=== PATIENT | male | born 1975 | race Caucasian/White ===

== ENCOUNTER 2023-05-06 10:56 | Inpatient (IN) | payer MEDICAID, SELFPAY ==
[2023-05-06] VITALS (75 sets, daily range): BP systolic 114–155; BP diastolic 75–100; PULSE 76–115; RESP 9–22; TEMP 36.6–37.2; O2SAT 85–97
--- NOTE | 2023-05-06 11:00 | RT.EKG_ITS ---
APPROVED REPORT Exam: Resting ECG Reason for Exam: sob Patient Location: E HR:98 bpm ECG Measurements Heart Rate 98 AXIS UT 196 P 72 QRSd 94 QRS 67 QT 363 T 69 QTc 464 Conclusion Sinus rhythm...normal P axis, V-rate 60- 99 Physician: no stemi
[2023-05-06] MEDS: predniSONE 20 MG TAB 40 MG PO (11:40)
[2023-05-06] MEDS: Acetaminophen 500 MG TAB 1000 MG PO (11:40)
[2023-05-06] MEDS: Ibuprofen 600 MG TAB PO (11:40)
[2023-05-06] MEDS: Albuterol/Ipratropium 3 ML UPD VIAL UPD (11:42)
[2023-05-06] MEDS: Lactated Ringers 1,000 ML 1000 ML IV (12:02)
[2023-05-06 12:18] LABS: Abs Immature Grans 0.01 10^3/uL (0.0-0.06); Absolute Basophil Count 0.06 10^3/uL (0.0-0.2); Absolute Eosinophil Count 0.17 10^3/uL (0.0-0.7); Absolute Lymphocyte Count 2.34 10^3/uL (1.2-3.4); Absolute Monocyte Count 0.37 10^3/uL (0.1-0.8); Basophils % 1.4; Eosinophils % 4.1; HCT 47.1 % (40.0-50.0); HGB 16.4 g/dL (13.5-17.5); Immature Grans % 0.2; Lymphocytes % 56.4; MCH 32.1 pg (27.0-33.0); MCHC 34.8 % (32.0-36.0); MCV 92 fL (80-95); MPV 8.9 fL (8.0-11.0); Monocytes % 8.9; Platelet Count 157 10^3/uL (130-400); RBC 5.11 10^6/uL (4.36-5.78); RDW-SD 41.5 fL; WBC 4.15 10^3/uL (4.4-10.8)
[2023-05-06] MEDS: LORazepam 2 MG/ML VIAL IVP (12:27)
[2023-05-06 12:35] LABS: ALT 58 U/L (16-63); AST 53 U/L (15-37); Albumin 3.7 g/dL (3.4-5.0); Alkaline Phosphatase 76 U/L (46-116); Anion Gap 9.6 mmol/L (3-11); BUN 9 mg/dL (7-18); Bilirubin, Total 0.4 mg/dL (0.2-1.0); CO2 28.4 mmol/L (21.0-32.0); CREATININE 0.8 mg/dL (0.70-1.30); Calcium 8.8 mg/dL (8.5-10.1); Chloride 99 mmol/L (98-107); ETHANOL BLOOD 244.8 mg/dL (<10); Estimated GFR 108.49 (mL/min/1.73m2); Glucose 163 mg/dL (74-106); Lipase 248 U/L (16-77); Potassium 3.8 mmol/L (3.5-5.1); Sodium 137 mmol/L (136-145); Total Protein 8.1 g/dL (6.4-8.2)
--- NOTE | 2023-05-06 12:40 | ED.GENADUL_ITS ---
Discharge Plan Discharge Details Chief Complaint: SOB Primary Care Provider: None,None ED Provider: Kirstie Sanchez Home Meds and New Rx's Prescriptions: No Action levalbuterol tartrate [Xopenex HFA] 1 PUFF HFA aerosol inhaler 2 puff Inhalation PRN PRN (Reason: Shortness Of Breath) clonidine HCl [Catapres] 0.1 MG tablet 0.1 mg PO BID hydroxyzine pamoate [Vistaril] 50 MG capsule 100 mg PO BID naproxen 500 MG tablet 500 mg PO BID cyclobenzaprine 10 MG tablet 10 mg PO TID PRN (Reason: shoulder pain) Qty: 9 0RF Medical Decision Making This 48-year-old male presents with report of alcohol withdrawal symptoms and a positive COVID test at home with upper respiratory symptoms, reporting shortness of breath, wheezing, fever, chills, tremulousness Rapid COVID and PCR COVID-negative, patient is alert, oriented, tremulous, tongue fasciculations, diaphoresis, tachycardia, last drink was just before arrival 24 ounce beer Denies auditory or visual hallucinations, states he feels anxious, has a headache Denies any additional illicit drug use, takes Suboxone daily as prescribed No leukocytosis, glucose 163 lipase 248, alcohol 244, at this time, patient appears to be COVID-negative although does have a cough and some shortness of breath, chest x-ray does not show obvious infiltrate received DuoNeb, prednisone, 2 mg of IV Ativan tachycardia has improved, patient longer diaphoretic, tremulousness mild tremulousness remains patient had his typical 15 beers yesterday but did not consume half pint of vodka as he typically consumes PERRLA, cranial nerves II through XII intact, alert and oriented x4, sinus tachycardia, lungs clear to auscultation, no peripheral edema Patient is requesting detox at this time, he is fully alert and oriented, pupils equal round reactive to light and accommodation, able to follow basic commands with a nonfocal neurological exam aside from tremulousness Patient will need to be admitted for alcohol withdrawal, right pancreatitis, case discussed with Dr. Sanchez, hospitalist, will receive IV fluids, IV Ativan, IV phenobarbital Of note I suspect patient has sleep apnea, when he is asleep he does become hypoxic, as soon as he awakes his oxygen level increases to 93 to 94% on room air Of note, patient will need ICU level monitoring secondary to possible complicated alcohol withdrawal with IV Ativan and IV phenobarbital administration HPI General Date/Time Provider Initiated Documentation: 05/06/23 11:09 . HPI Narrative: 48-year-old male with history of polysubstance abuse presents with report of COV ID and alcohol withdrawal. He has been symptomatic since Wednesday reportedly. He also states he is trying to taper himself off alcohol. Was had 24 ounces of mixed drink just prior to arrival secondary to significant tremulousness per patient. States he skips the vodka and attempt to taper himself off yesterday, did drink beer does have a history of opiate abuse, on Suboxone per patient. Drinks 15,24 ounce beers daily and half pint of vodka, denies known falls or injuries. Denies any headache. Has had chills, has not checked his temperature. States he has a history of alcohol withdrawal seizures. Denies auditory or visual hallucinations. Related Data Home Medications Medication Instructions Recorded Confirmed levalbuterol tartrate 45 2 puff inhalation PRN PRN 02/17/13 02/19/16 mcg/actuation aerosol inhaler Shortness Of Breath (Xopenex HFA) clonidine HCl 0.1 mg tablet 0.1 mg PO BID 02/19/16 02/19/16 (Catapres) cyclobenzaprine 10 mg tablet 10 mg PO TID PRN shoulder pain #9 02/19/16 tabs hydroxyzine pamoate 50 mg capsule 100 mg PO BID 02/19/16 02/19/16 (Vistaril) naproxen 500 mg tablet 500 mg PO BID 02/19/16 02/19/16 Previous Rx's Medication Instructions Recorded cyclobenzaprine 10 mg tablet 10 mg PO TID PRN shoulder pain #9 02/19/16 tabs Allergies Allergy/AdvReac Type Severity Reaction Status Date / Time Environmental Allergy Intermediate Asthma Uncoded 02/19/16 16:30 Exacerbation General Stated Complaint: SOB RASTA: 3 PFSH All Active Problems (Updated 05/06/23 @ 13:29 by Perez Sanchez MD) COVID (Acute) Alcohol withdrawal syndrome (Acute) Social History Smoking/Tobacco Use Status: Former Tobacco Use Smoking risk assessment performed?: Yes Drug use: Occasionally Substance use type: crack/cocaine Course Vital Signs Vital signs: Vital Signs Temperature 37.2 C 05/06/23 11:04 Pulse 110 H 05/06/23 11:04 Respiratory Rate 20 05/06/23 11:04 Blood Pressure 133/90 05/06/23 11:04 Pulse Oximetry 94 05/06/23 11:04 Temperature 37.2 C 05/06/23 11:04 Temperature Source Oral 05/06/23 11:04 Pulse 110 H 05/06/23 11:04 Respiratory Rate 20 05/06/23 11:04 Respiratory Effort Normal 05/06/23 11:48 Respiratory Depth Normal 05/06/23 11:48 Respiratory Pattern Normal 05/06/23 11:48 Blood Pressure 133/90 05/06/23 11:04 Blood Pressure Position Sitting 05/06/23 11:04 Pulse Oximetry 94 05/06/23 11:04 Oxygen Delivery Method Room Air 05/06/23 11:04 Oxygen Flow Rate 0 05/06/23 11:04 Lab/Test Results Lab/Test Results: Laboratory Tests Range/Units 05/06/23 05/06/23 05/06/23 12:05 12:05 12:05 WBC (4.4-10.8) 10^3/uL 4.15 L RBC (4.36-5.78) 10^6/uL 5.11 Hgb (13.5-17.5) g/dL 16.4 Hct (40.0-50.0) % 47.1 MCV (80-95) fL 92 MCH (27.0-33.0) pg 32.1 MCHC (32.0-36.0) % 34.8 RDW (11.8-14.1) % 12.0 Plt Count (130-400) 10^3/uL 157 MPV (8.0-11.0) fL 8.9 Immature Gran % 0.2 Neutrophils % 29.0 Lymphocytes % 56.4 Monocytes % 8.9 Eosinophils % 4.1 Basophils % 1.4 Nucleated RBC % (0.0-0.3) % 0.0 Absolute Neutrophils (1.2-6.7) 10^3/uL 1.20 Absolute Lymphocytes (1.2-3.4) 10^3/uL 2.34 Absolute Monocytes (0.1-0.8) 10^3/uL 0.37 Absolute Eosinophils (0.0-0.7) 10^3/uL 0.17 Absolute Basophils (0.0-0.2) 10^3/uL 0.06 Sodium (136-145) mmol/L 137 Potassium (3.5-5.1) mmol/L 3.8 Chloride (98-107) mmol/L 99 Carbon Dioxide (21.0-32.0) mmol/L 28.4 Anion Gap (3-11) mmol/L 9.6 BUN (7-18) mg/dL 9 Creatinine (0.70-1.30) mg/dL 0.8 Est GFR (CKD-EPI 2020) (mL/min/1.73m2) 108.49 Glucose (74-106) mg/dL 163 H Calcium (8.5-10.1) mg/dL 8.8 Magnesium (1.8-2.4) mg/dL 2.0 Total Bilirubin (0.2-1.0) mg/dL 0.4 AST (15-37) U/L 53 H ALT (16-63) U/L 58 Alkaline Phosphatase (46-116) U/L 76 Total Protein (6.4-8.2) g/dL 8.1 Albumin (3.4-5.0) g/dL 3.7 Lipase (16-77) U/L 248 H Cancelled Ethyl Alcohol (<10) mg/dL 244.8 H PAWSS Have you Been Recently Intoxicated or Drunk Within the Last 30 days?: No Have you Ever Experienced Previous Episodes of Alcohol Withdrawal?: Yes Have you ever Experienced Withdrawal Seizures?: Yes Have you ever Experienced Delirium Tremens(DT)s?: Yes Have you ever undergone Alcohol Rehabilitation Treatment (i.e, inpt ot outpatient treatment programs)?: Yes Have you ever Experienced Blackouts?: Yes Have you ever Combined Alcohol with other Downers within the last 90 days?: Yes Have you ever Combined Alcohol with any other Substance of Abuse during the last 90 days?: Yes Positive Blood Alcohol level on Presentation? [PCS.BAL]: Unable to Obtain Evidence of Increased Autonomic Activity (i.e. HR>120, tremor, sweating, agitation, nausea)?: Yes Result: 8
[2023-05-06 12:53] LABS: Source Nasal/Nares
--- NOTE | 2023-05-06 13:15 | DI.RAD_ITS ---
Exam(s) XR PORTABLE CHEST AP EXAM: XR PORTABLE CHEST AP CLINICAL HISTORY: shortness of breath, cough, covid. TECHNIQUE: 2D digital imaging was performed. COMPARISON: No exams were available for comparison FINDINGS: Single AP portable view. Heart size is upper normal. The mediastinum is not widened. Lungs are clear. No infiltrates nor obvious pleural effusions. IMPRESSION: No acute pulmonary findings on this single AP portable view of the chest. DATA REPOSITORY: RADIATION DOSE DELIVERED:
--- NOTE | 2023-05-06 13:21 | W.PM.HP.N ---
Date of service: 05/06/23 Time of Service: : Assessment and Plan Assessment and plan (1) Alcohol withdrawal syndrome: Status: Acute Assessment and plan: -as noted above, patient presented with SOB but was found to have significant signs of alcohol withdrawal with an initial CIWA of 12 -initially given benzo in ED -will be admitted to ICU on phenobarbital protocol after loading dose to be given in ED -monitor on CIWA protocol -history of withdrawal seizures, though reportedly last was many years ago -PO/IV vitamin replacement as tolerated (2) COVID: Status: Acute Assessment and plan: -positive home test, though initially negative in ED -vitals stable, no hypoxia -contact precautions -will initiate treatment if patients respiratory status worsens History of Present Illness History of Present Illness Chief Complaint: SOB Narrative: 48-year-old with past medical history of alcohol use disorders and previous alcohol withdrawal with seizures presented to the emergency department with a positive home COVID test and upper respiratory symptoms including shortness of breath, wheezing, fever, chills and tremulousness. Patient states that he began having fevers, chills and shortness of breath beginning 3 days prior to arrival in the emergency department. During this time he states that he began to wean himself down on his alcohol intake which is normally a liter of vodka and roughly 15x 24 ounce beers daily. In the emergency department patient was noted as having normal vital signs, normal CBC and CMP. Did have a positive home COVID test, his rapid test in the emergency department was negative and a antigen chest was sent. However, the patient was noted as being significantly tremulous and when checked his CIWA score was 12. He was initially given IV Ativan, and his alcohol level was noted to be 244. At which time emergency room PA paged hospitalist for admission for patient with severe alcohol withdrawal with a history of known alcohol withdrawal seizures he will require admission to the intensive care unit for IV phenobarbital protocol. Review of Systems All systems reviewed & are unremarkable except as noted in HPI and below PFSH All Active Problems (Updated 05/06/23 @ 13:29 by Perez Sanchez MD) COVID (Acute) Alcohol withdrawal syndrome (Acute) Social History Smoking/Tobacco Use Status: Former Tobacco Use Smoking risk assessment performed?: Yes Drug use: Occasionally Substance use type: crack/cocaine Meds Allergies and Home Medications Allergies Allergy/AdvReac Type Severity Reaction Status Date / Time Environmental Allergy Intermediate Asthma Uncoded 02/19/16 16:30 Exacerbation Home Medications Medication Instructions Recorded Confirmed Type levalbuterol tartrate 45 2 puff inhalation PRN PRN 02/17/13 02/19/16 History mcg/actuation aerosol inhaler Shortness Of Breath (Xopenex HFA) clonidine HCl 0.1 mg tablet 0.1 mg PO BID 02/19/16 02/19/16 History (Catapres) cyclobenzaprine 10 mg tablet 10 mg PO TID PRN shoulder pain #9 02/19/16 Rx tabs hydroxyzine pamoate 50 mg capsule 100 mg PO BID 02/19/16 02/19/16 History (Vistaril) naproxen 500 mg tablet 500 mg PO BID 02/19/16 02/19/16 History Exam Narrative Exam Narrative: Well appearing but mildly anxious/tremulous gentleman sitting up on the edge of the bed in no acute distress, AOx4, heart RRR, lungs CTAB, abdomen soft, non-tender, non-distended Results Labs 05/06/23 12:05 05/06/23 12:05 Labs: Laboratory Results - last 24 hr 05/06/23 05/06/23 05/06/23 12:05 12:05 12:05 WBC 4.15 L RBC 5.11 Hgb 16.4 Hct 47.1 MCV 92 MCH 32.1 MCHC 34.8 RDW 12.0 Plt Count 157 MPV 8.9 Immature Gran % 0.2 Neutrophils % 29.0 Lymphocytes % 56.4 Monocytes % 8.9 Eosinophils % 4.1 Basophils % 1.4 Nucleated RBC % 0.0 Absolute Neutrophils 1.20 Absolute Lymphocytes 2.34 Absolute Monocytes 0.37 Absolute Eosinophils 0.17 Absolute Basophils 0.06 Sodium 137 Potassium 3.8 Chloride 99 Carbon Dioxide 28.4 Anion Gap 9.6 BUN 9 Creatinine 0.8 Est GFR (CKD-EPI 2020) 108.49 Glucose 163 H Calcium 8.8 Magnesium 2.0 Total Bilirubin 0.4 AST 53 H ALT 58 Alkaline Phosphatase 76 Total Protein 8.1 Albumin 3.7 Lipase 248 H Cancelled Ethyl Alcohol 244.8 H COVID-19 Source 05/06/23 12:45 WBC RBC Hgb Hct MCV MCH MCHC RDW Plt Count MPV Immature Gran % Neutrophils % Lymphocytes % Monocytes % Eosinophils % Basophils % Nucleated RBC % Absolute Neutrophils Absolute Lymphocytes Absolute Monocytes Absolute Eosinophils Absolute Basophils Sodium Potassium Chloride Carbon Dioxide Anion Gap BUN Creatinine Est GFR (CKD-EPI 2020) Glucose Calcium Magnesium Total Bilirubin AST ALT Alkaline Phosphatase Total Protein Albumin Lipase Ethyl Alcohol COVID-19 Source Nasal/Nares Last Vital Signs Temp 98.9 F 05/06/23 11:04 Pulse 88 05/06/23 13:01 Resp 16 05/06/23 13:01 BP 120/84 05/06/23 13:01 Pulse Ox 91 L 05/06/23 13:01 PAWSS Have you Been Recently Intoxicated or Drunk Within the Last 30 days?: No Have you Ever Experienced Previous Episodes of Alcohol Withdrawal?: Yes Have you ever Experienced Withdrawal Seizures?: Yes Have you ever Experienced Delirium Tremens(DT)s?: Yes Have you ever undergone Alcohol Rehabilitation Treatment (i.e, inpt ot outpatient treatment programs)?: Yes Have you ever Experienced Blackouts?: Yes Have you ever Combined Alcohol with other Downers within the last 90 days?: Yes Have you ever Combined Alcohol with any other Substance of Abuse during the last 90 days?: Yes Positive Blood Alcohol level on Presentation? [PCS.BAL]: Unable to Obtain Evidence of Increased Autonomic Activity (i.e. HR>120, tremor, sweating, agitation, nausea)?: Yes Result: 8 Time Spent Time spent with Patient: 55-74 minutes (60) Time was spent: preparing to see the patient(eg.review tests), obtaining and/or reviewing separately otained hiistory, ordering medications,tests, procedures, referring, communicating with other health career development associate, indepentently interpreting results, counseling the patient and care coordination
[2023-05-06 13:28] LABS: COVID-19 PCR Negative (Negative)
[2023-05-06 13:45] LABS: Troponin I < 50 ng/L (<or=60)
[2023-05-06] MEDS: PHENobarbital 200 MG in Normal Saline 50 ML 100 MG IVPB (14:30)
[2023-05-06] MEDS: PHENobarbital 130 MG/ML VIAL IVP ×2 (16:22→18:31)
[2023-05-06] MEDS: Normal Saline Flush 10 ML SYR (16:23)
[2023-05-06] MEDS: THIAMINE 100 MG in Normal Saline 100 ML 200 MG IVPB (18:31)
[2023-05-06] MEDS: Gabapentin 300 MG CAP PO (21:20)
[2023-05-06] MEDS: cloNIDine 0.1 MG TAB PO (21:20)
[2023-05-06] MEDS: clonazePAM 0.5 MG TAB PO (21:20)
[2023-05-06] MEDS: QUEtiapine 100 MG TAB 200 MG PO (21:21)
[2023-05-07] VITALS (40 sets, daily range): BP systolic 108–148; BP diastolic 77–102; PULSE 67–88; RESP 7–19; TEMP 36.4–37; O2SAT 90–97
[2023-05-07] MEDS: PHENobarbital 130 MG/ML VIAL IVP ×5 (01:17→20:13)
[2023-05-07] MEDS: Normal Saline Flush 10 ML SYR ×3 (01:17→16:15)
[2023-05-07] MEDS: Albuterol HFA 8 GM 60 PUFF INH IH (01:21)
[2023-05-07 06:34] LABS: Abs Immature Grans 0.01 10^3/uL (0.0-0.06); Absolute Basophil Count 0.03 10^3/uL (0.0-0.2); Absolute Eosinophil Count 0.03 10^3/uL (0.0-0.7); Absolute Lymphocyte Count 1.71 10^3/uL (1.2-3.4); Absolute Monocyte Count 0.43 10^3/uL (0.1-0.8); Basophils % 0.7; Eosinophils % 0.7; HCT 43.3 % (40.0-50.0); HGB 15.1 g/dL (13.5-17.5); Immature Grans % 0.2; Lymphocytes % 40.7; MCH 32.5 pg (27.0-33.0); MCHC 34.9 % (32.0-36.0); MCV 93 fL (80-95); MPV 9.7 fL (8.0-11.0); Monocytes % 10.2; Neutrophils % 47.5; Platelet Count 124 10^3/uL (130-400); RBC 4.64 10^6/uL (4.36-5.78); RDW 11.9 % (11.8-14.1); RDW-SD 41.1 fL
[2023-05-07 07:04] LABS: ALT 44 U/L (16-63); AST 37 U/L (15-37); Albumin 3.4 g/dL (3.4-5.0); Alkaline Phosphatase 65 U/L (46-116); Bilirubin, Direct 0.1 mg/dL (0.0-0.2); Bilirubin, Total 0.7 mg/dL (0.2-1.0); PHOSPHORUS 3.5 mg/dL (2.6-4.7); Total Protein 7.4 g/dL (6.4-8.2)
[2023-05-07] MEDS: cloNIDine 0.1 MG TAB PO ×2 (08:39→20:13)
[2023-05-07] MEDS: Folic Acid 1 MG TAB PO (08:39)
[2023-05-07] MEDS: Escitalopram 20 MG TAB PO (08:39)
[2023-05-07] MEDS: Buprenorphine/Naloxone 8 mg/2 mg FILM 3 EACH SL (08:39)
[2023-05-07] MEDS: Gabapentin 300 MG CAP PO ×3 (08:39→20:13)
[2023-05-07] MEDS: Thiamine 100 MG TAB PO (08:39)
[2023-05-07] MEDS: Multivitamin TAB 1 TAB PO (08:39)
[2023-05-07] MEDS: clonazePAM 0.5 MG TAB PO ×2 (08:40→20:14)
--- NOTE | 2023-05-07 08:57 | INITIAL_ITS ---
Date of service: 05/07/23 Time of Service: 08:57 Care Management Initial Assmt Initial Assessment REASON FOR HOSPITALIZATION:: ETOH withdrawal PREVIOUS FUNCTIONAL STATUS/SOCIAL/FAMILY SUPPORTS:: Chris lives in [place] with his roommate Santa Claus. He is unemployed. His girlfriend Chantell lives in [place]. Chris is reportedly active and independent at baseline. He is able to drive, but does not have a license. CURRENT FUNCTIONAL STATUS:: Chris is being closely monitored and treated in the ICU. He is on Phenobarb per CIWA protocol and unable to participate in this initial assessment. CM obtained information from his girlfriend Chantell via phone (on HIPAA). Chantell shares that Chris previously went to a Rehab in [place] and was sober for 14 months. ADVANCE DIRECTIVES:: None on file Has patient been provided with info about the portal/API?: Yes Did the patient sign up for the portal?: No CODE STATUS:: Full Code INSURANCE COVERAGE / FINANCIAL ISSUES:: Medicaid [facility] CURRENT HOME/COMMUNITY SERVICES/EQUIPMENT:: None PRIMARY CARE PHYSICIAN:: Pierre Dahl/[facility] in [place] POTENTIAL DISCHARGE NEEDS:: Sobriety resources, follow up appointments, discharge plan of care PATIENT/FAMILY EDUCATION NEEDS:: Review discharge instructions, limitations, medications and plan to follow up with community providers. Discuss ask me three. ANTICIPATED BARRIERS TO DISCHARGE:: None identified. TRANSPORTATION:: Anticipate via private vehicle with friend vs. RCT PLAN:: Zachery is being closely monitored in the ICU. Per provider, he is scoring on CIWA and has a HX of ETOH withdrawal seizures. CM will page [facility] when pt is more awake and clear. Disposition is undetermined at this time. Anticipated discharge is home with sobriety support in the community. Transportation is dependent on disposition. CM will follow. PFSH All Active Problems (Updated 05/07/23 @ 10:44 by Perez Sanchez MD) Opiate dependence (Acute) Alcohol withdrawal syndrome (Acute) Social History Smoking/Tobacco Use Status: Former Tobacco Use Smoking risk assessment performed?: Yes Drug use: Occasionally Substance use type: crack/cocaine Housing: house
[2023-05-07 09:54] LABS: Source Nasopharynx
[2023-05-07 09:55] LABS: COVID-19 PCR Negative (Negative); Influenza A PCR Negative (Negative); Influenza B PCR Negative (Negative); RSV PCR Negative (Negative)
--- NOTE | 2023-05-07 10:39 | W.PM.PROGNOT ---
Date of Service Date of service: 05/07/23 Time of Service: 10:40 Assessment and Plan Assessment and plan (1) Alcohol withdrawal syndrome: Status: Acute Assessment and plan: -as noted above, patient presented with SOB but was found to have significant signs of alcohol withdrawal with an initial CIWA of 12 in the ED -initially given benzo in ED -will be admitted to ICU on phenobarbital protocol after loading dose to be given in ED -monitor on CIWA protocol; required 1 dose IV phenobarb overnight 05/06 -patient at high risk of worsening withdrawal symptoms given his elevated EtOH in the ED and that his level is likely now just reaching 0 -history of withdrawal seizures, though reportedly last was many years ago -PO/IV vitamin replacement as tolerated (2) COVID: Status: Resolved Assessment and plan: -positive home test, though initially negative in ED -vitals stable, no hypoxia -repeat PCR test negative (3) Opiate dependence: Status: Acute Assessment and plan: -continue home suboxone, lexapro, quetiapine HS Subjective Subjective Patient reports: no new complaints Interval history since last seen: Patient states that he is doing well this morning. He states that he is feeling a little sweaty and tremulous, but that it is not that bad at the moment. Exam Narrative Exam Narrative: Well appearing gentleman laying in bed in mild acute distress due to alcohol withdrawal, AOx4, heart RRR, lungs CTAB, abdomen soft, non-tender, non-distended Objective Last Vital Signs Temp 98.6 F 05/07/23 08:30 Pulse 80 05/07/23 08:30 Resp 10 L 05/07/23 08:30 BP 136/100 H 05/07/23 08:30 Pulse Ox 97 05/07/23 08:30 Laboratory Results - last 24 hr 05/06/23 05/06/23 05/06/23 11:52 12:05 12:05 WBC 4.15 L RBC 5.11 Hgb 16.4 Hct 47.1 MCV 92 MCH 32.1 MCHC 34.8 RDW 12.0 Plt Count 157 MPV 8.9 Immature Gran % 0.2 Neutrophils % 29.0 Lymphocytes % 56.4 Monocytes % 8.9 Eosinophils % 4.1 Basophils % 1.4 Nucleated RBC % 0.0 Absolute Neutrophils 1.20 Absolute Lymphocytes 2.34 Absolute Monocytes 0.37 Absolute Eosinophils 0.17 Absolute Basophils 0.06 Sodium Cancelled 137 Potassium Cancelled 3.8 Chloride Cancelled 99 Carbon Dioxide Cancelled 28.4 Anion Gap Cancelled 9.6 BUN Cancelled 9 Creatinine Cancelled 0.8 Est GFR (CKD-EPI 2020) Cancelled 108.49 Glucose Cancelled 163 H Calcium Cancelled 8.8 Phosphorus Magnesium 2.0 Total Bilirubin Cancelled 0.4 Conjugated Bilirubin AST Cancelled 53 H ALT Cancelled 58 Alkaline Phosphatase Cancelled 76 Troponin I Total Protein Cancelled 8.1 Albumin Cancelled 3.7 Lipase 248 H Ethyl Alcohol 244.8 H COVID-19 Source SARS-CoV-2 (PCR) Influenza Type A (PCR) Influenza Type B (PCR) RSV (PCR) 05/06/23 05/06/23 05/06/23 12:05 12:05 12:45 WBC RBC Hgb Hct MCV MCH MCHC RDW Plt Count MPV Immature Gran % Neutrophils % Lymphocytes % Monocytes % Eosinophils % Basophils % Nucleated RBC % Absolute Neutrophils Absolute Lymphocytes Absolute Monocytes Absolute Eosinophils Absolute Basophils Sodium Potassium Chloride Carbon Dioxide Anion Gap BUN Creatinine Est GFR (CKD-EPI 2020) Glucose Calcium Phosphorus Magnesium Total Bilirubin Conjugated Bilirubin AST ALT Alkaline Phosphatase Troponin I < 50 Total Protein Albumin Lipase Cancelled Ethyl Alcohol COVID-19 Source Nasal/Nares SARS-CoV-2 (PCR) Negative Influenza Type A (PCR) Influenza Type B (PCR) RSV (PCR) 05/07/23 05/07/23 05/07/23 05:24 05:24 08:22 WBC 4.20 L RBC 4.64 Hgb 15.1 Hct 43.3 MCV 93 MCH 32.5 MCHC 34.9 RDW 11.9 Plt Count 124 L MPV 9.7 Immature Gran % 0.2 Neutrophils % 47.5 Lymphocytes % 40.7 Monocytes % 10.2 Eosinophils % 0.7 Basophils % 0.7 Nucleated RBC % 0.0 Absolute Neutrophils 2.00 Absolute Lymphocytes 1.71 Absolute Monocytes 0.43 Absolute Eosinophils 0.03 Absolute Basophils 0.03 Sodium Potassium Chloride Carbon Dioxide Anion Gap BUN Creatinine Est GFR (CKD-EPI 2020) Glucose Calcium Phosphorus 3.5 Magnesium Total Bilirubin 0.7 Conjugated Bilirubin 0.1 AST 37 ALT 44 Alkaline Phosphatase 65 Troponin I Total Protein 7.4 Albumin 3.4 Lipase Ethyl Alcohol COVID-19 Source Cancelled SARS-CoV-2 (PCR) Cancelled Influenza Type A (PCR) Cancelled Influenza Type B (PCR) Cancelled RSV (PCR) Cancelled 05/07/23 05/07/23 08:35 08:35 WBC RBC Hgb Hct MCV MCH MCHC RDW Plt Count MPV Immature Gran % Neutrophils % Lymphocytes % Monocytes % Eosinophils % Basophils % Nucleated RBC % Absolute Neutrophils Absolute Lymphocytes Absolute Monocytes Absolute Eosinophils Absolute Basophils Sodium Potassium Chloride Carbon Dioxide Anion Gap BUN Creatinine Est GFR (CKD-EPI 2020) Glucose Calcium Phosphorus Magnesium Total Bilirubin Conjugated Bilirubin AST ALT Alkaline Phosphatase Troponin I Total Protein Albumin Lipase Ethyl Alcohol COVID-19 Source Cancelled Nasopharynx SARS-CoV-2 (PCR) Cancelled Negative Influenza Type A (PCR) Negative Influenza Type B (PCR) Negative RSV (PCR) Negative PAWSS Have you Been Recently Intoxicated or Drunk Within the Last 30 days?: Yes Have you Ever Experienced Previous Episodes of Alcohol Withdrawal?: Yes Have you ever Experienced Withdrawal Seizures?: Yes Have you ever Experienced Delirium Tremens(DT)s?: Yes Have you ever undergone Alcohol Rehabilitation Treatment (i.e, inpt ot outpatient treatment programs)?: Yes Have you ever Experienced Blackouts?: Yes Have you ever Combined Alcohol with other Downers within the last 90 days?: No Have you ever Combined Alcohol with any other Substance of Abuse during the last 90 days?: Yes Positive Blood Alcohol level on Presentation? [PCS.BAL]: Yes Evidence of Increased Autonomic Activity (i.e. HR>120, tremor, sweating, agitation, nausea)?: Yes Result: 10 Time Spent with Patient Time Spent with Patient: >50 minutes (60min; Patient remains in the ICU for close monitoring in the setting of severe alcohol withdrawal and prevention of from severe neurologic deterioration often associated with alcohol withdrawal.) Time was spent: preparing to see the patient(eg.review tests), obtaining and/or reviewing separately otained hiistory, ordering medications,tests, procedures, referring, communicating with other health pediatric care coordinator, indepentently interpreting results, counseling the patient and care coordination
[2023-05-07 14:11] LABS: *AMPHETAMINES SCREEN URINE Negative (Negative); *BARBITURATES SCREEN URINE Positive (Negative); *BENZODIAZEPINES SCREEN URINE Negative (Negative); Cannabinoids THC Negative (Negative); Cocaine Screen,Urine Positive (Negative); METHADONE URINE SCREEN Negative (Negative); OPIATES URINE SCREEN Negative (Negative)
[2023-05-07 14:15] LABS: Tricyclic Antidepressants Positive (Negative)
[2023-05-07] MEDS: QUEtiapine 100 MG TAB 200 MG PO (20:14)
[2023-05-08] VITALS (18 sets, daily range): BP systolic 103–142; BP diastolic 67–98; PULSE 0–107; RESP 9–30; TEMP 36–36.5; O2SAT 92–95
[2023-05-08] MEDS: PHENobarbital 130 MG/ML VIAL IVP (02:58)
[2023-05-08 06:59] LABS: Anion Gap 7.8 mmol/L (3-11); BUN 15 mg/dL (7-18); CO2 30.2 mmol/L (21.0-32.0); CREATININE 0.8 mg/dL (0.70-1.30); Calcium 8.8 mg/dL (8.5-10.1); Chloride 98 mmol/L (98-107); Estimated GFR 108.49 (mL/min/1.73m2); Glucose 90 mg/dL (74-106); Potassium 3.9 mmol/L (3.5-5.1); Sodium 136 mmol/L (136-145)
[2023-05-08] MEDS: Albuterol HFA 8 GM 60 PUFF INH IH (08:28)
[2023-05-08] MEDS: Gabapentin 300 MG CAP PO ×3 (09:00→20:27)
[2023-05-08] MEDS: clonazePAM 0.5 MG TAB PO ×2 (09:00→20:27)
[2023-05-08] MEDS: Folic Acid 1 MG TAB PO (09:00)
[2023-05-08] MEDS: Thiamine 100 MG TAB PO (09:00)
[2023-05-08] MEDS: Escitalopram 20 MG TAB PO (09:00)
[2023-05-08] MEDS: Multivitamin TAB 1 TAB PO (09:00)
[2023-05-08] MEDS: Buprenorphine/Naloxone 8 mg/2 mg FILM 3 EACH SL (09:00)
[2023-05-08] MEDS: cloNIDine 0.1 MG TAB PO ×2 (09:01→20:27)
--- NOTE | 2023-05-08 10:31 | W.PM.PROGNOT ---
Date of Service Date of service: 05/08/23 Time of Service: 10:31 Assessment and Plan Assessment and plan (1) Alcohol withdrawal syndrome: Status: Acute Assessment and plan: -as noted above, patient presented with SOB but was found to have significant signs of alcohol withdrawal with an initial CIWA of 12 in the ED -initially given benzo in ED -initially admitted to ICU on phenobarbital protocol after loading dose to be given in ED -monitor on CIWA protocol; required 1 dose IV phenobarb overnight 05/07 -transferring to Med/Surg -patient hit 15mg/kg limit, will now transition to PO phenobarb 100mg Q1hr PRN -history of withdrawal seizures, though reportedly last was many years ago -PO/IV vitamin replacement as tolerated (2) COVID: Status: Resolved Assessment and plan: -positive home test, though initially negative in ED -vitals stable, no hypoxia -repeat PCR test negative (3) Opiate dependence: Status: Acute Assessment and plan: -continue home suboxone, lexapro, quetiapine HS Subjective Subjective Interval history since last seen: Patient states that he is a little shakey this morning but has otherwise been doing well. Exam Narrative Exam Narrative: Well appearing gentleman laying in bed in mild acute distress due to alcohol withdrawal, AOx4, heart RRR, lungs CTAB, abdomen soft, non-tender, non-distended Objective Last Vital Signs Temp 97.5 F L 05/08/23 04:00 Pulse 99 H 05/08/23 09:21 Resp 30 H 05/08/23 09:21 BP 106/90 05/08/23 09:21 Pulse Ox 93 05/08/23 08:24 Laboratory Results - last 24 hr 05/07/23 05/08/23 13:30 05:25 Sodium 136 Potassium 3.9 Chloride 98 Carbon Dioxide 30.2 Anion Gap 7.8 BUN 15 Creatinine 0.8 Est GFR (CKD-EPI 2020) 108.49 Glucose 90 Calcium 8.8 Urine Opiates Screen Negative Urine Methadone Screen Negative Ur Barbiturates Screen Positive A Ur Tricyclics Screen Positive A Ur Amphetamines Screen Negative U Benzodiazepines Scrn Negative Urine Cocaine Screen Positive A Ur THC Screen Negative PAWSS Have you Been Recently Intoxicated or Drunk Within the Last 30 days?: Yes Have you Ever Experienced Previous Episodes of Alcohol Withdrawal?: Yes Have you ever Experienced Withdrawal Seizures?: Yes Have you ever Experienced Delirium Tremens(DT)s?: Yes Have you ever undergone Alcohol Rehabilitation Treatment (i.e, inpt ot outpatient treatment programs)?: Yes Have you ever Experienced Blackouts?: Yes Have you ever Combined Alcohol with other Downers within the last 90 days?: No Have you ever Combined Alcohol with any other Substance of Abuse during the last 90 days?: Yes Positive Blood Alcohol level on Presentation? [PCS.BAL]: Yes Evidence of Increased Autonomic Activity (i.e. HR>120, tremor, sweating, agitation, nausea)?: Yes Result: 10 Time Spent with Patient Time Spent with Patient: >50 minutes (75min) Time was spent: preparing to see the patient(eg.review tests), obtaining and/or reviewing separately otained hiistory, referring, communicating with other health human services care specialist, indepentently interpreting results, counseling the patient and care coordination
[2023-05-08] MEDS: QUEtiapine 100 MG TAB 200 MG PO (20:28)
[2023-05-09 07:45] VITALS: BP 147/81; PULSE 68; TEMP 36.5; O2SAT 95
[2023-05-09 07:54] VITALS: O2SAT 95
[2023-05-09 07:55] VITALS: BP 147/81; PULSE 68; O2SAT 95
[2023-05-09] MEDS: Buprenorphine/Naloxone 8 mg/2 mg FILM 3 EACH SL (08:26)
[2023-05-09] MEDS: Gabapentin 300 MG CAP PO (08:26)
[2023-05-09] MEDS: Thiamine 100 MG TAB PO (08:26)
[2023-05-09] MEDS: Multivitamin TAB 1 TAB PO (08:26)
[2023-05-09] MEDS: Folic Acid 1 MG TAB PO (08:26)
[2023-05-09] MEDS: Escitalopram 20 MG TAB PO (08:27)
[2023-05-09] MEDS: clonazePAM 0.5 MG TAB PO (08:27)
[2023-05-09] MEDS: cloNIDine 0.1 MG TAB PO (08:27)
--- NOTE | 2023-05-09 09:26 | W.PM.DS.N ---
Date of service: 05/09/23 Time of Service: 09:26 DS: Diagnosis Discharge Diagnosis (1) Alcohol withdrawal syndrome: Status: Acute Asessment and Plan: -patient presented with SOB but was found to have significant signs of alcohol withdrawal with an initial CIWA of 12 in the ED -initially given benzo in ED -initially admitted to ICU on phenobarbital protocol after loading dose to be given in ED -transitioned to PO phenobarb 05/08 requiring only one additional dose -withdrawal symptoms resolved (2) COVID: Status: Resolved Asessment and Plan: -positive home test, though initially negative in ED -vitals stable, no hypoxia -repeat PCR test negative (3) Opiate dependence: Status: Acute Discharge Plan Disposition Patient Disposition: Home Condition: Stable Discharge Details Reason For Visit: acute alcohol withdrawal Admit Date/Time: 05/06/23 13:19 Admit Provider: Perez Sanchez Attending Provider: Perez Sanchez Primary Care Provider: None,None Hospital Course Hospital Course: Patient presented after testing positive for COVID-19 at home and for alcohol withdrawal. He did well with IV phenobarbital and transition to PO prior to discharge. Additionally, he tested negative twice for COVID-19. Home Meds and New Rx's Prescriptions: Continued clonidine HCl [Catapres] 0.1 MG tablet 0.1 mg PO BID clonazepam 0.5 mg tablet 0.5 mg PO BID Patient Comments: TAKE ONE TABLET BY MOUTH TWICE A DAY quetiapine 200 mg tablet 200 mg PO HS Patient Comments: TAKE ONE TABLET BY MOUTH AT BEDTIME gabapentin 300 mg capsule 300 mg PO TID Patient Comments: TAKE ONE CAPSULE BY MOUTH THREE TIMES A DAY albuterol sulfate [Ventolin HFA] 90 mcg/actuation HFA aerosol inhaler 2 puff INHALATION Q6H PRN PRN Patient Comments: INHALE TWO PUFFS BY MOUTH EVERY 6 HOURS NEEDED FOR SHORTNESS OF BREATH escitalopram oxalate 20 mg tablet 20 mg PO DAILY Patient Comments: TAKE ONE TABLET BY MOUTH EVERY DAY buprenorphine-naloxone [Suboxone] 8-2 mg film 3 film sublingual DAILY Discharge Instructions Instructions: Alcohol Withdrawal (GEN) Activity:: Activity as Tolerated Equipment/Supplies:: No Equipment Needed Diet:: As Tolerated Discharge Orders Discharge Orders: Discharge Order (Routine); Ordered 05/09/23 Ordered By: Perez Sanchez DS: Summary Time Spent with Patient providing and/or coordinating discharge services: Greater than 30 minutes (35min) Status at Discharge Functional status at discharge: independent ambulation Overall status at discharge: patient is back to baseline Mental Status: mental status grossly normal Speech and Movement: speech and movement normal Mood: congruent mood Affect: normal affect Exam Narrative Exam Narrative: Well appearing gentleman laying in bed in no acute distress, AOx4, heart RRR, lungs CTAB, abdomen soft, non-tender, non-distended Psych Mental Status: mental status grossly normal Speech and Movement: speech and movement normal Mood: congruent mood Affect: normal affect DS: Data Vitals/I&O Vitals and I&O: Vital Signs Temperature 97.7 F 05/09/23 07:45 Temperature Source Temporal Artery Scan 05/09/23 07:45 Pulse 68 05/09/23 07:55 Pulse 0 L 05/08/23 20:33 Respiratory Rate 15 05/08/23 15:43 Respiratory Effort Normal, Non-Labored 05/09/23 07:45 Respiratory Depth Normal 05/09/23 07:45 Respiratory Pattern Normal 05/09/23 07:45 Blood Pressure 147/81 H 05/09/23 07:55 Blood Pressure Mean 101 05/09/23 07:55 Blood Pressure Position Sitting 05/08/23 09:00 Pulse Oximetry 95 05/09/23 07:55 Oxygen Delivery Method Room Air 05/09/23 07:45 Oxygen Flow Rate 0 05/09/23 07:45 Pain Level 0 05/09/23 07:45 Intake & Output 05/08/23 05/09/23 05/09/23 17:59 05:59 17:59 Intake Total 1460 / 1460 2765 / 4225 400 / 400 Output Total 1623 / 1623 1300 / 2923 1400 / 1400 Balance -163 / -163 1465 / 1302 -1000 / -1000 Intake: IV 101 / 101 Oral 1460 / 1460 2664 / 4124 400 / 400 Output: Urine 1623 / 1623 1300 / 2923 1400 / 1400 Other: Urine Color Yellow Pale Yellow Yellow Urine Appearance Clear Clear Clear Urine Odor Normal Strong Stool Size Large Stool Characteristics Soft Voiding Methods Bedside Commode PFSH All Active Problems (Updated 05/07/23 @ 10:44 by Perez Sanchez MD) Opiate dependence (Acute) Alcohol withdrawal syndrome (Acute) Social History Smoking/Tobacco Use Status: Former Tobacco Use Smoking risk assessment performed?: Yes Drug use: Occasionally Substance use type: crack/cocaine Housing: house Time Spent with Patient Time Spent with Patient: <45 minutes (35min) Time was spent: preparing to see the patient(eg.review tests), obtaining and/or reviewing separately otained hiistory, referring, communicating with other health client care representative, indepentently interpreting results, counseling the patient and care coordination
--- NOTE | 2023-05-09 13:47 | PDOC.CMDIS ---
Date of service: 05/09/23 Time of Service: 13:47 LACE Index Scoring Tool Questions: Length of Stay (in days): 3 Was the patient admitted via the E.D.?: Yes E.D. Visits: 0 Answers: Total Score: 6 Risk of Readmission: Low Risk Care Management Discharge Plan Reason for Hospitalization: ETOH withdrawal Discharge Plan: Chris will return home when ready per MD. [facility] resources reviewed, [facility] [employer] connected. He will follow up with community based supports and his PCP, Pierre Dahl/[facility] in [place] (CM requested PCP be added to chart). Patient/Family Education Needs: Review discharge instructions, discuss Ask Me Three.
== END 2023-05-09 09:40 | disposition home or self-care (01) | DRG 897 ==
LOC: ER 15:10 → ICU 15:38
PROVIDERS: Admitting Provider Family Medicine; Emergency Provider Physician Assistant; PCP Physician Assistant Medical; Visit Provider Family Medicine
DX: F10.139 Alcohol abuse with withdrawal, unspecified (principal); F11.20 Opioid dependence, uncomplicated; F10.129 Alcohol abuse with intoxication, unspecified; Y90.8 Blood alcohol level of 240 mg/100 ml or more; F14.90 Cocaine use, unspecified, uncomplicated; F19.10 Other psychoactive substance abuse, uncomplicated; Z87.891 Personal history of nicotine dependence
CPT/HCPCS: 36415; 80048; 80053; 80076; 80307; 83690; 87635; 87637; 93005; 94640; 96365; 96366; 96367; 99285; 71045; 80320; 83735; 84100; 84484; 85025; 93010; 99233; 99239; 99291; J2060; J2560; J7512; J7620

== ENCOUNTER 2024-02-18 17:46 | Inpatient (IN) | payer MEDICAID, SELFPAY ==
[2024-02-18] VITALS (56 sets, daily range): BP systolic 111–198; BP diastolic 68–172; PULSE 48–69; RESP 8–28; TEMP 34.8–36.2; O2SAT 88–98
--- NOTE | 2024-02-18 17:30 | RT.EKG_ITS ---
APPROVED REPORT Exam: Resting ECG Reason for Exam: overdose Patient Location: E HR:59 bpm ECG Measurements Heart Rate 59 AXIS KS 183 P 62 QRSd 97 QRS 72 QT 445 T 83 QTc 440 Conclusion Sinus bradycardia...rate< 60
--- NOTE | 2024-02-18 18:23 | W.ED.GENAD ---
Discharge Plan Disposition Patient Disposition: Admit to [facility] Discharge Details Clinical Impression: Overdose, Suicide attempt Primary Care Provider: Pierre Cardenas ED Provider: Marianne White Home Meds and New Rx's Prescriptions: No Action clonidine HCl [Catapres] 0.1 MG tablet 0.1 mg PO BID clonazepam 0.5 mg tablet 0.5 mg PO BID Patient Comments: TAKE ONE TABLET BY MOUTH TWICE A DAY quetiapine 200 mg tablet 200 mg PO HS Patient Comments: TAKE ONE TABLET BY MOUTH AT BEDTIME gabapentin 300 mg capsule 300 mg PO TID Patient Comments: TAKE ONE CAPSULE BY MOUTH THREE TIMES A DAY albuterol sulfate [Ventolin HFA] 90 mcg/actuation HFA aerosol inhaler 2 puff INHALATION Q6H PRN PRN Patient Comments: INHALE TWO PUFFS BY MOUTH EVERY 6 HOURS NEEDED FOR SHORTNESS OF BREATH escitalopram oxalate 20 mg tablet 20 mg PO DAILY Patient Comments: TAKE ONE TABLET BY MOUTH EVERY DAY buprenorphine-naloxone [Suboxone] 8-2 mg film 3 film sublingual DAILY clonazepam 1 mg tablet 1 mg PO TID Patient Comments: TAKE ONE TABLET BY MOUTH THREE TIMES A DAY propranolol 10 mg tablet 10 mg PO DAILY Patient Comments: TAKE ONE TABLET BY MOUTH EVERY DAY HPI General Date/Time Provider Initiated Documentation: 02/18/24 18:06. HPI Narrative: Zachery is a 48-year-old male who presents to the emergency department via EMS for overdose. He was found by neighbors who are concerned about his mental status. He reports that he took an unknown quantity of clonazepam and escitalopram. His clonazepam was filled on the , 90 tablets of 1 mg clonazepam. He denies other substance use such as alcohol. Says he is feeling sleepy, denies any discomfort. As he is somnolent and slow to answer questions, unable to obtain full history. Physical exam remarkable for patient who was oriented to self, not to place or date. He is covered in dirt, no signs of trauma. Easy work of breathing, send clear bilaterally. Normal heart sounds, bradycardia noted. Abdomen soft, nondistended, nontender to palpation. Moving all extremities. PERRL, EOMs intact. Moist mucous membranes. Call placed to poison control, clonazepam has risk of [employer] depression, while escitalopram poses risk of tachycardia and cardiac arrhythmia. Recommends observation for 6 to 8 hours until patient returns to baseline. Sitter at bedside. I independently interpreted the following tests: EKG remarkable for sinus bradycardia, rate 59. No changes consistent with acute ischemia. Normal QRS and QTc. CBC, CMP, EtOH, ASA, and APAP all reassuring. UDS positive for benzos only. 2129: Zachery has been resting comfortably with sitter at bedside. He is currently sleeping soundly with mild snoring, vital signs stable on monitor. He does appear to have sleep apnea, with occasional desats while sleeping. O2 via simple facemask keeps pulse ox in the mid 90s. 2144: Presented case to Dr Martines, hospitalist. As pt is still somnolent and unlikely to wake up and return to baseline before morning, plan to admit for observation and cardiac monitoring. 2099: Zachery woke up after catheter sample of urine obtained, bucking and attempting to climb out of bed. Haldol 4 mg and benadryl 25 mg IV given for anxiolysis, followed by a second dose of haldol 5 mg with adequate effect. Related Data Home Medications ?Medication ?Instructions ?Recorded ?Confirmed clonidine HCl 0.1 mg tablet 0.1 mg PO BID 02/19/16 05/06/23 (Catapres) albuterol sulfate 90 mcg/actuation 2 puff inhalation Q6H PRN PRN 05/06/23 05/06/23 aerosol inhaler (Ventolin HFA) buprenorphine 8 mg-naloxone 2 mg 3 film sublingual DAILY 05/06/23 05/06/23 sublingual film (Suboxone) clonazepam 0.5 mg tablet 0.5 mg PO BID 05/06/23 05/06/23 escitalopram oxalate 20 mg tablet 20 mg PO DAILY 05/06/23 05/06/23 gabapentin 300 mg capsule 300 mg PO TID 05/06/23 05/06/23 quetiapine 200 mg tablet 200 mg PO HS 05/06/23 02/18/24 clonazepam 1 mg tablet 1 mg PO TID 02/18/24 02/18/24 propranolol 10 mg tablet 10 mg PO DAILY 02/18/24 02/18/24 Allergies Allergy/AdvReac Type Severity Reaction Status Date / Time Environmental Allergy Intermediate Asthma Uncoded 02/19/16 16:30 Exacerbation General Stated Complaint: OD/Poison RASTA: 2 Review of Systems Narrative: see HPI Exam Const General: cooperative, comfortable and disheveled (flecks of dirt scattered over torso) Nutritional Appearance: average body habitus Orientation: alert and oriented to person Limitations: altered mental status HENFL Head: normal to inspection Ears: hearing grossly normal bilaterally Face and sinus: normal facial exam Eyes Periorbital: periorbital findings normal Pupils: PERRL EOM: EOM intact bilaterally Chest Chest: normal inspection of the chest Resp Effort & Inspection: normal respiratory effort and able to speak in complete sentences Auscultation: clear to auscultation bilaterally Cardio Jugular venous pressure: no JVD Rate: bradycardic Rhythm: regular rhythm Pulses: radial pulses present GI Inspection: normal to inspection and non-distended Palpation: soft and nontender Auscultation: normal bowel sounds Neuro General: moves all extremities and other (no facial droop noted) Speech: speech normal Motor: muscle tone normal throughout and strength 5/5 throughout Extrem General: normal to inspection Course Vital Signs Vital signs: Vital Signs Temperature 34.8 C L 02/18/24 17:49 Pulse 48 L 02/18/24 17:49 Respiratory Rate 10 L 02/18/24 17:49 Blood Pressure 198/172 H 02/18/24 17:49 Pulse Oximetry 92 02/18/24 17:49 Temperature 34.8 C L 02/18/24 17:49 Pulse 48 L 02/18/24 17:49 Respiratory Rate 10 L 02/18/24 17:49 Blood Pressure 198/172 H 02/18/24 17:49 Pulse Oximetry 92 02/18/24 17:49 Lab/Test Results Lab/Test Results: Laboratory Tests Range/Units 02/18/24 18:10 Salicylates Cancelled Ethyl Alcohol Cancelled Medical Decision Making Quality:SDOH Health Related Social Needs: No Data to Display PFSH All Active Problems (Updated 02/18/24 @ 22:29 by Suraj Martines) Asthma (Chronic) Depression with anxiety (Chronic) Intentional overdose of alprazolam (Acute) Suicide attempt (Acute) Overdose (Acute) Opiate dependence (Chronic) Social History Smoking/Tobacco Use Status: Former Tobacco Use Smoking risk assessment performed?: Yes Drug use: Occasionally Substance use type: crack/cocaine Housing: house
[2024-02-18 18:24] LABS: Abs Immature Grans 0.02 10^3/uL (0.0-0.06); Absolute Basophil Count 0.05 10^3/uL (0.0-0.2); Absolute Eosinophil Count 0.17 10^3/uL (0.0-0.7); Absolute Monocyte Count 0.54 10^3/uL (0.1-0.8); Absolute Neutrophil Count 3.46 10^3/uL (1.2-6.7); Basophils % 0.8 %; Eosinophils % 2.7 %; HCT 46.8 % (40.0-50.0); HGB 15.9 g/dL (13.5-17.5); Immature Grans % 0.3 %; Lymphocytes % 32.1 %; MCH 30.5 pg (27.0-33.0); MCV 90 fL (80-95); Monocytes % 8.7 %; Neutrophils % 55.4 %; Platelet Count 195 10^3/uL (130-400); RBC 5.21 10^6/uL (4.36-5.78); RDW 12.2 % (11.8-14.1); RDW-SD 40.2 fL; WBC 6.24 10^3/uL (4.4-10.8)
[2024-02-18 18:38] LABS: ALT 39 U/L (16-63); AST 23 U/L (15-37); Albumin 3.9 g/dL (3.4-5.0); Alkaline Phosphatase 76 U/L (46-116); Anion Gap 9.8 mmol/L (3-11); BUN 19 mg/dL (7-18); Bilirubin, Total 0.95 mg/dL (0.2-1.0); CO2 30.2 mmol/L (21.0-32.0); CREATININE 0.9 mg/dL (0.70-1.30); Calcium 9.1 mg/dL (8.5-10.1); Chloride 101 mmol/L (98-107); Glucose 108 mg/dL (74-106); Potassium 3.9 mmol/L (3.5-5.1); Sodium 141 mmol/L (136-145); Total Protein 8.1 g/dL (6.4-8.2)
[2024-02-18 18:39] LABS: ETHANOL BLOOD < 3.0 mg/dL (<10)
[2024-02-18 18:43] LABS: Salicylate 4.5 mg/dL (<2.8)
[2024-02-18 18:45] LABS: Acetaminophen < 2 ug/mL (10-30)
--- NOTE | 2024-02-18 22:04 | NUR.NOTE ---
Nursing Note: Pt woke to voice but could not was unable to follow commands. Did a straight cath using sterile technique. Urine collected. Pt became more alert but is not following commands and attempting to crawl out of bed. Security called and provider. Meds to be ordered.
--- NOTE | 2024-02-18 22:08 | NUR.NOTE ---
Nursing Note: Hand off report to REINALDO Boyd
[2024-02-18] MEDS: Haloperidol 5 MG/ML VIAL 4 MG IM/IV (22:13)
[2024-02-18] MEDS: diphenhydrAMINE 50 MG/ML VIAL 25 MG IVP (22:13)
--- NOTE | 2024-02-18 22:14 | W.PM.HP.N ---
Date of service: 02/18/24 Time of Service: 22:14 Assessment and Plan Assessment and plan (1) Intentional overdose of alprazolam: Start date: 02/18/24 Status: Acute Assessment and plan: This is a 48-year-old gentleman who has a history of substance abuse with cocaine and multiple substances in his CHRISSIE in May 2023, currently on Suboxone but also on chronic benzodiazepines with clonazepam 1 mg tablets 3 times daily on his medication list. He did have 90 tablets of clonazepam 1 mg tablets at home which was just recently filled and completely taken just prior to admission. He also took all of his escitalopram tablets at 20 mg but an unknown number. Poison control recommended EKG which did not show QRS or QT prolongation with this being reassuring with his SSRI overdose. The greater concern was respiratory suppression with his clonazepam overdose and the patient did have progressive respiratory failure with decreased respiratory rate and CO2 retention with respiratory acidosis. He did require intubation with mechanical ventilation and respiratory support which was done by Dr. Cerrato. The patient will remain intubated with respiratory support in the still morning with trial of extubation as he awakens. He may have been oversedated also with Haldol which was given in the ED when he became agitated while collecting urine with straight catheterization. Once he is medically clear, he will be seen by mental health for suicide attempt and suicidal ideation. He is a full code. (2) Suicide attempt: Start date: 02/18/24 Status: Acute Assessment and plan: Patient will be seen by mental health once medically cleared. He does have chronic mental health issues and unfortunately has large quantities of medications which could be used for overdose and this needs to be reevaluated by his PCP and psychiatry. He may require much closer to supervision of his medications. (3) Aspiration pneumonia: Start date: 02/18/24 Status: Acute Assessment and plan: Patient had no history of aspiration that was not witnessed at the time of his overdose and found by neighbors. He did not have initial imaging but after intubation, chest x-ray did reveal right lower lobe infiltrate obscuring right hemidiaphragm. Patient will be placed on Zosyn 4.5 g IV every 6 hours and blood cultures x 2 were obtained. He did not have fever or elevated WBC but this appears to be an acute process. He is high risk for complications being intubated in the ICU. Qualifiers: Aspiration pneumonia type: due to gastric secretions Laterality: right Lung location: lower lobe of lung Qualified Code(s): J69.0 - Pneumonitis due to inhalation of food and vomit (4) Opiate dependence: Status: Chronic Assessment and plan: Chronically on Suboxone with negative CHRISSIE for opioids which has been a problem in the past. Patient also did not have other substances such as cocaine or barbiturates which have been in his previous CHRISSIE in May 2023. May require higher doses of fentanyl for sedation to augment propofol while intubated. Qualifiers: Substance use status: with other opioid-induced disorder Qualified Code(s): F11.288 - Opioid dependence with other opioid-induced disorder (5) Depression with anxiety: Status: Chronic Assessment and plan: Chronic with multiple medications with clonazepam needing reevaluation patient's overdose and high risk of abuse. Prognosis appears poor. He will be seen by mental health for his suicide attempt. (6) Asthma: Status: Chronic Assessment and plan: Albuterol nebulizers as needed the patient intubated. Qualifiers: Asthma complication type: uncomplicated Asthma persistence: intermittent Asthma severity: mild Qualified Code(s): J45.20 - Mild intermittent asthma, uncomplicated (7) DELLA (obstructive sleep apnea): Status: Chronic Assessment and plan: Patient does have CPAP at home and does appear to have chronic DELLA with morbid obesity. He is ventilating well with hypoventilation despite his history of asthma and DELLA. History of Present Illness History of Present Illness Chief Complaint: Suicide attempt with intentional overdose Narrative: This is a 48-year-old male patient presented to the ED via EMS after being found by neighbors at his home with mental status changes. Patient is on Suboxone chronically and on multiple medications for depression and anxiety including clonazepam with patient having a new bottle recently filled out clonazepam at his side which was completely empty indicating that he may have taken up to 90 tablets of 1 mg clonazepam. He also had escitalopram 20 mg tablets prescription bottle at his side with an unknown amount of this medication taken. When he was awake in the ED he stated that he was attempting to take his life and this was a suicide attempt. He was sleepy in the ED initially and not complaining of discomfort and having no breathing difficulties. Poison control was called and did recommend observation for respiratory suppression the patient was breathing slowly with some tugging but apparently is oxygenating well with O2 supplementation. EKG was obtained and there were no QRS or QT interval prolongation indicate need for other treatments such as IV bicarb. Follow-up EKG would be performed if needed especially if patient required additional medications which would increase his risk of QT prolongation. As he was observed in the ED, he became more sedated and was breathing slower with bradycardia with some expiratory wheeze at the time I saw the patient. He was brought to the ICU and continued to have decreased respiratory rate below 10 breaths/min even though he was oxygenating well. VBG did reveal retention of CO2 at 75 with pH just above 7.2 prompting a controlled intubation for respiratory failure with hypercapnia. Patient did somewhat awaken during intubation but was sedated and did require norepinephrine for blood pressure control postintubation. He was having low systolic blood pressures just above 100 prior to intubation. He continued to be bradycardic when not stimulated. He does not respond to sternal rub prior to intubation. He had 9 mg of Haldol given in the ED when straight catheterization was performed for pain UA and became very agitated and this additional sedative could have been contributing to his respiratory suppression. Postintubation chest x-ray revealed probable aspiration pneumonia with right lower lobe infiltrate obscuring right hemidiaphragm. He had no imaging done in the ED. He had no history of aspiration at home prior to presentation but was found sedated at home by his neighbors after an unknown time of his overdose. He had no fever but blood cultures were performed and patient was started on Zosyn for aspiration pneumonia. He maintained good oxygenation prior to intubation but the problem was his slow respirations and hypercapnia. Controlled intubation was performed by Dr. Cerrato in the ICU just after 3 AM. Patient remained on sedation with propofol and IV fentanyl as needed the patient chronically on Suboxone which was not on CHRISSIE but not tested with general screening. He did not have opiates or cocaine on his urine drug screen with patient having known history of cocaine abuse. May need higher doses of fentanyl to augment propofol for sedation while intubated. He will continue on norepinephrine with IV fluid resuscitation with 1 L normal saline given initially and lactated Ringer's increased to 150 cc. Gonzalez catheter was placed to monitor urine output. Patient MAP will be maintained above 65. He is a full code. Once patient awakens and is cleared medically he will see mental health consultation to address suicidal ideation and suicide attempt. Review of Systems Narrative: 13 point review of systems unobtainable with patient somnolent/sedated. PFSH All Active Problems (Updated 02/19/24 @ 05:16 by Suraj Martines) DELLA (obstructive sleep apnea) (Chronic) Aspiration pneumonia (Acute) Asthma (Chronic) Depression with anxiety (Chronic) Intentional overdose of alprazolam (Acute) Suicide attempt (Acute) Overdose (Acute) Opiate dependence (Chronic) Social History Smoking/Tobacco Use Status: Former Tobacco Use Smoking risk assessment performed?: Yes Drug use: Occasionally Substance use type: crack/cocaine Housing: house Meds Allergies and Home Medications Allergies Allergy/AdvReac Type Severity Reaction Status Date / Time Environmental Allergy Intermediate Asthma Uncoded 02/19/16 16:30 Exacerbation Home Medications ?Medication ?Instructions ?Recorded ?Confirmed ?Type clonidine HCl 0.1 mg tablet 0.1 mg PO BID 02/19/16 05/06/23 History (Catapres) albuterol sulfate 90 mcg/actuation 2 puff inhalation Q6H PRN PRN 05/06/23 05/06/23 History aerosol inhaler (Ventolin HFA) buprenorphine 8 mg-naloxone 2 mg 3 film sublingual DAILY 05/06/23 05/06/23 History sublingual film (Suboxone) clonazepam 0.5 mg tablet 0.5 mg PO BID 05/06/23 05/06/23 History escitalopram oxalate 20 mg tablet 20 mg PO DAILY 05/06/23 05/06/23 History gabapentin 300 mg capsule 300 mg PO TID 05/06/23 05/06/23 History quetiapine 200 mg tablet 200 mg PO HS 05/06/23 02/18/24 History clonazepam 1 mg tablet 1 mg PO TID 02/18/24 02/18/24 History propranolol 10 mg tablet 10 mg PO DAILY 02/18/24 02/18/24 History Exam Narrative Exam Narrative: General: Patient appears older than age, morbidly obese and obtunded from overdose with clonazepam. He is unkempt with dirt and dirt which appears chronic over hands and feet and under nails. He is unkempt in general. HEENT: Normocephalic, coarsened facial features, eyes with pupils equal and reactive to light symmetrically, extraocular movement intact and sclera anicteric. Oropharynx with dry mucosa and poor dentition with discolored and missing teeth. Neck: Supple without JVD. Back: Stooped posture without CVA tenderness. Lungs: Fair to poor aeration with taking inspiration and prolonged expiratory phase with expiratory wheeze diffusely. No focalizing rales or rhonchi. There are decreased breath sounds over the right lower lung arreguin after intubation. Heart: Bradycardic rate, normal rhythm. No murmurs gallops appreciated. Abdomen: Obese contour, soft nontender to palpation no palpable hepatosplenomegaly. Bowel sounds positive quadrants. Genitalia/rectal: Exam deferred. Patient is having Gonzalez catheter placed. Extremities: Without clubbing or cyanosis with nonpitting edema both lower extremities and chronic skin changes over legs with scarring from previous injuries over the right anterior ankle. No joint swelling. Fair capillary refill. Patient did have slight acrocyanosis prior to intubation which was nonpressured when initially seen in the ED and this did resolve after intubation. Skin: Pale, cool and dry chronic skin changes lower extremities with scarring. Neuro: Cranial nerves II through XII gross intact, no focalizing motor deficits. No tremor. Psych: Obtunded from drug overdose and not irrigated time I saw the patient. Unable to assess affect, mood or memory Results Labs 02/18/24 18:10 02/18/24 18:10 Labs: Laboratory Results - last 24 hr 02/18/24 02/18/24 02/18/24 18:10 18:10 18:10 WBC 6.24 RBC 5.21 Hgb 15.9 Hct 46.8 MCV 90 MCH 30.5 MCHC 34.0 RDW 12.2 Plt Count 195 MPV 9.0 Immature Gran % 0.3 Neutrophils % 55.4 Lymphocytes % 32.1 Monocytes % 8.7 Eosinophils % 2.7 Basophils % 0.8 Nucleated RBC % 0.0 Absolute Neutrophils 3.46 Absolute Lymphocytes 2.00 Absolute Monocytes 0.54 Absolute Eosinophils 0.17 Absolute Basophils 0.05 Sodium 141 Potassium 3.9 Chloride 101 Carbon Dioxide 30.2 Anion Gap 9.8 BUN 19 H Creatinine 0.9 Est GFR (CKD-EPI 2020) 104.70 Glucose 108 H Calcium 9.1 Magnesium 2.0 Total Bilirubin 0.95 AST 23 ALT 39 Alkaline Phosphatase 76 Total Protein 8.1 Albumin 3.9 Salicylates Cancelled 4.5 Acetaminophen < 2 Ethyl Alcohol < 3.0 Cancelled Last Vital Signs Temp 34.8 C L 02/18/24 17:49 Pulse 55 L 02/18/24 21:46 Resp 13 02/18/24 22:10 BP 138/81 02/18/24 21:46 Pulse Ox 90 L 02/18/24 22:10 Time Spent Time spent with Patient: >75 minutes Time was spent: preparing to see the patient(eg.review tests), obtaining and/or reviewing separately otained hiistory, ordering medications,tests, procedures, referring, communicating with other health customer care team coach, indepentently interpreting results and care coordination
[2024-02-18] MEDS: Haloperidol 5 MG/ML VIAL IM/IV (22:21)
[2024-02-18 22:29] LABS: *AMPHETAMINES SCREEN URINE Negative (Negative); *BARBITURATES SCREEN URINE Negative (Negative); *BENZODIAZEPINES SCREEN URINE Positive (Negative); Cannabinoids THC Negative (Negative); Cocaine Screen,Urine Negative (Negative); METHADONE URINE SCREEN Negative (Negative); OPIATES URINE SCREEN Negative (Negative); Tricyclic Antidepressants Negative (Negative)
[2024-02-18 23:11] LABS: TSH 2.53 uIU/Ml (0.36-3.74)
--- NOTE | 2024-02-18 23:37 | W.PCEDHO ---
Registration Status: Primary Language: Preferred Language: ED Information & Data Chief Complaint OD/Poison 02/18/24 18:52 Chief Complaint OD/Poison 02/18/24 18:31 Triage Note Bottle of clonazepam empty 02/18/24 17:49 filled 2 days ago, patient says he doesnt know how many he took Subjective pt uses cpap at night. 02/18/24 18:52 Seeing sleep apnea as he is laying there. Most Recent Vital Signs Temperature 34.8 C L 02/18/24 17:49 Pulse 59 L 02/18/24 22:17 Pulse 62 02/18/24 22:20 Respiratory Rate 14 02/18/24 22:20 Respiratory Effort Normal 02/18/24 18:52 Respiratory Depth Normal 02/18/24 18:52 Respiratory Pattern Normal 02/18/24 18:52 Blood Pressure 149/103 H 02/18/24 22:17 Blood Pressure Mean 119 02/18/24 22:17 Pulse Oximetry 98 02/18/24 22:20 Respiratory End-tidal CO2 56 02/18/24 18:32 Allergies Environmental Allergy (Intermediate, Uncoded 02/19/16 16:30) Asthma Exacerbation Diet Orders Category Date Time Status Nothing Per Oral [DIET] Nutrition 02/19/24 Breakfast Ordered Diagnostics 02/18/24 02/18/24 02/18/24 Range/Units 22:49 22:48 22:01 WBC (4.4-10.8) 10^3/uL RBC (4.36-5.78) 10^6/uL Hgb (13.5-17.5) g/dL Hct (40.0-50.0) % MCV (80-95) fL MCH (27.0-33.0) pg MCHC (32.0-36.0) % RDW (11.8-14.1) % Plt Count (130-400) 10^3/uL MPV (8.0-11.0) fL Immature Gran % % Neutrophils % % Lymphocytes % % Monocytes % % Eosinophils % % Basophils % % Nucleated RBC % (0.0-0.3) % Absolute Neutrophils (1.2-6.7) 10^3/uL Absolute Lymphocytes (1.2-3.4) 10^3/uL Absolute Monocytes (0.1-0.8) 10^3/uL Absolute Eosinophils (0.0-0.7) 10^3/uL Absolute Basophils (0.0-0.2) 10^3/uL PT Pending INR Pending D-Dimer Pending Sodium (136-145) mmol/L Potassium (3.5-5.1) mmol/L Chloride (98-107) mmol/L Carbon Dioxide (21.0-32.0) mmol/L Anion Gap (3-11) mmol/L BUN (7-18) mg/dL Creatinine (0.70-1.30) mg/dL Est GFR (CKD-EPI 2020) (mL/min/1.73m2) Glucose (74-106) mg/dL Calcium (8.5-10.1) mg/dL Magnesium (1.8-2.4) mg/dL Total Bilirubin (0.2-1.0) mg/dL AST (15-37) U/L ALT (16-63) U/L Alkaline Phosphatase (46-116) U/L Creatine Kinase Pending Total Protein (6.4-8.2) g/dL Albumin (3.4-5.0) g/dL TSH Salicylates Urine Opiates Screen Negative (Negative) Urine Methadone Screen Negative (Negative) Acetaminophen (10-30) ug/mL Ur Barbiturates Screen Negative (Negative) Ur Tricyclics Screen Negative (Negative) Ur Amphetamines Screen Negative (Negative) U Benzodiazepines Scrn Positive A (Negative) Urine Cocaine Screen Negative (Negative) Ur THC Screen Negative (Negative) Ethyl Alcohol (<10) mg/dL 02/18/24 02/18/24 02/18/24 Range/Units 18:10 18:10 18:10 WBC 6.24 (4.4-10.8) 10^3/uL RBC 5.21 (4.36-5.78) 10^6/uL Hgb 15.9 (13.5-17.5) g/dL Hct 46.8 (40.0-50.0) % MCV 90 (80-95) fL MCH 30.5 (27.0-33.0) pg MCHC 34.0 (32.0-36.0) % RDW 12.2 (11.8-14.1) % Plt Count 195 (130-400) 10^3/uL MPV 9.0 (8.0-11.0) fL Immature Gran % 0.3 % Neutrophils % 55.4 % Lymphocytes % 32.1 % Monocytes % 8.7 % Eosinophils % 2.7 % Basophils % 0.8 % Nucleated RBC % 0.0 (0.0-0.3) % Absolute Neutrophils 3.46 (1.2-6.7) 10^3/uL Absolute Lymphocytes 2.00 (1.2-3.4) 10^3/uL Absolute Monocytes 0.54 (0.1-0.8) 10^3/uL Absolute Eosinophils 0.17 (0.0-0.7) 10^3/uL Absolute Basophils 0.05 (0.0-0.2) 10^3/uL PT INR D-Dimer Sodium 141 (136-145) mmol/L Potassium 3.9 (3.5-5.1) mmol/L Chloride 101 (98-107) mmol/L Carbon Dioxide 30.2 (21.0-32.0) mmol/L Anion Gap 9.8 (3-11) mmol/L BUN 19 H (7-18) mg/dL Creatinine 0.9 (0.70-1.30) mg/dL Est GFR (CKD-EPI 2020) 104.70 (mL/min/1.73m2) Glucose 108 H (74-106) mg/dL Calcium 9.1 (8.5-10.1) mg/dL Magnesium 2.0 (1.8-2.4) mg/dL Total Bilirubin 0.95 (0.2-1.0) mg/dL AST 23 (15-37) U/L ALT 39 (16-63) U/L Alkaline Phosphatase 76 (46-116) U/L Creatine Kinase Total Protein 8.1 (6.4-8.2) g/dL Albumin 3.9 (3.4-5.0) g/dL TSH Pending Salicylates 4.5 Cancelled Urine Opiates Screen (Negative) Urine Methadone Screen (Negative) Acetaminophen < 2 (10-30) ug/mL Ur Barbiturates Screen (Negative) Ur Tricyclics Screen (Negative) Ur Amphetamines Screen (Negative) U Benzodiazepines Scrn (Negative) Urine Cocaine Screen (Negative) Ur THC Screen (Negative) Ethyl Alcohol Cancelled < 3.0 (<10) mg/dL [id number] Documentation Fingerstick Glucose Start: 02/18/24 18:06 Freq: Status: Active Protocol: Activity Type Activity Date Activity User E-sign Co-sign Detail Recorded Client Recorded Date Recorded By Document 02/18/24 18:05 BKG DAEMON(9) [id number] 02/18/24 18:06 BKG DAEMON(10) Intake and Output - 24 Hour Total 02/18/24 17:35 thru 02/18/24 17:49 Weight 139.933 kg Falls Risk Assessment History of Falls No History 02/18/24 18:52 Contributing Factors Unstable 02/18/24 18:52 Ambulatory Aids Independent 02/18/24 18:52 Tubes/Lines None 02/18/24 18:52 Gait Evaluation No gait disturbance 02/18/24 18:52 Cognition No cognitive impairment 02/18/24 18:52 Fall Total Score 3 02/18/24 18:52 Level of Risk Standard/Low Risk 02/18/24 18:52 Problems (Last Reviewed 02/18/24 @ 22:26 by Suraj Martines) Asthma (Chronic) Depression with anxiety (Chronic) Intentional overdose of alprazolam (Acute) Suicide attempt (Acute) Overdose (Acute) Opiate dependence (Chronic) Notes 02/18/24 22:08 Nursing Notes by Estella Aranda Nursing Note: Hand off report to REINALDO Boyd Initialized on 02/18/24 22:08 - END OF NOTE 02/18/24 22:04 Nursing Notes by Estella Aranda Nursing Note: Pt woke to voice but could not was unable to follow commands. Did a straight cath using sterile technique. Urine collected. Pt became more alert but is not following commands and attempting to crawl out of bed. Security called and provider. Meds to be ordered. Initialized on 02/18/24 22:04 - END OF NOTE v v v v v v v v v Sending and/or Receiving Nurses: Please use comment section below to note any information pertinent to the patient hand-off not included above. Information / Comments: No questions at end of report Report received from: Oliver NAJERA
--- NOTE | 2024-02-18 23:45 | RT.EKG_ITS ---
APPROVED REPORT Exam: Resting ECG Reason for Exam: Escitalopram overdose Patient Location: I HR:58 bpm ECG Measurements Heart Rate 58 AXIS MO 185 P 58 QRSd 94 QRS 65 QT 478 T 63 QTc 470 Conclusion Sinus rhythm...normal P axis, V-rate 50- 99 Normal Electrocardiogram
[2024-02-19] VITALS (202 sets, daily range): BP systolic 79–205; BP diastolic 54–154; PULSE 28–92; RESP 2–30; TEMP 36.1–36.8; O2SAT 88–100
--- NOTE | 2024-02-19 | DI.CT_ITS ---
Exam(s) CT HEAD WO EXAM: CT HEAD WO CLINICAL HISTORY: overdose, bradycardia, head trauma?. TECHNIQUE: Imaging Protocol: Axial computed tomography images with coronal and sagittal reformatted images were created and reviewed COMPARISON: No exams were available for comparison FINDINGS: Right nasal tracheal tube noted. Mucosal thickening in both maxillary sinuses evident. There are no skull fractures. There is no fluid in the visualized paranasal sinuses. There is no evidence of intracranial hemorrhage, mass effect, or shift of midline structures. There are no extra-axial fluid collections. The ventricles are not enlarged or shifted and there is no blo od within the ventricular system nor within the basal cisterns. IMPRESSION: No acute intracranial findings on this noninfused CT scan of the brain. Called by myself to ICU provider RADIATION DOSE DELIVERED: Total DLP DATA REPOSITORY: All CT scans at this facility are submitted to the National Radiology Data Registry (NRDR) Dose Index Registry (DIR) with the [employer] ([employer]). RADIATION OPTIMIZATION: All CT scans at this facility use at least one of these dose optimization te chniques: automated exposure control; mA and/or kV adjustment per patient size (includes targeted exa ms where dose is matched to clinical indication); or iterative reconstruction.
--- NOTE | 2024-02-19 | DI.CT_ITS ---
Exam(s) CT CHEST W EXAM: CT CHEST W CLINICAL HISTORY: multiple rib fractures, hemothorax vs effusion/PNA. TECHNIQUE: Multi planar reconstructions were performed. CONTRAST MATERIAL: Omnipaque 350; 75 cc COMPARISON: No exams were available for comparison FINDINGS: CHEST: Patient is intubated with satisfactory position of the endotracheal tube. Its distal tip is 3 cm abo ve the sue. Good position. There is an NG tube noted in the stomach. Stomach is not dilated. LUNGS: There is significant infiltrate in the right lower lobe, possible aspiration pneumonia. This involves the basal segments as well as superior segment. Remainder of the right lung is clear. Mild increased markings in the opposite-left lung base posterior basal segment left lower lobe. No pleur al effusions on either side. No pneumothorax. No significant focal findings in the mainstem bronchi . MEDIASTINUM: There is no hilar nor mediastinal adenopathy. No mediastinal hematoma. No sternal fract ure. Visualized thyroid unremarkable. CARDIAC: Heart size is normal. There is no pericardial effusion.Caliber of the thoracic aorta is wit hin normal limits. No aneurysm. No dissection. VISUALIZED UPPER ABDOMEN:NG tube in stomach. Stomach not distended. No ascites. OSSEOUS: Lower cervical fusion hardware noted. There fractures of the posterior aspect of the right 4th, 5th, and 6th ribs which are not acute. No acute rib fractures evident in the field of view of t his study. Visualized scapula and clavicles appear intact. No thoracic vertebral fractures. No mavis rnal fractures.. IMPRESSION: 1. There is significant infiltrate in the right lower lobe. Suspect aspiration pneumonia. There are also mild increased markings in the posterior basal segment of the left lower lobe. There are no pl eural effusions. 2. ET tube and NG tube are in satisfactory position. 3. There are nonacute appearing fractures of the right 4th, 5th, and 6th ribs. No obvious acute frac tures evident. CT reports called by myself to ICU physician 02/19/2024 3:55 p.m. RADIATION DOSE DELIVERED: Total DLP DATA REPOSITORY: All CT scans at this facility are submitted to the National Radiology Data Registry (NRDR) Dose Index Registry (DIR) with the [employer] ([employer]). RADIATION OPTIMIZATION: All CT scans at this facility use at least one of these dose optimization te chniques: automated exposure control; mA and/or kV adjustment per patient size (includes targeted exa ms where dose is matched to clinical indication); or iterative reconstruction.
[2024-02-19] MEDS: Albuterol 2.5 MG/3 ML INH SOLN VIAL UPD ×4 (01:08→21:34)
[2024-02-19] MEDS: Normal Saline Flush 10 ML SYR IVP ×3 (01:20→10:30)
[2024-02-19] MEDS: Lactated Ringers 1,000 ML 100 ML IV (01:22)
[2024-02-19 01:42] LABS: BE (Venous) 5 mmol/L (-2-3); HCO3 (Venous) 33 mmol/L (23-28); O2 Sat (Venous) 90 %; TCO2 (Venous) 29 mmol/L (24-29); pH (Venous) 7.25 (7.31-7.41); pO2 (Venous) 63 mmHg
[2024-02-19 01:47] LABS: pCO2 (Venous) 75 mmHg (41-51)
[2024-02-19 01:56] LABS: INR 1.1 (0.9-1.1); Prothrombin Time 10.8 sec (9.1-11.1)
[2024-02-19 02:01] LABS: Creatine Kinase 59 U/L (39-308)
[2024-02-19 02:38] LABS: D-Dimer 330 ng/mlFEU (<500)
[2024-02-19 03:21] LABS: BE (Venous) 7 mmol/L (-2-3); HCO3 (Venous) 34 mmol/L (23-28); O2 Sat (Venous) 42 %; TCO2 (Venous) 31 mmol/L (24-29); pH (Venous) 7.27 (7.31-7.41); pO2 (Venous) 26 mmHg
[2024-02-19 03:24] LABS: pCO2 (Venous) 74 mmHg (41-51)
[2024-02-19] MEDS: Sodium Bicarbonate 50 MEQ/50 ML SYR (03:30)
--- NOTE | 2024-02-19 03:30 | DI.RAD_ITS ---
Exam(s) XR PORTABLE CHEST AP EXAM: XR PORTABLE CHEST AP CLINICAL HISTORY: intubation. TECHNIQUE: 2D digital imaging was performed. COMPARISON: CR XR PORTABLE CHEST AP from 05/06/2023 FINDINGS: Single AP portable view. Patient is intubated. Distal tip of the endotracheal tube is at the clavicular level, approximately 7.5 cm above the sue. Heart size is upper normal. The mediastinum is not widened. Left lung clear. There appears to be some infiltrate in the right lung base. Blunting of the right costophrenic angle probably Cris small amount of right pleural effusion. There fractures in the lina cent posterior aspect of the right 4th and 5th and 6th ribs. These are not acute as there evident on chest x-ray of 05/06/2023. IMPRESSION: Right lung base infiltrate and pleural effusion. Patient intubated. No pneumothorax. Nonacute frac tures of the posterior aspects of the right 4th, 5th, and 6th ribs again noted. DATA REPOSITORY: RADIATION DOSE DELIVERED:
[2024-02-19] MEDS: Succinylcholine 200 MG/10 ML VIAL 140 MG IVP (03:32)
[2024-02-19] MEDS: Sodium Bicarbonate 50 MEQ/50 ML SYR IVP (03:33)
[2024-02-19] MEDS: PROPOFOL 1,000 MG/100 ML BTL 41.98 MG IV (03:39)
[2024-02-19] MEDS: Normal Saline 1,000 ML 1000 ML IV (03:45)
--- NOTE | 2024-02-19 03:50 | W.ED.PROC ---
Date of service: 02/19/24 Time of Service: 03:37 Procedures Intubation Time out performed: Yes sedative: Etomidate Mg Given: 40 paralytic: Succinylcholine Mg Given: 140 Laryngoscope: fiberoptic video scope ET Tube Size: 7 ET Tube Uncuffed: No Tube Secured Depth (cm): 23 Tube Secured Location: teeth Tube Placement Confirmation: visualized tube passing through cords and confirmation by capnometry Patient Tolerated Procedure: well Intubation Complications: none Additional Comments: Called by hospitalist for intubation in the ICU, pt admitted previous shift for overdose. Now altered mental status and not protecting airway. Obese, small chin, short neck; prepared for difficult airway. -BPs soft in the ICU, levophed gtt at bedside and push-dose epi at bedside for intubation. SBP 110's-130's just prior to intubation and maintained BP throughout so these were not utilized. -O2 sat 100% on BiPAP with FiO2 of 100% for preoxygenation. O2 via nasal cannula at flush during intubation for apenic oxygenation, O2 sat 99-100% throughout procedure -VBG with pH 7.27; 1 amp of bicarb given prior to pushing paralytic Intubated easily without difficulty. Medical Decision Making Quality:SDOH Health Related Social Needs: No Data to Display
[2024-02-19] MEDS: Norepinephrine in D5W 8 MG/250 ML BAG 13.1 MG IV (04:00)
[2024-02-19] MEDS: Norepinephrine in D5W 8 MG/250 ML BAG 9.375 MG IV (04:00)
[2024-02-19] MEDS: fentaNYL 100 MCG/2 ML VIAL IVP ×2 (04:11→04:35)
--- NOTE | 2024-02-19 04:15 | DI.RAD_ITS ---
Exam(s) XR PORTABLE CHEST AP EXAM: XR PORTABLE CHEST AP CLINICAL HISTORY: post line, tube advanced. TECHNIQUE: 2D digital imaging was performed. COMPARISON: CR,XR XR PORTABLE CHEST AP from 02/19/2024 FINDINGS: Single AP portable view. The ET tube has been advanced approximately 1.5 cm. It is presently approximately 6 cm above the car breonna. Heart size is upper normal. The mediastinum is not widened. Some infiltrate in the right lung base blunting of the right costophrenic angle is again noted. Oppo site-left lung is clear. There nonacute fractures of the posterior aspects of the right 4th, 5th, an d 6th ribs again noted. These were also evident in May 2023. IMPRESSION: ETT position as above. Right lung base infiltrate and probable small right pleural effusion. Nonacute right rib fractures as above. DATA REPOSITORY: RADIATION DOSE DELIVERED:
--- NOTE | 2024-02-19 04:27 | W.ED.PROC ---
Date of service: 02/19/24 Time of Service: 04:25 Medical Decision Making Post intubation film reviewed, ETT tip ~ 9cm from sue. Respiratory notified and requested to advance 3cm, repeat film obtained and reviewed wtih ETT ~4cm from sue, acceptable. Quality:SDOH Health Related Social Needs: No Data to Display
[2024-02-19 05:16] LABS: BE (Venous) 6 mmol/L (-2-3); HCO3 (Venous) 33 mmol/L (23-28); O2 Sat (Venous) 95 %; TCO2 (Venous) 30 mmol/L (24-29); pH (Venous) 7.25 (7.31-7.41); pO2 (Venous) 79 mmHg
[2024-02-19 05:21] LABS: pCO2 (Venous) 75 mmHg (41-51)
--- NOTE | 2024-02-19 05:23 | W.EVENT ---
Date of service: 02/19/24 Time of Service: 03:30 Event Note: I was called to the patient's bedside ICU when he had persistent slow respiratory rate and appeared to be retaining CO2 which was confirmed by VBG. I did call the ED physician, Dr. Cerrato for control intubation which was performed just after 3 AM. Follow-up chest x-ray did reveal it is regular to need to be advanced but was advanced by 3 cm with follow-up chest x-ray showing adequate placement. X-ray of the chest also revealed right lower lobe infiltrate obscuring right hemidiaphragm which was concerning for aspiration pneumonia which most likely happen prior to admission. No imaging was done in the ED. The patient was difficult to sedate close intubation and did have hypotension requiring norepinephrine for pressure support and increasing doses of propofol along with fentanyl for sedation. I did spend more than 60 minutes at patient bedside adjusting post intubation sedation and care with adjustment of endotracheal tube as well as assessing IV access which is adequate with 2 peripheral lines at this time. His hypotension was responding to norepinephrine infusion and this hopefully will be temporary otherwise we will need to place midline central line. Hopefully this will be a short-term intubation while patient clears his clonazepam overdose and 9 mg of Haldol given in the ED. Patient tolerated intubation and is tolerating mechanical ventilation. He is a full code. Time Spent with Patient Time spent in critical care(minutes): 60 Time Spent Included: Coordination of care, Chart review, Documenting critically ill care, Time at immediate bedside and Discussing critically ill care with other medical staff
[2024-02-19 05:55] LABS: ALT 35 U/L (16-63); AST 25 U/L (15-37); Albumin 3.4 g/dL (3.4-5.0); Alkaline Phosphatase 69 U/L (46-116); Anion Gap 5.6 mmol/L (3-11); BUN 19 mg/dL (7-18); Bilirubin, Total 1.05 mg/dL (0.2-1.0); CO2 33.4 mmol/L (21.0-32.0); CREATININE 0.9 mg/dL (0.70-1.30); Calcium 8.4 mg/dL (8.5-10.1); Chloride 104 mmol/L (98-107); Glucose 124 mg/dL (74-106); Potassium 4.9 mmol/L (3.5-5.1); Sodium 143 mmol/L (136-145); Total Protein 7.2 g/dL (6.4-8.2)
[2024-02-19] MEDS: PROPOFOL 1,000 MG/100 ML BTL 54.574 MG IV (05:55)
--- NOTE | 2024-02-19 06:32 | NUR.NOTE ---
0420 hours: Pawel Olson RN assisted primary RN with post intubation orders. IV access with lab draw done (blood cultures X2 drawn by Betty Olson RN, BMP, inserted indwelling Gonzalez in sterile fashion with out difficulty. IV fluids initiated, inline suction performed by TN, room cleaned and pt positioned. Tele strips also done and primary RN has PSO on unit to assist with pt monitoring. Primary RN (AR) documenting and pt appears in NAD and comfortable. Betty Olson RN
[2024-02-19 06:54] LABS: BE (Venous) 7 mmol/L (-2-3); HCO3 (Venous) 32 mmol/L (23-28); O2 Sat (Venous) 88 %; TCO2 (Venous) 28 mmol/L (24-29); pCO2 (Venous) 57 mmHg (41-51); pH (Venous) 7.36 (7.31-7.41); pO2 (Venous) 53 mmHg
[2024-02-19 06:55] LABS: HCT 46.3 % (40.0-50.0); HGB 15.7 g/dL (13.5-17.5); MCH 31.5 pg (27.0-33.0); MCHC 33.9 % (32.0-36.0); MCV 93 fL (80-95); Platelet Count 199 10^3/uL (130-400); RBC 4.99 10^6/uL (4.36-5.78); RDW 12.5 % (11.8-14.1); RDW-SD 42.7 fL; WBC 7.67 10^3/uL (4.4-10.8)
--- NOTE | 2024-02-19 07:11 | DI.VRAD_ITS ---
Addendum created by Deshawn Vallejo DO on 02/19/2024 7:12:54 AM EDT: ADDENDUM: Following addition to the findings and impression was made: Multiple right posterior fracture deformities are noted at ribs 4, 5, 6, and possibly 7. CT of the chest can be used for further assessment. Initial report created on 02/19/2024 7:11:04 AM EDT: PROCEDURE INFORMATION: Exam: XR Chest Exam date and time: 02/19/2024 4:23 AM Age: 48 years old Clinical indication: Device placement; Ett placement (vent status) TECHNIQUE: Imaging protocol: Radiologic exam of the chest. Views: 1 view. COMPARISON: CR XR PORTABLE CHEST AP 02/19/2024 4:06 AM FINDINGS: Tubes, catheters and devices: Patient is intubated, endotracheal tube projects about 6.5 cm from the sue. Lungs: Infiltration of the right lower lobe. Pleural spaces: Blunting of the right costophrenic angle with veil like presence of the right lower lobe. Heart/Mediastinum: Unremarkable. No cardiomegaly. Bones/joints: Unremarkable. IMPRESSION: Veil like opacification of the right lower lobe suggesting layering pleural effusion with likely associated atelectasis. Superimposed infection is not entirely excluded. Dictated and Authenticated by: Deshawn Vallejo MD. Ordering:RACHEL Ibanez MD
--- NOTE | 2024-02-19 07:13 | DI.VRAD_ITS ---
PROCEDURE INFORMATION: Exam: XR Chest Exam date and time: 02/19/2024 4:06 AM Age: 48 years old Clinical indication: Device placement; Ett placement (vent status) TECHNIQUE: Imaging protocol: Radiologic exam of the chest. Views: 1 view. COMPARISON: CR XR PORTABLE CHEST AP 05/06/2023 1:38 PM FINDINGS: Tubes, catheters and devices: Patient is intubated, endotracheal tube projects about 7.1 cm from the sue. Lungs: See Pleural spaces finding. Pleural spaces: Blunting of the right costophrenic angle with veil like presence of the right lower lobe. Heart/Mediastinum: Unremarkable. No cardiomegaly. Bones/joints: Multiple right posterior fracture deformities are noted at ribs 4, 5, 6, and possibly 7. IMPRESSION: 1. Veil like opacification of the right lower lobe suggesting layering pleural effusion with likely associated atelectasis. Superimposed infection is not entirely excluded. 2. Multiple right posterior fracture deformities are noted at ribs 4, 5, 6, and possibly 7. CT of the chest can be used for further assessment. Dictated and Authenticated by: Deshawn Vallejo MD. Ordering:COLT Ruelas MD
[2024-02-19] MEDS: PIPERACILLIN/TAZO 4.5 GM in Normal Saline 100 ML IVPB ×3 (08:09→21:09)
--- NOTE | 2024-02-19 08:51 | PDOC.CMIN ---
Date of service: 02/19/24 Time of Service: 08:51 Care Management Initial Assmt Initial Assessment Reason for Hospitalization: overdose Functional Status/Living Situation Patient Presentation: Chris was lying in bed, sedated and intubated when CM visited. He has had no visitors, nor has anyone called to inquire about his status. CM contacted Chantell Cote who is the only person listed on his HIPAA from May. She was one of the people who initially found Chris unresponsive. Chantell stated that no one had heard from Chris in 3 days before he was found. She stated that he had been doing really well and has been sober for 6 months. He has been working with [facility] and has good support from others in the group. Chris has a mother, a brother and a sister in [facility] and a sister in [place] but is not in regular contact with any of them. Chantell shared that although she and Chris are not together anymore, they have remained friends and she checks on him from time to time. Town of Residence: [place] Resides with: Alone Significant Other/Family: Out of area (most live in [facility] but not in contact with them) Natural Supports: local friends Employment Status: Unemployed Instrumental Activities of Daily Living (ADLs): Independent Medications Medication Management: Issues/Barriers (overdosed on medications. closer monitoring may be needed.) with Other Physical Functioning/Mobility Assistive Device: none Advance Directives Advance Directives: Do you have an Advance Directive: N 01/26/13 11:12 AD On File at [facility]: N 01/24/13 13:15 Date Asked 02/20/24 02/20/24 07:23 AD Date Reviewed COLST On File at [facility] COLST Date Scanned Code Status Resuscitation Status Full Code Portal Pt does not currently have a portal and education provided: No Insurance Coverage/Financial Issues Insurance: Medicaid Care Team Visit Care Team Role Provider Type Pierre Cardenas Primary Care Provider PHYSICIANS ASSISTANT Marianne Roy Emergency Provider NURSE PRACTITIONER Suraj Martines Admit Provider NON-[facility] STAFF PHYSICIAN Attending Provider Discharge Potential Discharge Needs: PCP F/U Appt and Other (possible inpatient hospitalization for psychiatric stabilization) Anticipated Barriers to Discharge: Bed availability (if he requires/desires hospitalization) and Medical Status Patient/Family Education Needs: Review discharge instructions, discuss Ask Me Three Transportation: Other (to be determined by disposition) Plan: Chris was admitted following a suspected drug overdose of clonazepam (90 tablets) and escitalopram. He is currently intubated in the ICU. He will be screened by mental health when he is medically cleared. CM will follow and continue to assess for discharge needs. PFSH All Active Problems (Updated 02/20/24 @ 08:11 by Trey Jack) Bacteremia (Acute) DVT prophylaxis (Acute) Bradycardia (Acute) Ribs, multiple fractures (Acute) Intentional clonazepam overdose (Acute) DELLA (obstructive sleep apnea) (Chronic) Aspiration pneumonia (Acute) Asthma (Chronic) Depression with anxiety (Chronic) Suicide attempt (Acute) Overdose (Acute) Opiate dependence (Chronic) Social History Smoking/Tobacco Use Status: Former Tobacco Use Smoking risk assessment performed?: Yes Drug use: Occasionally Substance use type: crack/cocaine Housing: apartment SDOH(Care Management) Screening Will the Patient Participate in the Screening?: Unable to obtain Social Determinants of Health Comments(SDOH Details): MELINDA Health Related Social Needs Health related social needs details: MELINDA
[2024-02-19 09:00] LABS: Creatine Kinase 99 U/L (39-308)
--- NOTE | 2024-02-19 10:14 | W.PM.PROGNOT ---
Date of Service Date of service: 02/19/24 Time of Service: :19 Assessment and Plan Assessment and plan (1) Intentional clonazepam overdose: Status: Acute Assessment and plan: History suggests clonazepam overdose is the major factor driving his presentation and respiratory depression, in combination with his baseline buprenorphine and gabapentin. Also concern for taking escitalopram but he does not have a prolonged QT or signs of serotonin excess. Initially presented at 1800 on 02/17, presumed ingestion during the day prior to this. Half life is 30-40h, so this will leave his system slowly Order for flumazenil in the ED, but there is not documentation about how he may have responded to this, not recommended in general for adults per poison control. Case reviewed again with poison control. They agreed with supportive care. They did not feel bradycardic episodes were totally toxin related. Continue respiratory support, plan trial off sedation 02/19 am. Qualifiers: Encounter type: initial encounter Qualified Code(s): T42.4X2A - Poisoning by benzodiazepines, intentional self-harm, initial encounter (2) Bradycardia: Status: Acute Assessment and plan: Patient is mildly bradycardic 50s-60s (was in 40s on presentation and overnight as well) but with 2 episodes of severe bradycardia, including down to 27 twice today. This was associated with having his head down for care the first time. This fact along with paroxsymal nature suggests possible vasovagal event, but he was at 45 degrees the second episode. He is also on propofol for sedation, and he improved when this was lowered. He starts to overbreath on ventilator and raise peak pressure when propofol lowered. Case discussed with Shavonne Zuleta and she came in to initiate ketamine protocol. Propranolol and clonidine are on his home list, though he does not have heart block and episodic nature of bradycardia is less c/w beta-marco or clonidine overdose. Case reviewed with Dr. Oscar Ascencio, the [facility] ICU fellow. Suggesting switching out epinephrine for norepi. Also head CT in case he had unreported trauma. (3) Suicide attempt: Status: Acute Assessment and plan: He is sedated and on ventilator. He will need CPSO and psychiatric evaluation when he is alert and extubated. (4) Opiate dependence: Status: Chronic Assessment and plan: On high dose buprenorphine as outpatient. I sent urine to confirm he is taking this. Buprenorphine has a long half life, but as we approach extubation we may want to start fentanyl drip for comfort. Okay to continue without this for now. Qualifiers: Substance use status: with other opioid-induced disorder Qualified Code(s): F11.288 - Opioid dependence with other opioid-induced disorder (5) Ribs, multiple fractures: Status: Acute Assessment and plan: Displaced rib fractures noted on right side T3-6. Clinically, no flail chest, no crepitus, and he is oxygenating well. However I am concerned about hemothorax given suggestion of effusion on CXR. Trying to get CT, though difficult with CT being in trailer given his size and ventilated status. (6) Aspiration pneumonia: Status: Acute Assessment and plan: Being treated for aspiration pneumonia with pip/tazo. I think this is reasonable, but the CXR actually suggests an effusion rather than a focal infiltrate. Given the multiple rib fractures on that side as above, Qualifiers: Aspiration pneumonia type: due to gastric secretions Laterality: right Lung location: lower lobe of lung Qualified Code(s): J69.0 - Pneumonitis due to inhalation of food and vomit (7) DELLA (obstructive sleep apnea): Status: Chronic Assessment and plan: on ventilator (8) DVT prophylaxis: Status: Acute Assessment and plan: holding enoxaparin due to concern for hemothorax until we can get clarifying information. SCDs Exam Narrative Exam Narrative: GEN: intubated and sedated. HEENT: Atraumatic, other than a little crust of blood in left nares. Pupils around 3-4mm, mildly reactive. neck supple. CV: RRR 50s-60s, no murmur Lungs: Course breath sounds diffusely but BS audible throughout including on right Abd: hypoactive BS, softly gasseous distended ext: no cyanosis, edema. With manipulation he extends legs and points toes, then relaxes. Objective Last Vital Signs Temp 36.3 C L 02/19/24 07:30 Pulse 59 L 02/19/24 07:30 Resp 14 02/19/24 08:29 BP 116/67 02/19/24 08:29 Pulse Ox 98 02/19/24 08:29 Laboratory Results - last 24 hr 02/18/24 02/18/24 02/18/24 18:10 18:10 18:10 WBC 6.24 RBC 5.21 Hgb 15.9 Hct 46.8 MCV 90 MCH 30.5 MCHC 34.0 RDW 12.2 Plt Count 195 MPV 9.0 Immature Gran % 0.3 Neutrophils % 55.4 Lymphocytes % 32.1 Monocytes % 8.7 Eosinophils % 2.7 Basophils % 0.8 Nucleated RBC % 0.0 Absolute Neutrophils 3.46 Absolute Lymphocytes 2.00 Absolute Monocytes 0.54 Absolute Eosinophils 0.17 Absolute Basophils 0.05 PT INR D-Dimer VBG pH VBG pCO2 VBG pO2 VBG HCO3 VBG Total CO2 VBG O2 Saturation VBG Base Excess Sodium 141 Potassium 3.9 Chloride 101 Carbon Dioxide 30.2 Anion Gap 9.8 BUN 19 H Creatinine 0.9 Est GFR (CKD-EPI 2020) 104.70 Glucose 108 H Calcium 9.1 Magnesium 2.0 Total Bilirubin 0.95 AST 23 ALT 39 Alkaline Phosphatase 76 Creatine Kinase Total Protein 8.1 Albumin 3.9 TSH 2.53 Salicylates Cancelled 4.5 Urine Opiates Screen Urine Methadone Screen Acetaminophen < 2 Ur Barbiturates Screen Ur Tricyclics Screen Ur Amphetamines Screen U Benzodiazepines Scrn Urine Cocaine Screen Ur THC Screen Ethyl Alcohol < 3.0 Cancelled 02/18/24 02/19/24 02/19/24 22:01 01:30 03:15 WBC RBC Hgb Hct MCV MCH MCHC RDW Plt Count MPV Immature Gran % Neutrophils % Lymphocytes % Monocytes % Eosinophils % Basophils % Nucleated RBC % Absolute Neutrophils Absolute Lymphocytes Absolute Monocytes Absolute Eosinophils Absolute Basophils PT 10.8 INR 1.1 D-Dimer 330 VBG pH 7.25 L 7.27 L VBG pCO2 75 H* 74 H* VBG pO2 63 26 VBG HCO3 33 H 34 H VBG Total CO2 29 31 H VBG O2 Saturation 90 42 VBG Base Excess 5 H 7 H Sodium Potassium Chloride Carbon Dioxide Anion Gap BUN Creatinine Est GFR (CKD-EPI 2020) Glucose Calcium Magnesium Total Bilirubin AST ALT Alkaline Phosphatase Creatine Kinase 59 Total Protein Albumin TSH Salicylates Urine Opiates Screen Negative Urine Methadone Screen Negative Acetaminophen Ur Barbiturates Screen Negative Ur Tricyclics Screen Negative Ur Amphetamines Screen Negative U Benzodiazepines Scrn Positive A Urine Cocaine Screen Negative Ur THC Screen Negative Ethyl Alcohol 02/19/24 02/19/24 04:52 06:43 WBC Cancelled 7.67 RBC Cancelled 4.99 Hgb Cancelled 15.7 Hct Cancelled 46.3 MCV Cancelled 93 MCH Cancelled 31.5 MCHC Cancelled 33.9 RDW Cancelled 12.5 Plt Count Cancelled 199 MPV Cancelled 9.0 Immature Gran % Neutrophils % Lymphocytes % Monocytes % Eosinophils % Basophils % Nucleated RBC % Absolute Neutrophils Absolute Lymphocytes Absolute Monocytes Absolute Eosinophils Absolute Basophils PT INR D-Dimer VBG pH 7.25 L 7.36 VBG pCO2 75 H* 57 H VBG pO2 79 53 VBG HCO3 33 H 32 H VBG Total CO2 30 H 28 VBG O2 Saturation 95 88 VBG Base Excess 6 H 7 H Sodium 143 Potassium 4.9 D Chloride 104 Carbon Dioxide 33.4 H Anion Gap 5.6 BUN 19 H Creatinine 0.9 Est GFR (CKD-EPI 2020) 104.70 Glucose 124 H Calcium 8.4 L Magnesium Total Bilirubin 1.05 H AST 25 ALT 35 Alkaline Phosphatase 69 Creatine Kinase 99 Total Protein 7.2 Albumin 3.4 TSH Salicylates Urine Opiates Screen Urine Methadone Screen Acetaminophen Ur Barbiturates Screen Ur Tricyclics Screen Ur Amphetamines Screen U Benzodiazepines Scrn Urine Cocaine Screen Ur THC Screen Ethyl Alcohol Time Spent with Patient Time Spent with Patient: >50 minutes (2 hours including 60 minutes in direct critical care) Time was spent: preparing to see the patient(eg.review tests), obtaining and/or reviewing separately otained hiistory, ordering medications,tests, procedures, referring, communicating with other health home health care worker, indepentently interpreting results, counseling the patient and care coordination
--- NOTE | 2024-02-19 11:15 | DI.RAD_ITS ---
Exam(s) XR PORTABLE CHEST AP EXAM: XR PORTABLE CHEST AP CLINICAL HISTORY: Ng tube placement. TECHNIQUE: 2D digital imaging was performed. COMPARISON: CR,XR XR PORTABLE CHEST AP from 02/19/2024 FINDINGS: Single AP portable view. Patient remains intubated. Position of the ET tube is unchanged. There is also now an NG tube in th e proximal stomach. Chest leads in place as well as cardiac pads over the left hemithorax. Heart size is upper normal. The mediastinum is not widened. Left lung is clear. There is mild infiltrate in the right lung base.. No obvious pneumothorax. No obvious large pleural effusions. IMPRESSION: As above. Suspect right lung base infiltrate. DATA REPOSITORY: RADIATION DOSE DELIVERED:
--- NOTE | 2024-02-19 11:33 | PHA.REVIEW2 ---
Pharmacy Admission Review Admission Clinical Review Admission Pharmacy Review: DVT prophylaxis (Acute) Bradycardia (Acute) Ribs, multiple fractures (Acute) Intentional clonazepam overdose (Acute) Aspiration pneumonia (Acute) Suicide attempt (Acute) Overdose (Acute) Environmental Allergy (Intermediate, Uncoded 02/19/16 16:30) Asthma Exacerbation Resuscitation Status Full Code Height 6 ft 3 in Weight 134.9 kg Pharmacy Admission Review Renal Dosing Renal Dosing: BUN 19 mg/dL (7-18) H 02/19/24 04:52 Creatinine 0.9 mg/dL (0.70-1.30) 02/19/24 04:52 Medications needing adjustments: Reviewed (CrCl 146.9 mL/min) List of meds needing interventions: Current medications are okay Anticoagulation Anticoagulation: Hgb 15.7 g/dL (13.5-17.5) 02/19/24 06:43 Hct 46.3 % (40.0-50.0) 02/19/24 06:43 Plt Count 199 10^3/uL (130-400) 02/19/24 06:43 INR 1.1 (0.9-1.1) 02/19/24 01:30 Creatinine 0.9 mg/dL (0.70-1.30) 02/19/24 04:52 DVT Prophylaxis: Reviewed (SCDs - holding enoxaparin due to concern for hemothorax) Opiate Usage Evaluate Pain Scale/Pains Meds: Reviewed (PRN fentanyl IVP) Scheduled Bowel Reg ordered if on Opiates?: No (PRN docusate/Miralax) Relevant Labs Relevant Labs: Sodium 143 mmol/L (136-145) 02/19/24 04:52 Potassium 4.9 mmol/L (3.5-5.1) D 02/19/24 04:52 Chloride 104 mmol/L (98-107) 02/19/24 04:52 Magnesium 2.0 mg/dL (1.8-2.4) 02/18/24 18:10 Electrolytes, C-Reactive P, ESR: Reviewed (glucose 124) Cardiac Review Cardiac Review: Blood Pressure [Right Arm] 140/99 Blood Pressure 119/83 1012 Blood Pressure 116/67 0829 Blood Pressure 148/79 0722 Blood Pressure 155/89 0719 Blood Pressure 146/86 0716 Blood Pressure 159/89 0713 Blood Pressure 148/86 0710 Blood Pressure 126/81 0707 Blood Pressure 144/87 0704 Blood Pressure 142/89 0701 BP, HR, EF%: Reviewed (HR 59, has been in the 40's to low 50's for most of the morning) QTc Review QTc: Reviewed (440 from 02/18/24) IV to PO Switch IV Medications: Reviewed (Intubated) Home Meds Home Med List reviewed: Reviewed Relevent Home Meds Not ordered & why?: None ordered at this time - patient is intubated Will reach out to provider once extubated if orders are not put in Current Meds Current Medication Order Review: Reviewed Comments: Levophed gtt at 6 mcg/min Propofol gtt at 30 mcg/kg/min ketamine gtt to be started this AM to help with decreasing propofol Pharmacy Antibiotic Review Relevant Labs: WBC 7.67 10^3/uL (4.4-10.8) 02/19/24 06:43 Temperature 36.3 C Temperature 36.2 C Pharmacy Antibiotic Activity: C/S review and Reviewed, no change Comments: Patient is on day 1 of Zosyn 4.5g q6h for suspected aspiration pneumonia. Blood cultures are pending.
--- NOTE | 2024-02-19 12:17 | PDOC.ANES ---
Date of service: 02/19/24 Time of Service: 11:10 Anesthesia Note Report Anesthesia Note: Consulted per Web[employer] Teams by Dr. Jeni Jack at 1019 re: sedation issues. After a phone discussion a decision to start a Ketamine infusion seemed our next best step due to patient's status of requiring ventilation s/p suspected overdose of clonazepam and escitalopram, also with right posterior rib fractures. Patient currently on propofol infusion but has had bradycardic episodes down to mid 20's with some position changes with BP remaining stable. I came into the hospital to give the loading dose and initiate the infusion. See MAR for bolus and infusion times. VSS and patient resting quietly upon my departure. Spent approximately one hour evaluating and monitoring patient along with staff education on effects of Ketamine and what to watch for.
[2024-02-19] MEDS: PROPOFOL 1,000 MG/100 ML BTL 25.188 MG IV (12:20)
--- NOTE | 2024-02-19 13:28 | DI.VRAD_ITS ---
PROCEDURE INFORMATION: Exam: XR Chest Exam date and time: 02/19/2024 11:49 AM Age: 48 years old Clinical indication: Device placement; Ng tube TECHNIQUE: Imaging protocol: Radiologic exam of the chest. Views: 1 view. COMPARISON: XR PORTABLE CHEST AP 19/02/2024 04:23 FINDINGS: Limitations: The upper lung arreguin not included on the film. Supine film. Tubes, catheters and devices: ETT in place with the tip in the trachea similar to prior study. Nasogastric tube in place with the tip below the left hemidiaphragm. There are wires over the left chest. Lungs: Low lung volumes. Crowding of the central pulmonary vasculature. Pleural spaces: Unremarkable. No pleural effusion. No pneumothorax. Heart/Mediastinum: Stable cardiac silhouette. Bones/joints: Unremarkable for patient's age. IMPRESSION: 1. ETT in place similar to prior study. 2. Nasogastric tube in place. 3. Limitations as discussed above. Dictated and Authenticated by: Lucy Nelson MD. Ordering:JANAY Yang MD
[2024-02-19] MEDS: Atropine 1 MG/10 ML SYRINGE (14:41)
[2024-02-19] MEDS: Normal Saline - Diluent 50 ML VIAL IJ (15:42)
[2024-02-19] MEDS: Omnipaque 350 MG/ML 100 ML BTL IJ (15:43)
[2024-02-19] MEDS: Lactated Ringers 1,000 ML 150 ML IV ×2 (15:49→21:02)
[2024-02-19] MEDS: fentaNYL 100 MCG/2 ML VIAL 75 MCG IVP (16:02)
[2024-02-19] MEDS: PROPOFOL 1,000 MG/100 ML BTL 33.584 MG IV ×3 (16:15→23:01)
[2024-02-19 18:18] LABS: Lactate 2.2 mmol/L (0.6-1.4)
[2024-02-19 18:27] LABS: BUN 19 mg/dL (7-18); Calcium 8.8 mg/dL (8.5-10.1); Chloride 104 mmol/L (98-107); Estimated GFR 92.26 (mL/min/1.73m2); Glucose 119 mg/dL (74-106); Potassium 3.9 mmol/L (3.5-5.1); Sodium 142 mmol/L (136-145)
--- NOTE | 2024-02-19 19:13 | NUR.NOTE ---
Ex girlfriend whois on patient's hippa, called for pt update. She stated that she found three pill bottles empty on the ktichen table and a fire arm. This screenplay writer provided update on pt stability and plan of care.
[2024-02-19 23:30] LABS: BE (Venous) 5 mmol/L (-2-3); HCO3 (Venous) 31 mmol/L (23-28); O2 Sat (Venous) 81 %; TCO2 (Venous) 27 mmol/L (24-29); pCO2 (Venous) 55 mmHg (41-51); pH (Venous) 7.36 (7.31-7.41); pO2 (Venous) 46 mmHg
[2024-02-19 23:34] LABS: Lactate 2.3 mmol/L (0.6-1.4)
[2024-02-20] VITALS (118 sets, daily range): BP systolic 104–160; BP diastolic 66–129; PULSE 49–101; RESP 2–30; TEMP 36.6–37; O2SAT 86–99
[2024-02-20] MEDS: ELECTROLYTE-R SOLUTION 1,000 ML 150 ML IV (01:03)
[2024-02-20] MEDS: Pantoprazole 40 MG VIAL IVP (01:04)
[2024-02-20] MEDS: Normal Saline Flush 10 ML SYR IVP ×5 (01:06→19:58)
[2024-02-20 01:52] LABS: BE 5 mmol/L (-2-3); HCO3 30 mmol/L (22-26); pCO2 47 mmHg (35-45); pH 7.41 (7.35-7.45); pO2 66 mmHg (80-105); sO2 94 % (95-98); tCO2 26 mmol/L (23-27)
[2024-02-20 01:55] LABS: Site Left Radial
[2024-02-20] MEDS: PIPERACILLIN/TAZO 4.5 GM in Normal Saline 100 ML IVPB ×4 (02:11→19:58)
[2024-02-20] MEDS: PROPOFOL 1,000 MG/100 ML BTL 33.584 MG IV ×2 (02:32→06:14)
[2024-02-20 02:53] LABS: BE 5 mmol/L (-2-3); HCO3 30 mmol/L (22-26); pCO2 47 mmHg (35-45); pH 7.41 (7.35-7.45); pO2 78 mmHg (80-105); sO2 96 % (95-98); tCO2 26 mmol/L (23-27)
[2024-02-20 02:56] LABS: FIO2 45 %; Site Left Radial
[2024-02-20 02:58] LABS: FIO2 35 %
[2024-02-20 04:17] LABS: BE (Venous) 5 mmol/L (-2-3); HCO3 (Venous) 30 mmol/L (23-28); O2 Sat (Venous) 92 %; TCO2 (Venous) 26 mmol/L (24-29); pCO2 (Venous) 46 mmHg (41-51); pH (Venous) 7.42 (7.31-7.41); pO2 (Venous) 60 mmHg
[2024-02-20 04:18] LABS: Lactate 1.1 mmol/L (0.6-1.4)
[2024-02-20 04:25] LABS: Abs Immature Grans 0.02 10^3/uL (0.0-0.06); Absolute Basophil Count 0.04 10^3/uL (0.0-0.2); Absolute Eosinophil Count 0.19 10^3/uL (0.0-0.7); Absolute Lymphocyte Count 2.15 10^3/uL (1.2-3.4); Absolute Neutrophil Count 4.43 10^3/uL (1.2-6.7); Basophils % 0.5 %; Eosinophils % 2.5 %; HCT 42.2 % (40.0-50.0); HGB 14.5 g/dL (13.5-17.5); Immature Grans % 0.3 %; Lymphocytes % 28.6 %; MCHC 34.4 % (32.0-36.0); MCV 90 fL (80-95); Monocytes % 9.3 %; Neutrophils % 58.8 %; Platelet Count 170 10^3/uL (130-400); RBC 4.67 10^6/uL (4.36-5.78); RDW 12.2 % (11.8-14.1); RDW-SD 40.3 fL; WBC 7.53 10^3/uL (4.4-10.8)
[2024-02-20 04:42] LABS: ALT 35 U/L (16-63); AST 26 U/L (15-37); Albumin 3.2 g/dL (3.4-5.0); Alkaline Phosphatase 67 U/L (46-116); Anion Gap 7.1 mmol/L (3-11); BUN 16 mg/dL (7-18); Bilirubin, Total 1.19 mg/dL (0.2-1.0); CO2 30.9 mmol/L (21.0-32.0); Calcium 8.5 mg/dL (8.5-10.1); Chloride 105 mmol/L (98-107); Estimated GFR 92.26 (mL/min/1.73m2); Glucose 133 mg/dL (74-106); Potassium 3.5 mmol/L (3.5-5.1); Sodium 143 mmol/L (136-145); Total Protein 6.9 g/dL (6.4-8.2)
[2024-02-20] MEDS: Albuterol 2.5 MG/3 ML INH SOLN VIAL UPD ×2 (05:56→11:58)
--- NOTE | 2024-02-20 07:51 | PGE_ITS ---
Date of Service Date of service: 02/20/24 Time of Service: 07:51 Assessment and Plan Assessment and plan (1) Intentional clonazepam overdose: Status: Acute Assessment and plan: History suggests clonazepam overdose is the major factor driving his presentation and respiratory depression, in combination with his baseline buprenorphine and gabapentin. Also concern for taking escitalopram but he does not have a prolonged QT or signs of serotonin excess. Additional information and clinical course suggests propranolol and clonidine also contributing. Initially presented at 1800 on 02/17, presumed ingestion during the day prior to this. Half life of clonazepam is 30-40h, so this will leave his system slowly Given flumazenil x 1 in the ED, not recommended in general for adults per poison control. Case reviewed again with poison control 02/18 and overnight 02/19. Continue respiratory support, plan trial off sedation this morning with BiPAP ready Qualifiers: Encounter type: initial encounter Qualified Code(s): T42.4X2A - Poisoning by benzodiazepines, intentional self-harm, initial encounter (2) Bradycardia: Status: Acute Assessment and plan: Patient is mildly bradycardic 50s at his baseline (was in 40s on presentation and overnight the first night as well) but with 3 episodes of severe bradycardia down to high 20s. These episodes are paroxysmal and do seem related to repositioning, suggesting possible vasovagal events with pain as a trigger? He is also on propofol for sedation, which can contribute. Ketamine started 02/18 so that we can limit propofol dose. Case reviewed [place] Dr. Oscar Ascencio[place] [facility] [place]. Changed norepi to epinephrine drip. CT for signs of trauma/elevated ICP negative. With additional information, we now think propranolol and clonidine likely are contributing. His lowest pulse at his last admission was 68. We have not seen heart block or other abnormal intervals, however. Repeat EKG this morning. (3) Suicide attempt: Status: Acute Assessment and plan: He is sedated and on ventilator. He will need CPSO and psychiatric evaluation when he is alert and extubated. We have report that he had a loaded gun next to his pills as well. He is clearly high risk and will need psychiatric care and support. (4) Opiate dependence: Status: Chronic Assessment and plan: On high dose buprenorphine as outpatient. Urine sent to confirm he is taking this. Buprenorphine has a long half life, using prn fentanyl for comfort. Will resume the buprenorphine when he is extubated. Qualifiers: Substance use status: with other opioid-induced disorder Qualified Code(s): F11.288 - Opioid dependence with other opioid-induced disorder (5) Ribs, multiple fractures: Status: Acute Assessment and plan: Displaced rib fractures noted on right side T3-6. But old at least since 05/24 per radiology. This and lack of effusion on CT are reassuring that there was not significant chest trauma associated with this presentation Qualifiers: Encounter type: subsequent encounter Fracture type: closed Laterality: right (6) Aspiration pneumonia: Status: Acute Assessment and plan: Being treated for aspiration pneumonia with pip/tazo. I think this is reasonable, but the CXR actually suggests an effusion rather than a focal infiltrate. Given the multiple rib fractures on that side as above, Qualifiers: Aspiration pneumonia type: due to gastric secretions Laterality: right Lung location: lower lobe of lung Qualified Code(s): J69.0 - Pneumonitis due to inhalation of food and vomit (7) DELLA (obstructive sleep apnea): Status: Chronic Assessment and plan: on ventilator, transition to BiPAP when extubated. (8) Asthma: Status: Chronic Assessment and plan: With asthma history and expiratory wheezing, will add methylprednisolone. Pantoprazole for GI prophylaxis given this and pressors. Qualifiers: Asthma severity: mild Asthma persistence: intermittent Asthma complication type: uncomplicated Qualified Code(s): J45.20 - Mild intermittent asthma, uncomplicated (9) Bacteremia: Status: Acute Assessment and plan: 1/2 bottles. He is clinically stable without fever or abnormal WBC on pip/tazo. Will not expand antibiotics. (10) DVT prophylaxis: Status: Acute Assessment and plan: we can resume enoxaparin Subjective Subjective Patient reports: denies bowel movement or fever Interval history since last seen: Events: Additional bradycardia event to 27-30 as patient being moved to prepare for CT scans. Treated with atropine 0.5mg x 1. He maintained his blood pressure. CT head negative CT chest confirmed aspiration pneumonia, no effusion, rib fractures old IV fluids changed from LR to plasmalyte at 150ml/hr 1/2 blood cultures +GPC Additional information per friends, other empty pill bottles also recovered from his room including propranolol, clonidine, gabapentin Patient intubated and sedated. Exam Narrative Exam Narrative: GEN: intubated and sedated. NGT in place. CV: RRR 50s, no murmur Lungs: Breathing with vent, course breath sounds diffusely with diffuse expiratory wheezing, breath sounds audible throughout Abd: hypoactive BS, softly gasseous distended ext: no cyanosis, edema, pulses palpable at DP bilaterally, warm. Skin with linear blister about 4cm on back. Objective Last Vital Signs Temp 36.7 C 02/20/24 04:00 Pulse 52 L 02/20/24 07:01 Resp 17 02/20/24 07:41 BP 129/80 02/20/24 07:41 Pulse Ox 94 02/20/24 07:41 Laboratory Results - last 24 hr 02/19/24 02/19/24 02/19/24 06:43 18:12 23:22 WBC RBC Hgb Hct MCV MCH MCHC RDW Plt Count MPV Immature Gran % Neutrophils % Lymphocytes % Monocytes % Eosinophils % Basophils % Nucleated RBC % Absolute Neutrophils Absolute Lymphocytes Absolute Monocytes Absolute Eosinophils Absolute Basophils ABG Sample Site ABG pH ABG pCO2 ABG pO2 ABG HCO3 ABG Total CO2 ABG O2 Saturation ABG Base Excess VBG pH 7.36 VBG pCO2 55 H VBG pO2 46 VBG HCO3 31 H VBG Total CO2 27 VBG O2 Saturation 81 VBG Base Excess 5 H VBG Lactate 2.2 H* 2.3 H* FiO2 Sodium 142 Potassium 3.9 D Chloride 104 Carbon Dioxide 30.0 Anion Gap 8.0 BUN 19 H Creatinine 1.0 Est GFR (CKD-EPI 2020) 92.26 Glucose 119 H Calcium 8.8 Total Bilirubin AST ALT Alkaline Phosphatase Creatine Kinase 99 Total Protein Albumin 02/20/24 02/20/24 02/20/24 01:47 02:45 04:10 WBC 7.53 RBC 4.67 Hgb 14.5 Hct 42.2 MCV 90 MCH 31.0 MCHC 34.4 RDW 12.2 Plt Count 170 MPV 9.0 Immature Gran % 0.3 Neutrophils % 58.8 Lymphocytes % 28.6 Monocytes % 9.3 Eosinophils % 2.5 Basophils % 0.5 Nucleated RBC % 0.0 Absolute Neutrophils 4.43 Absolute Lymphocytes 2.15 Absolute Monocytes 0.70 Absolute Eosinophils 0.19 Absolute Basophils 0.04 ABG Sample Site Left Radial Left Radial ABG pH 7.41 7.41 ABG pCO2 47 H 47 H ABG pO2 66 L 78 L ABG HCO3 30 H 30 H ABG Total CO2 26 26 ABG O2 Saturation 94 L 96 ABG Base Excess 5 H 5 H VBG pH 7.42 H VBG pCO2 46 VBG pO2 60 VBG HCO3 30 H VBG Total CO2 26 VBG O2 Saturation 92 VBG Base Excess 5 H VBG Lactate 1.1 FiO2 35 45 Sodium 143 Potassium 3.5 Chloride 105 Carbon Dioxide 30.9 Anion Gap 7.1 BUN 16 Creatinine 1.0 Est GFR (CKD-EPI 2020) 92.26 Glucose 133 H Calcium 8.5 Total Bilirubin 1.19 H AST 26 ALT 35 Alkaline Phosphatase 67 Creatine Kinase Total Protein 6.9 Albumin 3.2 L Time Spent with Patient Time Spent with Patient: >50 minutes Time was spent: preparing to see the patient(eg.review tests), obtaining and/or reviewing separately otained hiistory, ordering medications,tests, procedures, referring, communicating with other health skin care consultant, indepentently interpreting results and care coordination
--- NOTE | 2024-02-20 08:00 | RT.EKG_ITS ---
APPROVED REPORT Exam: Resting ECG Reason for Exam: Per Poison Control Patient Location: I HR:54 bpm ECG Measurements Heart Rate 54 AXIS WI 177 P 57 QRSd 91 QRS 65 QT 504 T 77 QTc 480 Conclusion Sinus bradycardia...rate< 60 Normal Electrocardiogram
[2024-02-20] MEDS: methylPREDNISolone SUCC 125 MG VIAL 80 MG IVP ×2 (08:11→16:40)
[2024-02-20] MEDS: POTASSIUM CHLORIDE 20 MEQ/100 ML BAG 50 MEQ IVINF (08:11)
[2024-02-20] MEDS: Enoxaparin 40 MG/0.4 ML SYR SC (09:40)
[2024-02-20] MEDS: Lidocaine 5% Patch 1 PATCH TP (10:46)
[2024-02-20] MEDS: Buprenorphine/Naloxone 8 mg/2 mg FILM 1 EACH SL ×2 (15:01→19:58)
[2024-02-20] MEDS: Tamsulosin 0.4 MG CAPCR PO (15:01)
[2024-02-20] MEDS: QUEtiapine 50 MG TAB PO (16:00)
[2024-02-20] MEDS: QUEtiapine 50 MG TAB (16:40)
[2024-02-20] MEDS: QUEtiapine 50 MG TAB 200 MG PO (20:36)
[2024-02-21] VITALS (19 sets, daily range): BP systolic 115–144; BP diastolic 72–96; PULSE 52–89; RESP 8–22; TEMP 36–37.3; O2SAT 93–98
[2024-02-21] MEDS: Normal Saline Flush 10 ML SYR IVP ×3 (03:50→20:31)
[2024-02-21] MEDS: methylPREDNISolone SUCC 125 MG VIAL 80 MG IVP ×2 (03:50→08:26)
[2024-02-21] MEDS: Pantoprazole 40 MG VIAL IVP (03:50)
[2024-02-21] MEDS: PIPERACILLIN/TAZO 4.5 GM in Normal Saline 100 ML IVPB ×2 (03:51→08:19)
[2024-02-21] MEDS: Lidocaine 5% Patch 1 PATCH TP (08:17)
[2024-02-21] MEDS: Tamsulosin 0.4 MG CAPCR PO (08:23)
[2024-02-21] MEDS: Buprenorphine/Naloxone 8 mg/2 mg FILM 1 EACH SL ×3 (08:23→20:30)
--- NOTE | 2024-02-21 08:42 | W.PULMCC ---
General Date of Service Date of service: 02/21/24 Time of Service: 08:42 Reason for Admission to ICU: OD w/ Acute Metabolic encephalopathy requiring intubation fo rairway protection, Bradycardia and Aspiration PNA Assessment and Plan Assessment and plan (1) Aspiration pneumonia: Status: Acute Qualifiers: Aspiration pneumonia type: due to gastric secretions Laterality: right Lung location: lower lobe of lung Qualified Code(s): J69.0 - Pneumonitis due to inhalation of food and vomit (2) DELLA (obstructive sleep apnea): Status: Chronic (3) Acute hypoxemic respiratory failure: Status: Acute (4) Thrombocytopenia: Status: Chronic (5) Bacteremia: Status: Acute (6) Overdose: Status: Acute Qualifiers: Encounter type: subsequent encounter Injury intent: undetermined intent Qualified Code(s): T50.904D - Poisoning by unspecified drugs, medicaments and biological substances, undetermined, subsequent encounter Recommendations Pulmonary: s/p intubation for airway protection and aspiration PNA. Hx/o DELLA non compliant to CPAP ([facility]) On D3 zosyn, w/ no respiratory cultures obtained. Since tehre is signficant improvement of his respiratory status would recommend narrowing to Ceftiraxone and completing a total of 7 days of antibiotics. Nicotine patch placed. Cardiac: Bradycardia has resolved. Cont w/ telemetry Renal: Gonzalez has been removed. Needs close f/u since he has had urinary retention this admission,may be drug related I&O: Intake & Output 02/18/24 02/19/24 02/20/24 02/21/24 23:59 23:59 23:59 23:59 Intake Total 3969.088 / 3969.088 3909.663 / 3909.663 100 / 100 Output Total 1900 / 1900 2950 / 3450 1600 / 1600 Balance 2069.088 / 2069.088 959.663 / 459.663 -1500 / -1500 Weight 134.9 kg 137.1 kg GI Nutrition: Passed Bedside swallow eval. Diet has been advanced. Infectious Disease: 1/2 blood cultures are positive which may be a contaminant. repeat blood cultures today. OK to narrow Abx to ceftriaxone and follow results closely. Hematologic: Mild drop on platelet count. May be dilutional but also receiving lovenox. Cont to follow it daily. Neurologic: Still some residual confusion. Would resume dose of suboxone (TONG SETTER checked and confirmed). If anxiety develops may consider restarting klonopin but at half the dose at 0.5mg. Endocrine: No issues Lines: Peripheral access Prophylaxis: Lovenox Pt is extubated - may consider DC'ing Protonix IV Code Status: Resuscitation Status Full Code Subjective Critical and life-threatening events over the past 24 hours: Succesfully extubated yesterday. Still w/ some degree of confusion. Blood culture 1/2 growing Staph Aureus - ? contaminant mild drop in platelets TONG SETTER report obtained for list of prescribers and doses. Exam Const General: cooperative and no acute distress Orientation: alert Other: confused and restless at times. Chest Chest: normal inspection of the chest Resp Effort & Inspection: normal respiratory effort Auscultation: clear to auscultation bilaterally Cardio Jugular venous pressure: no JVD Rate: regular rate Rhythm: regular rhythm Heart Sounds: S1 normal and S2 normal Extrem General: normal to inspection Most Recent VS/Results Last Vital Signs Temp 36.2 C L 02/21/24 00:00 Pulse 73 02/21/24 03:32 Resp 14 02/21/24 03:32 BP 143/88 H 02/21/24 03:32 Pulse Ox 94 02/21/24 08:19 Review of Systems All systems reviewed & are unremarkable except as noted in HPI and below Time spent with patient Time spent in Critical Care: 40 Time spent in Critical care included: Coordination of care, Chart review, Documenting critically ill care, Time at immediate bedside and Discussing critically ill care with other medical staff Note: 40
--- NOTE | 2024-02-21 08:52 | CMPROGNOTE_ITS ---
Date of service: 02/21/24 Time of Service: 08:52 Care Management Progress Note Progress Note Text Progress Note Text: Chris was extubated yesterday and is much more awake today. He still appears to have some confusion and states he does not remember what happened last week that brought him to the hospital. Chris was screened by [facility] crisis screeners today and it was determined that he is not safe for discharge. He would not agree to seek voluntary treatment so [facility] is working with the providers to complete EE paperwork for Chris to be held involuntarily. When this information was given to him, Chris became angry and upset and stated that he disagrees with the decision. He doesn't feel that things are that bad. he tried to stand and walk out of his room in the iCU, however he is very unsteady on his feet and was able to be redirected by staff. Discharge Potential Discharge Needs: Other (inpatient voluntary psychiatric treatment) Anticipated Barriers to Discharge: Bed availability Patient/Family Education Needs: Review discharge instructions, discuss Ask Me Three Transportation: Other (to be determined by disposition) Plan: Chris was screened by an [facility] Crisis screener today as he was threatening to leave the hospital. He is not medically cleared yet but was felt to be a p otential danger to himself. During the screening process, Chris refused voluntary psychiatric hospitalization and the provider and [facility] are in the process of doing EE paperwork. When medically cleared he will likely be transferred to an inpatient psychiatric facility for stabilization. He will follow up with facility providers and plan of care. Transportation will be determined by disposition. CM will follow. SDOH(Care Management) Screening Will the Patient Participate in the Screening?: Unable to obtain Social Determinants of Health Comments(SDOH Details): MELINDA Health Related Social Needs Health related social needs details: [facility]
--- NOTE | 2024-02-21 09:36 | PGE_ITS ---
Date of Service Date of service: 02/21/24 Time of Service: 09:36 Assessment and Plan Assessment and plan (1) Intentional clonazepam overdose: Status: Acute Assessment and plan: History suggests clonazepam overdose is the major factor driving his presentation and respiratory depression, in combination with his baseline buprenorphine and gabapentin. Also concern for taking escitalopram but he never had prolonged QT or signs of serotonin excess. Additional information and clinical course suggests propranolol and clonidine also contributing. Initially presented at 1800 on 02/17, presumed ingestion during the day prior to this. Half life of clonazepam is 30-40h, so this will leave his system slowly Given flumazenil x 1 in the ED, not recommended in general for adults per poison control. Case reviewed with poison control 02/18 and overnight 02/19. He has been stable since extubation, clearly improving, though clearly not at baseline. Fffects of benzodiazepine still evident in confusion and balance Qualifiers: Encounter type: initial encounter Qualified Code(s): T42.4X2A - Poisoning by benzodiazepines, intentional self-harm, initial encounter (2) Bradycardia: Status: Acute Assessment and plan: Patient was bradycardic 40s-50s at admission, episodes of severe bradycardia down to high 20s while intubated. Propofol was cut and ketamine added. Case reviewed with Dr. Oscar Ascecnio, the [facility] ICU fellow. Changed norepi to epinephrine drip. CT for signs of trauma/elevated ICP negative. These episodes were paroxysmal and do seem related to repositioning, suggesting possible vasovagal events with pain as a trigger? No heart block Propranolol and clonidine likely are contributing. His lowest pulse at his last admission was 68. This has resolved since extubation (3) Suicide attempt: Status: Acute Assessment and plan: He denies suicidality of memory of his overdose. He may have amnesia from benzodiazepines. He will still clearly need psychiatric evaluation once he is medically clear. (4) Opiate dependence: Status: Chronic Assessment and plan: On high dose buprenorphine as outpatient. Now back on his home dose. He does not appear opioid toxic. Qualifiers: Substance use status: with other opioid-induced disorder Qualified Code(s): F11.288 - Opioid dependence with other opioid-induced disorder (5) Aspiration pneumonia: Status: Acute Assessment and plan: Being treated for aspiration pneumonia with pip/tazo seen on CXR and CT. Blood growing non-aureus staph, likely contaminate, repeated today. Continue antibiotics but narrow to Ceftriaxone after discussion with Dr. Moffett. He has some active wheezing and history of smoking and Asthma, IV steroids added 02/19. Transition to oral prednisone and add ICS/LABA along with albuterol. NRT for smoking cessation. Qualifiers: Aspiration pneumonia type: due to gastric secretions Laterality: right Lung location: lower lobe of lung Qualified Code(s): J69.0 - Pneumonitis due to inhalation of food and vomit (6) DELLA (obstructive sleep apnea): Status: Chronic Assessment and plan: on ventilator, transition to BiPAP when extubated. He has prescribed but not using regularly at home. (7) Asthma: Status: Chronic Assessment and plan: With exacerbation, possible COPD overlap. Treatment as above. Pantoprazole for GI prophylaxis given this and pressors. Qualifiers: Asthma severity: mild Asthma persistence: intermittent Asthma complication type: uncomplicated Qualified Code(s): J45.20 - Mild intermittent asthma, uncomplicated (8) Bacteremia: Status: Acute Assessment and plan: 1/2 bottles. As above likely contaminate. s/p 3 days of pip/tazo, now CTX for aspiration pneumonia. Repeat cultures now pending. (9) DVT prophylaxis: Status: Acute Assessment and plan: enoxaparin (10) Urinary retention: Status: Acute Assessment and plan: After andujar removed 02/19. Tamsulosin started. Try again today, strait cath if retaining again. Subjective Subjective Patient reports: tolerating a regular diet; denies diarrhea, nausea, vomiting or fever Interval history since last seen: 24 hr events: Extubated 02/19 AM Suboxone and quetiapine resumed Andujar removed but was retaining, replaced overnight He denies pain. Repeating that he needs to go to the bathroom. States breathing is crappy. He states he had a CPAP but wasn't using regularly. Denies haveing O2 at home. He does not currently feel suicidal. He does not remember wanting to take his own life or taking extra of his pills. He has no memory of a gun, does not own one. He does say he has had bad depression and SI in the past. On VPMS, no concerning findings. We did note that his clonazepam dose was doubled from 0.5mg to 1mg in January. Rx was coming from psychiatry, but has been from PCP in [place] in recent months. Suboxone from telehealth. Exam Narrative Exam Narrative: GEN: Sitting up,then standing and saying he needs to pee, confused at times but redirectable. CV: RRR 60-70ss, no murmur Lungs: course but clearing breath sounds diffusely with diffuse expiratory wheezing, no rales, normal effort. NC in place Abd: active BS, soft, not tender. ext: no cyanosis, no edema Psych: Normal thought process. Alert and oriented to self, place. Objective Last Vital Signs Temp 36.3 C L 02/21/24 08:45 Pulse 70 02/21/24 08:45 Resp 14 02/21/24 03:32 BP 143/88 H 02/21/24 03:32 Pulse Ox 95 02/21/24 08:45 Time Spent with Patient Time Spent with Patient: >50 minutes Time was spent: preparing to see the patient(eg.review tests), obtaining and/or reviewing separately otained hiistory, ordering medications,tests, procedures, referring, communicating with other health physician locums urgent care, indepentently interpreting results, counseling the patient and care coordination
[2024-02-21] MEDS: cefTRIAXone 2 GM/50 ML BAG IVPB (09:41)
[2024-02-21] MEDS: Enoxaparin 40 MG/0.4 ML SYR SC (09:42)
[2024-02-21] MEDS: predniSONE 20 MG TAB 40 MG PO (09:42)
[2024-02-21] MEDS: Nicotine 14 MG/24 HR PATCH TD (10:38)
[2024-02-21] MEDS: QUEtiapine 50 MG TAB PO (12:17)
--- NOTE | 2024-02-21 16:25 | CMSP_ITS ---
Date of service: 02/21/24 Time of Service: 16:25 Care Management Safety Plan Status Status: Involuntary Reason for Wait Reason for Wait: Inpatient Admission Safety Plan Safety Plan: INVOLUNTARY FOR INPATIENT PSYCHIATRIC STABILIZATION. Safety plan has been established to meet the needs of the patient, and consideration of the care team, to adhere to patient goals, identify restrictions based on behavioral status, address nutrition, and determine allowed personal belongings, tools for hygiene and personal care. Determine level of activity including ambulation, level of supervision, visitors, and determine privileges based on behaviors and level of engagement by pt. SAFETY PLAN: 1. Will remain on SI/HI precautions. In Paper Clothes 2. Will remain in room under direct supervision of one-on-one staff at all times provided by CPSO; RADHA, LICENSED MASTER SOCIAL WORKER websphere portal developer. 3. May have paper cups, plates, finger foods as well as a cardboard spoon 4. Follow [facility] Management of the Admitted Behavioral Health Patient policy. 5. Comfort bath system only. 6. No personal belongings 7. Visitors: none at this time 8. Activities: may have soft items from activity cart at nursing discretion 9. ?Bathroom privileges with supervision 10. Phone: May contact legal administrative representative using hospital phone only. 11. Due to INVOLUNTARY status, patient is being held at [facility] by the Department of Mental Health ([facility]) until 2nd certification by [facility] Psychiatrist can be performed (within 24 hours). Staff will provide de-escalation support (CPI) as needed. If patient wishes to leave [facility], staff will contact [facility] Crisis Screener ([phone]) and On-Call Technical Writer And Editor ([phone]) as soon as possible. In the event of elopement, notify [place] [employer] ([phone]). Patient is currently involuntarily at [facility]. [facility] Frontline Animal Cruelty Investigator will continue seeking placement. Please contact the Searchlight Operator Technical Writer And Editor ) for any needed changes to Safety Plan. Safety plan has been provided to interdepartmental care team. Patient will be transported by [facility] at time of discharge.
--- NOTE | 2024-02-21 16:25 | PDOC.CMSAFE ---
Date of service: 02/21/24 Time of Service: 16:25 Care Management Safety Plan Status Status: Involuntary Reason for Wait Reason for Wait: Inpatient Admission Safety Plan Safety Plan: INVOLUNTARY FOR INPATIENT PSYCHIATRIC STABILIZATION. Safety plan has been established to meet the needs of the patient, and consideration of the care team, to adhere to patient goals, identify restrictions based on behavioral status, address nutrition, and determine allowed personal belongings, tools for hygiene and personal care. Determine level of activity including ambulation, level of supervision, visitors, and determine privileges based on behaviors and level of engagement by pt. SAFETY PLAN: 1. Will remain on SI/HI precautions. In Paper Clothes 2. Will remain in room under direct supervision of one-on-one staff at all times provided by [employer]; RADHA, LUMBER CARRIER OPERATOR studio director. 3. May have paper cups, plates, finger foods as well as a cardboard spoon 4. Follow [facility] Management of the Admitted Behavioral Health Patient policy. 5. Comfort bath system only. 6. No personal belongings 7. Visitors: none at this time 8. Activities: may have soft items from activity cart at nursing discretion 9. ?Bathroom privileges with supervision 10. Phone: May contact legal credit representative using hospital phone only. 11. Due to INVOLUNTARY status, patient is being held at [facility] by the Department of Mental Health ([facility]) until 2nd certification by [facility] Psychiatrist can be performed (within 24 hours). Staff will provide de-escalation support (CPI) as needed. If patient wishes to leave [facility], staff will contact [facility] Crisis Screener ([phone]) and On-Call Hospital Housekeeper ([phone]) as soon as possible. In the event of elopement, notify [place] [employer] ([phone]). Patient is currently involuntarily at [facility]. [facility] Frontline Balance Bridge Assembler will continue seeking placement. Please contact the Manager Collection Hospital Housekeeper ([phone]) for any needed changes to Safety Plan. Safety plan has been provided to interdepartmental care team. Patient will be transported by [employer] at time of discharge.
--- NOTE | 2024-02-21 18:23 | ED.PROG_ITS ---
Date of service: 02/21/24 Time of Service: 18:24 Medical Decision Making I was asked by care management and Dr. Jack to assist in the care of the patient to evaluate for EE application. I met with patient, reviewed medical records and spoke with Dr. Jack and Janette ([facility]). Patient is suicidal and refusing treatment. Patient meets criteria for first certification for EE. Quality:SDOH Health Related Social Needs: Health related social needs details MELINDA Discharge Plan Disposition Patient Disposition: Admit to [facility] Discharge Details Clinical Impression: Overdose, Suicide attempt Admit Date/Time: 02/18/24 22:30 Admit Provider: Suraj Martines Attending Provider: Suraj Martines Primary Care Provider: Pierre Cardenas ED Provider: Marianne White Discharge Data Discharge Date/Time-TO BE ENTERED AT DEPARTURE: 02/18/24 23:55
[2024-02-21] MEDS: Patch Removal LIDOCAINE 1 EACH TP (20:29)
[2024-02-21] MEDS: QUEtiapine 50 MG TAB 200 MG PO (20:30)
[2024-02-21] MEDS: Budesonide/Formoterol 160/4.5 6 GM 60 PUFF INH IH (20:36)
[2024-02-22] VITALS (18 sets, daily range): BP systolic 112–142; BP diastolic 65–87; PULSE 52–72; RESP 7–20; TEMP 36–36.6; O2SAT 94–100
[2024-02-22] MEDS: Normal Saline Flush 10 ML SYR IVP ×3 (00:19→20:56)
[2024-02-22] MEDS: Normal Saline 10 ML VIAL IJ (00:19)
[2024-02-22] MEDS: Pantoprazole 40 MG VIAL IVP (00:19)
[2024-02-22] MEDS: Budesonide/Formoterol 160/4.5 6 GM 60 PUFF INH IH ×2 (08:08→21:01)
[2024-02-22] MEDS: cefTRIAXone 2 GM/50 ML BAG IVPB (09:11)
[2024-02-22] MEDS: Tamsulosin 0.4 MG CAPCR PO (09:13)
[2024-02-22] MEDS: Buprenorphine/Naloxone 8 mg/2 mg FILM 1 EACH SL ×3 (09:13→20:55)
[2024-02-22] MEDS: Nicotine 14 MG/24 HR PATCH TD (09:13)
[2024-02-22] MEDS: Enoxaparin 40 MG/0.4 ML SYR SC (09:14)
[2024-02-22] MEDS: predniSONE 20 MG TAB 40 MG PO (09:14)
[2024-02-22] MEDS: Lidocaine 5% Patch 1 PATCH TP (09:34)
--- NOTE | 2024-02-22 11:47 | PGE_ITS ---
Date of Service Date of service: 02/22/24 Time of Service: 11:47 Assessment and Plan Assessment and plan (1) Intentional clonazepam overdose: Status: Acute Assessment and plan: Clonazepam overdose was the major factor driving his presentation and respiratory depression, in combination with his baseline buprenorphine and gabapentin. Also concern for taking escitalopram but he never had prolonged QT or signs of serotonin excess. Additional information and clinical course suggests propranolol and clonidine also contributing. Initially presented at 1800 on 02/17, presumed ingestion during the day prior to this. Half life of clonazepam is 30-40h, so this is leaving his system slowly. Not showing signs of benzo withdrawal. Given flumazenil x 1 in the ED, not recommended in general for adults per poison control. Case reviewed with poison control 02/18 and overnight 02/19. He has been stable since extubation, clearly improving now at baseline. I would avoid benzodiazapines at discharge given this episode and his alcohol use disorder history and polypharmacy with opioid and gabapentin. He is currently clear for psychiatric placement. Qualifiers: Encounter type: initial encounter Qualified Code(s): T42.4X2A - Poisoning by benzodiazepines, intentional self-harm, initial encounter (2) Bradycardia: Status: Acute Assessment and plan: Patient was bradycardic 40s-50s at admission, episodes of severe bradycardia down to high 20s while intubated. Propofol was cut and ketamine added. Case reviewed with Dr. Oscar Ascencio, the [facility] ICU fellow. Changed norepi to epinephrine drip. CT for signs of trauma/elevated ICP negative. These episodes were paroxysmal and do seem related to repositioning, suggesting possible vasovagal events with pain as a trigger? No heart block Propranolol and clonidine likely are contributing. His lowest pulse at his last admission was 68. This has resolved since extubation (3) Suicide attempt: Status: Acute Assessment and plan: He denies suicidality of memory of his overdose. He may have amnesia from benzodiazepines. Needs psychiatric evaluation/plan now that he is medically clear. (4) Opiate dependence: Status: Chronic Assessment and plan: On high dose buprenorphine as outpatient. Now back on his home dose. He does not appear opioid toxic. Qualifiers: Substance use status: with other opioid-induced disorder Qualified Code(s): F11.288 - Opioid dependence with other opioid-induced disorder (5) Aspiration pneumonia: Status: Acute Assessment and plan: Being treated for aspiration pneumonia with pip/tazo seen on CXR and CT. Blood growing non-aureus staph hominis, likely contaminate, repeated 02/20. Antibiotics but narrowed to Ceftriaxone after discussion with Dr. Moffett, can stop after today's dose unless new cultures turn positive. Qualifiers: Aspiration pneumonia type: due to gastric secretions Laterality: right Lung location: lower lobe of lung Qualified Code(s): J69.0 - Pneumonitis due to inhalation of food and vomit (6) DELLA (obstructive sleep apnea): Status: Chronic Assessment and plan: He has prescribed but not using regularly at home, encouraged to follow up with this. (7) Asthma: Status: Chronic Assessment and plan: With exacerbation, possible COPD overlap. He has some active wheezing and history of smoking and Asthma, IV steroids added 02/19. Transition to oral prednisone and add ICS/LABA along with albuterol. NRT for smoking cessation. Pantoprazole for GI prophylaxis given this and pressors he was on previously, can stop this upon discharge Qualifiers: Asthma severity: mild Asthma persistence: intermittent Asthma complication type: uncomplicated Qualified Code(s): J45.20 - Mild intermittent asthma, uncomplicated (8) Bacteremia: Status: Acute Assessment and plan: 1/2 bottles. As above likely contaminate. s/p 3 days of pip/tazo, now CTX x 2 doses for aspiration pneumonia. Repeat cultures now pending. (9) DVT prophylaxis: Status: Acute Assessment and plan: enoxaparin (10) Urinary retention: Status: Acute Assessment and plan: After andujar removed 02/19. Tamsulosin started, now able to urinate. Subjective Subjective Patient reports: feels better, tolerating a regular diet and voiding w/o difficulty; denies diarrhea, nausea, vomiting or fever Interval history since last seen: Off oxygen EE signed 02/20 after evaluation Andujar out, voiding He feels better. Breathing is better. Head feels more clear, though he still doesn't remember suicide attempt. His GF told him what happened and he believes her. States something must have set him off, but before this he was doing well with 8 months sober. He does related that his clonazepam dose went up this month because of some increased anxiety. He does agree it may be better to stay off this medication. Exam Narrative Exam Narrative: GEN: Sitting up,then standing and saying he needs to pee, confused at times but redirectable. CV: RRR 70s, no murmur Lungs: Clear bilaterally, no wheezing, no rales, normal effort. On room air. Abd: active BS, soft, not tender. ext: no cyanosis, no edema Psych: Normal thought process. Alert and oriented x 3. Objective Last Vital Signs Temp 36.6 C 02/22/24 11:32 Pulse 71 02/22/24 11:32 Resp 16 02/22/24 11:32 BP 122/86 02/22/24 11:32 Pulse Ox 97 02/22/24 11:32 Time Spent with Patient Time Spent with Patient: >50 minutes Time was spent: preparing to see the patient(eg.review tests), obtaining and/or reviewing separately otained hiistory, ordering medications,tests, procedures, referring, communicating with other health neonatal critical care nurse, indepentently interpreting results, counseling the patient and care coordination
--- NOTE | 2024-02-22 12:28 | CMSP_ITS ---
Date of service: 02/22/24 Time of Service: 12:28 Care Management Safety Plan Status Status: Involuntary Reason for Wait Reason for Wait: Inpatient Admission and Assessment/Screening (Second certification pending for this afternoon) Safety Plan Safety Plan: INVOLUNTARY FOR INPATIENT PSYCHIATRIC STABILIZATION. Safety plan has been established to meet the needs of the patient, and consideration of the care team, to adhere to patient goals, identify restrictions based on behavioral status, address nutrition, and determine allowed personal belongings, tools for hygiene and personal care. Determine level of activity including ambulation, level of supervision, visitors, and determine privileges based on behaviors and level of engagement by pt. SAFETY PLAN: 1. Will remain on SI/HI precautions. In Paper Clothes 2. Will remain in room under direct supervision of one-on-one staff at all times provided by [employer]; RADHA, CUSTOM SKI MAKER factory clerk. 3. May have paper cups, plates, finger foods as well as a cardboard spoon 4. Follow [facility] Management of the Admitted Behavioral Health Patient policy. 5. Comfort bath system or shower, at RN discretion. 6. No personal belongings 7. Visitors: none at this time 8. Activities: may have soft items from activity cart at nursing discretion 9. ?Bathroom privileges without restriction. 10. Phone: incoming/outgoing calls using [facility] cordless phone, at RN discretion. 11. Due to INVOLUNTARY status, patient is being held at [facility] by the Department of Mental Health ([facility]) until 2nd certification by [facility] Psychiatrist can be performed (within 24 hours). Staff will provide de-escalation support (CPI) as needed. If patient wishes to leave [facility], staff will contact [facility] Crisis Screener ([phone]) and On-Call In Home Sales Consultant ([phone]) as soon as possible. In the event of elopement, notify [place] [employer] ([phone]). Patient is currently involuntarily at [facility]. [facility] Frontline Coating And Embossing Unit Operator will continue seeking placement. Please contact the Supervisor [employer] Pl[employer] In Home Sales Consultant ([phone]) for any needed changes to Safety Plan. Safety plan has been provided to interdepartmental care team. Patient will be transported by [employer] at time of discharge.
--- NOTE | 2024-02-22 12:28 | PDOC.CMSAFE ---
Date of service: 02/22/24 Time of Service: 12:28 Care Management Safety Plan Status Status: Involuntary Reason for Wait Reason for Wait: Inpatient Admission and Assessment/Screening (Second certification pending for this afternoon) Safety Plan Safety Plan: INVOLUNTARY FOR INPATIENT PSYCHIATRIC STABILIZATION. Safety plan has been established to meet the needs of the patient, and consideration of the care team, to adhere to patient goals, identify restrictions based on behavioral status, address nutrition, and determine allowed personal belongings, tools for hygiene and personal care. Determine level of activity including ambulation, level of supervision, visitors, and determine privileges based on behaviors and level of engagement by pt. SAFETY PLAN: 1. Will remain on SI/HI precautions. In Paper Clothes 2. Will remain in room under direct supervision of one-on-one staff at all times provided by [employer]; RADHA, ALBACORE FISHING BOAT CREWMAN turner splitter machine operator. 3. May have paper cups, plates, finger foods as well as a cardboard spoon 4. Follow [facility] Management of the Admitted Behavioral Health Patient policy. 5. Comfort bath system or shower, at RN discretion. 6. No personal belongings 7. Visitors: none at this time 8. Activities: may have soft items from activity cart at nursing discretion 9. ?Bathroom privileges without restriction. 10. Phone: incoming/outgoing calls using [facility] cordless phone, at RN discretion. 11. Due to INVOLUNTARY status, patient is being held at [facility] by the Department of Mental Health ([facility]) until 2nd certification by [facility] Psychiatrist can be performed (within 24 hours). Staff will provide de-escalation support (CPI) as needed. If patient wishes to leave [facility], staff will contact [facility] Crisis Screener ([phone]) and On-Call Wheelman ([phone]) as soon as possible. In the event of elopement, notify [place] [employer] ([phone]). Patient is currently involuntarily at [facility]. [facility] Frontline Skilled Nursing Facility Counselor will continue seeking placement. Please contact the Career Discovery Teacher Wheelman ([phone]) for any needed changes to Safety Plan. Safety plan has been provided to interdepartmental care team. Patient will be transported by [facility] at time of discharge.
--- NOTE | 2024-02-22 12:29 | CMPROGNOTE_ITS ---
Date of service: 02/22/24 Time of Service: 12:29 Care Management Progress Note Progress Note Text Progress Note Text: Per MD, Chris is medically cleared today, as he appears to have returned to his baseline. Per staff, he is forward thinking and interested in support. Nena [facility], assessed Chris today, who agreed that Chris appears to be in better spirits today, and he denies SI/HI. Nena stated that he reported not being sure what happened in regard to his suicide attempt, and denies owning a firearm. EVY facilitated the second certification with a psychiatrist from [facility] and Janette [facility]. Chris was cooperative and engaged well during the second certification; the psychiatrist discussed the suicide attempt, and Chris did not deny it. Chris did report feeling that he would benefit from more support, which was recommended by the psychiatrist, who upheld his second certification. After the meeting, Chris was clearly upset when he was told that he misunderstood the provider, who continues to recommend inpatient psychiatric care; he felt that he should be abl e to leave [facility]. CM contacted [facility], and Janette met with Chris again today, to review the decision about his involuntary status. CM contacted [facility], who stated that his referral was declined due to his medical needs at the time; CM informed [facility] of his medical clearance and sent updated notes, as requested. Per RN, Chris has been calm and cooperative throughout the day. Safety plan in place. CM will continue to follow. Discharge Potential Discharge Needs: Other ([facility] intake) Anticipated Barriers to Discharge: Bed availability Patient/Family Education Needs: Review discharge instructions, discuss Ask Me Three Transportation: Other (secure transport; Diabetes Physician vs EMS) Plan: Chris was medically cleared by today; [facility] is reviewing clinicals, sent by CM. Chris's second certification was upheld today after meeting with the psychiatrist. He will transfer to an inpatient psychiatric facility once a bed becomes available. He will be securely transported via EMS vs Diabetes Physician, coordinated by [facility]. He completed intake today for [facility], therefore he will follow up with [facility] in the community. CM will continue to follow. SDOH(Care Management) Screening Will the Patient Participate in the Screening?: Unable to obtain Social Determinants of Health Comments(SDOH Details): MELINDA Health Related Social Needs Health related social needs details: MELINDA
--- NOTE | 2024-02-22 15:41 | PDOC.MHPN2 ---
Date of service: 02/22/24 Time of Service: 11:15 Mental Health Emergency Note Release [facility] release signed:: No Reason for Visit The client is known to [facility] and is currently opened in the substance abuse program. Per chart review there is numerous cancel no shows and the client has not been seen since June of 2023. The client arrived at [facility] ED on 02/18 after a house keeper from [facility] stopped by the clients house as he had not shown up to work and found him with two empty bottles of medications as well as a firearm beside him. Yesterday [facility] met with the client in the ICU unit at [facility] as he was attempting to leave. Based on the assessment voluntary hospitalization was offered, however he refused. As of this morning the client is medically cleared. This brief writer meets with the client in person at [facility] ICU unit for 1st daily assessment. In the last 2 weeks has the pt presented for ES prior to today?: No Impression The client is a 48-year-old, male who resides in his own home in [facility]. 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 The client identifies as male and uses he/him pronouns. All underrepresented categories were honored during this assessment. This brief writer did not complete screening tools as this is a re-assessment and were completed yesterday. This clinician is not CAM's trained yet so that service could not be offered. The client presents initially laying down in hospital bed, but sits up to the edge of the bed when this brief writer enters the room. The client engages with this brief writer answering all of the questions that are asked. When this brief writer asks the client what initially brought him to the hospital he states: I think something must have just been eating at me, but I am not sure. When this brief writer asks the client about the empty medication bottles that were found beside him as well as a firearm, he reports that he does not know what happened as he does not own a firearm and that he only had one bottle of medications. The client denies both suicidal and homicidal ideations reporting that he has never had those thoughts. The client appears to be minimizing the significant attempt that occurred a few days prior. The client reports that his appetite has been good, but his sleep was disrupted last night as he reports that he woke up several times as he was hoping that he was going to be discharged from the hospital today. The client appears to be goal oriented as he reports that he has a good relationship with [facility] and reports to this brief writer that he wants to get re-established with a therapist at [facility]. Plan/Disposition Recommended Disposition: Hospitalization No. Plan: The client will remain at [facility] ICU unit on involuntary status pending 2nd certification by psychiatrist at [facility] this afternoon. The client will be re-assessed 2x daily while awaiting for placement. Reports/communication Outcome discussed with: Other (Verbal passover with child care Dmitry)
--- NOTE | 2024-02-22 18:12 | W.PC.ACHO ---
Registration Status: Primary Language: Preferred Language: ED Information & Data Chief Complaint OD/Poison 02/18/24 18:52 Chief Complaint OD/Poison 02/18/24 18:31 Triage Note Bottle of clonazepam empty 02/18/24 17:49 filled 2 days ago, patient says he doesnt know how many he took Subjective pt uses cpap at night. 02/18/24 18:52 Seeing sleep apnea as he is laying there. Most Recent Vital Signs Temperature 36.3 C L 02/22/24 18:01 Temperature Source Temporal Artery Scan 02/22/24 18:01 Pulse 69 02/22/24 18:01 Pulse Rhythm Regular 02/22/24 17:46 Pulse 71 02/22/24 11:27 Respiratory Rate 18 02/22/24 18:01 Respiratory Effort Normal 02/22/24 17:46 Respiratory Depth Normal 02/22/24 17:46 Respiratory Pattern Normal 02/22/24 17:46 Blood Pressure 142/79 H 02/22/24 18:01 Blood Pressure Mean 98 02/22/24 11:27 Blood Pressure Position Supine 02/22/24 03:26 Pulse Oximetry 100 02/22/24 18:01 Respiratory End-tidal CO2 37 02/20/24 08:38 Oxygen Delivery Method Room Air 02/22/24 18:01 Oxygen Flow Rate 0 02/22/24 18:01 Fraction of Inspired Oxygen (FIO2) 25 02/20/24 08:58 Pain Level 0 02/22/24 18:01 Allergies Environmental Allergy (Intermediate, Uncoded 02/19/16 16:30) Asthma Exacerbation Active Medications Generic Name Dose Route Start Last Admin Trade Name Freq PRN Reason Stop Dose Admin Albuterol Sulfate 2.5 mg 02/18/24 22:30 02/20/24 11:58 Albuterol 2.5 Mg/3 Ml Inh Soln Vial UPD 2.5 mg Q2H PRN PRN Administration Budesonide/Formoterol Fumarate 2 puff 02/21/24 20:00 02/22/24 08:08 Budesonide/Formoterol 160/4.5 6 Gm 60 Puff Inh IH 2 puffs BID ARNIE Administration Buprenorphine/Naloxone 1 each 02/20/24 08:30 02/22/24 14:59 Buprenorphine/Naloxone 8 Mg/2 Mg Film SL 1 each TID ARNIE Administration Enoxaparin Sodium 40 mg 02/20/24 10:00 02/22/24 09:14 Enoxaparin 40 Mg/0.4 Ml Syr SC 40 mg Q24H ARNIE Administration Lidocaine 1 patch 02/20/24 10:00 02/22/24 09:34 Lidocaine 5% Patch TP 1 patch Q24H ARNIE Administration Miscellaneous 1 each 02/20/24 22:00 02/21/24 20:29 Patch Removal Lidocaine TP 1 each DAILY@2200 ARNIE Administration Nicotine 14 mg 02/21/24 10:30 02/22/24 09:13 Nicotine 14 Mg/24 Hr Patch TD 14 mg DAILY ARNIE Administration Prednisone 40 mg 02/22/24 08:30 02/22/24 09:14 Prednisone 20 Mg Tab PO 40 mg DAILY ARNIE Administration Quetiapine Fumarate 200 mg 02/20/24 20:00 02/21/24 20:30 Quetiapine 50 Mg Tab PO 200 mg HS ARNIE Administration Quetiapine Fumarate 50 mg 02/20/24 16:17 02/21/24 12:17 Quetiapine 50 Mg Tab PO 50 mg BID PRN PRN Administration Agitation Sodium Chloride 0 ml 02/18/24 18:11 02/22/24 00:19 Normal Saline Flush 10 Ml Syr IVP 10 ml PRN PRN Administration Sodium Chloride 0 ml 02/18/24 20:00 02/22/24 09:33 Normal Saline Flush 10 Ml Syr IVP 40 ml BID ARNIE Administration Sodium Chloride 0 ml 02/18/24 18:11 02/22/24 00:19 Normal Saline 10 Ml Vial IJ 10 ml DIRECTED PRN Administration Tamsulosin HCl 0.4 mg 02/21/24 08:30 02/22/24 09:13 Tamsulosin 0.4 Mg Capcr PO 0.4 mg DAILY ARNIE Administration IV IV Catheter Type [Left Forearm Saline Lock ] IV Catheter Type [Right Peripheral IV Antecubital] IV Catheter Type [Right Upper Saline Lock arm] IV Catheter Type [Right Hand] Peripheral IV IV Catheter Type [Left Upper Peripheral IV arm] IV Catheter Type [Right Saline Lock Forearm] IV Catheter Type [Right Wrist] IID IV Catheter Type [Left Peripheral IV Antecubital] IV Catheter Gauge [Left 20 Forearm] IV Catheter Gauge [Right 20 Antecubital] IV Catheter Gauge [Right Upper 18 arm] IV Catheter Gauge [Right Hand] 20 IV Catheter Gauge [Left Upper 20 arm] IV Catheter Gauge [Right 20 Forearm] IV Catheter Gauge [Right Wrist 20 ] IV Catheter Gauge [Left 20 Antecubital] 02/21/24 11:25 Blood Culture - Preliminary Blood NO GROWTH 24 HOURS 02/21/24 11:15 Blood Culture - Preliminary Blood NO GROWTH 24 HOURS 02/19/24 04:52 Blood Culture - Final Blood Staph hominis ssp hominis 02/19/24 04:52 Blood Culture - Preliminary Blood NO GROWTH 72 HOURS [id number] Documentation Fingerstick Glucose Start: 02/18/24 18:06 Freq: Status: Complete Protocol: Activity Type Activity Date Activity User E-sign Co-sign Detail Recorded Client Recorded Date Recorded By Document 02/19/24 21:46 KW [id number] 02/19/24 21:47 KW Intake and Output - 24 Hour Total 02/18/24 17:35 thru 02/22/24 17:45 Intake Total 03646.751 Output Total 8800 Balance 2028.751 Weight 136.9 kg Intake: IV 8248.751 Oral 2580 Output: Gastric Drainage 775 Right Nare 775 Urine 8025 Other: Urine Color Dark Kimberly Urine Appearance Clear Urine Odor Strong Comment voiding on own Gastric Occult Blood Right Nare Negative Voiding Methods Urinal Urinary Catheter Urinary Catheter Date of 02/20/24 Insertion [Uretheral (Gonzalez)] Urinary Catheter Date of 02/19/24 Insertion [Uretheral (Gonzalez)] Time of insertion [Uretheral ( 16:00 Gonzalez)] Time of insertion [Uretheral ( 05:00 Gonzalez)] Falls Risk Assessment History of Falls No History 02/18/24 23:43 Contributing Factors Confusion,Unstable, 02/18/24 23:43 Impairments,Medications Ambulatory Aids Independent 02/18/24 23:43 Tubes/Lines With any additional score 02/18/24 23:43 Gait Evaluation No gait disturbance 02/18/24 23:43 Cognition Cognitive impairment 02/18/24 23:43 Fall Total Score 47 02/18/24 23:43 Level of Risk Moderate Risk 02/18/24 23:43 Restraint Information Behavior Requiring Restraints/ Harm to Patient Seclusion Date of Initiation 02/19/24 Time Restraints were Initiated 07:00 Note pt extubated Problems (Last Reviewed 02/18/24 @ 22:26 by Suraj Martines) Thrombocytopenia (Chronic) Acute hypoxemic respiratory failure (Acute) Urinary retention (Acute) Bacteremia (Acute) DVT prophylaxis (Acute) Bradycardia (Acute) Ribs, multiple fractures (Acute) Intentional clonazepam overdose (Acute) DELLA (obstructive sleep apnea) (Chronic) Aspiration pneumonia (Acute) Asthma (Chronic) Depression with anxiety (Chronic) Suicide attempt (Acute) Overdose (Acute) Opiate dependence (Chronic) Notes 02/19/24 19:13 Nursing Notes by PeterRebeka Ex girlfriend whois on patient's hippa, called for pt update. She stated that she found three pill bottles empty on the ktichen table and a fire arm. This board writer provided update on pt stability and plan of care. Initialized on 02/19/24 19:13 - END OF NOTE 02/19/24 06:32 Nursing Notes by Galilea Curtis 0420 hours: Pawel Olson RN assisted primary RN with post intubation orders. IV access with lab draw done (blood cultures X2 drawn by Betty Olson RN, BMP, inserted indwelling Gonzalez in sterile fashion with out difficulty. IV fluids initiated, inline suction performed by TN, room cleaned and pt positioned. Tele strips also done and primary RN has PSO on unit to assist with pt monitoring. Primary RN (AR) documenting and pt appears in NAD and comfortable. Betty lOson RN Initialized on 02/19/24 06:32 - END OF NOTE 02/18/24 22:08 Nursing Notes by Estella Aranda Nursing Note: Hand off report to REINALDO Boyd Initialized on 02/18/24 22:08 - END OF NOTE 02/18/24 22:04 Nursing Notes by Estella Aranda Nursing Note: Pt woke to voice but could not was unable to follow commands. Did a straight cath using sterile technique. Urine collected. Pt became more alert but is not following commands and attempting to crawl out of bed. Security called and provider. Meds to be ordered. Initialized on 02/18/24 22:04 - END OF NOTE v v v v v v v v v Sending and/or Receiving Nurses: Please use comment section below to note any information pertinent to the patient hand-off not included above. Information / Comments: tristen code, A/O x4, lives at home alone, outpatient counseling with [facility] for Hx of ETOH and drug abuse, on suboxone, had overdose on clonazepam, clonidine, propranolol, 1:1 sitter for SI, pt is refusing SI. some drowsiness and unsteady gait but generally walking well, denies pain, multiple skin tears on Left posterior upper leg, hematoma on Right upper arm, PIV R forearm SL, Lung sounds clear, heart regular, transfers independently, voiding independently, BM 02/19 Report received from: REINALDO Westfall
[2024-02-22] MEDS: QUEtiapine 50 MG TAB 200 MG PO (20:55)
[2024-02-23 04:47] VITALS: BP 97/71; PULSE 67; RESP 12; TEMP 36.4; O2SAT 95
[2024-02-23 07:13] LABS: HCT 41.1 % (40.0-50.0); HGB 14.3 g/dL (13.5-17.5); MCH 31.1 pg (27.0-33.0); MCHC 34.8 % (32.0-36.0); MCV 89 fL (80-95); MPV 9.6 fL (8.0-11.0); Platelet Count 148 10^3/uL (130-400); RDW 12.5 % (11.8-14.1); RDW-SD 40.5 fL
[2024-02-23 07:24] LABS: Buprenorphine 190.7 ng/mL (Cutoff: 5.0); Norbuprenorphine 1315.8 ng/mL (Cutoff: 2.5)
[2024-02-23 07:35] VITALS: BP 122/85; PULSE 68; TEMP 36; O2SAT 97
[2024-02-23] MEDS: Budesonide/Formoterol 160/4.5 6 GM 60 PUFF INH IH (08:22)
[2024-02-23] MEDS: Lidocaine 5% Patch 1 PATCH TP (09:06)
[2024-02-23] MEDS: Nicotine 14 MG/24 HR PATCH TD (09:06)
[2024-02-23] MEDS: Enoxaparin 40 MG/0.4 ML SYR SC (09:06)
[2024-02-23] MEDS: Escitalopram 20 MG TAB PO (09:07)
[2024-02-23] MEDS: Tamsulosin 0.4 MG CAPCR PO (09:07)
[2024-02-23] MEDS: predniSONE 20 MG TAB 40 MG PO (09:07)
[2024-02-23] MEDS: Buprenorphine/Naloxone 8 mg/2 mg FILM 1 EACH SL (09:07)
--- NOTE | 2024-02-23 09:11 | PDOC.CMPRO ---
Date of service: 02/23/24 Time of Service: 09:11 Care Management Progress Note Discharge Potential Discharge Needs: Other (inpatient bed for psychiatric stabilization) Anticipated Barriers to Discharge: Bed availability Patient/Family Education Needs: Review discharge instructions, discuss Ask Me Three Transportation: Other (to be determined by disposition) Status Status: Involuntary Reason for Wait: Inpatient Admission SDOH(Care Management) Screening Will the Patient Participate in the Screening?: Yes Do you worry about having a steady place to live?: no Problems where you live: no known problems In the past 12 months, have you had to go without electric, gas, oil or water in your home?: no Have you or anyone in your house had to go without enough food to eat?: no Has lack of transportation kept you from medical appointments or from doing things needed for daily living?: no Has anyone in your support network made you feel unsafe for any reason?: no Social Determinants of Health Comments(SDOH Details): Pt states he does not have a mortgage, is on quares and has fuel assistance for propane but is worried about paying property taxes and purchasing firewood for this winter. 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 This grant writer provided information about [facility] at this time. Health Related Social Needs Health related social needs details: MELINDA
--- NOTE | 2024-02-23 09:39 | RESPIRATORY ---
02/23/2024 Pt states he has had a sleep study in the past but does not have home unit; pt would like a new sleep study and is planning on talking to his PCP about this.
--- NOTE | 2024-02-23 11:54 | CMDISCH_ITS ---
Date of service: 02/23/24 Time of Service: 11:54 LACE Index Scoring Tool Questions: Length of Stay (in days): 2 Was the patient admitted via the E.D.?: Yes E.D. Visits: 2 Answers: Total Score: 7 Risk of Readmission: Low Risk Care Management Discharge Plan Reason for Hospitalization: Overdose of benzodiazepines Discharge Plan: Chris was walked off his EE this morning. He is much clearer and continues to deny SI or HI. Janette from [facility] formulated a safety plan with Chris with the cooperation of his community supports. He will follow up with his community providers and safety plan. Chris will transport via [facility] coordinated by CM. Patient/Family Education Needs: Review of discharge instructions, follow up plan, discuss Ask Me Three Services Needed at Discharge: Transportation SDOH Health Related Social Needs: Health related social needs details MELINDA Health related social needs details: MELINDA MH Services (Omit if N/A) Current MH Services: [facility] Disposition Disposition: Other (home with a safety plan)
[2024-02-23] MEDS: Normal Saline Flush 10 ML SYR IVP (11:56)
--- NOTE | 2024-02-23 12:26 | DSE_ITS ---
Date of service: 02/23/24 Time of Service: 12:26 DS: Diagnosis Discharge Diagnosis (1) Intentional clonazepam overdose: Status: Acute (2) Bradycardia: Status: Acute (3) Suicide attempt: Status: Acute (4) Opiate dependence: Status: Chronic (5) Aspiration pneumonia: Status: Acute (6) DELLA (obstructive sleep apnea): Status: Chronic (7) Asthma: Status: Chronic Discharge Plan Disposition Patient Disposition: Home Condition: Good Discharge Details Reason For Visit: Initial benzodiazepine overdose, Suicide attempt Admit Date/Time: 02/18/24 22:30 Admit Provider: Trey Jack Attending Provider: Trey Jack Primary Care Provider: Pierre Cardenas Hospital Course Hospital Course: 48 yo M with history of opioid use disorder on high dose Suboxone and anxiety on chronic benzodiazepines who was brought to the emergency room after being found by friends confused. They found an empty bottle of 1mg of 90 clonazepam and 20mg escitalopram by his bedside, both of which were recently filled. He was covered in dirt on admission but no clear head trauma. He was admitted and became more somnolent with poor respiratory effort overnight, CO2 retention confirmed by VBG, and he was intubated. He was hypotensive after intubation despite some fluids and norepinephrine started. His hypercapnea improved and he was oxygenating well on the ventilator, though he required sedation with propofol as he would breath over the vent and raise peak pressures when less sed ated. He was bradycardic on admission to the 40s. It was later revealed that his bottles of propranolol and clonidine were also found in his room empty. He had 3 episodes of severe bradycardia to the high 20s. Position changes or pain seem to trigger these. They all resolved after 5-10 minutes and he was not severely hypotensive. After the first episode, ketamine drip was started with help of anesthesia so that we could run the propofol lower. After review with poison control and ICU fellow from [facility], norepinephrine was changed to epinephrine and head CT was also done, which was negative. His chest x-ray on the night of admission showed RLL infiltrate vs effusion. It also showed right sides displaced rib fractures, so there was some concern for hemothorax. CT was done and was consistent with aspiration pneumonia, no effusion. It turned out the rib fractures were old. Aspiration pneumonia was treated with Pip/tazo 02/17-02/20 then ceftriaxone 02/20 to 02/21. He had one posit josselin blood culture of coag negative staph, which was presumed a contaminate. He was extubated 722 am. He was on oxygen during the day and BiPAP overnight but was off this by 02/21. He was wheezing so steroids started 02/19 and symbicort was started 02/20 which was effective. He was given nicotene patch for smoking cessation. He was contemplative about quitting for good upon discharge, stated he didn't tolerate varenicline or buproprion on the past. He had some urinary retention after andujar removed the first time when extubated. Tamsulosin started, but discontinued upon discharge. He was seen by crisis team and placed on EE status 02/20. However as his mental status cleared up and he was able to make and communicate a plan he continued to deny suicidality. There was a report of a loaded gun in his room but he stated he only owned a pellet gun. This was removed. He was never able to remember taking an overdose, but admits he must have gotten worked up over something. He agreed to not continue clonazepam upon discharge. He had taken it for years, but did no show signs of withdrawal. This raises risk for relapse of alcohol use disorder, unintentional overdose with Suboxone, falls, and cognitive decline. Gabapentin, propranolol, and clonidine were not resumed upon discharge. Gabapentin does raise risk of opioid overdose. His blood pressure was good off clonidine. Propranolol can make asthma worse. This may be resumed as an outpatient if desired by PCP. Home Meds and New Rx's Prescriptions: New nicotine 14 mg/24 hr Patch 24 Hour 14 mg transdermal DAILY Qty: 30 2RF budesonide-formoterol 160-4.5 mcg/actuation Hfa Aerosol Inhaler 2 puff inhalation BID Qty: 1 3RF prednisone 20 mg tablet 40 mg PO DAILY 2 Days Qty: 4 0RF Continued quetiapine 200 mg tablet 200 mg PO HS Patient Comments: TAKE ONE TABLET BY MOUTH AT BEDTIME albuterol sulfate [Ventolin HFA] 90 mcg/actuation HFA aerosol inhaler 2 puff INHALATION Q6H PRN PRN Patient Comments: INHALE TWO PUFFS BY MOUTH EVERY 6 HOURS NEEDED FOR SHORTNESS OF BREATH escitalopram oxalate 20 mg tablet 20 mg PO DAILY Patient Comments: TAKE ONE TABLET BY MOUTH EVERY DAY buprenorphine-naloxone [Suboxone] 8-2 mg film 3 film sublingual DAILY Discontinued clonidine HCl [Catapres] 0.1 MG tablet 0.1 mg PO BID clonazepam 0.5 mg tablet 0.5 mg PO BID Patient Comments: TAKE ONE TABLET BY MOUTH TWICE A DAY gabapentin 300 mg capsule 300 mg PO TID Patient Comments: TAKE ONE CAPSULE BY MOUTH THREE TIMES A DAY clonazepam 1 mg tablet 1 mg PO TID Patient Comments: TAKE ONE TABLET BY MOUTH THREE TIMES A DAY propranolol 10 mg tablet 10 mg PO DAILY Patient Comments: TAKE ONE TABLET BY MOUTH EVERY DAY Discharge Instructions Additional Instructions: Take 2 more days of predisone starting February 23 Keep taking the Symbicort. You can use the inhaler you are getting here, and I sent prescriptions to your pharmacy. Use the nicotene patch to help not smoke. Follow up with your mental health safety plan. Good luck! Activity:: Activity as Tolerated Equipment/Supplies:: No Equipment Needed Diet:: As Tolerated Discharge Orders Discharge Orders: Discharge Order (Routine); Ordered 02/23/24 Ordered By: Trey Jack DS: Summary Time Spent with Patient providing and/or coordinating discharge services: Greater than 30 minutes Status at Discharge Functional status at discharge: independent ambulation Overall status at discharge: patient is back to baseline Mental Status: mental status grossly normal Speech and Movement: speech and movement normal Mood: congruent mood Affect: normal affect Quality:SDOH Health Related Social Needs: Health related social needs details MELINDA Health related social needs details: [facility] Exam Narrative Exam Narrative: GEN: Alert and oriented, no acute distress. CV: RRR 70s, no murmur Lungs: Clear bilaterally, no wheezing, no rales, normal effort. On room air. Abd: active BS, soft, not tender. ext: no cyanosis, no edema Psych: Normal mood and affect, Normal thought process, goal directed. Psych Mental Status: mental status grossly normal Speech and Movement: speech and movement normal Mood: congruent mood Affect: normal affect DS: Data Vitals/I&O Vitals and I&O: Vital Signs Temperature 36 C L 02/23/24 07:35 Temperature Source Temporal Artery Scan 02/23/24 07:35 Pulse 68 02/23/24 07:35 Pulse Rhythm Regular 02/23/24 04:47 Pulse 69 02/22/24 11:28 Respiratory Rate 12 02/23/24 04:47 Respiratory Effort Normal 02/23/24 04:47 Respiratory Depth Normal 02/23/24 04:47 Respiratory Pattern Normal 02/23/24 04:47 Blood Pressure 122/85 02/23/24 07:35 Blood Pressure Mean 92 02/22/24 15:14 Blood Pressure Position Sitting 02/22/24 15:00 Pulse Oximetry 97 02/23/24 07:35 Respiratory End-tidal CO2 37 02/20/24 08:38 Oxygen Delivery Method Room Air 02/23/24 07:35 Oxygen Flow Rate 0 02/23/24 07:35 Fraction of Inspired Oxygen (FIO2) 25 02/20/24 08:58 Pain Level 0 02/23/24 07:35 Intake & Output 02/22/24 02/23/24 02/23/24 23:59 11:59 23:59 Intake Total 1860 / 1860 1100 / 1100 Balance 1860 / -90 1100 / 1100 Weight 135.624 kg Intake: Oral 1860 / 1860 1100 / 1100 Other: Urine Color Dark Kimberly Urine Appearance Clear Clear Urine Odor Strong Comment voided in toilet, unmeasured. pt voided independently Voiding Methods Urinal Data Completed and Pending Labs on day of discharge: Labs from last 24 hours 02/23/24 06:34 WBC 5.60 RBC 4.60 Hgb 14.3 Hct 41.1 MCV 89 MCH 31.1 MCHC 34.8 RDW 12.5 Plt Count 148 MPV 9.6 Preliminary micro results at discharge 02/19/24 04:52 Blood Culture - Preliminary Blood NO GROWTH 96 HOURS 02/21/24 11:25 Blood Culture - Preliminary Blood NO GROWTH 24 HOURS 02/21/24 11:15 Blood Culture - Preliminary Blood NO GROWTH 24 HOURS PFSH All Active Problems (Updated 02/21/24 @ 10:18 by Corine English MD) Thrombocytopenia (Chronic) Acute hypoxemic respiratory failure (Acute) Urinary retention (Acute) Bacteremia (Acute) DVT prophylaxis (Acute) Bradycardia (Acute) Ribs, multiple fractures (Acute) Intentional clonazepam overdose (Acute) DELLA (obstructive sleep apnea) (Chronic) Aspiration pneumonia (Acute) Asthma (Chronic) Depression with anxiety (Chronic) Suicide attempt (Acute) Overdose (Acute) Opiate dependence (Chronic) Social History Smoking/Tobacco Use Status: Former Tobacco Use Smoking risk assessment performed?: Yes Drug use: Occasionally Substance use type: crack/cocaine Housing: house Time Spent with Patient Time Spent with Patient: 45-69 minutes Time was spent: preparing to see the patient(eg.review tests), obtaining and/or reviewing separately otained hiistory, ordering medications,tests, procedures, referring, communicating with other health nurse healthcare manager, indepentently interpreting results, counseling the patient and care coordination
--- NOTE | 2024-02-23 15:21 | MHPN_ITS ---
Date of service: 02/22/24 Time of Service: 15:22 Mental Health Emergency Note Release [facility] release signed:: Yes Reason for Visit The client is a previous client of [facility]. He is interested per his report in starting services back up. He is currently on an EE status at [facility] and participates today in his second certification via zoom. The client has been hospitalized in the past at and places in [place]. He is followed weekly by [facility]. In the last 2 weeks has the pt presented for ES prior to today?: Unknown Impression The client is a 48-year-old, male who resides in his own home in [place] [facility] [place]. 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 The client identifies as male and uses he/him pronouns. All underrepresented categories were honored during this assessment. This securities underwriter did not complete screening tools as this is a re-assessment and were completed yesterday. This clinician is not CAM's trained yet so that service could not be offered. The client presented sitting on the side of his bed. He is happy and energetic and answering the psychiatrist questions. Upon completion of the assessment the psychiatrist was not clear in his findings noting I think you should lean into this and get the treatment. This followed the client sharing that he wants services through [facility], an to continue with [facility] and his PCP. The client understood that as he was being discharged. The psychiatrist did not clear that up so this clinician went to the hospital to make things clearer. He was understanding of waht this clinician was sharing but was not happy that he had to stay again. Plan/Disposition Recommended Disposition: Hospitalization facilities contacted. Plan: The client will remain at [facility] pending acceptance or improved insight as to what lead to an intentional overdose of medications. Person reported agreement to plan: No Reports/communication Outcome discussed with: ED/Personnel
--- NOTE | 2024-02-23 16:07 | MHPN_ITS ---
Date of service: 02/23/24 Time of Service: 16:08 Mental Health Emergency Note Release [facility] release signed:: Yes Reason for Visit The client is known to [facility] and is currently opened in the substance abuse program. Per chart review there is numerous cancel no shows and the client has not been seen since June of 2023. The client arrived at [facility] on 02/18 after a house keeper from [facility] [employer] stopped by the clients house as he had not shown up to work and found him with two empty bottles of medications as well as a firearm beside him, however, learned today that the gun was not beside the pill bottles yet was in a drawer. This assessment was completed in person. In the last 2 weeks has the pt presented for ES prior to today?: Unknown Impression The client is a 48-year-old, male who resides in his own home in [facility] [place]. 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 The client identifies as male and uses he/him pronouns. All underrepresented categories were honored during this assessment. This typewriter repairer did not complete screening tools as this is a re-assessment and were completed yesterday. This clinician is not CAM's trained yet so that service could not be offered. The client is upbeat and excited in hopes he will be discharged today. This clinician reminded him it is not a me decision but a we decision The client shared that he will be seeing [facility] several limes a week and wants a ongoing MH therapist. He knows that he took an over dose of pills but has no memory of why or what made him so upset at he did so. He recognizes that he needs an increase in supports to figure this all out. He is willing to give his ex his medications and allow her to administer them daily. She too is willing to do this. Resources [facility] reviewed and given:: [phone] and Other ([facility]) Plan/Disposition Recommended Disposition: Therapy. Plan: Client discharged home on a safety plan. Person reported agreement to plan: Yes Reports/communication Outcome discussed with: ED/Personnel and Other ([facility], [facility])
== END 2024-02-23 13:24 | disposition home or self-care (01) | DRG 917 ==
LOC: ER 23:23 → ICU 23:41 → MS 02-22 17:30
PROVIDERS: Family Medicine; Student in an Organized Health Care Education/Training Program; Admitting Provider Family Medicine; Emergency Provider Nurse Practitioner Family; PCP Physician Assistant Medical; Visit Provider Family Medicine
DX: T42.4X2A Poisoning by benzodiazepines, intentional self-harm, initial encounter (principal); J69.0 Pneumonitis due to inhalation of food and vomit; J96.01 Acute respiratory failure with hypoxia; F11.20 Opioid dependence, uncomplicated; J45.20 Mild intermittent asthma, uncomplicated; F41.8 Other specified anxiety disorders; G47.33 Obstructive sleep apnea (adult) (pediatric); R00.1 Bradycardia, unspecified; S22.41XD Multiple fractures of ribs, right side, subsequent encounter for fracture with routine healing; R33.9 Retention of urine, unspecified; D69.6 Thrombocytopenia, unspecified; R40.0 Somnolence; F10.20 Alcohol dependence, uncomplicated; Z87.891 Personal history of nicotine dependence; I95.9 Hypotension, unspecified; Z78.1 Physical restraint status
CPT/HCPCS: 31500; 00123; 36410; 36415; 36416; 80048; 80053; 80307; 80348; 82550; 82805; 82962; 85027; 87040; 87077; 93005; 94640; 96374; 96375; 99285; J1650; 36600; 70450; 71045; 71260; 80320; 80329; 83605; 83735; 84443; 85025; 85379; 85610; 87186; 93010; 94002; 94660; 94664; 94760; 99223; 99233; 99239; 99283; 99291; 99292; J0171; J0330; J0461; J0696; J1200; J1630; J2470; J2543; J2704; J2919; J3010; J3480; J3490; J7512; J7613

== ENCOUNTER 2024-03-23 13:46 | Emergency (ER) | payer MEDICAID, SELFPAY ==
--- NOTE | 2024-03-23 13:45 | DI.RAD_ITS ---
Exam(s) XR WRIST LT COMPLETE EXAM: XR WRIST LT COMPLETE CLINICAL HISTORY: pain s/p fall. TECHNIQUE: 2D digital imaging was performed of the left wrist. Three images were obtained. PA, obl ique and lateral views were obtained. COMPARISON: There are no priors for comparison. FINDINGS: BONES: There is a deformity of the posterior distal radius. This may be chronic but a fracture shoul d also be considered. Also on the oblique view there is a bony density seen posteriorly adjacent to the triquetral bone which may represent a fracture fragment. No bony destructive lesion is seen. JOINTS: The carpal bones are normally aligned. Mild degenerative changes are seen at the 1st CMC join t. SOFT TISSUE: Normal. IMPRESSION: Deformity involving the distal radius and a question of a triquetral fracture. CT scan of the wrist is recommended for further evaluation. DATA REPOSITORY: RADIATION DOSE DELIVERED:
--- NOTE | 2024-03-23 13:45 | DI.RAD_ITS ---
Exam(s) XR WRIST RT COMPLETE EXAM: XR WRIST RT COMPLETE CLINICAL HISTORY: pain s/p fall. TECHNIQUE: 2D digital imaging was performed of the right wrist. Three views were obtained. PA, lat eral and oblique views were obtained. COMPARISON: No exams were available for comparison FINDINGS: BONES: No acute fracture is present. No bony destructive lesion is seen. JOINTS: The carpal bones are normally aligned. SOFT TISSUE: Normal. IMPRESSION: No acute fracture or dislocation. DATA REPOSITORY: RADIATION DOSE DELIVERED:
[2024-03-23 13:48] VITALS: BP 157/104; PULSE 93; RESP 16; TEMP 36.4; O2SAT 96
--- NOTE | 2024-03-23 14:27 | ED.GENADUL_ITS ---
Discharge Plan Disposition Patient Disposition: Home Condition: Stable Discharge Details Clinical Impression: Fracture of triquetral bone of left wrist, Right wrist sprain Primary Care Provider: Pierre Cardenas ED Provider: Ignacio Hagan Home Meds and New Rx's Prescriptions: Continued quetiapine 200 mg tablet 200 mg PO HS Patient Comments: TAKE ONE TABLET BY MOUTH AT BEDTIME albuterol sulfate [Ventolin HFA] 90 mcg/actuation HFA aerosol inhaler 2 puff INHALATION Q6H PRN PRN Patient Comments: INHALE TWO PUFFS BY MOUTH EVERY 6 HOURS NEEDED FOR SHORTNESS OF BREATH escitalopram oxalate 20 mg tablet 20 mg PO DAILY Patient Comments: TAKE ONE TABLET BY MOUTH EVERY DAY buprenorphine-naloxone [Suboxone] 8-2 mg film 3 film sublingual DAILY nicotine 14 mg/24 hr Patch 24 Hour 14 mg transdermal DAILY Qty: 30 2RF budesonide-formoterol 160-4.5 mcg/actuation Hfa Aerosol Inhaler 2 puff inhalation BID Qty: 1 3RF clonazepam 1 mg tablet 1 mg PO DAILY PRN Patient Comments: TAKE ONE TABLET BY MOUTH THREE TIMES A DAY clonidine HCl 0.1 mg tablet 0.1 mg PO DAILY Patient Comments: TAKE ONE TABLET BY MOUTH FOUR TIMES A DAY testosterone cypionate 100 mg/mL oil 100 mg IM Q7D Patient Comments: INJECT 1ML INTRAMUSCULARLY EVERY 2 WEEKS DISCARD AFTER 84 DAYS cholecalciferol (vitamin D3) 1,250 mcg (50,000 unit) capsule 1,250 mcg PO ONCE Patient Comments: TAKE 1 CAPSULE BY MOUTH ONCE MONTHLY gabapentin 300 mg capsule 300 mg PO DAILY Patient Comments: TAKE ONE CAPSULE BY MOUTH THREE TIMES A DAY doxycycline hyclate 100 mg capsule 100 mg PO DAILY Patient Comments: TAKE ONE CAPSULE BY MOUTH TWICE A DAY FOR 10 DAYS propranolol 10 mg tablet 10 mg PO ONCE Patient Comments: TAKE ONE TABLET BY MOUTH EVERY DAY Discharge Instructions Additional Instructions: Wear the splint until you follow-up with orthopedics You can take 1000 mg of acetaminophen and 600 mg of ibuprofen every 6 hours as needed Call the orthopedics office tomorrow to arrange for follow-up appointment If you feel more ill or have severe worsening pain return to the emergency department for reevaluation Referrals: Brian Vu MD [ [facility] STAFF PHYSICIAN] - HPI General Mode of arrival: ambulatory . Date/Time Provider Initiated Documentation: 03/23/24 13:51 . Limitations to Documentation: no limitations . Information obtained by: patient . History of Present Illness 49 year old M presents to the emergency department with the chief complaint of bilateral wrist pain s/p fall yesterday, described as moderate, Quality is described as aching, and is localized to the left, right and upper extremity. Patient reports no radiation. Patient started experiencing this day(s) (1) and it has been constant. No relieving factors improve symptom(s), No exacerbating factors reported . Patient notes no other symptoms.. Patient did receive the following treatments prior to arrival, none Related Data Home Medications ?Medication ?Instructions ?Recorded ?Confirmed albuterol sulfate 90 mcg/actuation 2 puff inhalation Q6H PRN PRN 05/06/23 03/23/24 aerosol inhaler (Ventolin HFA) buprenorphine 8 mg-naloxone 2 mg 3 film sublingual DAILY 05/06/23 03/23/24 sublingual film (Suboxone) escitalopram oxalate 20 mg tablet 20 mg PO DAILY 05/06/23 03/23/24 quetiapine 200 mg tablet 200 mg PO HS 05/06/23 03/23/24 budesonide-formoterol HFA 160 2 puff inhalation BID #1 unit 02/23/24 03/23/24 mcg-4.5 mcg/actuation aerosol inhaler nicotine 14 mg/24 hr daily 14 mg transdermal DAILY #30 ea 02/23/24 03/23/24 transdermal patch cholecalciferol (vitamin D3) 1,250 1,250 mcg PO ONCE 03/23/24 03/23/24 mcg (50,000 unit) capsule clonazepam 1 mg tablet 1 mg PO DAILY PRN 03/23/24 03/23/24 clonidine HCl 0.1 mg tablet 0.1 mg PO DAILY 03/23/24 03/23/24 doxycycline hyclate 100 mg capsule 100 mg PO DAILY 03/23/24 03/23/24 gabapentin 300 mg capsule 300 mg PO DAILY 03/23/24 03/23/24 propranolol 10 mg tablet 10 mg PO ONCE 03/23/24 03/23/24 testosterone cypionate 100 mg/mL 100 mg IM Q7D 03/23/24 03/23/24 intramuscular oil Previous Rx's ?Medication ?Instructions ?Recorded budesonide-formoterol HFA 160 2 puff inhalation BID #1 unit 02/23/24 mcg-4.5 mcg/actuation aerosol inhaler nicotine 14 mg/24 hr daily 14 mg transdermal DAILY #30 ea 02/23/24 transdermal patch Allergies Allergy/AdvReac Type Severity Reaction Status Date / Time cat dander Allergy Mild Wheezing Verified 03/23/24 13:55 dog dander Allergy Mild Wheezing Verified 03/23/24 13:55 Environmental Allergy Intermediate Asthma Uncoded 03/23/24 13:55 Exacerbation General Stated Complaint: Orthopedic RASTA: 4 Review of Systems All systems reviewed & are unremarkable except as noted in HPI and below Constitutional Constitutional: Denies chills, Denies fever(s) and Denies weakness Cardiovascular Cardiovascular: Denies chest pain and Denies dyspnea Respiratory Respiratory: Denies cough and Denies dyspnea Gastrointestinal Gastrointestinal: Denies abdominal pain and Denies vomiting Integumentary/Breasts Skin/Breast: Denies rash Neurologic Neurologic: Denies weakness Exam Const General: no acute distress Orientation: alert HENMT Head: normal to inspection Ears: external ears normal General nose exam: external nose normal Mouth: moist mucous membranes Eyes General: appearance normal, both eyes and all related structures Neck Neck: normal visual inspection Resp Effort & Inspection: normal respiratory effort and able to speak in complete sentences Cardio Rate: regular rate Skin General skin exam: no rashes or lesions noted Neuro General: patient alert and patient oriented x3 Extrem General: full ROM and capillary refill normal Psych Mental Status: mental status grossly normal Course Vital Signs Vital signs: Vital Signs Temperature 36.4 C L 03/23/24 13:48 Pulse 93 H 03/23/24 13:48 Respiratory Rate 16 03/23/24 13:48 Blood Pressure 157/104 H 03/23/24 13:48 Pulse Oximetry 96 03/23/24 13:48 Temperature 36.4 C L 03/23/24 13:48 Temperature Source Oral 03/23/24 13:48 Pulse 93 H 03/23/24 13:48 Respiratory Rate 16 03/23/24 13:48 Respiratory Effort Normal 03/23/24 13:50 Blood Pressure 157/104 H 03/23/24 13:48 Blood Pressure Position Sitting 03/23/24 13:48 Pulse Oximetry 96 03/23/24 13:48 Oxygen Delivery Method Room Air 03/23/24 13:48 Oxygen Flow Rate 0 03/23/24 13:48 Pain Level 9 03/23/24 13:48 Medical Decision Making 49-year-old male comes in with bilateral wrist pain. He says it started yesterday after he was carrying a floor mónica and he tripped on the curb landing forward on his wrist. He denies hitting his head or loss of consciousness. He has bilateral wrist pain since so came here for evaluation. He has no significant deformity on visual inspection or palpation of the wrist. He has full range of motion of the wrist though with some posterior wrist pain in both wrist. No tenderness in the fingers with full range of motion and intact sensation and pulses. No snuffbox tenderness. Suspect sprain, x-rays taken prior to my exam show no acute findings in the right wrist but the left has queswtionable fracture, radiology recs CT which is ordered and pending. CT confirms nondisplaced triquetrum fracture, placed in wrist splint, will f/u with ortho and return precautions given Differential Diagnosis Differential Diagnosis: sPrain, fracture, contusion Imaging Data Radiologic Study: Attestation: I personally reviewed and interpreted this imaging study as follows: Imaging: X-Ray Radiologist's impression: No acute findings on right wrist x-ray Radiologic Study #2: Attestation: I personally reviewed and interpreted this imaging study as follows: Imaging: CT Scan Radiologist's impression: Exam(s) XR WRIST LT COMPLETE EXAM: XR WRIST LT COMPLETE CLINICAL HISTORY: pain s/p fall. TECHNIQUE: 2D digital imaging was performed of the left wrist. Three images were obtained. PA, oblique and lateral views were obtained. COMPARISON: There are no priors for comparison. FINDINGS: BONES: There is a deformity of the posterior distal radius. This may be chronic but a fracture should also be considered. Also on the oblique view there is a bony density seen posteriorly adjacent to the triquetral bone which may represent a fracture fragment. No bony destructive lesion is seen. JOINTS: The carpal bones are normally aligned. Mild degenerative changes are seen at the 1st CMC joint. SOFT TISSUE: Normal. IMPRESSION: Deformity involving the distal radius and a question of a triquetral fracture. CT scan of the wrist is recommended for further evaluation. Radiologic Study #3: Attestation: I personally reviewed and interpreted this imaging study as follows: Imaging: CT Scan Radiologist's impression: IMPRESSION: 1. Findings of an acute nondisplaced fracture involving the posterior aspect of the triquetrum with overlying soft tissue edema. 2. Old distal radial fracture deformity. Quality:SDOH Health Related Social Needs: Health related social needs details [facility] All Active Problems (Updated 03/23/24 @ 15:42 by Ignacio Hagan MD) Right wrist sprain (Acute) Fracture of triquetral bone of left wrist (Acute) Intentional clonazepam overdose (Acute) DELLA (obstructive sleep apnea) (Chronic) Asthma (Chronic) Depression with anxiety (Chronic) Opiate dependence (Chronic) Medical History (Updated 03/23/24 @ 15:42 by Ignacio Hagan MD) Thrombocytopenia Ribs, multiple fractures Suicide attempt Social History Smoking/Tobacco Use Status: Former Tobacco Use Smoking risk assessment performed?: Yes Drug use: Occasionally Substance use type: crack/cocaine Housing: house
[2024-03-23] MEDS: Ibuprofen 600 MG TAB PO (14:30)
--- NOTE | 2024-03-23 14:30 | DI.CT_ITS ---
Exam(s) CT UPPER EXTREMITY LT WO EXAM: CT UPPER EXTREMITY LT WO CLINICAL HISTORY: ?wrist fracture. TECHNIQUE: Imaging Protocol: Axial computed tomography images with coronal and sagittal reformatted images were created and reviewed. COMPARISON: CR XR WRIST LT COMPLETE from 03/23/2024 FINDINGS: Bones: There is an old fracture deformity of the articular surface of the distal radius. Secondary degenerative changes are present. There is an acute fracture of the triquetrum posteriorly. There i s edema in the overlying soft tissues. No other acute fracture is identified. No cellulitic or oste omyelitic changes are identified. There is no evidence of joint space narrowing or cystic degenerati on seen. No lytic or sclerotic lesions are identified. Soft Tissues: Mild edema in the soft tissues of the posterior wrist. IMPRESSION: 1. Findings of an acute nondisplaced fracture involving the posterior aspect of the triquetrum with o verlying soft tissue edema. 2. Old distal radial fracture deformity. RADIATION DOSE DELIVERED: Total DLP Total DLP DATA REPOSITORY: All CT scans at this facility are submitted to the National Radiology Data Registry (NRDR) Dose Index Registry (DIR) with the [employer] ([employer]). RADIATION OPTIMIZATION: All CT scans at this facility use at least one of these dose optimization te chniques: automated exposure control; mA and/or kV adjustment per patient size (includes targeted exa ms where dose is matched to clinical indication); or iterative reconstruction.
== END 2024-03-23 16:04 | disposition home or self-care (01) ==
PROVIDERS: Emergency Provider Emergency Medicine; PCP Physician Assistant Medical
DX: S62.115A Nondisplaced fracture of triquetrum [cuneiform] bone, left wrist, initial encounter for closed fracture (principal); S63.501A Unspecified sprain of right wrist, initial encounter; W01.0XXA Fall on same level from slipping, tripping and stumbling without subsequent striking against object, initial encounter; Y93.89 Activity, other specified; Y92.89 Other specified places as the place of occurrence of the external cause
CPT/HCPCS: 99284; 73110; 73200

== ENCOUNTER 2025-01-19 17:29 | Inpatient (IN) | payer MEDICAID, SELFPAY ==
[2025-01-19] VITALS (35 sets, daily range): BP systolic 135–202; BP diastolic 84–133; PULSE 78–110; RESP 5–23; TEMP 36.3–36.7; O2SAT 82–97
--- NOTE | 2025-01-19 17:30 | RT.EKG_ITS ---
APPROVED REPORT Exam: Resting ECG Reason for Exam: overdose Patient Location: E HR:95 bpm ECG Measurements Heart Rate 95 AXIS MO 173 P 54 QRSd 101 QRS 61 QT 369 T 26 QTc 463 Conclusion Sinus rhythm, rate 95 No interval abnormalities Baseline artifact limits interpretation, no obvious STEMI Compared to priors, rate has increased
--- NOTE | 2025-01-19 17:39 | W.ED.GENAD ---
Discharge Plan Discharge Details Chief Complaint: AMS/LOC Primary Care Provider: Pierre Cardenas ED Provider: Elizabeth Hodge Home Meds and New Rx's Prescriptions: No Action clonidine HCl 0.1 mg tablet 0.1 mg PO QID Patient Comments: TAKE ONE TABLET BY MOUTH FOUR TIMES A DAY gabapentin 300 mg capsule 300 mg PO TID Patient Comments: TAKE ONE CAPSULE BY MOUTH THREE TIMES A DAY quetiapine 200 mg tablet 200 mg PO HS Patient Comments: TAKE ONE TABLET BY MOUTH AT BEDTIME albuterol sulfate [Ventolin HFA] 90 mcg/actuation HFA aerosol inhaler 2 puff INHALATION Q6H PRN PRN Patient Comments: INHALE TWO PUFFS BY MOUTH EVERY 6 HOURS NEEDED FOR SHORTNESS OF BREATH escitalopram oxalate 20 mg tablet 20 mg PO DAILY Patient Comments: TAKE ONE TABLET BY MOUTH EVERY DAY buprenorphine-naloxone [Suboxone] 8-2 mg film 3 film sublingual DAILY nicotine 14 mg/24 hr Patch 24 Hour 14 mg transdermal DAILY Qty: 30 2RF budesonide-formoterol 160-4.5 mcg/actuation Hfa Aerosol Inhaler 2 puff inhalation BID Qty: 1 3RF clonazepam 1 mg tablet 1 mg PO DAILY PRN Patient Comments: TAKE ONE TABLET BY MOUTH THREE TIMES A DAY testosterone cypionate 100 mg/mL oil 100 mg IM Q7D Patient Comments: INJECT 1ML INTRAMUSCULARLY EVERY 2 WEEKS DISCARD AFTER 84 DAYS cholecalciferol (vitamin D3) 1,250 mcg (50,000 unit) capsule 1,250 mcg PO ONCE Patient Comments: TAKE 1 CAPSULE BY MOUTH ONCE MONTHLY propranolol 10 mg tablet 10 mg PO ONCE Patient Comments: TAKE ONE TABLET BY MOUTH EVERY DAY HPI General Mode of arrival: EMS. Date/Time Provider Initiated Documentation: 01/19/25 17:34. Limitations to Documentation: altered mental status. Information obtained by: EMS and old records reviewed. HPI Narrative: This is a 49-year-old male patient with a history of alcohol use disorder, hepatitis C, DELLA, asthma, and opioid dependence on Suboxone, brought in by EMS for altered mental status. The patient has not been seen for the last 2 days, he has not shown up to work and his neighbor found him today kneeling on the driveway, not acting typically. He ambulated back into the house prior to EMS arrival, was moaning and confirmed his name, date of , but otherwise does not follow commands or offer information other than stating help me. He appeared unkempt. Appeared to be moving all extremities symmetrically, not able to localize any symptoms. Related Data Home Medications ?Medication ?Instructions ?Recorded ?Confirmed albuterol sulfate 90 mcg/actuation 2 puff inhalation Q6H PRN PRN 05/06/23 03/23/24 aerosol inhaler (Ventolin HFA) buprenorphine 8 mg-naloxone 2 mg 3 film sublingual DAILY 05/06/23 03/23/24 sublingual film (Suboxone) escitalopram oxalate 20 mg tablet 20 mg PO DAILY 05/06/23 03/23/24 quetiapine 200 mg tablet 200 mg PO HS 05/06/23 03/23/24 budesonide-formoterol HFA 160 2 puff inhalation BID #1 unit 02/23/24 03/23/24 mcg-4.5 mcg/actuation aerosol inhaler nicotine 14 mg/24 hr daily 14 mg transdermal DAILY #30 ea 02/23/24 03/23/24 transdermal patch cholecalciferol (vitamin D3) 1,250 1,250 mcg PO ONCE 03/23/24 03/23/24 mcg (50,000 unit) capsule clonazepam 1 mg tablet 1 mg PO DAILY PRN 03/23/24 03/23/24 propranolol 10 mg tablet 10 mg PO ONCE 03/23/24 03/23/24 testosterone cypionate 100 mg/mL 100 mg IM Q7D 03/23/24 03/23/24 intramuscular oil clonidine HCl 0.1 mg tablet 0.1 mg PO QID 12/20/24 gabapentin 300 mg capsule 300 mg PO TID 12/20/24 Previous Rx's ?Medication ?Instructions ?Recorded budesonide-formoterol HFA 160 2 puff inhalation BID #1 unit 02/23/24 mcg-4.5 mcg/actuation aerosol inhaler nicotine 14 mg/24 hr daily 14 mg transdermal DAILY #30 ea 02/23/24 transdermal patch Allergies Allergy/AdvReac Type Severity Reaction Status Date / Time cat dander Allergy Mild Wheezing Verified 03/23/24 13:55 dog dander Allergy Mild Wheezing Verified 03/23/24 13:55 Environmental Allergy Intermediate Asthma Uncoded 03/23/24 13:55 Exacerbation General RASTA: 4 Exam Narrative Exam Narrative: Gen: Awake but not alert, appears disheveled HEENT: Pupils are equal and slightly sluggish at 3 mm bilaterally, patient squeezes his eyes symmetrically when this provider attempts to examine his eyes Neck: Supple, full spontaneous range of motion, no posterior step-offs Lungs: No apparent respiratory distress, normal respiratory effort. Lung sounds present and equal bilaterally CV: Appears well perfused, heart with tachycardic rate, strong distal pulses Abdomen: Soft, slightly distended, unable to determine if the patient is responding painfully : Rectal examination supervised by REINALDO Soto, revealing normal external anus without hemorrhoids, no bright red blood on the glove, grayish-brown scant stool MSK: Moves 4 extremities without apparent limitation in ROM, though not to command. 1+ bilateral peripheral edema appreciated to the lower extremities Skin: Visualized skin without rashes, cyanosis. Neuro: Appears to be moving symmetrically but does not follow commands, oriented to self but not able to provide information regarding symptoms or answer other orientation questions. Does appear to have some tremulousness to his outstretched arms Psych: Unable to assess Medical Decision Making This is a 49-year-old male patient brought in by EMS for altered mental status. My differential includes but is not limited to toxic exposure including alcohol intoxication, overdose, though the patient is reassuringly protecting his airway and is not bradypneic to suggest narcotic overdose requiring Narcan. I certainly considered withdrawal syndromes, and the patient is at high risk for same, specifically alcohol withdrawal and opiate withdrawal given his chronic use. I considered metabolic and electrolyte derangements including hepatic encephalopathy, anemia, kidney injury, liver disease, rhabdomyolysis. Certainly considered intracranial hemorrhage, mass effect. Given the history of alcohol use disorder and the concern for hepatic encephalopathy, I also considered GI bleed, SBP, and other infectious etiologies such as UTI, pneumonia. At this time, I am reassured that the patient is not febrile, hypotensive, and otherwise is not meeting any sort of sepsis criteria. However, his altered mental status is quite concerning, and I will obtain a broad laboratory workup to include CBC, CMP, magnesium, troponin, lipase, VBG, ammonia, CK, serum tox screen, urine tox screen and urinalysis, BNP, and TSH We will attempt to obtain a CT of the head, chest abdomen pelvis. I will provide the patient with a banana bag to ensure that he is repleted with thiamine and folate. -I reviewed the patient's laboratory studies. He has a mild leukopenia to 3.4 that is new compared to priors, no anemia or thrombocytopenia. INR 1.2, VBG with alkalosis to 7.5, no hypercarbia. Lactate is 2.1, potassium slightly low at 3.3, and magnesium at 1.6. The patient's kidney function is normal without elevation in his BUN, he has a slightly elevated AST to 53 but otherwise no evidence of liver pathology. CK is only modestly elevated at 323, less concerning for rhabdomyolysis. Lipase is elevated greater than 3 times the upper limit of normal, I am most concerned for alcoholic pancreatitis, though cannot entirely rule out gallstone pancreatitis though I did not note evidence of obvious cholecystitis on my limited bedside echo. His ammonia is markedly elevated at 178. Ethanol is also elevated at 301, the remainder of his urine tox screen is negative. Urinalysis with bacteria but no pyuria, nitrite positive and no RBCs, rare epithelial cells noted. Given this finding I think is reasonable to provide him with a dose of ceftriaxone. We were unfortunately unable to get the patient's CT scans done due to movement. The patient vacillates between quite somnolent, and agitated, trying to get off the bed but still not responding to commands or verbal redirection. I am concerned about excessive sedation, and reach out to the hospitalist team to have a collaborative discussion regarding this patient. Ultimately, I believe this patient requires admission for management of his hepatic encephalopathy, as well as management of potential alcohol withdrawal and opiate withdrawal. He will also at some point require imaging studies to be performed. At the hospitalist recommendation a milligram of Ativan was provided IV, the patient was placed in nonviolent soft restraints for line pulling, he did become quite somnolent and I appreciated some wheezing and RN reports desaturations to 87% during sleep. For this reason the patient was placed on some supplemental oxygen by nasal cannula, a duo nebulizer was provided and Solu-Medrol was given. The patient has been graciously accepted by the hospitalist service and will be transferred to the ICU for ongoing management. He remained hemodynamically appropriate while under my care. Elizabeth Hodge MD Quality:SDOH Health Related Social Needs: Health related social needs details MELINDA Critical Care Time Critical Care Time Critical Care Time: Yes Total Critical Care Time: 45 Attestation: Upon my evaluation, this patient had a high probability of imminent or life-threatening deterioration due to hepatic encephalopathy, which required my direct attention, intervention, and personal management. I have personally provided 45 minutes of critical care time exclusive of time spent on separately billable procedures. Time includes review of laboratory data, radiology results, discussion with consultants, and monitoring for potential decompensation. Interventions were performed as documented above. Elizabeth Hodge MD [facility] All Active Problems (Updated 01/19/25 @ 20:53 by Glenn Torres MD) Encephalopathy (Acute) Elevated MCV (Acute) Hypokalemia (Acute) Hepatitis C (Chronic) Erectile dysfunction (Acute) Decreased testosterone level (Acute) Alcohol use disorder, severe, in early remission (Acute) Intentional clonazepam overdose (Acute) DELLA (obstructive sleep apnea) (Chronic) Asthma (Chronic) Depression with anxiety (Chronic) Opiate dependence (Chronic) Medical History (Updated 01/19/25 @ 20:53 by Glenn Torres MD) Thrombocytopenia Ribs, multiple fractures Suicide attempt Surgical History (Updated 12/20/24 @ 11:14 by Yelitza Warner RN) History of shoulder surgery DOS 08/09/19 History of esophagogastroduodenoscopy (EGD) Social History Smoking/Tobacco Use Status: Former Tobacco Use Smoking risk assessment performed?: Yes Drug use: Occasionally Substance use type: crack/cocaine Housing: house POCUS Exam (ED) FAST Exam DATE OF EXAM: 01/19/25 TIME OF EXAM: 19:46 PROVIDER THAT PERFORMED THE STUDY: Elizabeth Hodge REASON FOR EXAM: Other indication: AMS, eval ascites VISUALIZED STRUCTURES: Hepatorenal space and Pelvis PERTINENT FINDINGS/IMPRESSION: other impression: slightly distended bladder ; no apparent free fluid INCIDENTAL FINDINGS: No obvious gallbladder wall thickening Limited Transthoracic Exam: Did not tolerate exam Limited Abdominal Exam: Exam complete Limited Retroperitoneal Exam: Did not tolerate exam
[2025-01-19 17:58] LABS: BE (Venous) 15 mmol/L (-2-3); HCO3 (Venous) 38 mmol/L (23-28); O2 Sat (Venous) 87 %; TCO2 (Venous) 34 mmol/L (24-29); pCO2 (Venous) 49 mmHg (41-51); pO2 (Venous) 55 mmHg
[2025-01-19 18:01] LABS: Abs Immature Grans 0.02 10^3/uL (0.0-0.06); Absolute Basophil Count 0.03 10^3/uL (0.0-0.2); Absolute Eosinophil Count 0.02 10^3/uL (0.0-0.7); Absolute Lymphocyte Count 1.37 10^3/uL (1.2-3.4); Absolute Monocyte Count 0.39 10^3/uL (0.1-0.8); Basophils % 0.9 %; Eosinophils % 0.6 %; HCT 40.3 % (40.0-50.0); HGB 13.8 g/dL (13.5-17.5); Immature Grans % 0.6 %; Lactate 2.1 mmol/L (<or=2.0); Lymphocytes % 39.9 %; MCH 34.2 pg (27.0-33.0); MCHC 34.2 % (32.0-36.0); MCV 100 fL (80-95); MPV 8.5 fL (8.0-11.0); Monocytes % 11.4 %; Neutrophils % 46.6 %; Platelet Count 135 10^3/uL (130-400); RBC 4.04 10^6/uL (4.36-5.78); RDW 12.9 % (11.8-14.1); RDW-SD 47.1 fL; WBC 3.43 10^3/uL (4.4-10.8)
[2025-01-19 18:17] LABS: Bilirubin Negative (Negative); Blood Small (Negative); Clarity Clear (Clear); Glucose 100 mg/dL (Negative); Ketones Negative (Negative); Leukocyte Esterase Negative (Negative); Nitrite Positive (Negative); Specific Gravity 1.015 (1.005-1.025); pH 7.5 (5-8)
[2025-01-19 18:18] LABS: INR 1.2 (0.9-1.1); Prothrombin Time 12.3 sec (9.1-11.1)
[2025-01-19 18:19] LABS: Ammonia 178 umol/L (11-32)
[2025-01-19 18:23] LABS: Bacteria Packed HPF (Negative); C & S Indicated? No; Casts Negative LPF (Negative); Crystals Few Amorphous HPF (Negative); Epithelial Cells Rare HPF (Negative); Mucus Negative (Negative)
[2025-01-19 18:28] LABS: *AMPHETAMINES SCREEN URINE Negative (Negative); *BARBITURATES SCREEN URINE Negative (Negative); *BENZODIAZEPINES SCREEN URINE Negative (Negative); Cannabinoids THC Negative (Negative); Cocaine Screen,Urine Negative (Negative); METHADONE URINE SCREEN Negative (Negative); OPIATES URINE SCREEN Negative (Negative); Tricyclic Antidepressants Negative (Negative)
[2025-01-19 18:29] LABS: ALT 59 U/L (16-63); AST 53 U/L (15-37); Alkaline Phosphatase 86 U/L (46-116); Anion Gap 5.8 mmol/L (3-11); Bilirubin, Total 0.7 mg/dL (0.2-1.0); CO2 35.2 mmol/L (21.0-32.0); Chloride 101 mmol/L (98-107); Creatine Kinase 323 U/L (39-308); Glucose 179 mg/dL (74-106); Magnesium 1.6 mg/dL (1.8-2.4); NT-proBNP 81 pg/mL (<300); Potassium 3.3 mmol/L (3.5-5.1); Sodium 142 mmol/L (136-145); TSH (W/Ref FT4) 0.84 uIU/mL (0.36-3.74); Total Protein 6.7 g/dL (6.4-8.2); Troponin I 12 ng/L (<or=76)
[2025-01-19 18:34] LABS: Acetaminophen < 2 ug/mL (10-30)
[2025-01-19 18:42] LABS: Albumin 3.2 g/dL (3.4-5.0); BUN 5 mg/dL (7-18); CREATININE 0.7 mg/dL (0.70-1.30); Calcium 8.3 mg/dL (8.5-10.1); Estimated GFR 112.25 (mL/min/1.73m2)
[2025-01-19 18:43] LABS: ETHANOL BLOOD 301.6 mg/dL (<10)
[2025-01-19 18:57] LABS: Lipase 362 U/L (<78)
[2025-01-19] MEDS: MAGNESIUM SULFATE 8.12 MEQ, MULTIVITAMIN 10 ML, THIAMINE 100 MG, FOLIC ACID 1 MG in Nor... 168.867 MG IV (19:16)
[2025-01-19] MEDS: Normal Saline - Diluent 50 ML VIAL IJ (19:20)
[2025-01-19] MEDS: Omnipaque 350 MG/ML 100 ML BTL IJ (19:20)
[2025-01-19 19:30] LABS: Troponin I 14 ng/L (<or=76)
[2025-01-19] MEDS: LORazepam 20 MG/10 ML VIAL IVP (20:44)
--- NOTE | 2025-01-19 20:48 | W.PM.HP.N ---
Date of service: 01/19/25 Time of Service: 20:48 Assessment and Plan Assessment and plan (1) Alcohol use disorder, severe, in early remission: Status: Acute Assessment and plan: will start on phenobarbital protocol Give banana bag monitor for improvement (2) Hepatitis C: Status: Chronic Assessment and plan: noted (3) Hypokalemia: Status: Acute Assessment and plan: replace, check mag (4) Elevated MCV: Status: Acute Assessment and plan: check b12/folate/iron/tibc (5) Encephalopathy: Status: Acute Assessment and plan: add lactulose History of Present Illness History of Present Illness Chief Complaint: confusion Narrative: This is a 49-year-old gentleman who was brought into the ED by the ambulance service for mental status change. Evidently his neighbors had not seen him for 2 or 3 days and when he did come out of the house he was quite confused and at that point EMS was activated and considering his continued confusion he was brought into the ED ED for further evaluation. While in the ED he was noted to have significant elevations in his ammonia level as well as his alcohol level. Patient remains somewhat combative and eventually need to be put on soft restraints. Patient was admitted to the hospital service for concerns about encephalopathy as well as alcohol withdrawal. My discussion with the patient he would respond to verbal stimuli but would not give any lucid answers. Review of Systems Unobtainable due to mental condition PFSH All Active Problems (Updated 01/19/25 @ 20:53 by Glenn Torres MD) Encephalopathy (Acute) Elevated MCV (Acute) Hypokalemia (Acute) Hepatitis C (Chronic) Erectile dysfunction (Acute) Decreased testosterone level (Acute) Alcohol use disorder, severe, in early remission (Acute) Intentional clonazepam overdose (Acute) DELLA (obstructive sleep apnea) (Chronic) Asthma (Chronic) Depression with anxiety (Chronic) Opiate dependence (Chronic) Medical History (Updated 01/19/25 @ 20:53 by Glenn Torres MD) Thrombocytopenia Ribs, multiple fractures Suicide attempt Surgical History (Updated 12/20/24 @ 11:14 by Yelitza Warner RN) History of shoulder surgery DOS 08/09/19 History of esophagogastroduodenoscopy (EGD) Social History Smoking/Tobacco Use Status: Former Tobacco Use Smoking risk assessment performed?: Yes Drug use: Occasionally Substance use type: crack/cocaine Housing: house Meds Allergies and Home Medications Allergies Allergy/AdvReac Type Severity Reaction Status Date / Time cat dander Allergy Mild Wheezing Verified 03/23/24 13:55 dog dander Allergy Mild Wheezing Verified 03/23/24 13:55 Environmental Allergy Intermediate Asthma Uncoded 03/23/24 13:55 Exacerbation Home Medications ?Medication ?Instructions ?Recorded ?Confirmed ?Type albuterol sulfate 90 mcg/actuation 2 puff inhalation Q6H PRN PRN 05/06/23 03/23/24 History aerosol inhaler (Ventolin HFA) buprenorphine 8 mg-naloxone 2 mg 3 film sublingual DAILY 05/06/23 03/23/24 History sublingual film (Suboxone) escitalopram oxalate 20 mg tablet 20 mg PO DAILY 05/06/23 03/23/24 History quetiapine 200 mg tablet 200 mg PO HS 05/06/23 03/23/24 History budesonide-formoterol HFA 160 2 puff inhalation BID #1 unit 02/23/24 03/23/24 Rx mcg-4.5 mcg/actuation aerosol inhaler nicotine 14 mg/24 hr daily 14 mg transdermal DAILY #30 ea 02/23/24 03/23/24 Rx transdermal patch cholecalciferol (vitamin D3) 1,250 1,250 mcg PO ONCE 03/23/24 03/23/24 History mcg (50,000 unit) capsule clonazepam 1 mg tablet 1 mg PO DAILY PRN 03/23/24 03/23/24 History propranolol 10 mg tablet 10 mg PO ONCE 03/23/24 03/23/24 History testosterone cypionate 100 mg/mL 100 mg IM Q7D 03/23/24 03/23/24 History intramuscular oil clonidine HCl 0.1 mg tablet 0.1 mg PO QID 12/20/24 History gabapentin 300 mg capsule 300 mg PO TID 12/20/24 History Exam Narrative Exam Narrative: Head eyes ears nose and throat-normocephalic atraumatic pupils are approximately 7 mm but reactive Neck-no lymphadenopathy no JVD no thyromegaly Cardiovascular-mild tachycardia no murmur rubs gallops Lungs-clear to auscultation no accessory muscle use Abdomen-soft distended but protuberant Extremities-no sinus clubbing or edema bilaterally Neurologic-could not be assessed due to mental status Psych-cannot be assessed due to mental status but he does respond to verbal stimuli Results Labs 01/19/25 17:50 01/19/25 17:50 Labs: Laboratory Results - last 24 hr 01/19/25 01/19/25 01/19/25 17:50 17:57 19:01 WBC 3.43 L RBC 4.04 L Hgb 13.8 Hct 40.3 MCV 100 H MCH 34.2 H MCHC 34.2 RDW 12.9 Plt Count 135 MPV 8.5 Immature Gran % 0.6 Neutrophils % 46.6 Lymphocytes % 39.9 Monocytes % 11.4 Eosinophils % 0.6 Basophils % 0.9 Nucleated RBC % 0.0 Absolute Neutrophils 1.60 Absolute Lymphocytes 1.37 Absolute Monocytes 0.39 Absolute Eosinophils 0.02 Absolute Basophils 0.03 PT 12.3 H INR 1.2 H VBG pH 7.50 H VBG pCO2 49 VBG pO2 55 VBG HCO3 38 H VBG Total CO2 34 H VBG O2 Saturation 87 VBG Base Excess 15 H VBG Lactate 2.1 Sodium 142 Potassium 3.3 L Chloride 101 Carbon Dioxide 35.2 H Anion Gap 5.8 BUN 5 L Creatinine 0.7 Est GFR (CKD-EPI 2020) 112.25 Glucose 179 H Calcium 8.3 L Magnesium 1.6 L Total Bilirubin 0.7 AST 53 H ALT 59 Alkaline Phosphatase 86 Ammonia 178 H Creatine Kinase 323 H Troponin I 12 14 NT-Pro-B Natriuret Pep 81 Total Protein 6.7 Albumin 3.2 L Lipase 362 H TSH 0.84 Urine Color Yellow Urine Clarity Clear Urine pH 7.5 Ur Specific [place] 1.015 Urine Protein 30 H Urine Ketones Negative Urine Blood Small H Urine Nitrite Positive H Urine Bilirubin Negative Urine Urobilinogen 1.0 H Ur Leukocyte Esterase Negative Urine RBC 10-20 H Urine WBC 3-5 Ur Epithelial Cells Rare Urine Crystals Few Amorphous Urine Bacteria Packed Urine Casts Negative Urine Mucus Negative Ur Culture Indicated? No Urine Glucose 100 H Urine Opiates Screen Negative Urine Methadone Screen Negative Acetaminophen < 2 Ur Barbiturates Screen Negative Ur Tricyclics Screen Negative Ur Amphetamines Screen Negative U Benzodiazepines Scrn Negative Urine Cocaine Screen Negative Ur THC Screen Negative Ethyl Alcohol 301.6 H Last Vital Signs Temp 36.7 C 01/19/25 17:19 Pulse 90 01/19/25 17:19 Resp 16 06/20/25 17:19 BP 135/94 H 06/20/25 17:19 Pulse Ox 97 01/19/25 17:19 PAWSS Have you Been Recently Intoxicated or Drunk Within the Last 30 days?: Unable to Obtain Have you Ever Experienced Previous Episodes of Alcohol Withdrawal?: Unable to Obtain Have you ever Experienced Withdrawal Seizures?: Unable to Obtain Have you ever Experienced Delirium Tremens(DT)s?: Unable to Obtain Have you ever undergone Alcohol Rehabilitation Treatment (i.e, inpt ot outpatient treatment programs)?: Unable to Obtain Have you ever Experienced Blackouts?: Unable to Obtain Have you ever Combined Alcohol with other Downers within the last 90 days?: Unable to Obtain Have you ever Combined Alcohol with any other Substance of Abuse during the last 90 days?: Unable to Obtain Positive Blood Alcohol level on Presentation? [PCS.BAL]: Unable to Obtain Evidence of Increased Autonomic Activity (i.e. HR>120, tremor, sweating, agitation, nausea)?: Unable to Obtain Time Spent Time spent with Patient: 40-54 minutes Time was spent: preparing to see the patient(eg.review tests), obtaining and/or reviewing separately otained hiistory, ordering medications,tests, procedures, referring, communicating with other health home health care worker, indepentently interpreting results, counseling the patient and care coordination
[2025-01-19] MEDS: Albuterol/Ipratropium 3 ML UPD VIAL (21:04)
[2025-01-19] MEDS: methylPREDNISolone SUCC 125 MG VIAL IVP (21:04)
--- NOTE | 2025-01-19 21:10 | DI.RAD_ITS ---
Exam(s) XR PORTABLE CHEST AP EXAM: XR PORTABLE CHEST AP CLINICAL HISTORY: SOB TECHNIQUE: 2D digital imaging was performed of the chest. Two images were obtained. AP views were obtained. COMPARISON: CT CT CHEST W from 02/19/2024 CR,XR XR PORTABLE CHEST AP from 02/19/2024 FINDINGS: MEDIASTINUM: Normal. HEART: Normal. PULMONARY VASCULATURE: There is poor inspiration with crowding of the pulmonary vasculature. LUNGS: Clear. PLEURAL SPACE: No pleural effusion or pneumothorax. BONE:Within normal limits for the patient's age. There are old healed right rib fractures again seen. OTHER FINDINGS:Normal. IMPRESSION: 1. No focal consolidating infiltrates. No evidence of heart failure. 2. The preliminary [facility] report was reviewed. DATA REPOSITORY: RADIATION DOSE DELIVERED:
[2025-01-19] MEDS: cefTRIAXone 1 GM/50 ML BAG IVPB (21:19)
--- NOTE | 2025-01-19 21:40 | DI.[facility]_ITS ---
PROCEDURE INFORMATION: Exam: XR Chest Exam date and time: 01/19/2025 9:10 PM Age: 49 years old Clinical indication: Shortness of breath TECHNIQUE: Imaging protocol: Radiologic exam of the chest. Views: 1 view. COMPARISON: CT CHEST W 02/19/2024 and XR CHEST 02/19/2024 FINDINGS: Tubes, catheters and devices: Cardiac leads superimposed over the chest. Lungs: Pulmonary venous hypertension without overt pulmonary edema. No acute infiltrate. Pleural spaces: No pneumothorax. No pleural fluid collection. Heart/Mediastinum: Normal heart size. Bones/joints: Spinal degenerative changes. Prior cervical spine surgery at [facility]. IMPRESSION: 1. Pulmonary venous hypertension without overt pulmonary edema. 2. No acute infiltrate. Dictated and Authenticated by: Zachery Castillo MD. Orderin [facility]. Osei Johnson MD
[2025-01-20] VITALS (62 sets, daily range): BP systolic 151–200; BP diastolic 98–160; PULSE 76–116; RESP 12–43; TEMP 36.2; O2SAT 88–99
--- NOTE | 2025-01-20 | DI.RAD_ITS ---
Exam(s) XR PORTABLE CHEST AP EXAM: XR PORTABLE CHEST AP CLINICAL HISTORY: ETT reposition TECHNIQUE: 2D digital imaging was performed of the chest. One image was obtained. An AP view was obtained. COMPARISON: CR,XR XR PORTABLE CHEST AP POST LINE from 01/20/2025 FINDINGS: The tip of the endotracheal tube is above the sue by 4.8 cm. The enteric tube and central venous catheter are stable and in appropriate position. MEDIASTINUM: Normal. HEART: Normal. PULMONARY VASCULATURE: Normal. LUNGS: The left mid lung opacities still present but has decreased in size. The lungs are otherwise clear. PLEURAL SPACE: No pleural effusion or pneumothorax. BONE:Within normal limits for the patient's age. OTHER FINDINGS:Normal. IMPRESSION: 1. The tip of the endotracheal tube is 4.8 cm above the sue. 2. Improving opacity in the left mid lung. 3. The preliminary [facility] report was reviewed. DATA REPOSITORY: RADIATION DOSE DELIVERED:
[2025-01-20] MEDS: LORazepam 20 MG/10 ML VIAL IVP (04:33)
[2025-01-20] MEDS: Normal Saline Flush 10 ML SYR (05:19)
--- NOTE | 2025-01-20 05:46 | W.PC.ACHO ---
Registration Status: ADM IN Primary Language: Preferred Language: Romanian ED Information & Data Chief Complaint AMS/LOC 01/19/25 20:18 Chief Complaint AMS/LOC 01/19/25 17:19 Triage Note Pt found kneeling in 01/19/25 17:19 driveway, neighbors hadn't seen him in 2 days. Confused , altered and called 911. Medical / Surgical History (Last Reviewed 02/18/24 @ 22:26 by Suraj Martines) Thrombocytopenia Ribs, multiple fractures Suicide attempt (Last Updated 12/20/24 @ 11:14 by Yelitza Warner RN) History of shoulder surgery History of esophagogastroduodenoscopy (EGD) Most Recent Vital Signs Temperature 36.3 C L 01/19/25 22:45 Temperature Source Tympanic 01/19/25 22:45 Pulse 100 H 01/20/25 05:01 Pulse 102 H 01/20/25 05:01 Respiratory Rate 19 01/20/25 05:01 Respiratory Effort Non-Labored 01/20/25 04:00 Respiratory Depth Normal 01/19/25 22:45 Respiratory Pattern Normal 01/19/25 22:45 Blood Pressure 184/160 H 01/20/25 05:01 Blood Pressure Mean 167 01/20/25 05:01 Blood Pressure Position Supine 01/19/25 17:19 Pulse Oximetry 94 01/20/25 04:01 Oxygen Delivery Method Nasal Cannula 01/19/25 22:45 Oxygen Flow Rate 3 01/19/25 22:45 Allergies cat dander Allergy (Mild, Verified 03/23/24 13:55) Wheezing dog dander Allergy (Mild, Verified 03/23/24 13:55) Wheezing Environmental Allergy (Intermediate, Uncoded 03/23/24 13:55) Asthma Exacerbation Active Medications Generic Name Dose Route Start Last Admin Trade Name Freq PRN Reason Stop Dose Admin Iohexol 100 ml 01/19/25 19:30 01/19/25 19:20 Omnipaque 350 Mg/Ml 100 Ml Btl IJ 02/18/25 23:59 100 ml DIRECTED ARNIE Administration Quetiapine Fumarate 200 mg 01/19/25 23:00 01/19/25 23:50 Quetiapine 100 Mg Tab PO Not Given HS ARNIE Sodium Chloride 50 ml 01/19/25 19:30 01/19/25 19:20 Normal Saline - Diluent 50 Ml Vial IJ 50 ml .FOR DI USE ARNIE Administration IV IV Catheter Type [Left Upper Saline Lock arm] IV Catheter Type [Left Hand] 20 IV Catheter Gauge [Left Upper 20 arm] IV Catheter Gauge [Left Hand] 20 Diagnostics 01/20/25 01/19/25 01/19/25 Range/Units 05:40 20:34 19:01 WBC Pending (4.4-10.8) 10^3/uL RBC Pending (4.36-5.78) 10^6/uL Hgb Pending (13.5-17.5) g/dL Hct Pending (40.0-50.0) % MCV Pending (80-95) fL MCH Pending (27.0-33.0) pg MCHC Pending (32.0-36.0) % RDW Pending (11.8-14.1) % Plt Count Pending (130-400) 10^3/uL MPV Pending (8.0-11.0) fL Immature Gran % Pending % Neutrophils % Pending % Lymphocytes % Pending % Monocytes % Pending % Eosinophils % Pending % Basophils % Pending % Nucleated RBC % (0.0-0.3) % Absolute Neutrophils Pending (1.2-6.7) 10^3/uL Absolute Lymphocytes Pending (1.2-3.4) 10^3/uL Absolute Monocytes Pending (0.1-0.8) 10^3/uL Absolute Eosinophils Pending (0.0-0.7) 10^3/uL Absolute Basophils Pending (0.0-0.2) 10^3/uL PT (9.1-11.1) sec INR (0.9-1.1) VBG pH (7.31-7.41) VBG pCO2 (41-51) mmHg VBG pO2 mmHg VBG HCO3 (23-28) mmol/L VBG Total CO2 (24-29) mmol/L VBG O2 Saturation % VBG Base Excess (-2-3) mmol/L VBG Lactate (<or=2.0) mmol/L Sodium Pending (136-145) mmol/L Potassium Pending (3.5-5.1) mmol/L Chloride Pending (98-107) mmol/L Carbon Dioxide Pending (21.0-32.0) mmol/L Anion Gap Pending (3-11) mmol/L BUN Pending (7-18) mg/dL Creatinine Pending (0.70-1.30) mg/dL Est GFR (CKD-EPI 2020) Pending (mL/min/1.73m2) Glucose Pending (74-106) mg/dL Calcium Pending (8.5-10.1) mg/dL Magnesium (1.8-2.4) mg/dL Iron Pending TIBC Pending Transferrin % Sat Pending Total Bilirubin (0.2-1.0) mg/dL AST (15-37) U/L ALT (16-63) U/L Alkaline Phosphatase (46-116) U/L Ammonia (11-32) umol/L Creatine Kinase (39-308) U/L Troponin I Cancelled 14 (<or=76) ng/L NT-Pro-B Natriuret Pep (<300) pg/mL Total Protein (6.4-8.2) g/dL Albumin (3.4-5.0) g/dL Lipase (<78) U/L Vitamin B12 Pending Folate Pending TSH (0.36-3.74) uIU/mL Urine Color (Yellow) Urine Clarity (Clear) Urine pH (5-8) Ur Specific [place] (1.005-1.025) Urine Protein (Neg-Trace) mg/dL Urine Ketones (Negative) mg/dL Urine Blood (Negative) Urine Nitrite (Negative) Urine Bilirubin (Negative) Urine Urobilinogen (Up to 0.2) mg/dL Ur Leukocyte Esterase (Negative) Urine RBC (0-2) HPF Urine WBC (0-5) HPF Ur Epithelial Cells (Negative) HPF Urine Crystals (Negative) HPF Urine Bacteria (Negative) HPF Urine Casts (Negative) LPF Urine Mucus (Negative) Ur Culture Indicated? Urine Glucose (Negative) mg/dL Urine Opiates Screen (Negative) Urine Methadone Screen (Negative) Acetaminophen (10-30) ug/mL Ur Barbiturates Screen (Negative) Ur Tricyclics Screen (Negative) Ur Amphetamines Screen (Negative) U Benzodiazepines Scrn (Negative) Urine Cocaine Screen (Negative) Ur THC Screen (Negative) Ethyl Alcohol (<10) mg/dL 01/19/25 01/19/25 Range/Units 17:57 17:50 WBC 3.43 L (4.4-10.8) 10^3/uL RBC 4.04 L (4.36-5.78) 10^6/uL Hgb 13.8 (13.5-17.5) g/dL Hct 40.3 (40.0-50.0) % MCV 100 H (80-95) fL MCH 34.2 H (27.0-33.0) pg MCHC 34.2 (32.0-36.0) % RDW 12.9 (11.8-14.1) % Plt Count 135 (130-400) 10^3/uL MPV 8.5 (8.0-11.0) fL Immature Gran % 0.6 % Neutrophils % 46.6 % Lymphocytes % 39.9 % Monocytes % 11.4 % Eosinophils % 0.6 % Basophils % 0.9 % Nucleated RBC % 0.0 (0.0-0.3) % Absolute Neutrophils 1.60 (1.2-6.7) 10^3/uL Absolute Lymphocytes 1.37 (1.2-3.4) 10^3/uL Absolute Monocytes 0.39 (0.1-0.8) 10^3/uL Absolute Eosinophils 0.02 (0.0-0.7) 10^3/uL Absolute Basophils 0.03 (0.0-0.2) 10^3/uL PT 12.3 H (9.1-11.1) sec INR 1.2 H (0.9-1.1) VBG pH 7.50 H (7.31-7.41) VBG pCO2 49 (41-51) mmHg VBG pO2 55 mmHg VBG HCO3 38 H (23-28) mmol/L VBG Total CO2 34 H (24-29) mmol/L VBG O2 Saturation 87 % VBG Base Excess 15 H (-2-3) mmol/L VBG Lactate 2.1 (<or=2.0) mmol/L Sodium 142 (136-145) mmol/L Potassium 3.3 L (3.5-5.1) mmol/L Chloride 101 (98-107) mmol/L Carbon Dioxide 35.2 H (21.0-32.0) mmol/L Anion Gap 5.8 (3-11) mmol/L BUN 5 L (7-18) mg/dL Creatinine 0.7 (0.70-1.30) mg/dL Est GFR (CKD-EPI 2020) 112.25 (mL/min/1.73m2) Glucose 179 H (74-106) mg/dL Calcium 8.3 L (8.5-10.1) mg/dL Magnesium 1.6 L (1.8-2.4) mg/dL Iron TIBC Transferrin % Sat Total Bilirubin 0.7 (0.2-1.0) mg/dL AST 53 H (15-37) U/L ALT 59 (16-63) U/L Alkaline Phosphatase 86 (46-116) U/L Ammonia 178 H (11-32) umol/L Creatine Kinase 323 H (39-308) U/L Troponin I 12 (<or=76) ng/L NT-Pro-B Natriuret Pep 81 (<300) pg/mL Total Protein 6.7 (6.4-8.2) g/dL Albumin 3.2 L (3.4-5.0) g/dL Lipase 362 H (<78) U/L Vitamin B12 Folate TSH 0.84 (0.36-3.74) uIU/mL Urine Color Yellow (Yellow) Urine Clarity Clear (Clear) Urine pH 7.5 (5-8) Ur Specific [place] 1.015 (1.005-1.025) Urine Protein 30 H (Neg-Trace) mg/dL Urine Ketones Negative (Negative) mg/dL Urine Blood Small H (Negative) Urine Nitrite Positive H (Negative) Urine Bilirubin Negative (Negative) Urine Urobilinogen 1.0 H (Up to 0.2) mg/dL Ur Leukocyte Esterase Negative (Negative) Urine RBC 10-20 H (0-2) HPF Urine WBC 3-5 (0-5) HPF Ur Epithelial Cells Rare (Negative) HPF Urine Crystals Few Amorphous (Negative) HPF Urine Bacteria Packed (Negative) HPF Urine Casts Negative (Negative) LPF Urine Mucus Negative (Negative) Ur Culture Indicated? No Urine Glucose 100 H (Negative) mg/dL Urine Opiates Screen Negative (Negative) Urine Methadone Screen Negative (Negative) Acetaminophen < 2 (10-30) ug/mL Ur Barbiturates Screen Negative (Negative) Ur Tricyclics Screen Negative (Negative) Ur Amphetamines Screen Negative (Negative) U Benzodiazepines Scrn Negative (Negative) Urine Cocaine Screen Negative (Negative) Ur THC Screen Negative (Negative) Ethyl Alcohol 301.6 H (<10) mg/dL [id number] Documentation Fingerstick Glucose Start: 01/19/25 17:35 Freq: Status: Active Protocol: Activity Type Activity Date Activity User E-sign Co-sign Detail Recorded Client Recorded Date Recorded By Document 01/19/25 17:33 BKG DAEMON(3) [id number] 01/19/25 17:35 BKG DAEMON(4) Intake and Output - 24 Hour Total 01/19/25 17:19 thru 01/20/25 02:35 Intake Total 1115.5077 Balance 1115.5077 Weight 147.6 kg Intake: IV 1115.5077 Falls Risk Assessment History of Falls Previous History 01/19/25 20:18 Contributing Factors Confusion,Unstable, 01/19/25 20:18 Impairments Ambulatory Aids Independent 01/19/25 20:18 Tubes/Lines With any additional score 01/19/25 20:18 Gait Evaluation W/any additional score 01/19/25 20:18 Cognition Cognitive impairment 01/19/25 20:18 Fall Total Score 79 01/19/25 20:18 Level of Risk Maximum Risk 01/19/25 20:18 Restraint Information Behavior Requiring Restraints/ Harm to Patient Seclusion Date of Initiation 01/19/25 Time Restraints were Initiated 20:45 Note Patient is somnolent/asleep at this time; patient is admitted with notable encephalopathy and was noted by prior staff to pull out IV lines. Patient has began to have very brief moments of eye-opening and incoherent groaning before falling back asleep, during which time patient performs non-specific flailing. Patient is unsafe to allow out of restraints at this time. Problems (Last Reviewed 02/18/24 @ 22:26 by Suraj Martines) Encephalopathy (Acute) Elevated MCV (Acute) Hypokalemia (Acute) Hepatitis C (Chronic) Alcohol use disorder, severe, in early remission (Acute) v v v v v v v v v Sending and/or Receiving Nurses: Please use comment section below to note any information pertinent to the patient hand-off not included above. Information / Comments: Report received from: Jim Quiñones RN
[2025-01-20 05:59] LABS: Anion Gap 4.8 mmol/L (3-11); BUN 6 mg/dL (7-18); CO2 36.2 mmol/L (21.0-32.0); CREATININE 0.7 mg/dL (0.70-1.30); Calcium 7.9 mg/dL (8.5-10.1); Chloride 104 mmol/L (98-107); Estimated GFR 112.25 (mL/min/1.73m2); Glucose 210 mg/dL (74-106); Potassium 4.1 mmol/L (3.5-5.1); Sodium 145 mmol/L (136-145)
[2025-01-20 06:02] LABS: Iron 265 ug/dL (65-175); Total Iron Binding Capacity 271 ug/dL (250-450); Transferrin Sat 98 % (20-55)
[2025-01-20 06:06] LABS: Abs Immature Grans 0.02 10^3/uL (0.0-0.06); Absolute Basophil Count 0.01 10^3/uL (0.0-0.2); Absolute Lymphocyte Count 0.37 10^3/uL (1.2-3.4); Absolute Monocyte Count 0.05 10^3/uL (0.1-0.8); Absolute Neutrophil Count 1.92 10^3/uL (1.2-6.7); Basophils % 0.4 %; HCT 42.4 % (40.0-50.0); HGB 14.2 g/dL (13.5-17.5); Immature Grans % 0.8 %; Lymphocytes % 15.6 %; MCH 34.2 pg (27.0-33.0); MCHC 33.5 % (32.0-36.0); MCV 102 fL (80-95); MPV 8.6 fL (8.0-11.0); Monocytes % 2.1 %; Neutrophils % 81.1 %; Platelet Count 135 10^3/uL (130-400); RBC 4.15 10^6/uL (4.36-5.78); WBC 2.37 10^3/uL (4.4-10.8)
[2025-01-20 06:29] LABS: Folate 4.6 ng/mL (8.6-20.0); Vitamin B12 437 pg/mL (193-986)
[2025-01-20] MEDS: Normal Saline Flush 10 ML SYR IVP ×6 (07:01→19:36)
[2025-01-20 08:12] LABS: ETHANOL BLOOD 113.1 mg/dL (<10)
[2025-01-20 08:13] LABS: Ammonia 30 umol/L (11-32)
[2025-01-20 08:20] LABS: Lab Add On Test DONE
[2025-01-20 08:30] LABS: Magnesium 1.8 mg/dL (1.8-2.4)
--- NOTE | 2025-01-20 08:41 | PDOC.CMIN ---
Date of service: 01/20/25 Time of Service: 08:41 Care Management Initial Assmt Initial Assessment Reason for Hospitalization: ETOH withdrawal Functional Status/Living Situation Patient Presentation: Chris was lying in bed in the ICU when CM attempted to meet with him. He was somnolent, confused and a bit agitated at the time and was not responding to verbal interactions. Chris was admitted on 01/19/25 with AUD with altered mental status. He had not been seen by neighbors for several days and EMS was called to do a wellness check. Upon arrival he was confused and in the ED became combative, requiring the use of soft restraints. Chris has been placed on the phenobarbital protocol and is scoring 19-20 on the CIWA scale. He is hypertensivre and tachycardic and is requiring 4L/min of oxygen via Oxym[place]. CM was unable to have any meaningful conversation with Chris; information obtained from discussion with staff, providers and chart review. CM will follow. Town of Residence: [place] Significant Other/Family: Out of area (mother, sister and brother in [facility]- not in close contact) Natural Supports: friend Chantell Employment Status: Disabled Instrumental Activities of Daily Living (ADLs): Independent Medications Medication Management: No Issues/Barriers identified Advance Directives Advance Directives: Do you have an Advance Directive: N 01/26/13, 11:12 AD On File at [facility]: N 01/24/13, 13:15 Date Asked 01/19/25 01/19/25, 22:30 AD Date Reviewed 01/19/25 01/19/25, 22:30 COLST On File at [facility] COLST Date Scanned Code Status Resuscitation Status Full Code Portal Pt does not currently have a portal and education provided: Yes Insurance Coverage/Financial Issues Insurance: Medicaid Care Team Visit Care Team Role Provider Type Pierre Cardenas Primary Care Provider [employer] Elizabeth Hodge MD Emergency Provider [facility] STAFF PHYSICIAN Glenn Torres MD Admit Provider [facility] STAFF PHYSICIAN Attending Provider Discharge Anticipated Barriers to Discharge: Medical Status Patient/Family Education Needs: Review discharge instructions, discuss Ask Me Three Transportation: Private vehicle Plan: Anticipate Chris will be discharged home with no new services when medically cleared. He will follow up with his community providers and plan of care and transport via private vehicle. CM will follow and continue to assess for discharge needs. Social Determinants of Health Screening Will the Patient Participate in the Screening?: Unable to obtain PFSH All Active Problems (Updated 01/19/25 @ 20:53 by Glenn Torres MD) Encephalopathy (Acute) Elevated MCV (Acute) Hypokalemia (Acute) Hepatitis C (Chronic) Erectile dysfunction (Acute) Decreased testosterone level (Acute) Alcohol use disorder, severe, in early remission (Acute) Intentional clonazepam overdose (Acute) DELLA (obstructive sleep apnea) (Chronic) Asthma (Chronic) Depression with anxiety (Chronic) Opiate dependence (Chronic) Medical History (Updated 01/19/25 @ 20:53 by Glenn Torres MD) Thrombocytopenia Ribs, multiple fractures Suicide attempt Surgical History (Updated 12/20/24 @ 11:14 by Yelitza Warner RN) History of shoulder surgery DOS 08/09/19 History of esophagogastroduodenoscopy (EGD) Social History Smoking/Tobacco Use Status: Former Tobacco Use Smoking risk assessment performed?: Yes Drug use: Occasionally Substance use type: crack/cocaine Housing: house
[2025-01-20] MEDS: PHENobarbital 130 MG/ML VIAL IVP ×5 (10:39→18:20)
[2025-01-20] MEDS: MULTIVITAMIN 10 ML, THIAMINE 100 MG, FOLIC ACID 1 MG in DEXTROSE 5%-0.45% SALINE 1,000 ML 42 ML IV (10:54)
[2025-01-20] MEDS: Normal Saline 1,000 ML 150 ML IV ×2 (13:07→20:30)
[2025-01-20] MEDS: dexmedeTOMidine IN 0.9 % NACL 400 MCG/100 ML BTL (13:28)
[2025-01-20] MEDS: Lactulose 20 GM/30 ML CUP 200 GM PR (13:59)
--- NOTE | 2025-01-20 14:11 | PGE_ITS ---
Date of Service Date of service: 01/20/25 Time of Service: 14:11 Assessment and Plan Assessment and plan (1) Encephalopathy: Status: Acute Assessment and plan: I think this is primarily severe alcohol/alcohol withdrawal. Ammonia elevated on admission, possible element of hepatic encephalopathy, but we don't have a clear history of cirrhosis that would support this. Ammonia normalized, though significance of following ammonia is not clear. Changed lactulose to FL as not taking po, though as above unclear if this will help. Maxed on phenobarbital, started on dexmedetomide drip, get phenobarb levels with labs. Thiamine to high dose as at risk for wernicke's, continue banana bag until taking PO. (2) Alcohol use disorder, severe, in early remission: Status: Acute Assessment and plan: Address recovery plan prior to discharge. (3) Hepatitis C: Status: Chronic Assessment and plan: noted. should be considered for treatment as outpatient given risk of cirrhosis. (4) Opiate dependence: Status: Chronic Assessment and plan: continue SL buprenorphine to avoid complicating alcohol withdrawal with opioid withdrawal. (5) Liver disease, alcoholic: Status: Acute Assessment and plan: At risk for cirrhosis, but no clear diagnosis. elevated AST and low platelets could be cirrhosis or just acute effects of alcohol. Will follow. Bili and INR reassuring so if he does have cirrhosis it is compensated, encephalopathy would be atypical in this situation. (6) Folate deficiency: Status: Acute Assessment and plan: Getting IV in banana bag. Likely poor nutrition. To po when taking oral. (7) DVT prophylaxis: Status: Acute Assessment and plan: enoxaparin. (8) Discharge planning issues: Status: Acute Assessment and plan: likely 2 more days to stabilize from withdrawal. Subjective Subjective Patient reports: denies diarrhea, vomiting or fever Interval history since last seen: 24 hr: Hit hard stop on phenobarbital protocol, still scoring >20 on CIWA Sedated, confused. Agitated at times pulling on lines. Exam Narrative Exam Narrative: Somnolent at the time of my exam, but moves with exam, not following commands HEENT: MMM, no icterus Cardiovascular-mild tachycardia no murmur rubs gallops Lungs-clear to auscultation no accessory muscle use Abdomen-soft ,non-distended but protuberant, does not respond to palpation Extremities-no cyanosis clubbing or edema bilaterally Neurologic- moving 4 extremities, no overt tremor/asterixis Objective Last Vital Signs Temp 36.2 C L 01/20/25 09:18 Pulse 104 H 01/20/25 12:02 Resp 12 01/20/25 10:01 BP 179/118 H 01/20/25 12:02 Pulse Ox 95 01/20/25 12:02 Laboratory Results - last 24 hr 01/19/25 01/19/25 01/19/25 17:50 17:57 19:01 WBC 3.43 L RBC 4.04 L Hgb 13.8 Hct 40.3 MCV 100 H MCH 34.2 H MCHC 34.2 RDW 12.9 Plt Count 135 MPV 8.5 Immature Gran % 0.6 Neutrophils % 46.6 Lymphocytes % 39.9 Monocytes % 11.4 Eosinophils % 0.6 Basophils % 0.9 Nucleated RBC % 0.0 Absolute Neutrophils 1.60 Absolute Lymphocytes 1.37 Absolute Monocytes 0.39 Absolute Eosinophils 0.02 Absolute Basophils 0.03 PT 12.3 H INR 1.2 H VBG pH 7.50 H VBG pCO2 49 VBG pO2 55 VBG HCO3 38 H VBG Total CO2 34 H VBG O2 Saturation 87 VBG Base Excess 15 H VBG Lactate 2.1 Sodium 142 Potassium 3.3 L Chloride 101 Carbon Dioxide 35.2 H Anion Gap 5.8 BUN 5 L Creatinine 0.7 Est GFR (CKD-EPI 2020) 112.25 Glucose 179 H Calcium 8.3 L Magnesium 1.6 L Iron TIBC Transferrin % Sat Total Bilirubin 0.7 AST 53 H ALT 59 Alkaline Phosphatase 86 Ammonia 178 H Creatine Kinase 323 H Troponin I 12 14 NT-Pro-B Natriuret Pep 81 Total Protein 6.7 Albumin 3.2 L Lipase 362 H Vitamin B12 Folate TSH 0.84 Urine Color Yellow Urine Clarity Clear Urine pH 7.5 Ur Specific [place] 1.015 Urine Protein 30 H Urine Ketones Negative Urine Blood Small H Urine Nitrite Positive H Urine Bilirubin Negative Urine Urobilinogen 1.0 H Ur Leukocyte Esterase Negative Urine RBC 10-20 H Urine WBC 3-5 Ur Epithelial Cells Rare Urine Crystals Few Amorphous Urine Bacteria Packed Urine Casts Negative Urine Mucus Negative Ur Culture Indicated? No Urine Glucose 100 H Urine Opiates Screen Negative Urine Methadone Screen Negative Acetaminophen < 2 Ur Barbiturates Screen Negative Ur Tricyclics Screen Negative Ur Amphetamines Screen Negative U Benzodiazepines Scrn Negative Urine Cocaine Screen Negative Ur THC Screen Negative Ethyl Alcohol 301.6 H Add-On Test Request 01/19/25 01/20/25 01/20/25 20:34 05:40 07:25 WBC 2.37 L RBC 4.15 L Hgb 14.2 Hct 42.4 MCV 102 H MCH 34.2 H MCHC 33.5 RDW 13.0 Plt Count 135 MPV 8.6 Immature Gran % 0.8 Neutrophils % 81.1 Lymphocytes % 15.6 Monocytes % 2.1 Eosinophils % 0.0 Basophils % 0.4 Nucleated RBC % 0.0 Absolute Neutrophils 1.92 Absolute Lymphocytes 0.37 L Absolute Monocytes 0.05 L Absolute Eosinophils 0.00 Absolute Basophils 0.01 PT INR VBG pH VBG pCO2 VBG pO2 VBG HCO3 VBG Total CO2 VBG O2 Saturation VBG Base Excess VBG Lactate Sodium 145 Potassium 4.1 Chloride 104 Carbon Dioxide 36.2 H Anion Gap 4.8 BUN 6 L Creatinine 0.7 Est GFR (CKD-EPI 2020) 112.25 Glucose 210 H Calcium 7.9 L Magnesium 1.8 Iron 265 H TIBC 271 Transferrin % Sat 98 H Total Bilirubin AST ALT Alkaline Phosphatase Ammonia 30 Creatine Kinase Troponin I Cancelled NT-Pro-B Natriuret Pep Total Protein Albumin Lipase Vitamin B12 437 Folate 4.6 L TSH Urine Color Urine Clarity Urine pH Ur Specific [place] Urine Protein Urine Ketones Urine Blood Urine Nitrite Urine Bilirubin Urine Urobilinogen Ur Leukocyte Esterase Urine RBC Urine WBC Ur Epithelial Cells Urine Crystals Urine Bacteria Urine Casts Urine Mucus Ur Culture Indicated? Urine Glucose Urine Opiates Screen Urine Methadone Screen Acetaminophen Ur Barbiturates Screen Ur Tricyclics Screen Ur Amphetamines Screen U Benzodiazepines Scrn Urine Cocaine Screen Ur THC Screen Ethyl Alcohol 113.1 H Add-On Test Request DONE PAWSS Have you Been Recently Intoxicated or Drunk Within the Last 30 days?: Unable to Obtain Have you Ever Experienced Previous Episodes of Alcohol Withdrawal?: Unable to Obtain Have you ever Experienced Withdrawal Seizures?: Unable to Obtain Have you ever Experienced Delirium Tremens(DT)s?: Unable to Obtain Have you ever undergone Alcohol Rehabilitation Treatment (i.e, inpt ot outpatient treatment programs)?: Unable to Obtain Have you ever Experienced Blackouts?: Unable to Obtain Have you ever Combined Alcohol with other Downers within the last 90 days?: Unable to Obtain Have you ever Combined Alcohol with any other Substance of Abuse during the last 90 days?: Unable to Obtain Positive Blood Alcohol level on Presentation? [PCS.BAL]: Yes Evidence of Increased Autonomic Activity (i.e. HR>120, tremor, sweating, agitation, nausea)?: Yes Result: 2 Time Spent with Patient Time Spent with Patient: >50 minutes Time was spent: preparing to see the patient(eg.review tests), obtaining and/or reviewing separately otained hiistory, ordering medications,tests, procedures, referring, communicating with other health patient care director, indepentently interpreting results, counseling the patient and care coordination
[2025-01-20] MEDS: dexmedeTOMidine IN 0.9 % NACL 400 MCG/100 ML BTL 22.14 MCG IV (14:26)
[2025-01-20] MEDS: dexmedeTOMidine IN 0.9 % NACL 400 MCG/100 ML BTL 29.52 MCG IV (15:32)
[2025-01-20] MEDS: THIAMINE 500 MG in Normal Saline 100 ML 200 MG IVPB ×2 (17:07→22:35)
[2025-01-20] MEDS: Enoxaparin 40 MG/0.4 ML SYR SC (17:09)
[2025-01-20] MEDS: dexmedeTOMidine IN 0.9 % NACL 400 MCG/100 ML BTL 55.35 MCG IV ×3 (18:45→22:50)
[2025-01-20] MEDS: Haloperidol 5 MG/ML VIAL (18:50)
[2025-01-20] MEDS: diazePAM 10 MG/2 ML SYR (19:35)
--- NOTE | 2025-01-20 19:53 | W.PM.PROGNOT ---
Date of Service Date of service: 01/20/25 Time of Service: 19:54 Objective Last Vital Signs Temp 36.2 C L 01/20/25 09:18 Pulse 104 H 01/20/25 12:02 Resp 12 01/20/25 10:01 BP 179/118 H 01/20/25 12:02 Pulse Ox 95 01/20/25 12:02 Laboratory Results - last 24 hr 01/19/25 01/20/25 01/20/25 20:34 05:40 07:25 WBC 2.37 L RBC 4.15 L Hgb 14.2 Hct 42.4 MCV 102 H MCH 34.2 H MCHC 33.5 RDW 13.0 Plt Count 135 MPV 8.6 Immature Gran % 0.8 Neutrophils % 81.1 Lymphocytes % 15.6 Monocytes % 2.1 Eosinophils % 0.0 Basophils % 0.4 Nucleated RBC % 0.0 Absolute Neutrophils 1.92 Absolute Lymphocytes 0.37 L Absolute Monocytes 0.05 L Absolute Eosinophils 0.00 Absolute Basophils 0.01 Sodium 145 Potassium 4.1 Chloride 104 Carbon Dioxide 36.2 H Anion Gap 4.8 BUN 6 L Creatinine 0.7 Est GFR (CKD-EPI 2020) 112.25 Glucose 210 H Calcium 7.9 L Magnesium 1.8 Iron 265 H TIBC 271 Transferrin % Sat 98 H Ammonia 30 Troponin I Cancelled Vitamin B12 437 Folate 4.6 L Ethyl Alcohol 113.1 H Add-On Test Request DONE Procedures Other Procedure Description/Findings: Pt with need for IV access. Attempted to place IV on GSV at left medial malleolus using us guidance and 2cc of lidocaine. Line unsuccessfull. PAWSS Have you Been Recently Intoxicated or Drunk Within the Last 30 days?: Unable to Obtain Have you Ever Experienced Previous Episodes of Alcohol Withdrawal?: Unable to Obtain Have you ever Experienced Withdrawal Seizures?: Unable to Obtain Have you ever Experienced Delirium Tremens(DT)s?: Unable to Obtain Have you ever undergone Alcohol Rehabilitation Treatment (i.e, inpt ot outpatient treatment programs)?: Unable to Obtain Have you ever Experienced Blackouts?: Unable to Obtain Have you ever Combined Alcohol with other Downers within the last 90 days?: Unable to Obtain Have you ever Combined Alcohol with any other Substance of Abuse during the last 90 days?: Unable to Obtain Positive Blood Alcohol level on Presentation? [PCS.BAL]: Yes Evidence of Increased Autonomic Activity (i.e. HR>120, tremor, sweating, agitation, nausea)?: Yes Result: 2 Time Spent with Patient Time Spent with Patient: <25 minutes Time was spent: other
[2025-01-20] MEDS: Lidocaine 1% Multi-Dose 20 ML VIAL (19:56)
--- NOTE | 2025-01-20 20:27 | W.EVENT ---
Date of service: 01/20/25 Time of Service: 20:27 Event Note: This is a 49-year-old gentleman admitted for hepatic encephalopathy and alcohol withdrawal syndrome with patient's alcohol withdrawal symptoms escalating to severe agitation requiring 4 point restraint and medication sedation late during the day in the ICU. He had been stable on Precedex and then awakened when IV was being restarted and became very agitated flinging his extremities and at risk of hurting himself and the staff requiring multiple people to hold him steady while trying to treat him. He did pull out his IVs and these were restarted. He did receive 1 dose of Valium after dose of Haldol 2 mg at which time his IV was lost. We did succeed at starting to peripheral IV sites after Valium and Haldol with slight control of his behavior and anesthesia was called for intubation because of patient's compromised airway being severely obese and sedated as well as going through severe alcohol withdrawal. Surgery did attempt central line which was failed. Anesthesia did succeed at intubation and patient was placed on mechanical ventilation with reinitiation of his IV Precedex and phenobarbital protocol as needed with patient more sedated now on propofol for sedation with intubation and mechanical ventilation. Patient blood pressure was elevated even after intubation and sedation and nicardipine drip was initiated for blood pressure control. He was on IV fluids at normal saline 150 cc an hour which was decreased to 80 cc/h with patient having also a banana bag going at about 40 cc an hour. He was much more controlled but remained in for point restraint with intubation and mechanical ventilation. He did have an episode of hypoxemia at which time he was given albuterol nebulizers through his tracheostomy tube and at that time he was given Lasix 40 mg with normal saline decreased from 150 to 80 cc. Patient lactulose was held for now but should be reevaluated in the morning. This may be less of a problem than his alcohol withdrawal at this time. Patient is also on Suboxone for narcotic abuse with urine drug screen negative for most illicit drugs though complete screen was not performed missing fentanyl, oxycodone and xylazine. His benzodiazepines were negative upon admission. Assessment/plan: This a 49-year-old gentleman going through severe alcohol withdrawal who in the past had intubation and mechanical ventilation for alcohol withdrawal and opiate withdrawal. He is severely obese and probably has sleep apnea as well. He now is more comfortable status post intubation with central line placed by anesthesia and is sedated on propofol along with continue Precedex and phenobarbital protocol. He did receive several doses of Valium 10 mg and Haldol 2 mg x 1 dose for sedation prior to intubation. He had continued hypertension after intubation and mechanical ventilation with sedation and was slightly hypoxic. Patient may have been fluid overload with IV fluids rate decreased, albuterol nebulizer given through the tracheal tube and Lasix 40 mg IV given along with nicardipine infusion started earlier for blood pressure control. He is a full code. Time Spent with Patient Time spent in critical care(minutes): 45 Time Spent Included: Coordination of care, Chart review, Documenting critically ill care, Time at immediate bedside and Discussing critically ill care with other medical staff
[2025-01-20] MEDS: diazePAM 10 MG/2 ML SYR IM (20:30)
--- NOTE | 2025-01-20 20:36 | NUR.NOTE ---
Called to ICU to initiate PIV on pt after other nursing and Surgery attempted lines. Pt uncooperative, confused, thrashing. MD at bedside. This RN able to obtain 2 lines (PIV) # 20 on upper arms bilat.
[2025-01-20] MEDS: Propofol 200 MG/20 ML VIAL 100 MG IVP (20:58)
[2025-01-20] MEDS: Rocuronium 50 MG/5 ML SYR 100 MG IVP (20:58)
[2025-01-20] MEDS: Ketamine 50 MG/5 ML SYRINGE 100 MG IVP (20:58)
[2025-01-20] MEDS: PROPOFOL 1,000 MG/100 ML BTL 66.42 MG IV ×2 (21:05→22:36)
--- NOTE | 2025-01-20 21:45 | DI.RAD_ITS ---
Exam(s) XR PORTABLE CHEST AP POST LINE EXAM: XR PORTABLE CHEST AP POST LINE CLINICAL HISTORY: Post-intubation and OG tube placement. TECHNIQUE: 2D digital imaging was performed of the chest. One image was obtained. An AP view was obtained. COMPARISON: CR,XR XR PORTABLE CHEST AP from 01/19/2025 FINDINGS: MEDIASTINUM: Normal. HEART: Normal. PULMONARY VASCULATURE: Normal. LUNGS: There is a new opacity in the left mid lung. The right lung is clear. PLEURAL SPACE: No pleural effusion or pneumothorax. BONE:Within normal limits for the patient's age. OTHER FINDINGS:The enteric tube is seen passing into the stomach in the appropriate position. The tip is below the edge of the film. The tip of the endotracheal tube is seen at the top of the film. It lies 6.5 cm from the sue. There is a central venous catheter with its tip in the superior vena cava. IMPRESSION: 1. There is a central venous catheter with its tip in the superior vena cava. 2. The enteric tube passes into the stomach and is in appropriate position. 3. The tip of the endotracheal tube is seen at the top of the film. It lies 6.5 cm from the sue. 4. New opacity in the left mid lung. Differential considerations include atelectasis, edema, infection. 5. The preliminary [facility] report was reviewed. DATA REPOSITORY: RADIATION DOSE DELIVERED:
--- NOTE | 2025-01-20 22:03 | ANES.AIR_ITS ---
Airway Management Note Procedure Date and Time DO NOT use this note for patients in the OR, Use Intraop Record Instead Date Performed: 01/20/25 Procedure Time: 20:55 Procedure Location Procedure Location: Intensive Care Unit Requesting Provider: Suraj Martines Number of Previous Intubation attempts by other providers: 0 Procedure Type Procedure Type: Urgent Pre-Induction Setup Sterility: Hand Hygiene, Surgical Cap and Surgical Mask Preinduction Setup: Standard monitors applied, BVM at bedside, Suction ready (ducanto), Airway equipment ready, Medications ready, IV/IO access patent & flowing (tenuous, but running well. ) and Post induction medications ready Induction Induction Time: 20:58 Induction setup: Pt. evaluated prior to induction, Head of Bed Elevated, Apneic Oxygenation (NC @ flush. ), NRB - High Flow (@ flush. ), Bag Valve Mask Ventilation and Ear to Sternal Notch Induction Medications (Indicate Dose Given): Ketamine IV Dose:: 100 mg, Propofol IV Dose:: 100 mg and Rocuronium IV Dose:: 100 mg Mask Ventilation: Difficult (minimal attempt. ) Airway Device Airway Type: Intubation Laryngoscopy: Atraumatic Laryngoscopy and Poor Dentition Airway Grade: 1 Airway Blades: Glidescope 3 Endotracheal Tube: Oral and 7.5mm ETT Depth Where Secured (cm): 24 Placement Confirmation: Cuff inflated with minimally occlusive pressure, Secured with commercial device, Bilateral breath sounds, ETCO2 waveform present and Depth to teeth Number of Attempts (See previous attempts in note section): 1 Post Induction Management Post Induction Medications (Indicate Dose Given): Managed by Requesting Provider Gastric Tube Gastric Tube: Placed by Other Person Procedure Complications Procedure Complications: None Procedure Outcome Procedure Outcome: Successful Procedure Comment: Requested to secure Chris's airway due to reported significant combativeness. Found in ICU minimally responsive (Valium just given, dexmed infusion running at 1.6 mcg/kg/hr), with adequate respirations currently. NRB/NC place both set to flush on flow meter. A time out was performed, and meds given. despite lubing the glide blade, advancement of the blade was challenging do to how dry his mouth was. His epiglottis was very large and would recommend considering a h yperagulated 4 blade in the future. Advanced to 26 cm after CXR. Proceduralist Performed By: Sony Arzola
--- NOTE | 2025-01-20 22:12 | W.ANESVAS ---
Central Venous Line Placement Date Performed: 01/20/25 Procedure Time: 21:40 Procedure Location: Intensive Care Unit Requesting Provider: Suraj Martines Standard Monitors Applied: ECG, Blood Pressure, SpO2 and ETCO2 Pt. Position: Supine Timeout Performed: Yes Sedation Given (Indicate Dose Given): No Sedation given Patient Mental Status: Other (post ICU intubation sedation in place. ) Sterility: Hand Hygiene, Surgical Cap, Surgical Mask, Sterile Gloves, Sterile Drape/Sheet, Sterile Gown, Eye Protection and Chlorhexidine Laterality: Left Insertion Site: Subclavian Central Line Type: 7 [place] Insertion Procedure: 1% Lidocaine to skin and subcutaneous tissue with 25g needle, Vessel accessed with needle, Guidewire placed with ease, Extension tubing fills with blood, then empties easily with gravity, Dilator placed without resistance, Introducer/Catheter placed without resistance, Guidewire removed and Claves placed, blood withdrawn, ports flushed and clamped Dressing: Tegaderm Applied and BioPatch Catheter Depth at Skin (cm): 20 Placement Confirmation: Confirmation X-Ray Ordered Ultrasound: Sterile probe cover and gel used Ultrasound Image Saved?: Yes Number of Attempts (See previous attempts in note section): 1 Procedure Tolerated: No Complications Procedure Outcome: Successful Procedure Comment: Requested to gain urgent venous access post intubation. Currently with 2 PIVs in his shoulders with bruising at the sites. Left subclavian identified clearly under ultrasound with clear venous waveform. Site was prepped, draped, and vessel re-identified and again confirmed venous via pulse wave Doppler. For actual time see US report. Performed By: Sony Arzola
--- NOTE | 2025-01-20 23:26 | DI.[facility]_ITS ---
Addendum created by Андрей Contreras MD on 01/20/2025 11:31:38 PM EDT: ADDENDUM: Endotracheal tube 6.9 cm above the sue. Initial report created on 01/20/2025 11:25:37 PM EDT: PROCEDURE INFORMATION: Exam: XR Chest Exam date and time: 01/20/2025 10:31 PM Age: 49 years old Clinical indication: Other: Line placement, post-intubation and og tube placement. TECHNIQUE: Imaging protocol: Radiologic exam of the chest. Views: 1 view. COMPARISON: CR XR PORTABLE CHEST AP 19/01/2025 21:10 FINDINGS: Tubes, catheters and devices: Left central venous line tip in the superior vena cava. The orogastric tube is in the stomach, its tip outside the field of view. Lungs: There is incomplete lung expansion and crowding of the vascular markings. A small patchy airspace opacity at the left lung base that may represent edema. Pleural spaces: No pleural effusion or pneumothorax. Heart/Mediastinum: Mild cardiopulmonary congestion, improved from the comparison examination. Bones/joints: No acute fracture is identified. IMPRESSION: 1. Mild cardiopulmonary congestion, improved from the comparison examination. 2. A small patchy airspace opacity at the left lung base that may represent edema. Superimposed infection/pneumonia may present a similar picture. Dictated and Authenticated by: Андрей Contreras MD. Orderin Conrad Ruelas MD
--- NOTE | 2025-01-20 23:31 | DI.[facility]_ITS ---
PROCEDURE INFORMATION: Exam: XR Chest Exam date and time: 01/20/2025 10:40 PM Age: 49 years old Clinical indication: Other: Ett reposition TECHNIQUE: Imaging protocol: Radiologic exam of the chest. Views: 1 view. COMPARISON: CR XR PORTABLE CHEST AP POST LINE 20/01/2025 22:31 FINDINGS: Tubes, catheters and devices: Endotracheal tube tip 4.5 cm above the sue. Left central venous line tip in the superior vena cava. Orogastric tube in the stomach. Lungs: Resolving patchy opacity at the left lung base that may represent atelectasis or edema. Pleural spaces: No pleural effusion or pneumothorax. Heart/Mediastinum: Minimal residual cardiopulmonary congestion. Bones/joints: No acute fracture is identified. IMPRESSION: 1. A tracheal tube tip 4.5 cm above the sue. 2. Resolving patchy opacity at the left lung base that may represent atelectasis or edema. Dictated and Authenticated by: Андрей Contreras MD. Orderin Dariusz Cardoza MD
[2025-01-21] VITALS (84 sets, daily range): BP systolic 106–182; BP diastolic 66–110; PULSE 63–98; RESP 3–30; TEMP 37.2–38.4; O2SAT 90–98
[2025-01-21] MEDS: PROPOFOL 1,000 MG/100 ML BTL 66.42 MG IV ×11 (00:15→16:20)
[2025-01-21] MEDS: Normal Saline 1,000 ML 150 ML IV (00:40)
[2025-01-21] MEDS: dexmedeTOMidine IN 0.9 % NACL 400 MCG/100 ML BTL 36.9 MCG IV ×9 (00:57→22:15)
--- NOTE | 2025-01-21 02:40 | NUR.NOTE ---
Pt care provided as follows by this RN - Jaimee care, skin care, oral care, positioning in bed with boost and pillows for optimal pressure relief. CARAMEL CANDY MAKER HELPER at bedside to protect vent. Lines labeled and patent. Primary RN (Rusty) managing per protocol gtts and medication. I aided in hygiene and cleaning room. Paged hospitalist to report noted hypertension. MD will place orders to be carried out by primary RN. I am acting in capacity of household appliances salesperson at this time. Primary RN assumes care and pt management. Pt has fresh lines, gown and pressure relief. Pt appears comfortable. Care remains to primary RN.
[2025-01-21] MEDS: niCARdipine 25 MG in Normal Saline 240 ML 50 MG IV (03:43)
[2025-01-21] MEDS: Enoxaparin 40 MG/0.4 ML SYR SC ×2 (03:48→13:39)
[2025-01-21] MEDS: Albuterol 2.5 MG/3 ML INH SOLN VIAL UPD ×5 (04:44→23:01)
[2025-01-21] MEDS: Furosemide 40 MG/4 ML VIAL IVP (04:45)
[2025-01-21] MEDS: Normal Saline Flush 10 ML SYR IVP ×5 (05:31→23:20)
[2025-01-21 05:55] LABS: BE (Venous) 12 mmol/L (-2-3); HCO3 (Venous) 36 mmol/L (23-28); O2 Sat (Venous) 90 %; TCO2 (Venous) 32 mmol/L (24-29); pCO2 (Venous) 51 mmHg (41-51); pH (Venous) 7.46 (7.31-7.41); pO2 (Venous) 57 mmHg
[2025-01-21 06:03] LABS: Abs Immature Grans 0.01 10^3/uL (0.0-0.06); Absolute Basophil Count 0.01 10^3/uL (0.0-0.2); Absolute Lymphocyte Count 1.61 10^3/uL (1.2-3.4); Absolute Neutrophil Count 2.13 10^3/uL (1.2-6.7); Basophils % 0.2 %; HCT 39.9 % (40.0-50.0); Immature Grans % 0.2 %; Lymphocytes % 38.7 %; MCH 34.3 pg (27.0-33.0); MCHC 32.6 % (32.0-36.0); MCV 105 fL (80-95); MPV 9.2 fL (8.0-11.0); Monocytes % 9.6 %; Neutrophils % 51.3 %; Platelet Count 102 10^3/uL (130-400); RBC 3.79 10^6/uL (4.36-5.78); RDW 12.9 % (11.8-14.1); RDW-SD 49.6 fL; WBC 4.16 10^3/uL (4.4-10.8)
[2025-01-21 06:26] LABS: ALT 60 U/L (16-63); Alkaline Phosphatase 84 U/L (46-116); Anion Gap 7.5 mmol/L (3-11); BUN 12 mg/dL (7-18); CO2 35.5 mmol/L (21.0-32.0); CREATININE 1.2 mg/dL (0.70-1.30); Calcium 7.4 mg/dL (8.5-10.1); Chloride 104 mmol/L (98-107); Estimated GFR 73.67 (mL/min/1.73m2); Glucose 198 mg/dL (74-106); Magnesium 1.4 mg/dL (1.8-2.4); PHENOBARBITAL 16.3 ug/mL (15.0-40.0); Sodium 147 mmol/L (136-145); Total Protein 6.1 g/dL (6.4-8.2)
[2025-01-21 07:02] LABS: AST 62 U/L (15-37)
[2025-01-21] MEDS: THIAMINE 500 MG in Normal Saline 100 ML 200 MG IVPB ×3 (07:39→23:29)
[2025-01-21] MEDS: Escitalopram 20 MG TAB PO (08:30)
[2025-01-21] MEDS: Gabapentin 300 MG CAP PO (08:30)
--- NOTE | 2025-01-21 09:06 | PGE_ITS ---
Date of Service Date of service: 01/21/25 Time of Service: 09: Assessment and Plan Assessment and plan (1) Encephalopathy: Status: Acute Assessment and plan: I think this is primarily severe alcohol/alcohol withdrawal. Ammonia elevated on admission, possible element of hepatic encephalopathy, but we don't have a clear history of cirrhosis that would support this. Ammonia normalized, though significance of following ammonia is not clear. Stopped lactulose 01/20, which I think is reasonable. Maxed on phenobarbital, started on dexmedetomide drip, now on propofol while intubated. Thiamine to high dose as at risk for wernicke's, continue banana bag until taking PO. I expect by 01/22 morning MS should be improving after 3-4 days without alcohol. (2) Opiate dependence: Status: Chronic Assessment and plan: continue SL buprenorphine to avoid complicating alcohol withdrawal with opioid withdrawal, can continue SL even while intubated. (3) Hypertension: Status: Chronic Assessment and plan: Very high BP overnight in setting of withdrawal/agitiation., now moderated off nicardipine. (4) Liver disease, alcoholic: Status: Acute Assessment and plan: At risk for cirrhosis, but no clear diagnosis. elevated AST and low platelets could be cirrhosis or just acute effects of alcohol, trend has been stable. Bili and INR reassuring so if he does have cirrhosis it is compensated, encephalopathy would be atypical in this situation. Get liver/spleen imaging with u/s 01/22 (5) Hypernatremia: Status: Acute Assessment and plan: Was on NS overnight, replace with D5 1/2NS. Follow (6) Hypomagnesemia: Status: Acute Assessment and plan: despite what is in banana bag, will give another 4g. (7) Folate deficiency: Status: Acute Assessment and plan: Getting IV in banana bag. Likely poor nutrition. To po when taking oral. (8) Alcohol use disorder, severe, in early remission: Status: Acute Assessment and plan: Address recovery plan prior to discharge. (9) DVT prophylaxis: Status: Acute Assessment and plan: enoxaparin. continue to monitor plts (10) Discharge planning issues: Status: Acute Assessment and plan: Trial off sedation to try to extubate 01/22. If progresses, estimated d/c 01/23. Subjective Subjective Patient reports: bowel movement (one large liquid stool 01/21); denies vomiting or fever Interval history since last seen: Events: Started dexmedetomide drip Intubatated, started on propofol Severe HTN overnight, breifly on nicardipine drip, now off 40mg furosemide x 1 overnight,put out 2+ liters Lactulose stopped He is intubated and sedated. Exam Narrative Exam Narrative: Gen: intubated and sedated HEENT: MMM, no icterus Cardiovascular- RRR, no murmur rubs gallops Lungs-clear to auscultation bilaterally Abdomen-soft ,non-distended but protuberant, no masses Extremities-no cyanosis clubbing. 1+ ankle edema bilaterally (improved from 01/20 Neurologic- moving 4 extremities, no overt tremor/asterixis Objective Last Vital Signs Temp 36.2 C L 01/20/25 09:18 Pulse 91 H 01/21/25 06:30 Resp 23 01/21/25 07:45 BP 144/91 H 01/21/25 07:45 Pulse Ox 93 01/21/25 07:45 Laboratory Results - last 24 hr 01/21/25 01/21/25 05:25 05:45 WBC 4.16 L RBC 3.79 L Hgb 13.0 L Hct 39.9 L MCV 105 H MCH 34.3 H MCHC 32.6 RDW 12.9 Plt Count 102 L MPV 9.2 Immature Gran % 0.2 Neutrophils % 51.3 Lymphocytes % 38.7 Monocytes % 9.6 Eosinophils % 0.0 Basophils % 0.2 Nucleated RBC % 0.0 Absolute Neutrophils 2.13 Absolute Lymphocytes 1.61 Absolute Monocytes 0.40 Absolute Eosinophils 0.00 Absolute Basophils 0.01 VBG pH 7.46 H VBG pCO2 51 VBG pO2 57 VBG HCO3 36 H VBG Total CO2 32 H VBG O2 Saturation 90 VBG Base Excess 12 H Sodium 147 H Potassium 4.0 Chloride 104 Carbon Dioxide 35.5 H Anion Gap 7.5 BUN 12 Creatinine 1.2 Est GFR (CKD-EPI 2020) 73.67 Glucose 198 H Calcium 7.4 L Magnesium 1.4 L Total Bilirubin 1.0 AST 62 H ALT 60 Alkaline Phosphatase 84 Total Protein 6.1 L Albumin 3.0 L Phenobarbital 16.3 PAWSS Have you Been Recently Intoxicated or Drunk Within the Last 30 days?: Unable to Obtain Have you Ever Experienced Previous Episodes of Alcohol Withdrawal?: Unable to Obtain Have you ever Experienced Withdrawal Seizures?: Unable to Obtain Have you ever Experienced Delirium Tremens(DT)s?: Unable to Obtain Have you ever undergone Alcohol Rehabilitation Treatment (i.e, inpt ot outpatient treatment programs)?: Unable to Obtain Have you ever Experienced Blackouts?: Unable to Obtain Have you ever Combined Alcohol with other Downers within the last 90 days?: Unable to Obtain Have you ever Combined Alcohol with any other Substance of Abuse during the last 90 days?: Unable to Obtain Positive Blood Alcohol level on Presentation? [PCS.BAL]: Yes Evidence of Increased Autonomic Activity (i.e. HR>120, tremor, sweating, agitation, nausea)?: Yes Result: 2 Time Spent with Patient Time Spent with Patient: >50 minutes Time was spent: preparing to see the patient(eg.review tests), obtaining and/or reviewing separately otained hiistory, ordering medications,tests, procedures, referring, communicating with other health post acute care nurse practitioner, indepentently interpreting results, counseling the patient and care coordination
[2025-01-21] MEDS: Gabapentin 300 MG CAP NG ×3 (10:02→23:40)
[2025-01-21] MEDS: Escitalopram 20 MG TAB NG (10:02)
[2025-01-21] MEDS: MAGNESIUM SULFATE 4 GM/100 ML BAG IV_INF (10:03)
[2025-01-21] MEDS: POTASSIUM CHLORIDE/D5-0.45NACL 1,000 ML 75 MEQ IV ×2 (10:13→22:12)
[2025-01-21] MEDS: MULTIVITAMIN 10 ML, THIAMINE 100 MG, FOLIC ACID 1 MG in DEXTROSE 5%-0.45% SALINE 1,000 ML 42 ML IV (10:25)
[2025-01-21] MEDS: PROPOFOL 1,000 MG/100 ML BTL 70.848 MG IV ×5 (17:36→23:36)
[2025-01-21] MEDS: Buprenorphine/Naloxone 8 mg/2 mg FILM 3 EACH SL (18:03)
[2025-01-21] MEDS: fentaNYL 100 MCG/2 ML VIAL 50 MCG IVP (23:26)
[2025-01-21] MEDS: QUEtiapine 100 MG TAB 200 MG NG (23:41)
[2025-01-22] VITALS (73 sets, daily range): BP systolic 106–172; BP diastolic 59–139; PULSE 88–119; RESP 3–37; TEMP 37.2–39.2; O2SAT 85–96
[2025-01-22] MEDS: Furosemide 40 MG/4 ML VIAL IVP (00:18)
[2025-01-22] MEDS: dexmedeTOMidine IN 0.9 % NACL 400 MCG/100 ML BTL 55.35 MCG IV ×4 (00:42→06:16)
[2025-01-22] MEDS: PROPOFOL 1,000 MG/100 ML BTL 70.848 MG IV (01:06)
[2025-01-22] MEDS: fentaNYL 100 MCG/2 ML VIAL IVP ×2 (01:15→03:03)
[2025-01-22] MEDS: Enoxaparin 40 MG/0.4 ML SYR SC ×2 (01:23→15:12)
--- NOTE | 2025-01-22 01:50 | NUR.NOTE ---
Assisted primary RN with positioning, med administration, assessments, hygiene and coordination with MD/GENETIC PHYSICIAN.
[2025-01-22] MEDS: PROPOFOL 1,000 MG/100 ML BTL 61.992 MG IV (02:40)
[2025-01-22] MEDS: PROPOFOL 1,000 MG/100 ML BTL 53.136 MG IV (04:41)
[2025-01-22] MEDS: Albuterol/Ipratropium 3 ML UPD VIAL UPD ×2 (04:44→15:46)
[2025-01-22 05:29] LABS: HCT 37.5 % (40.0-50.0); HGB 13.1 g/dL (13.5-17.5); MCH 35.7 pg (27.0-33.0); MCHC 34.9 % (32.0-36.0); MCV 102 fL (80-95); MPV 9.2 fL (8.0-11.0); RBC 3.67 10^6/uL (4.36-5.78); RDW 12.3 % (11.8-14.1); RDW-SD 46.5 fL; WBC 5.14 10^3/uL (4.4-10.8)
[2025-01-22] MEDS: THIAMINE 500 MG in Normal Saline 100 ML 200 MG IVPB ×3 (05:44→22:36)
[2025-01-22 05:53] LABS: Anion Gap 18.6 mmol/L (3-11); BUN 9 mg/dL (7-18); CO2 22.4 mmol/L (21.0-32.0); CREATININE 0.8 mg/dL (0.70-1.30); Calcium 6.5 mg/dL (8.5-10.1); Chloride 98 mmol/L (98-107); Estimated GFR 107.82 (mL/min/1.73m2); Glucose 180 mg/dL (74-106); Magnesium 1.7 mg/dL (1.8-2.4); Potassium 3.5 mmol/L (3.5-5.1); Sodium 139 mmol/L (136-145)
[2025-01-22 06:21] LABS: Platelet Count 93 10^3/uL (130-400)
--- NOTE | 2025-01-22 07:00 | DI.US_ITS ---
Exam(s) US ABDOMEN EXAM: US ABDOMEN CLINICAL HISTORY: Elevated AST, low plts. Cirrhosis? TECHNIQUE: Ultrasound abdomen performed using standard protocol. COMPARISON: CT CT CHEST W from 02/19/2024 FINDINGS: Exam is limited by patient body habitus and immobility. LIVER: Enlarged at 29 cm in length. Increased echogenicity and decreased through transmission. Coarsening of the liver echotexture portions of the liver are not well seen. No focal liver lesions are seen. GALLBLADDER: cholelithiasis. No evidence of wall thickening. No pericholecystic fluid identified. HOOK'S SIGN: Negative. BILIARY SYSTEM: No intrahepatic or extrahepatic biliary ductal dilation. KIDNEYS: Kidneys are symmetric in size. Two stones are noted on the left kidney measuring 10 and 11 millimeters. No evidence of hydronephrosis. No renal mass or cyst identified. PANCREAS: Normal where visualized. SPLEEN: Enlarged at 16.3 cm ABDOMINAL AORTA AND IVC: Not well seen. ASCITES: None seen. IMPRESSION: Hepatosplenomegaly. Portion of the liver echotexture could indicate cirrhosis. Hepatopetal flow in the portal vein. Left renal calculi. No hydronephrosis. DATA REPOSITORY:
[2025-01-22] MEDS: Normal Saline Flush 10 ML SYR IVP ×2 (08:14→20:44)
[2025-01-22] MEDS: Magnesium Oxide 400 MG TAB PO (08:42)
[2025-01-22] MEDS: Gabapentin 300 MG CAP NG ×2 (08:42→15:12)
[2025-01-22] MEDS: Escitalopram 20 MG TAB NG (08:43)
--- NOTE | 2025-01-22 09:16 | CMPROGNOTE_ITS ---
Date of service: 01/22/25 Time of Service: 09:16 Care Management Progress Note Progress Note Text Progress Note Text: Chris was sitting up in bed when CM met with him. He was extubated today and is doing much better. Chris was pleasant and engaged well with CM, maintaining good eye contact and answering questions openly. Chris lives alone in a single family home in [place]. He has one daughter who lives in [place]. When asked who he has in the area for support he indicated that he has a Architecture Consultant named Ellie and is involved with [facility]. Chris informed CM that he believes he will be discharged tomorrow. His main concern is the whereabouts of his truck; the last he knew it was at his home. CM assured him that we could arrange transportation for him home. He admitted that it is likely the truck is there, but if not, he stated he could/would find out where it is. 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 Discharge Potential Discharge Needs: PCP F/U Appt Anticipated Barriers to Discharge: None Identified Patient/Family Education Needs: Review discharge instructions, discuss Ask Me Three Transportation: Private vehicle Plan: Anticipate Chris will be discharged home with no new services when medically cleared. He will follow up with his community providers and plan of care and transport via private vehicle. CM will follow and continue to assess for discharge needs. Social Determinants of Health Screening Will the Patient Participate in the Screening?: Unable to obtain
[2025-01-22] MEDS: Budesonide/Formoterol 160/4.5 6 GM 60 PUFF INH IH ×2 (09:46→20:29)
[2025-01-22] MEDS: MULTIVITAMIN 10 ML, THIAMINE 100 MG, FOLIC ACID 1 MG in DEXTROSE 5%-0.45% SALINE 1,000 ML 42 ML IV (10:17)
[2025-01-22] MEDS: POTASSIUM CHLORIDE/D5-0.45NACL 1,000 ML 75 MEQ IV (11:44)
[2025-01-22] MEDS: Buprenorphine/Naloxone 8 mg/2 mg FILM 3 EACH SL (15:11)
--- NOTE | 2025-01-22 15:51 | PGE_ITS ---
Date of Service Date of service: 01/22/25 Time of Service: 15:51 Assessment and Plan Assessment and plan (1) Encephalopathy: Status: Acute Assessment and plan: Caused by severe alcohol/alcohol withdrawal. Ammonia elevated on admission, possible element of hepatic encephalopathy, but we don't have a clear history of cirrhosis that would support this. Ammonia normalized, though significance of following ammonia is not clear. Stopped lactulose 01/20, which I think is reasonable. Maxed on phenobarbital, started on dexmedetomide drip, now on propofol while intubated. Thiamine to high dose as at risk for wernicke's, continue banana bag until taking PO. 01/22 extubated and MS much improved. Continue to monitor. (2) Pneumonia: Status: Acute Assessment and plan: Cough and fever, CXR did suggest possible pneumonia left mid lung. Wheezy. Will cover with CTX/doxy and start steroids. He was intubated <48hours so this is not VAP, but could expand coverage if he is getting worse. (3) Hypertension: Status: Chronic Assessment and plan: Very high BP in setting of withdrawal/agitiation, now normalizing (4) Liver disease, alcoholic: Status: Acute Assessment and plan: At risk for cirrhosis, but no clear diagnosis. elevated AST and low platelets c/w cirrhosis or just acute effects of alcohol, trend has been stable suggesting this is chronic. Bili and INR reassuring so if he does have cirrhosis it is compensated, encephalopathy would be atypical in this situation. Ultrasound showing liver/spleen large and concerning for cirrhosis. Should have f/u elastography to confirm, but treat as cirrhosis at this point. (5) Hypernatremia: Status: Acute Assessment and plan: Normalized, can stop IV fluids now. (6) Opiate dependence: Status: Chronic Assessment and plan: continue SL buprenorphine (7) Hypomagnesemia: Status: Acute Assessment and plan: despite what is in banana bag, will give another 4g. (8) Folate deficiency: Status: Acute Assessment and plan: Likely poor nutrition, to po now. (9) Alcohol use disorder, severe, in early remission: Status: Acute Assessment and plan: Address recovery plan prior to discharge. middle school volleyball coach/sponsor has been in contact. (10) DVT prophylaxis: Status: Acute Assessment and plan: enoxaparin but with plts decreasing will stop and use SCDs. Try to ambulate. (11) Discharge planning issues: Status: Acute Assessment and plan: Trial off sedation to try to extubate 01/22. If progresses, estimated d/c 01/23. Subjective Subjective Patient reports: denies nausea, vomiting or fever Interval history since last seen: Events: Extubated this morning Pulled central line Abdominal u/s done He feels okay. Still some cough and shortness of breath, feels tight ,some sputum. He is hungry, feels up to eating/drinking some. Exam Narrative Exam Narrative: Gen: Alert and oriented, sitting up in bed, appropriately responsive. HEENT: MMM, no icterus Cardiovascular- RRR, no murmur rubs gallops Lungs-clear to auscultation bilaterally, slightly tachypneic Abdomen-soft ,non-distended but protuberant, no masses Extremities-no cyanosis clubbing. 1+ ankle edema bilaterally Neurologic- no tremor/asterixis Objective Last Vital Signs Temp 39.2 C H 01/22/25 08:54 Pulse 114 H 01/22/25 15:46 Resp 14 01/22/25 15:46 BP 135/80 01/22/25 12:31 Pulse Ox 92 01/22/25 15:46 Laboratory Results - last 24 hr 01/22/25 05:00 WBC 5.14 RBC 3.67 L Hgb 13.1 L Hct 37.5 L MCV 102 H MCH 35.7 H MCHC 34.9 D RDW 12.3 Plt Count 93 L MPV 9.2 Sodium 139 Potassium 3.5 Chloride 98 Carbon Dioxide 22.4 Anion Gap 18.6 H BUN 9 Creatinine 0.8 Est GFR (CKD-EPI 2020) 107.82 Glucose 180 H Calcium 6.5 L Magnesium 1.7 L PAWSS Have you Been Recently Intoxicated or Drunk Within the Last 30 days?: Unable to Obtain Have you Ever Experienced Previous Episodes of Alcohol Withdrawal?: Unable to Obtain Have you ever Experienced Withdrawal Seizures?: Unable to Obtain Have you ever Experienced Delirium Tremens(DT)s?: Unable to Obtain Have you ever undergone Alcohol Rehabilitation Treatment (i.e, inpt ot outpatient treatment programs)?: Unable to Obtain Have you ever Experienced Blackouts?: Unable to Obtain Have you ever Combined Alcohol with other Downers within the last 90 days?: Unable to Obtain Have you ever Combined Alcohol with any other Substance of Abuse during the last 90 days?: Unable to Obtain Positive Blood Alcohol level on Presentation? [PCS.BAL]: Yes Evidence of Increased Autonomic Activity (i.e. HR>120, tremor, sweating, agitation, nausea)?: Yes Result: 2 Time Spent with Patient Time Spent with Patient: >50 minutes Time was spent: preparing to see the patient(eg.review tests), obtaining and/or reviewing separately otained hiistory, ordering medications,tests, procedures, referring, communicating with other health progressive care manager, indepentently interpreting results, counseling the patient and care coordination
[2025-01-22] MEDS: cefTRIAXone 2 GM/50 ML BAG IVPB (17:50)
[2025-01-22] MEDS: MAGNESIUM SULFATE 2 GM/50 ML BAG IV_INF (17:50)
[2025-01-22] MEDS: methylPREDNISolone SUCC 125 MG VIAL IVP (17:51)
[2025-01-22] MEDS: DOXYCYCLINE 100 MG in Normal Saline 100 ML IVPB (17:51)
[2025-01-22] MEDS: cloNIDine 0.1 MG TAB PO ×2 (17:52→20:42)
[2025-01-22] MEDS: QUEtiapine 100 MG TAB 200 MG PO (20:42)
[2025-01-22] MEDS: Gabapentin 300 MG CAP PO (20:42)
[2025-01-22] MEDS: Nicotine 21 MG/24 HR PATCH TD (21:53)
[2025-01-22] MEDS: Albuterol 2.5 MG/3 ML INH SOLN VIAL UPD (22:10)
[2025-01-23] VITALS (45 sets, daily range): BP systolic 105–156; BP diastolic 55–139; PULSE 76–131; RESP 2–35; TEMP 37.2; O2SAT 87–97
[2025-01-23] MEDS: Albuterol/Ipratropium 3 ML UPD VIAL UPD ×5 (00:38→23:10)
[2025-01-23] MEDS: DOXYCYCLINE 100 MG in Normal Saline 100 ML IVPB ×2 (04:10→15:58)
[2025-01-23] MEDS: THIAMINE 500 MG in Normal Saline 100 ML 200 MG IVPB (05:38)
[2025-01-23] MEDS: Normal Saline Flush 10 ML SYR IVP (05:39)
[2025-01-23 06:38] LABS: BUN 10 mg/dL (7-18); CREATININE 0.7 mg/dL (0.70-1.30); Calcium 8.1 mg/dL (8.5-10.1); Chloride 100 mmol/L (98-107); Estimated GFR 112.25 (mL/min/1.73m2); Glucose 136 mg/dL (74-106); Potassium 3.1 mmol/L (3.5-5.1); Sodium 139 mmol/L (136-145)
[2025-01-23] MEDS: Budesonide/Formoterol 160/4.5 6 GM 60 PUFF INH IH ×2 (08:23→20:44)
[2025-01-23] MEDS: Folic Acid 1 MG TAB PO (09:54)
[2025-01-23] MEDS: predniSONE 20 MG TAB 40 MG PO (09:55)
[2025-01-23] MEDS: Gabapentin 300 MG CAP PO ×2 (09:55→13:19)
[2025-01-23] MEDS: cloNIDine 0.1 MG TAB PO ×4 (09:55→20:32)
[2025-01-23] MEDS: Escitalopram 20 MG TAB PO (09:55)
[2025-01-23] MEDS: Nicotine 21 MG/24 HR PATCH TD (09:55)
[2025-01-23] MEDS: Magnesium Oxide 400 MG TAB PO (09:55)
--- NOTE | 2025-01-23 11:10 | PT.INIE ---
PT Notes Visit Reasons: mental status change Physical Therapy Inpatient Initial Evaluation Date:01/23/2025 Referring Doctor: Dr Jack PT Orders: PT CONSULT:Safety Consult for D/C Precautions: Telemetry, Standard Patient Profile/Admitting Diagnosis: Patient is 49-year-old male presented to ED with altered mental status. Patient diagnosed with encephalopathy secondary to EtOH/EtOH withdrawal. Patient with elevated ammonia levels on admission given lactulose. He was intubated on 01/19/2025 and extubated on 01/22/2025. Patient also diagnosed with left midlung pneumonia treated with antibiotics and steroids. Abdominal ultrasound revealed liver/spleen enlargement concerning for cirrhosis. PMHX:Encephalopathy (Acute) Elevated MCV (Acute) Hypokalemia (Acute) Hepatitis C (Chronic) Erectile dysfunction (Acute) Decreased testosterone level (Acute) Alcohol use disorder, severe, in early remission (Acute) Intentional clonazepam overdose (Acute) DELLA (obstructive sleep apnea) (Chronic) Asthma (Chronic) Depression with anxiety (Chronic) Opiate dependence (Chronic) Medical History (Updated 01/19/25 @ 20:53 by Glenn Torres MD) Thrombocytopenia Ribs, multiple fractures Suicide attempt Social History/Home Situation: Patient resides alone in single-family home with 6 steps to enter with bilateral rails. Patient independent ambulation without device. Independent driving independent ADLs independent shopping and meal prep. Equipment Owned/DME: none Subjective: Pt reports he has a dog that he has to take care of he denies services at home. 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 Objective: [] General Observation:young male [place] chested with telemetry in place. Mental Status: A+Ox4, cooperative, motivated, able to follow all instructions. agreeable to participate in PT assessment Pain: right knee 2/10 with ambulation Vitals: Monitored via telemetry throughout heart rate noted 108?117, O2 sats on room air 91 to 94% ROM: [] BUE: WNL BLE WFL hip flexion limited by abdominal girth Strength: [] BUE 5/5 Right Lower Extremity: hip grossly 3-/5 knee 3/5 ankle 3/5 Left Lower Extremity:hip 4/5, knee 4/5 ankle 3/5 Sensation: intact Bed Mobility/Transfers: [] Supine to sit Independent Sit to stand CGA cues for hand Stand to sit CGA cues for hand Bed to chair CGA with FWW Gait: Amb with Bariatric Tall FWW with CGA 30 feet B knee instability, increased WB through BUE, reduced step length, Stairs : unable to assess. only able to place left foot onto step unable to rise onto stair Balance: [] Static Sitting:Noormal Dynamic Sitting: good+ Static Standing: Good Dynamic Standing: Fair + with 1 UE support Special Tests: [] Mobility Limitations Standardized Measure [] [facility] AM-PAC 6 clicks Basic Mobility Inpatient Short Form: [] Raw Score: 20 CMS Score:35.83% Informed Consent/Education: Patient instructed in purpose of PT consult. Treatment: 81437: Therapeutic Activity: -sit to/from stand from elevated commode and bed( 21) x 4 trials with SBA and cues for hand placement. -sit to stand from chair at 18 CGA increase difficulty and increased time d/t right knee and pt body habitus and long legs -Facilitated safe and correct performance of level surface ambulation covering a distance of 70 feetx2 using use front wheeled walker with contact-guard assist and wheelchair follow for safety. Pt required 4 stand rest per distance and sit rest between. Did not report of any increased pain. Denied headache, chest pain, and lightheadedness throughout activity. Minimal verbal cueing provided for AD management, directional changes, and posture. Assessment: Patient is a 49 yo male who presents with clinical signs and symptoms consistent with current/admitting diagnoses that have resulted to mobility limitations, gait instability, generalized weakness, and impairment of motor control as demonstrated by the following impairment level findings: 1. Decreased strength to BLE major muscle groups 2. Impaired standing balance 3. Limitation of joint range of motion in right knee 4. pain right knee with instability 5. Impaired functional activity tolerance in standing Impairments are contributing to the following functional limitations: 1. Inability to safely ambulate without assistive device 2. Increase completion time for mobility ADL performance 3. Increased fall risk 4. Difficulty performing stairs safely Patient is assessed as a moderate complexity based on the following: History: 49-year-old male with impairment level findings, functional limitations, and past medical history as indicated above Examination: Demonstrable impairment in strength, balance, and mobility level with underlying impairments and functional limitations as documented above Presentation: evolving Decision Making: moderate Goals: 1. Independent transfers all surfaces and heights with LRD 2. Independent ambulation > 150 feet with LRD 3. supervision 5 steps with B rails and manage device to safely enter and exit home Plan of Care/Treatment Plan: 1-2x/day, 7 days/week x 1 week. Plan of care has been reviewed with the POTATO SPOTTER providing the service under Physical Therapy direction. Initiate Physical Therapy intervention for strengthening, bed mobility, transfers, gait, stairs, balance training, use of assistive device. DISCHARGE RECOMMENDATIONS: [] Home with Outpatient PT TREATMENT CODE/TIME: [id number] mins, [id number] x 35mins/ [id number] Thank you for the opportunity to participate in the care of this patient. Nelida Dick, PT [facility]
--- NOTE | 2025-01-23 11:14 | W.PM.PROGNOT ---
Date of Service Date of service: 01/23/25 Time of Service: 11:14 Assessment and Plan Assessment and plan (1) Encephalopathy: Status: Acute Assessment and plan: Caused by severe alcohol/alcohol withdrawal. Ammonia elevated on admission, possible element of hepatic encephalopathy, normalized, stopped lactulose 01/20. s/p phenobarbital, was on dexmedetomide drip, then intubated on propofol, now off with only mild sytmpoms. Thiamine to high dose as at risk for wernicke's, continue this, other vitamins oral (2) Pneumonia: Status: Acute Assessment and plan: Cough and fever, CXR did suggest possible pneumonia left mid lung. Started on CTX/doxy and start steroids 01/22. He has improved. (3) Hypertension: Status: Chronic Assessment and plan: Very high BP in setting of withdrawal/agitiation, now mild HTN. With signs of portal HTN with large spleen, try carvedilol. (4) Liver disease, alcoholic: Status: Acute Assessment and plan: At risk for cirrhosis, but no clear diagnosis. elevated AST and low platelets c/w cirrhosis vs direct effects of alcohol, trend has been stable suggesting this is chronic. Bili and INR reassuring so if he does have cirrhosis it is compensated Ultrasound showing liver/spleen large and concerning for cirrhosis. Should have f/u elastography to confirm, but treat as cirrhosis at this point. With large spleen, trialing on carvedilol as above, monitor respiratory status (5) Opiate dependence: Status: Chronic Assessment and plan: continue SL buprenorphine (6) Hypomagnesemia: Status: Acute Assessment and plan: normalized (7) Folate deficiency: Status: Acute Assessment and plan: Likely poor nutrition, supplementing orally (8) Alcohol use disorder, severe, in early remission: Status: Acute Assessment and plan: Address recovery plan prior to discharge. head athletic trainer/strength coach/sponsor has been in contact. he is calling today. (9) Right knee pain: Status: Acute Assessment and plan: At risk for occult trauma with encephalopathy/EtOH. Get XR, exam possible c/w tibial plateau fx vs OA/degeneration. (10) DVT prophylaxis: Status: Acute Assessment and plan: enoxaparin but with plts decreasing stopped in favor of SCDs. Try to ambulate, PT consulted. (11) Discharge planning issues: Status: Acute Assessment and plan: He is improved but still unsteady on his feet. Working with PT. M/S status, likely d/c 01/24. Subjective Subjective Patient reports: feels better and tolerating a regular diet; denies nausea, vomiting or fever Interval history since last seen: Events: Stable after extubation 01/23, off O2 Started on CTX/azithro for pneumonia and prednisone He feels better. He is still a little anxious, a bit of a tremor. He has been on his feet. Breathing has improved. C/o right knee pain. Has had joint issues before but this hurts a lot when trying to bear weight. Exam Narrative Exam Narrative: Gen: Alert and oriented, sitting up in chair, appropriately responsive. HEENT: MMM, no icterus Cardiovascular- RRR, no murmur rubs gallops Lungs- normal efforts, mild wheezing, improved from 01/22 (exam documented incorrectly) Abdomen-soft ,non-distended but protuberant, no masses Extremities-no cyanosis clubbing. 1+ ankle edema bilaterally. Right knee tender anterior, inferior-lateral joint. No clear effusion, ligaments intact. Neurologic- no asterixis. Slight tremor with hands extened. Objective Last Vital Signs Temp 37.2 C 01/23/25 11:09 Pulse 92 H 01/23/25 11:12 Resp 24 01/23/25 11:02 BP 134/97 H 01/23/25 08:01 Pulse Ox 92 01/23/25 11:02 Laboratory Results - last 24 hr 01/23/25 05:25 Sodium 139 Potassium 3.1 L Chloride 100 Carbon Dioxide 30.0 Anion Gap 9.0 BUN 10 Creatinine 0.7 Est GFR (CKD-EPI 2020) 112.25 Glucose 136 H Calcium 8.1 L Magnesium 2.0 PAWSS Have you Been Recently Intoxicated or Drunk Within the Last 30 days?: Unable to Obtain Have you Ever Experienced Previous Episodes of Alcohol Withdrawal?: Unable to Obtain Have you ever Experienced Withdrawal Seizures?: Unable to Obtain Have you ever Experienced Delirium Tremens(DT)s?: Unable to Obtain Have you ever undergone Alcohol Rehabilitation Treatment (i.e, inpt ot outpatient treatment programs)?: Unable to Obtain Have you ever Experienced Blackouts?: Unable to Obtain Have you ever Combined Alcohol with other Downers within the last 90 days?: Unable to Obtain Have you ever Combined Alcohol with any other Substance of Abuse during the last 90 days?: Unable to Obtain Positive Blood Alcohol level on Presentation? [PCS.BAL]: Yes Evidence of Increased Autonomic Activity (i.e. HR>120, tremor, sweating, agitation, nausea)?: Yes Result: 2 Time Spent with Patient Time Spent with Patient: >50 minutes Time was spent: preparing to see the patient(eg.review tests), obtaining and/or reviewing separately otained hiistory, ordering medications,tests, procedures, referring, communicating with other health personal care worker, indepentently interpreting results, counseling the patient and care coordination
[2025-01-23] MEDS: Potassium Chloride 20 MEQ TABCR 40 MEQ PO ×2 (13:19→20:30)
--- NOTE | 2025-01-23 13:19 | DI.RAD_ITS ---
Exam(s) XR KNEE RT 3V AP,LAT,ALYSSA EXAM: XR KNEE RT 3V AP,LAT,ALYSSA CLINICAL HISTORY: pain. Tender lateral/inf joint. TECHNIQUE: 2D digital imaging was performed. Three views. COMPARISON: CR XR KNEE COMPLETE MIN 4V RT from 09/05/2024 FINDINGS: BONES: No acute fracture is present. Stable declivity in the lateral femoral condyle. No bony destructive lesion is seen. JOINTS: The knee is normally aligned. No joint effusion is seen. The joint spaces are maintained. SOFT TISSUE: Normal. IMPRESSION: No acute abnormality. DATA REPOSITORY: RADIATION DOSE DELIVERED:
--- NOTE | 2025-01-23 13:44 | PHA.REVIEW2 ---
Pharmacy Admission Review Admission Clinical Review Admission Pharmacy Review: Right knee pain (Acute) Pneumonia (Acute) Hypomagnesemia (Acute) Hypernatremia (Acute) Discharge planning issues (Acute) DVT prophylaxis (Acute) Folate deficiency (Acute) Liver disease, alcoholic (Acute) Encephalopathy (Acute) Elevated MCV (Acute) Hypokalemia (Acute) Alcohol use disorder, severe, in early remission (Acute) cat dander Allergy (Mild, Verified 03/23/24 13:55) Wheezing dog dander Allergy (Mild, Verified 03/23/24 13:55) Wheezing Environmental Allergy (Intermediate, Uncoded 03/23/24 13:55) Asthma Exacerbation Resuscitation Status Full Code Height 6 ft Weight 143.1 kg Pharmacy Admission Review Renal Dosing Renal Dosing: BUN 10 mg/dL (7-18) 01/23/25 05:25 Creatinine 0.7 mg/dL (0.70-1.30) 01/23/25 05:25 Medications needing adjustments: Reviewed (CrCl 185.3 mL/min) List of meds needing interventions: Current medications are okay Anticoagulation Anticoagulation: Hgb 13.1 g/dL (13.5-17.5) L 01/22/25 05:00 Hct 37.5 % (40.0-50.0) L 01/22/25 05:00 Plt Count 93 10^3/uL (130-400) L 01/22/25 05:00 INR 1.2 (0.9-1.1) H 01/19/25 17:50 Creatinine 0.7 mg/dL (0.70-1.30) 01/23/25 05:25 DVT Prophylaxis: Reviewed (SCDs - had enoxaparin ordered but was discontinued due to decreasing PLT count) Relevant Labs Relevant Labs: Sodium 139 mmol/L (136-145) 01/23/25 05:25 Potassium 3.1 mmol/L (3.5-5.1) L 01/23/25 05:25 Chloride 100 mmol/L (98-107) 01/23/25 05:25 Magnesium 2.0 mg/dL (1.8-2.4) 01/23/25 05:25 Electrolytes, C-Reactive P, ESR: Reviewed (K 3.1 - potasstium order increased from daily to TID) Cardiac Review Cardiac Review: Troponin I Cancelled 01/19/25 20:34 NT-Pro-B Natriuret Pep 81 pg/mL (<300) 01/19/25 17:50 Blood Pressure : Heart Rate 154/139 : 114 0901 Blood Pressure : Heart Rate 138/96 : 113 0831 Blood Pressure : Heart Rate 134/97 : 89 0801 Blood Pressure : Heart Rate 156/95 : 93 0731 Blood Pressure : Heart Rate 138/105 : 100 0714 Blood Pressure : Heart Rate 112/67 : 97 0231 Blood Pressure : Heart Rate 132/82 : 99 0201 BP, HR, EF%: Reviewed (RR 35) List meds needing interventions: Has order for carvedilol 3.125mg BID and clonidine 0.1mg QID QTc Review QTc: Reviewed (463 from 01/19/25) IV to PO Switch IV Medications: Reviewed (ceftriaxone and doxycycline) Home Meds Home Med List reviewed: Intervened Relevent Home Meds Not ordered & why?: vitamin D3 (monthly), lorazepam (PRN), propranolol and testosterone (every 2 weeks) Reached out to provider regarding propranolol. Provider looked into and ended up putting in order for carvedilol instead. Spoke to provider regarding Suboxone dose as it is listed on home med list as 3 films once daily but actual prescription says 1 film TID. Provider looking into it. Current Meds Current Medication Order Review: Intervened Comments: Added IV admission order Pharmacy Antibiotic Review Relevant Labs: WBC 5.14 10^3/uL (4.4-10.8) 01/22/25 05:00 Temperature 37.2 C Pharmacy Antibiotic Activity: C/S review and Reviewed, no change Comments: Patient is on ceftriaxone and doxycycline, day 1, for possible pneumonia. No cultures pending at this time.
--- NOTE | 2025-01-23 15:55 | PT.INTREAT ---
PT Notes Visit Reasons: mental status change Inpatient Physical Therapy Treatment Note [facility] Date: 01/19/2025 PRECAUTIONS: Telemetry, fall risk SUBJECTIVE: Patient reports he is feeling better than this morning OBJECTIVE: []?Supine in bed with telemetry in place watching television ? PAIN: Denies VITALS: ?Monitored via telemetry throughout Therapeutic Activities (21036p[]): Direct one-on-one instruction in dynamic activities to improve functional performance. ? BED MOBILITY/TRANSFERS? Rolling L/R: Independent Supine-sit: Independent ? Sit-supine: Independent ? Sit-stand: SBA with cues for hand placement x 5 trials various surfaces ? Stand-sit: SBA with cue for hand placement? Bed-Chair: SBA with FWW ? Chair-bed: SBA with FWW Provided skilled cues and instruction on performance and technique throughout. Gait Training (70943a[]): Direct one-on-one instruction and skilled instruction in: [] employing an assistive device [] modified weight-bearing status [x] movement sequencing [x] turning and movement with proper form [] Provided verbal cues for equipment management and technique [] Provided instruction in gait pattern [x] Patient education regarding pacing and breathing techniques to maximize activity tolerance? GAIT? Assistive Device: FWW ? Weight bearing: Full Assist: SBA ? Distance: 90 feet 3 standing rest? Deviation: Increased weightbearing through bilateral upper extremities ? STAIRS: 3 4 steps? and 2 6 steps with B rails CGA with continuous cues for sequencing step to pattern? ? x 2 trials? ASSESSMENT: Patient tolerated session well. Patient noted with improvement in stability bilateral lower extremities. Able to progress to stairs x 2 trials. Next session trial single-point cane for ambulation if appropriate PLAN: 1-2x/day, 7 days/week x 1 week. Plan of care has been reviewed with the CLINICAL NURSE SPECIALIST providing the service under Physical Therapy direction. Initiate Physical Therapy intervention for strengthening, bed mobility, transfers, gait, stairs, balance training, use of assistive device. TREATMENT CODE/TIME: [] [id number], 91356/3:15 PM?3:46 PM DISCHARGE RECOMMENDATION: Home with outpatient PT
[2025-01-23] MEDS: Buprenorphine/Naloxone 8 mg/2 mg FILM 3 EACH SL (15:58)
[2025-01-23] MEDS: cefTRIAXone 2 GM/50 ML BAG IVPB (15:59)
--- NOTE | 2025-01-23 16:42 | PDOC.CMPRO ---
Date of service: 01/23/25 Time of Service: 16:42 Care Management Progress Note Progress Note Text Progress Note Text: Chris was sitting up in bed when CM met with him today. He stated that he is feeling a lot better, and is hoping to go home tomorrow. He is really hoping to get back on track with his sobriety financial wellness coach, and is planning to call her. Chris stated that he has a daughter that he wants to stay sober for. Chris stated that he has been moving around more today, and was able to do a lap around the unit! Chris does not want HH, but is very willing to do outpatient PT here in [facility]. Chris will require a return to work note and also an RCT ride home. Discharge Potential Discharge Needs: PCP F/U Appt Anticipated Barriers to Discharge: None Identified Patient/Family Education Needs: Review discharge instructions, discuss [employer] Transportation: RCT [facility] Plan: Anticipate that Chris will be discharged home with no new services. 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 Chris will transport home via RCT and will continue per his plan of care. He will be given a return to work note. CM will continue to follow. Social Determinants of Health Screening Will the Patient Participate in the Screening?: Unable to obtain
[2025-01-23] MEDS: Mirtazapine 15 MG TAB 7.5 MG PO (20:31)
[2025-01-23] MEDS: Carvedilol 3.125 MG TAB PO (20:31)
[2025-01-23] MEDS: Ramelteon 8 MG TAB PO (20:31)
[2025-01-23] MEDS: QUEtiapine 100 MG TAB 200 MG PO (20:32)
[2025-01-23] MEDS: Gabapentin 300 MG CAP 600 MG PO (20:32)
[2025-01-24] MEDS: DOXYCYCLINE 100 MG in Normal Saline 100 ML IVPB (04:19)
[2025-01-24 05:23] VITALS: BP 144/95; PULSE 76
[2025-01-24 06:07] VITALS: RESP 16; RESP 3; RESP 5
[2025-01-24] MEDS: Albuterol/Ipratropium 3 ML UPD VIAL UPD (06:07)
[2025-01-24 06:25] LABS: HCT 33.5 % (40.0-50.0); HGB 11.4 g/dL (13.5-17.5); MCH 34.3 pg (27.0-33.0); MCV 101 fL (80-95); MPV 10.1 fL (8.0-11.0); RBC 3.32 10^6/uL (4.36-5.78); RDW 12.8 % (11.8-14.1); RDW-SD 46.9 fL; WBC 4.59 10^3/uL (4.4-10.8)
[2025-01-24 06:40] LABS: Prothrombin Time 10.4 sec (9.1-11.1)
[2025-01-24 06:58] LABS: Platelet Count 92 10^3/uL (130-400)
[2025-01-24 07:36] VITALS: BP 140/74; PULSE 70; O2SAT 95
[2025-01-24 07:37] VITALS: BP 140/74; PULSE 74; RESP 16; TEMP 36.5; O2SAT 94
[2025-01-24] MEDS: Budesonide/Formoterol 160/4.5 6 GM 60 PUFF INH IH (07:43)
[2025-01-24 07:45] VITALS: O2SAT 94
--- NOTE | 2025-01-24 07:49 | SMOKENOTE ---
Smoking Cessation Note: ASK Current tobacco use type and amount: Cigarettes (Newports and menthol variety). Average 2 packs a day, sometimes more. Years of use: 35 years. Started smoking at the age of 14. Pack years: 70 years. ADVISE Pt has not had a cigarette while he has been admitted here to the hospital. Last cigarette was 5 days ago. Pt expresses great interest in quitting smoking for good while he has a 'head start' on it right now. RT advised that we can help him with nicotine replacement options, patient is agreeable to this. Pt states that he tried wellbutrin in the past for this with no success. Pt also states that the current nicotine patch he has on his left shoulder is not quite strong enough. This patch shows it is due to be changed in approximately 2 hours. ASSESS Stage of readiness (choose one) [ ] Precontemplative (Not ready) [ ] Contemplative (Thinking about making a change) [X] Preparation (Ready to set a quit or take action immediately) [ ] Action Stage (New behaviour established) ASSIST Receiving NRT? [X] Yes [ ] Refused [ ] Contraindicated Smoking cessation packet [X] Given [ ] Refused ARRANGE (choose one) [X] Referral made to [facility] - Online form filled out and approved by hospitalist Dr. Trey Jack. Updates about patient will be sent to Respiratory Therapy department via fax. [ ] Referral information/registration left for patient [ ] Referral refused Comments:This is the longest Chris has ever gone without smoking in his life. He is very interested in continuing along the path to quitting for good. Pt expresses concern about when he goes home, getting back to his established routines and smoking again. RT advised that patient follow through with the [facility] program, gets rid of cigarettes he currently has at home as soon as he sees them, and checks in with his PCP, [facility] support program, or RT department if encouragement is needed. RT will ask hospitalist provider for nicotine replacement therapy for patient upon discharge until he is able to receive products from the [facility] program at his home.
[2025-01-24 08:02] LABS: ALT 61 U/L (16-63); AST 57 U/L (15-37); Albumin 2.5 g/dL (3.4-5.0); Alkaline Phosphatase 73 U/L (46-116); Anion Gap 5.3 mmol/L (3-11); BUN 12 mg/dL (7-18); Bilirubin, Total 1.1 mg/dL (0.2-1.0); CO2 32.7 mmol/L (21.0-32.0); CREATININE 0.8 mg/dL (0.70-1.30); Calcium 8.1 mg/dL (8.5-10.1); Chloride 100 mmol/L (98-107); Estimated GFR 107.82 (mL/min/1.73m2); Glucose 147 mg/dL (74-106); Sodium 138 mmol/L (136-145); Total Protein 6.2 g/dL (6.4-8.2)
[2025-01-24 08:06] LABS: Potassium 2.8 mmol/L (3.5-5.1)
[2025-01-24] MEDS: Nicotine 21 MG/24 HR PATCH TD (08:45)
[2025-01-24] MEDS: Escitalopram 20 MG TAB PO (08:45)
[2025-01-24] MEDS: Carvedilol 3.125 MG TAB PO (08:45)
[2025-01-24] MEDS: Gabapentin 300 MG CAP 600 MG PO (08:45)
[2025-01-24] MEDS: Magnesium Oxide 400 MG TAB PO (08:45)
[2025-01-24] MEDS: cloNIDine 0.1 MG TAB PO (08:45)
--- NOTE | 2025-01-24 08:45 | W.NUTRFU ---
Date of service: 01/24/25 Time of Service: 08:45 Nutrition Note NOTE: Chris is being treated for etoh/withdrawal related encephalopathy, PNA, liver disease, low magnesium and folate. History for HTN, hepatitis substance/alcohol/tobacco use/abuse. IV K+ given this morning d/t 2.8 lab level today. Glucose has been elevated - has been receiving steroids. However with current morbid obesity and liver damage would suggest A1C lab as last one on his record was 5.6% back in 2010. Calcium lab low at 8.1 - would recommend vitamin D lab as patient at risk for lower levels and vitamin D on his home list most likely d/t history of deficiency. Albumin and total protein labs low - have been offering pt higher protein ONS at meals. Received IV thiamine (9 bags) and continues on folate repletion. Met with Chris today - anticipating d/c today. Chris lives alone - does his own meal prep, which typically tends to be quick packaged items or take out. We discussed investing in his nutrition and that outpatient services available to go over his nutrition needs and help with menu planning, prep tips, etc... Chris took my card - will consider contacting me for appt after discharge Time Spent in Nutritional Counseling and Treatment: 10 min
[2025-01-24] MEDS: Potassium Chloride 20 MEQ TABCR 40 MEQ PO (08:46)
[2025-01-24] MEDS: Folic Acid 1 MG TAB PO (08:46)
[2025-01-24] MEDS: predniSONE 20 MG TAB 40 MG PO (08:46)
[2025-01-24 08:52] LABS: Lab Add On Test DONE
[2025-01-24 09:07] LABS: Magnesium 1.8 mg/dL (1.8-2.4)
[2025-01-24] MEDS: POTASSIUM CHLORIDE 20 MEQ/100 ML BAG 50 MEQ IV_INF (09:15)
--- NOTE | 2025-01-24 09:28 | PDOC.CMDIS ---
Date of service: 01/24/25 Time of Service: 09:28 LACE Index Scoring Tool Questions: Length of Stay (in days): 4 - 6 Was the patient admitted via the E.D.?: Yes Comorbidities: Chronic Pulmonary Disease and Liver or Renal Disease E.D. Visits: 1 Answers: Total Score: 13 Risk of Readmission: High Risk Care Management Discharge Plan Reason for Hospitalization: WANDER Patient/Family Education Needs: Review of discharge instructions, follow up plan, limitations, discuss Ask Me Three SDOH Health Related Social Needs: Health related social needs details MELINDA
[2025-01-24 10:48] LABS: Bilirubin Negative (Negative); Blood Trace-intact (Negative); Clarity Clear (Clear); Glucose 500 mg/dL (Negative); Ketones Negative (Negative); Leukocyte Esterase Negative (Negative); Nitrite Negative (Negative); Specific Gravity 1.015 (1.005-1.025); pH 6.5 (5-8)
[2025-01-24 10:54] LABS: Bacteria Negative HPF (Negative); C & S Indicated? No; Casts Negative LPF (Negative); Crystals Negative HPF (Negative); Epithelial Cells Negative HPF (Negative); Mucus Negative (Negative); RBC 0-2 HPF (0-2); WBC Negative HPF (0-5)
--- NOTE | 2025-01-24 12:03 | W.PM.DS.N ---
Date of service: 01/24/25 Time of Service: 12:05 DS: Diagnosis Discharge Diagnosis (1) Encephalopathy: Status: Acute (2) Pneumonia: Status: Acute (3) Hypertension: Status: Chronic (4) Liver disease, alcoholic: Status: Acute (5) Opiate dependence: Status: Chronic (6) Hypomagnesemia: Status: Acute (7) Folate deficiency: Status: Acute (8) Alcohol use disorder, severe, in early remission: Status: Acute (9) Right knee pain: Status: Acute (10) DVT prophylaxis: Status: Acute (11) Discharge planning issues: Status: Acute Discharge Plan Disposition Patient Disposition: Home Condition: Stable Discharge Details Reason For Visit: mental status change Admit Date/Time: 01/19/25 20:44 Admit Provider: Trey Jack Attending Provider: Trey Jack Primary Care Provider: Pierre Cardenas Hospital Course Hospital Course: 49-year-old gentleman with alcohol use disorder, opioid use disorder, and chronic benzodiazepine therapy who who was brought to the ED by the ambulance and found to be confused with ammonia of 178 and alcohol level of 301.6. He was started on phenobarbital protocol. Lactulose was ordered, but his levels normalized after a single rectal dose and it was felt hepatic encephalopathy was not contributing to his presentation. His CIWA scoring escalated despite maxing out the phenobarbital and adding dexmetotomidine drip, and he was intubated on propofol 01/20 evening until 623 AM. He did well from a withdrawal perspective after extubation. Liver ultrasound did suggest cirrhosis with cirrhotic liver contour and splenomegaly. His platelets were low suggesting portal HTN. His propranolol was replaced with carvedilol for portal HTN and his respiratory status was not worse on this medication. He needs elastography to confirm a cirrhosis diagnosis and assess for portal HTN. His folic acid was low and he was started on supplementation. His lorazepam was not continued to to the association of benzodiazepine therapy with poorer outcomes in alcohol use disorder. We discussed the reasons for this. His gabapentin was increased to help with cravings and anxiety, and he was given acamprosate at discharge. He was connected with his recovery community. If he does resume lorazepam, taper should be strongly considered given his AUD. After extubation he had cough, hypoxia, and wheezing, with a possible infiltrate on chest x-ray. He was started on ceftriaxone, doxycycline, and prednisone for pneumonia with asthma/COPD exacerbation and his respiratory status improved. He was motivated to stop smoking. He was given a 21mg patch. He agreed to chantix but but the prescription is not on this document due to computer error. He was given a paper Rx. His potassium and magnesium were low. Both were supplemented and should be followed. He had right knee pain after a fall. XR was negative. He was evaluated by PT and given a walker. PT and nursing was recommended. Follow up: 1 week with PCP follow anxiety and alcohol use disorder as above follow liver function with testing as below follow respirotory status and smoking cessation Recommendations for Follow Up Recommended tests to be ordered by follow up provider: CBC, CMP, Mg 1 week Liver elastography (Fibroscan) to confirm cirrhosis and portal hypertension PFTs to clarify asthma vs COPD Home Meds and New Rx's Prescriptions: New doxycycline hyclate 100 mg Capsule 100 mg PO BID 3 Days Qty: 6 0RF prednisone 20 mg Tablet 40 mg PO DAILY 3 Days Qty: 6 0RF carvedilol 3.125 mg Tablet 3.125 mg PO BID Qty: 60 0RF magnesium oxide 400 mg (241.3 mg magnesium) Tablet 400 mg PO DAILY Qty: 90 0RF nicotine 21 mg/24 hr Patch 24 Hour 21 mg transdermal DAILY Qty: 30 0RF folic acid 1 mg Tablet 1 mg PO DAILY Qty: 90 0RF acamprosate 333 mg Tablet,Delayed Release (Dr/Ec) 666 mg PO TID Qty: 180 2RF amoxicillin-pot clavulanate 875-125 mg tablet 1 tab PO BID 3 Days Qty: 6 0RF gabapentin 600 mg tablet 600 mg PO TID Qty: 90 0RF Rx Instructions: increase dose, stop lorazepam potassium chloride [Klor-Con M20] 20 mEq tablet,ER particles/crystals 20 meq PO BID Qty: 30 0RF Continued clonidine HCl 0.1 mg tablet 0.1 mg PO QID Patient Comments: TAKE ONE TABLET BY MOUTH FOUR TIMES A DAY quetiapine 200 mg tablet 200 mg PO HS Patient Comments: TAKE ONE TABLET BY MOUTH AT BEDTIME albuterol sulfate [Ventolin HFA] 90 mcg/actuation HFA aerosol inhaler 2 puff INHALATION Q6H PRN PRN Patient Comments: INHALE TWO PUFFS BY MOUTH EVERY 6 HOURS NEEDED FOR SHORTNESS OF BREATH escitalopram oxalate 20 mg tablet 20 mg PO DAILY Patient Comments: TAKE ONE TABLET BY MOUTH EVERY DAY buprenorphine-naloxone [Suboxone] 8-2 mg film 3 film sublingual DAILY budesonide-formoterol 160-4.5 mcg/actuation Hfa Aerosol Inhaler 2 puff inhalation BID Qty: 1 3RF testosterone cypionate 100 mg/mL oil 100 mg IM Q7D Patient Comments: INJECT 1ML INTRAMUSCULARLY EVERY 2 WEEKS DISCARD AFTER 84 DAYS cholecalciferol (vitamin D3) 1,250 mcg (50,000 unit) capsule 1,250 mcg PO ONCE Patient Comments: TAKE 1 CAPSULE BY MOUTH ONCE MONTHLY Discontinued gabapentin 300 mg capsule 300 mg PO TID Patient Comments: TAKE ONE CAPSULE BY MOUTH THREE TIMES A DAY lorazepam 1 mg tablet 1 mg PO TID PRN Patient Comments: TAKE ONE TABLET BY MOUTH THREE TIMES A DAY NEEDED FOR ANXIETY nicotine 14 mg/24 hr Patch 24 Hour 14 mg transdermal DAILY Qty: 30 2RF propranolol 10 mg tablet 10 mg PO ONCE Patient Comments: TAKE ONE TABLET BY MOUTH EVERY DAY Discharge Instructions Instructions: Alcohol Use Disorder (DC) Additional Instructions: As we discussed, I don't think you should be on lorazepam or similar medications. Gapapentin dose was doubled to help with anxiety and alcohol Good luck with quitting smoking Activity:: Activity as Tolerated Equipment/Supplies:: No Equipment Needed Diet:: As Tolerated Discharge Orders Discharge Orders: Discharge Order (Routine); Ordered 01/24/25 Ordered By: Trey Jack DS: Summary Time Spent with Patient providing and/or coordinating discharge services: Greater than 30 minutes Status at Discharge Functional status at discharge: uses cane/walker Overall status at discharge: patient is progressing back to baseline Mental Status: mental status grossly normal Speech and Movement: speech and movement normal Mood: congruent mood Affect: normal affect Quality:SDOH Health Related Social Needs: Health related social needs details MELINDA Exam Narrative Exam Narrative: Gen: Alert and oriented, sitting up in chair, appropriately responsive. HEENT: MMM, no icterus Cardiovascular- RRR, no murmur rubs gallops Lungs- normal efforts, mild wheezing, improved from 01/22 (exam documented incorrectly) Abdomen-soft ,non-distended but protuberant, no masses Extremities-no cyanosis clubbing. 1+ ankle edema bilaterally. Right knee tender anterior, inferior-lateral joint. No clear effusion, ligaments intact. Neurologic- no asterixis or tremor Psych Mental Status: mental status grossly normal Speech and Movement: speech and movement normal Mood: congruent mood Affect: normal affect DS: Data Vitals/I&O Vitals and I&O: Vital Signs Temperature 36.5 C 01/24/25 07:37 Temperature Source Tympanic 01/24/25 07:37 Pulse 74 01/24/25 07:37 Pulse 96 H 01/23/25 20:31 Respiratory Rate 16 01/24/25 07:37 Respiratory Effort Accessory Muscle Use, Mechanically Ventilated 01/22/25 07:00 Respiratory Depth Normal 01/19/25 22:45 Respiratory Pattern Normal 01/19/25 22:45 Blood Pressure 140/74 01/24/25 07:37 Blood Pressure Mean 96 01/24/25 07:37 Blood Pressure Position Supine 01/19/25 17:19 Pulse Oximetry 94 01/24/25 07:45 Respiratory End-tidal CO2 45 01/22/25 09:30 Oxygen Delivery Method Room Air 01/24/25 07:45 Oxygen Flow Rate 0 01/24/25 07:45 Fraction of Inspired Oxygen (FIO2) 40 01/22/25 09:30 Comment taken by prior shift 01/22/25 06:31 Intake & Output 01/23/25 01/24/25 01/24/25 23:59 11:59 23:59 Intake Total 870 / 2110 1716.667 / 1716.667 Output Total 310 / 1310 985 / 985 Balance 560 / 800 731.667 / 731.667 Weight 141.5 kg Intake: IV 150 / 480 176.667 / 176.667 Oral 720 / 1630 1540 / 1540 Output: Urine 310 / 1310 985 / 985 Other: Urine Color Light Asif Dark Asif Dark Asif Urine Appearance Clear Clear Urine Odor Normal Strong Comment Approximately 310mL moderately dark asif urine voided prior to shift start in urinal. Data Completed and Pending Labs on day of discharge: Labs from last 24 hours 01/24/25 01/24/25 10:29 05:25 WBC 4.59 RBC 3.32 L Hgb 11.4 L Hct 33.5 L MCV 101 H MCH 34.3 H MCHC 34.0 RDW 12.8 Plt Count 92 L MPV 10.1 PT 10.4 INR 1.0 Sodium 138 Potassium 2.8 L* Chloride 100 Carbon Dioxide 32.7 H Anion Gap 5.3 BUN 12 Creatinine 0.8 Est GFR (CKD-EPI 2020) 107.82 Glucose 147 H Calcium 8.1 L Magnesium 1.8 Total Bilirubin 1.1 H AST 57 H ALT 61 Alkaline Phosphatase 73 Total Protein 6.2 L Albumin 2.5 L Urine Color Asif Urine Clarity Clear Urine pH 6.5 Ur Specific [place] 1.015 Urine Protein 30 H Urine Ketones Negative Urine Blood Trace-intact H Urine Nitrite Negative Urine Bilirubin Negative Urine Urobilinogen 1.0 H Ur Leukocyte Esterase Negative Urine RBC 0-2 Urine WBC Negative Ur Epithelial Cells Negative Urine Crystals Negative Urine Bacteria Negative Urine Casts Negative Urine Mucus Negative Ur Culture Indicated? No Urine Glucose 500 H Add-On Test Request DONE PFSH All Active Problems (Updated 01/23/25 @ 11:31 by Trey Jack) Right knee pain (Acute) Pneumonia (Acute) Hypomagnesemia (Acute) Hypernatremia (Acute) Hypertension (Chronic) Discharge planning issues (Acute) DVT prophylaxis (Acute) Folate deficiency (Acute) Liver disease, alcoholic (Acute) Encephalopathy (Acute) Elevated MCV (Acute) Hypokalemia (Acute) Hepatitis C (Chronic) Erectile dysfunction (Acute) Decreased testosterone level (Acute) Alcohol use disorder, severe, in early remission (Acute) Intentional clonazepam overdose (Acute) DELLA (obstructive sleep apnea) (Chronic) Asthma (Chronic) Depression with anxiety (Chronic) Opiate dependence (Chronic) Medical History (Updated 01/23/25 @ 11:31 by Trey Jack) Thrombocytopenia Ribs, multiple fractures Suicide attempt Surgical History (Updated 12/20/24 @ 11:14 by Yelitza Warner RN) History of shoulder surgery DOS 08/09/19 History of esophagogastroduodenoscopy (EGD) Social History Smoking/Tobacco Use Status: Former Tobacco Use Smoking risk assessment performed?: Yes Drug use: Occasionally Substance use type: crack/cocaine Housing: house Time Spent with Patient Time Spent with Patient: 45-69 minutes Time was spent: preparing to see the patient(eg.review tests), obtaining and/or reviewing separately otained hiistory, ordering medications,tests, procedures, referring, communicating with other health attending ambulatory care, indepentently interpreting results, counseling the patient and care coordination
--- NOTE | 2025-01-24 12:06 | PDOC.HHF2F ---
Home Health Referral Home Health Orders Clinical synopsis of why skilled professionals are needed: 49-year-old gentleman with alcohol use disorder, opioid use disorder, and chronic benzodiazepine therapy who who was brought to the ED by the ambulance and found to be confused with ammonia of 178 and alcohol level of 301.6. He was started on phenobarbital protocol. Lactulose was ordered, but his levels normalized after a single rectal dose and it was felt hepatic encephalopathy was not contributing to his presentation. His CIWA scoring escalated despite maxing out the phenobarbital and adding dexmetotomidine drip, and he was intubated on propofol 01/20 evening until 01/22 AM. He did well from a withdrawal perspective after extubation. Liver ultrasound did suggest cirrhosis with cirrhotic liver contour and splenomegaly. His platelets were low suggesting portal HTN. His propranolol was replaced with carvedilol for portal HTN and his respiratory status was not worse on this medication. He needs elastography to confirm a cirrhosis diagnosis and assess for portal HTN. His folic acid was low and he was started on supplementation. His lorazepam was not continued to to the association of benzodiazepine therapy with poorer outcomes in alcohol use disorder. We discussed the reasons for this. His gabapentin was increased to help with cravings and anxiety, and he was given acamprosate at discharge. He was connected with his recovery community. If he does resume lorazepam, taper should be strongly considered given his AUD. After extubation he had cough, hypoxia, and wheezing, with a possible infiltrate on chest x-ray. He was started on ceftriaxone, doxycycline, and prednisone for pneumonia with asthma/COPD exacerbation and his respiratory status improved. He was motivated to stop smoking. He was given a 21mg patch. He agreed to chantix but but the prescription is not on this document due to computer error. He was given a paper Rx. His potassium and magnesium were low. Both were supplemented and should be followed. He had right knee pain after a fall. XR was negative. He was evaluated by PT and given a walker. PT and nursing was recommended. Follow up: 1 week with PCP follow anxiety and alcohol use disorder as above follow liver function with testing as below follow respirotory status and smoking cessation Medical diagnosis necessitation home health referral: cirrhosis, unsteady gate, pneumonia, knee pain, alcohol use disorder Registered Nurse: Check all that apply Instruct on new or changed medication(s)/assess compliance: Ordered Assess for exacerbation of medical condition, instruct patient/caregivers on signs and symptoms to report for early detection: Ordered Physical Therapist: Check all that apply Increase strength & endurance for safe mobility at home: Ordered To design/establish home maintenance program: Ordered Home safety evaluation and teaching/gait training including stair management (if applicable): Ordered Occupational Therapist: Evaluate and treat for patient unable to perform ADL/IADL/self-care: Ordered Control Cabinet Assembler: Assist with community resources: Ordered Home Bound Status Requires the aid of supportive device (check all that apply): Walker Describe why leaving home would require a considerable and taxing effort: Side effects from pain medication (sedation/drowsiness) and Requires frequent rest periods Encounter Date and Reason: I certify that a FTF encounter for this patient was performed on January 24, 2025 and that such encounter was related to the primary reason the patient requires home health services. The encounter was conducted in the following manner: By me as the certifying physician, OXYGEN THERAPY TEACHER, PA or By an inpatient physician, OXYGEN THERAPY TEACHER or PA during an inpatient stay who communicated findings to me, Certification And Authentication I certify that I composed the above information based on my clinical judgment relating to this patient's medical condition and, if applicable, clinical findings communicated to me by the NPP or inpatient physician who performed the FTF encounter. Name of Provider that will be monitoring home health services: Pierre Cardenas
--- NOTE | 2025-01-24 13:14 | PTTR_ITS ---
PT Notes Visit Reasons: mental status change Inpatient Physical Therapy Treatment Note [facility] Date: 01/24/2025 PRECAUTIONS: Telemetry, fall risk SUBJECTIVE: Patient reports he wants to walk before he goes home. OBJECTIVE: []?Supine in bed with telemetry in place IV Potassium infusing LUE ? PAIN:pt reports pain with IV infusing. VITALS: ?Monitored via telemetry throughout Therapeutic Activities (08189g[]): Direct one-on-one instruction in dynamic activities to improve functional performance. ? BED MOBILITY/TRANSFERS? Rolling L/R: Independent Supine-sit: Independent ? Sit-supine: Independent ? Sit-stand: SBA with cues for hand placement x 5 trials various surfaces ? Stand-sit: SBA with cue for hand placement? Bed-Chair: SBA with FWW ? Chair-bed: SBA with FWW Provided skilled cues and instruction on performance and technique throughout. Gait Training ([id number][]): Direct one-on-one instruction and skilled i nstruction in: [] employing an assistive device [] modified weight-bearing status [x] movement sequencing [x] turning and movement with proper form [] Provided verbal cues for equipment management and technique [] Provided instruction in gait pattern [x] Patient education regarding pacing and breathing techniques to maximize activity tolerance? GAIT? Assistive Device: FWW ? Weight bearing: Full Assist: SBA ? Distance: 45 feet ? Deviation: Increased weightbearing through bilateral upper extremities ? STAIRS: 3 4 steps? and 2 6 steps with B rails CGA with continuous cues for sequencing step to pattern? ASSESSMENT: Patient issued FWW from [facility] prior to discharge. Pt able to ambulate short distance without walker however unsteady and increased right knee discomfort. Pt educated to use walker initially at home for safety as he has had limited distance of ambulation since hospitalization. PLAN: 1-2x/day, 7 days/week x 1 week. Plan of care has been reviewed with the OCCUPATIONAL MEDICINE PHYSICIAN providing the service under Physical Therapy direction. Initiate Physical Therapy intervention for strengthening, bed mobility, transfers, gait, stairs, balance training, use of assistive device. TREATMENT CODE/TIME: 40748/[id number]?[id number] DISCHARGE RECOMMENDATION: Home with outpatient PT
== END 2025-01-24 12:40 | disposition home or self-care (01) | DRG 896 ==
LOC: ER 18:25 → ICU 22:26
PROVIDERS: Family Medicine; Hospitalist; Admitting Provider Family Medicine; Emergency Provider Emergency Medicine; PCP Physician Assistant Medical; Responsible Provider Family Medicine; Visit Provider Family Medicine
DX: F10.231 Alcohol dependence with withdrawal delirium (principal); J18.9 Pneumonia, unspecified organism; F11.20 Opioid dependence, uncomplicated; Z68.41 Body mass index [BMI] 40.0-44.9, adult; E87.0 Hyperosmolality and hypernatremia; R09.02 Hypoxemia; E83.42 Hypomagnesemia; R41.0 Disorientation, unspecified; Z78.1 Physical restraint status; E87.6 Hypokalemia; B18.2 Chronic viral hepatitis C; G47.33 Obstructive sleep apnea (adult) (pediatric); J45.909 Unspecified asthma, uncomplicated; F41.8 Other specified anxiety disorders; D69.6 Thrombocytopenia, unspecified; F14.90 Cocaine use, unspecified, uncomplicated; D72.819 Decreased white blood cell count, unspecified; E53.8 Deficiency of other specified B group vitamins; E66.01 Morbid (severe) obesity due to excess calories; Z91.51 Personal history of suicidal behavior; K70.9 Alcoholic liver disease, unspecified; I10 Essential (primary) hypertension; Y90.8 Blood alcohol level of 240 mg/100 ml or more; F10.221 Alcohol dependence with intoxication delirium
CPT/HCPCS: 31500; 36556; 76937; 00123; 36415; 36416; 36592; 71045; 73562; 76705; 76942; 80048; 80053; 80307; 82550; 82805; 82962; 83690; 85027; 93005; 94640; 94761; 96365; 96366; 96375; 97116; 97162; 97530; 99291; 99407; J1650; 76700; 80184; 80320; 80329; 81003; 81015; 82140; 82607; 82746; 83540; 83550; 83605; 83735; 83880; 84443; 84484; 85025; 85610; 93010; 94002; 94003; 94664; 94667; 94668; 94760; 99223; 99233; 99239; J0696; J1630; J1938; J2003; J2060; J2404; J2560; J2704; J2919; J3010; J3360; J3411; J3475; J3480; J3490; J7512; J7613; J7620

== ENCOUNTER 2025-04-15 11:27 | Inpatient (IN) | payer MEDICAID, SELFPAY ==
[2025-04-15] VITALS (121 sets, daily range): BP systolic 118–169; BP diastolic 71–115; PULSE 78–115; RESP 9–21; TEMP 35.6–37.5; O2SAT 87–99
--- NOTE | 2025-04-15 11:15 | RT.EKG_ITS ---
APPROVED REPORT Exam: Resting ECG Reason for Exam: sob Patient Location: E HR:112 bpm ECG Measurements Heart Rate 112 AXIS VA 155 P 63 QRSd 83 QRS 44 QT 319 T 56 QTc 436 Conclusion Sinus tachycardia, rate 112 No interval abnormalities No STEMI No significant changes from priors
--- NOTE | 2025-04-15 11:30 | DI.RAD_ITS ---
Exam(s) XR PORTABLE CHEST AP EXAM: XR PORTABLE CHEST AP CLINICAL HISTORY: SOB. TECHNIQUE: 2D digital imaging was performed. COMPARISON: CR,XR XR PORTABLE CHEST AP from 01/20/2025 FINDINGS: Single AP portable view. Heart size is upper normal. The mediastinum is not widened. There is persistent mild infiltrate in the left lung base. Right lung is clear. There are no pleural effusions. IMPRESSION: Mild left lung base infiltrate. Preliminary virtual Radiology report reviewed DATA REPOSITORY: RADIATION DOSE DELIVERED:
[2025-04-15 12:02] LABS: Abs Immature Grans 0.04 10^3/uL (0.0-0.06); BE (Venous) 7 mmol/L (-2-3); HCO3 (Venous) 32 mmol/L (23-28); HCT 39.4 % (40.0-50.0); HGB 13.2 g/dL (13.5-17.5); Immature Grans % 1.0 %; MCH 35.0 pg (27.0-33.0); MCHC 33.5 % (32.0-36.0); MCV 105 fL (80-95); MPV 9.4 fL (8.0-11.0); O2 Sat (Venous) 96 %; Platelet Count 120 10^3/uL (130-400); RBC 3.77 10^6/uL (4.36-5.78); RDW 12.5 % (11.8-14.1); RDW-SD 48.3 fL; TCO2 (Venous) 29 mmol/L (24-29); WBC 3.99 10^3/uL (4.4-10.8); pCO2 (Venous) 55 mmHg (41-51); pO2 (Venous) 73 mmHg
[2025-04-15] MEDS: methylPREDNISolone SUCC 125 MG VIAL IVP (12:05)
--- NOTE | 2025-04-15 12:18 | W.ED.GENAD ---
Discharge Plan Disposition Patient Disposition: Admit to [facility] Condition: Fair Discharge Details Clinical Impression: Acute respiratory failure with hypoxia and hypercapnia Admit Date/Time: 04/15/25 13:32 Admit Provider: Kurt Anguiano Attending Provider: Kurt Anguiano Primary Care Provider: Pierre Cardenas ED Provider: Elizabeth Hodge HPI General Mode of arrival: EMS. Date/Time Provider Initiated Documentation: 04/15/25 11:32. Limitations to Documentation: altered mental status. Information obtained by: patient, EMS and old records reviewed. HPI Narrative: This is a 50-year-old male patient with a past medical history significant for alcohol use disorder, alcoholic liver disease, DELLA, asthma/COPD, and hypertension, brought in by EMS for shortness of breath. A third-constitution party called to reach out to EMS stating that the patient told them that he was having worsening trouble breathing. The patient reports that this has been worsening over the past several weeks. He was noted to be wheezing per EMS and saturating at 86% on room air, required increasing supplemental oxygen and arrived to our facility on a nonrebreather at 10 L. He was noted to have an elevated end-tidal CO2 into the 70s. Received a duo nebulizer treatment prior to arrival. The patient does not report any chest pain, was noted to have been intubated in December during an admission for alcohol withdrawal, review of chart reveals that this was to facilitate administration of propofol for ongoing alcohol withdrawal symptoms which were refractory to phenobarbital. The patient states that his last drink of alcohol was yesterday, he is not experiencing any withdrawal symptoms such as shakiness, denies seizure. Related Data Home Medications ?Medication ?Instructions ?Recorded ?Confirmed albuterol sulfate 90 mcg/actuation 2 puff inhalation Q6H PRN PRN 05/06/23 04/09/25 aerosol inhaler (Ventolin HFA) buprenorphine 8 mg-naloxone 2 mg 3 film sublingual DAILY 05/06/23 04/09/25 sublingual film (Suboxone) escitalopram oxalate 20 mg tablet 20 mg PO DAILY 05/06/23 04/09/25 quetiapine 200 mg tablet 200 mg PO HS 05/06/23 04/09/25 budesonide-formoterol HFA 160 2 puff inhalation BID #1 unit 02/23/24 04/09/25 mcg-4.5 mcg/actuation aerosol inhaler cholecalciferol (vitamin D3) 1,250 1,250 mcg PO ONCE 03/23/24 04/09/25 mcg (50,000 unit) capsule testosterone cypionate 100 mg/mL 100 mg IM Q7D 03/23/24 04/09/25 intramuscular oil clonidine HCl 0.1 mg tablet 0.1 mg PO QID 12/20/24 04/09/25 acamprosate 333 mg tablet,delayed 666 mg (2 x 333 mg) PO TID #180 01/24/25 04/09/25 release tabs carvedilol 3.125 mg tablet 3.125 mg PO BID #60 tabs 01/24/25 04/09/25 folic acid 1 mg tablet 1 mg PO DAILY #90 tabs 01/24/25 04/09/25 gabapentin 600 mg tablet 600 mg PO TID #90 tabs 01/24/25 04/09/25 magnesium oxide 400 mg (241.3 mg 400 mg PO DAILY #90 tabs 01/24/25 04/09/25 magnesium) tablet nicotine 21 mg/24 hr daily 21 mg transdermal DAILY #30 ea 01/24/25 04/09/25 transdermal patch potassium chloride 20 mEq 20 meq PO BID #30 tabs 01/24/25 04/09/25 tablet,extended release(part/cryst) (Hadley Isaacs) Previous Rx's ?Medication ?Instructions ?Recorded budesonide-formoterol HFA 160 2 puff inhalation BID #1 unit 02/23/24 mcg-4.5 mcg/actuation aerosol inhaler acamprosate 333 mg tablet,delayed 666 mg (2 x 333 mg) PO TID #180 01/24/25 release tabs carvedilol 3.125 mg tablet 3.125 mg PO BID #60 tabs 01/24/25 folic acid 1 mg tablet 1 mg PO DAILY #90 tabs 01/24/25 gabapentin 600 mg tablet 600 mg PO TID #90 tabs 01/24/25 magnesium oxide 400 mg (241.3 mg 400 mg PO DAILY #90 tabs 01/24/25 magnesium) tablet nicotine 21 mg/24 hr daily 21 mg transdermal DAILY #30 ea 01/24/25 transdermal patch potassium chloride 20 mEq 20 meq PO BID #30 tabs 01/24/25 tablet,extended release(part/cryst) (Klor-Con M) Allergies Allergy/AdvReac Type Severity Reaction Status Date / Time cat dander Allergy Mild Wheezing Verified 04/09/25 11:04 dog dander Allergy Mild Wheezing Verified 04/09/25 11:04 Environmental Allergy Intermediate Asthma Uncoded 04/09/25 11:04 Exacerbation General Stated Complaint: SOB RASTA: 2 Exam Narrative Exam Narrative: Gen: Awake and alert, appears unwell HEENT: Non-icteric sclera, PERRL Neck: Supple Lungs: Increased respiratory effort and tachypnea, bilateral left greater than right expiratory wheezes with scattered crackles. CV: Appears well perfused, heart with regular rate and rhythm, strong distal pulses Abdomen: Non-distended, soft, nontender MSK: Moves 4 extremities without apparent limitation in ROM. 2+ bilateral peripheral edema Skin: Visualized skin without rashes, cyanosis. Neuro: No obvious focal deficits or facial asymmetry. Speaks with mumbled, fairly difficult to understand speech Course Vital Signs Vital signs: Vital Signs Temperature 37.5 C 04/15/25 11:32 Pulse 113 H 04/15/25 11:32 Respiratory Rate 16 04/15/25 11:32 Blood Pressure 169/115 H 04/15/25 11:32 Pulse Oximetry 98 04/15/25 11:32 Temperature 37.5 C 04/15/25 11:36 Temperature Source Tympanic 04/15/25 11:36 Pulse 113 H 04/15/25 11:36 Respiratory Rate 18 04/15/25 11:46 Blood Pressure 169/115 H 04/15/25 11:36 Pulse Oximetry 88 L 04/15/25 11:58 Oxygen Delivery Method Non-Rebreather 04/15/25 11:36 Oxygen Flow Rate 7 04/15/25 11:36 Fraction of Inspired Oxygen (FIO2) 30 04/15/25 11:58 Lab/Test Results Lab/Test Results: Laboratory Tests Range/Units 04/15/25 11:52 WBC (4.4-10.8) 10^3/uL 3.99 L RBC (4.36-5.78) 10^6/uL 3.77 L Hgb (13.5-17.5) g/dL 13.2 L Hct (40.0-50.0) % 39.4 L MCV (80-95) fL 105 H MCH (27.0-33.0) pg 35.0 H MCHC (32.0-36.0) % 33.5 RDW (11.8-14.1) % 12.5 Plt Count (130-400) 10^3/uL 120 L MPV (8.0-11.0) fL 9.4 Immature Gran % % 1.0 Neutrophils % % 47.1 Lymphocytes % % 36.3 Monocytes % % 13.0 Eosinophils % % 1.8 Basophils % % 0.8 Nucleated RBC % (0.0-0.3) % 0.0 Absolute Neutrophils (1.2-6.7) 10^3/uL 1.88 Absolute Lymphocytes (1.2-3.4) 10^3/uL 1.45 Absolute Monocytes (0.1-0.8) 10^3/uL 0.52 Absolute Eosinophils (0.0-0.7) 10^3/uL 0.07 Absolute Basophils (0.0-0.2) 10^3/uL 0.03 Medical Decision Making This is a 50-year-old male patient presenting for evaluation of shortness of breath and wheezing. Differential includes but is not limited to COPD exacerbation, pneumonia/bronchitis, viral upper respiratory infection, certainly considered pulmonary edema and pleural effusion, though the patient has no history of pulmonary abnormalities. There are no DVT symptoms the patient has no personal history of thromboembolic disease to significantly increase my concern for pulmonary embolism, and I do feel that reactive airway disease and infectious pathologies are a more likely contributor. No reported chest pain to suggest ACS, no evidence of severe arrhythmia on telemetry. Considered hypercarbia, alcohol intoxication, withdrawal syndrome (patient is reassuringly without significant evidence for severe alcohol withdrawal at this time), metabolic and electrolyte derangement, kidney injury, liver disease. Considered hepatic encephalopathy given the patient's history of same. Given the severe work of breathing and escalating oxygen requirements, the decision was made to provide the patient with a duo nebulizer treatment, methylprednisolone IV, and placed him on BiPAP for NIPPV. We will obtain labs to include CBC, CMP, magnesium, troponin, BNP, COVID/flu swab, ethyl alcohol, ammonia, and VBG. EKG was obtained, showing normal sinus rhythm without evidence of ischemia, interval abnormality, or ectopy. - Initial VBG demonstrating hypercarbia to 55, presumed to be at least partially chronic given the normal pH and elevated bicarb. I reviewed the patient's laboratory studies, which shows no leukocytosis, severe anemia. The patient has a stable thrombocytopenia compared to priors. Chemistry panel without electrolyte derangements or evidence of kidney dysfunction, mild transaminitis. Ammonia is low, troponin is negative, BNP is not elevated and ethanol is negative. Repeat VBG about 1 hour after BiPAP initiation is noted with slightly worsening hypercarbia to 63, the patient remains without severe acidosis but we will increase the delta from 12/5 to 14/5. The patient is requiring 35% FiO2. Portable x-ray obtained and reviewed by myself, showing some left greater than right basilar opacities, likely representing infiltrate versus atelectasis. We will provide the patient with IV azithromycin for atypical coverage. He is not febrile, and I have a lower concern for sepsis. Repeat VBG 1 hour after BiPAP change stable, we will continue to adjust the delta and respiratory rate in an attempt to improve his hypercarbic and hypoxic respiratory failure. However, given that the patient has remained easily awakened, conversing, and able to adjust himself in the bed, I do not see an indication at this time to proceed with intubation for respiratory failure. I discussed this patient's case with the hospitalist who is graciously accepted him for admission to our ICU for ongoing workup and management. The patient did not require initiation of alcohol withdrawal treatment while under my care in the ED. The patient remained hemodynamically improved and was transferred from our department without incident. Elizabeth Hodge MD Quality:SDOH Health Related Social Needs: Health related social needs details MELINDA Critical Care Time Critical Care Time Critical Care Time: Yes Total Critical Care Time: 45 Attestation: Upon my evaluation, this patient had a high probability of imminent or life-threatening deterioration due to hypoxic and hypercarbic respiratory failure, which required my direct attention, intervention, and personal management. I have personally provided 45 minutes of critical care time exclusive of time spent on separately billable procedures. Time includes review of laboratory data, radiology results, discussion with consultants, and monitoring for potential decompensation. Interventions were performed as documented above. Elizabeth Hodge MD [facility] All Active Problems (Updated 04/15/25 @ 14:48 by Elizabeth Hodge MD) Acute respiratory failure with hypoxia and hypercapnia (Acute) Internal derangement of right knee (Acute) Hypertension (Chronic) Folate deficiency (Acute) Liver disease, alcoholic (Acute) Erectile dysfunction (Acute) Decreased testosterone level (Acute) Alcohol use disorder, severe, in early remission (Acute) Intentional clonazepam overdose (Acute) DELLA (obstructive sleep apnea) (Chronic) Asthma (Chronic) Depression with anxiety (Chronic) Opiate dependence (Chronic) Medical History (Updated 04/15/25 @ 14:48 by Elizabeth Hodge MD) Pneumonia Hepatitis C Thrombocytopenia Ribs, multiple fractures Suicide attempt Surgical History (Updated 12/20/24 @ 11:14 by Yelitza Warner RN) History of shoulder surgery DOS 08/09/19 History of esophagogastroduodenoscopy (EGD) Social History Smoking/Tobacco Use Status: Former Tobacco Use Smoking risk assessment performed?: Yes Drug use: Occasionally Substance use type: crack/cocaine Housing: house
[2025-04-15 12:25] LABS: Ammonia 28 umol/L (11-32)
[2025-04-15] MEDS: Albuterol/Ipratropium 3 ML UPD VIAL UPD ×2 (12:37→19:15)
[2025-04-15] MEDS: AZITHROMYCIN 500 MG in Normal Saline 250 ML 250 MG IVPB (12:45)
[2025-04-15 12:47] LABS: BE (Venous) 7 mmol/L (-2-3); HCO3 (Venous) 33 mmol/L (23-28); O2 Sat (Venous) 91 %; TCO2 (Venous) 30 mmol/L (24-29); pO2 (Venous) 64 mmHg
[2025-04-15 13:11] LABS: Troponin I 10 ng/L (<or=76)
[2025-04-15 13:12] LABS: ALT 72 U/L (16-63); AST 47 U/L (15-37); Albumin 3.3 g/dL (3.4-5.0); Alkaline Phosphatase 74 U/L (46-116); Anion Gap 4.7 mmol/L (3-11); BUN 11 mg/dL (7-18); Bilirubin, Total 0.8 mg/dL (0.2-1.0); CO2 33.3 mmol/L (21.0-32.0); Calcium 9.1 mg/dL (8.5-10.1); Chloride 101 mmol/L (98-107); Estimated GFR 103.40 (mL/min/1.73m2); Glucose 146 mg/dL (74-106); Magnesium 1.8 mg/dL (1.8-2.4); NT-proBNP 116 pg/mL (<300); Potassium 4.4 mmol/L (3.5-5.1); Sodium 139 mmol/L (136-145); Total Protein 7.1 g/dL (6.4-8.2); Troponin I 10 ng/L (<or=76)
--- NOTE | 2025-04-15 14:04 | DI.VRAD_ITS ---
PROCEDURE INFORMATION: Exam: XR Chest Exam date and time: 04/15/2025 12:25 PM Age: 50 years old Clinical indication: Shortness of breath TECHNIQUE: Imaging protocol: Radiologic exam of the chest. Views: 1 view. COMPARISON: CR XR PORTABLE CHEST AP 01/20/2025 10:40 PM FINDINGS: Tubes, catheters and devices: Suture anchors project over lower central neck. Lungs: Interstitial prominence in the left lung base could be due to infiltrate or atelectasis. Pleural spaces: Unremarkable. No pleural effusion. No pneumothorax. Heart/Mediastinum: Unremarkable. No cardiomegaly. Bones/joints: Unremarkable. IMPRESSION: Interstitial prominence in the left lung base could be due to infiltrate or atelectasis. Dictated and Authenticated by: Юлия Herrera MD. Orderin [facility] Osei Johnson MD
[2025-04-15 14:05] LABS: BE (Venous) 8 mmol/L (-2-3); HCO3 (Venous) 34 mmol/L (23-28); O2 Sat (Venous) 73 %; TCO2 (Venous) 31 mmol/L (24-29); pO2 (Venous) 42 mmHg
[2025-04-15 14:08] LABS: pCO2 (Venous) 64 mmHg (41-51)
--- NOTE | 2025-04-15 14:27 | W.PM.HP.N ---
Date of service: 04/15/25 Time of Service: 14:00 Assessment and Plan Assessment and plan (1) Acute respiratory failure with hypoxia and hypercapnia: Status: Acute Assessment and plan: Exacerbation of COPD, possible aspiration, possible worsening of DELLA. Excessive somnolence noted at previous ED visit. Steroid course ended Apr 09. At this time he is at risk of needing mechanical ventilation. Discussed with ED physician. Admitting to ICU. Continue bipap. Frequent VBGs. Start prednisode 60 mg 5 day course. Anticipating severe EtOH withdrawal with interventions increasing likelihood of respiratory distress - Plan to start phenobarbital at lower dosing when he is off bipap (2) Alcohol withdrawal with inpatient treatment: Status: Acute Assessment and plan: Multiple previous episodes of withdrawal including intubations and ICU sedation Last EtOH per patient report was Apr 14 Blood alcohol negative UDS not done in ED, ordering now CIWA protocol with phenobarbital to start as soon as he is at about 10L O2 Discussed with pharmacy, note increased respiratory risk (3) Aspiration pneumonia: Status: Acute Assessment and plan: Presumptive, starting unasyn Not continuing azithromycin (4) Severe chronic obstructive pulmonary disease: Status: Acute Assessment and plan: Home regimen includes nebulizer, symbicort 80/4.5, ventolin HFA, Last steroid course Apr 05- (5) DELLA (obstructive sleep apnea): Status: Chronic Assessment and plan: No evidence that he is on CPAP Per clinic record he has a dental device that he is to wear to help with insomnia (6) Alcohol use disorder, severe, dependence: Status: Acute Assessment and plan: Home meds include clonidine, gabapentin Previously on acamprosate Last EtOH Apr 14 (7) Opioid use disorder, severe, on maintenance therapy, dependence: Status: Acute Assessment and plan: Home regimen suboxone 8/2 TID, will continue (8) Benzodiazepine dependence: Status: Acute Assessment and plan: Home regimen lorazepam 1 mg BID, held for phenobarbital course (9) Liver disease, alcoholic: Status: Acute Assessment and plan: Last imaging not conclusive of cirrhosis, but he has been started on furosemide (not spironolactone) Will hold diuresis for now Mild thrombocytopenia, will not defer VTE ppx Coag panel ordered for assessment of disease (10) History of hepatitis C: Status: Acute Assessment and plan: Unclear how/when diagnosed or if treated (11) Benign essential hypertension: Status: Acute Assessment and plan: Holding home regimen carvedilol 3.125 BID, HCTZ 25 Note clonidine 0.1 mg PO QID continued as well but likely not for HTN (12) Major depressive disorder, recurrent: Status: Acute Assessment and plan: Hold home escitalopram, quetiapine for now (13) Tobacco dependence: Status: Acute Assessment and plan: PRN nicotine patch (14) On deep vein thrombosis (DVT) prophylaxis: Status: Acute Assessment and plan: enoxaparin 30 q12h Monitor platelets History of Present Illness History of Present Illness Chief Complaint: shortness of breath Narrative: Zachery Hernandez is a 50 year old man presenting April 15 with shortness of breath. He has had intermittent trouble with breathing for several weeks but it did not start to bother him until a few days ago. At time of interview, patient is somnolent, oxygenating well on bipap: he denies pain but is unable to converse. Per report, patient said his last EtOH was Apr 14. Patient was seen at [facility] ED April 13 for SOB and somnolence. EMS found him wheezing with SpO2 86% on room air. He arrived at the ED on nonbreather 10L. In the ED he was hypoxemic with SpO2 88%, tachycardic 114, hypertensive 169/115. He was started on bipap. VBGs showed elevated pCO2; serum CO2 elevated 33.3. VBG pH within normal limits. Blood alcohol unmeasurable. Mild thrombocytopenia 120. Hyperglycemia 146. Mild transaminitis. No hyperammonemia. No troponin elevation. He was given methylprednisolone 125 IV, azithromycin, duonebs. PMH includes asthma on multiple inhalers, EtOH abuse with multiple hospitalizations for withdrawal, including multiple intubations for intractable agitation. Suicide attempt via benzodiazepines. DELLA not on NIPPV. EtOH liver disease, hepatitis C and portal hypertension. Opioid use disorder on suboxone. 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: lorazepam 1 mg BID, suboxone 8/2 TID - Med rec per VITL: clonidine 0.1 PO q6h, furosemide 40 daily, quetiapine 200 HS, carvedilol 3.125 BID, HCTZ 25 daily, gabapentin 600 TID, acamprosate 333 TID, K and Mg, inhalers - Apr 4-8 prednisone 60 mg daily PFSH All Active Problems (Updated 04/16/25 @ 01:27 by Kurt Anguiano MD) On deep vein thrombosis (DVT) prophylaxis (Acute) Aspiration pneumonia (Acute) Tobacco dependence (Acute) Major depressive disorder, recurrent (Acute) Benign essential hypertension (Acute) Severe chronic obstructive pulmonary disease (Acute) History of hepatitis C (Acute) Alcohol withdrawal with inpatient treatment (Acute) Benzodiazepine dependence (Acute) Alcohol use disorder, severe, dependence (Acute) Opioid use disorder, severe, on maintenance therapy, dependence (Acute) Acute respiratory failure with hypoxia and hypercapnia (Acute) Internal derangement of right knee (Acute) Hypertension (Chronic) Folate deficiency (Acute) Liver disease, alcoholic (Acute) Erectile dysfunction (Acute) Decreased testosterone level (Acute) Alcohol use disorder, severe, in early remission (Acute) Intentional clonazepam overdose (Acute) DELLA (obstructive sleep apnea) (Chronic) Asthma (Chronic) Depression with anxiety (Chronic) Opiate dependence (Chronic) Medical History (Updated 04/16/25 @ 01:27 by Kurt Anguiano MD) Pneumonia Hepatitis C Thrombocytopenia Ribs, multiple fractures Suicide attempt Surgical History (Updated 12/20/24 @ 11:14 by Yelitza Warner RN) History of shoulder surgery DOS 08/09/19 History of esophagogastroduodenoscopy (EGD) Social History Smoking/Tobacco Use Status: Former Tobacco Use Smoking risk assessment performed?: Yes Drug use: Occasionally Substance use type: crack/cocaine Housing: house Meds Allergies and Home Medications Allergies Allergy/AdvReac Type Severity Reaction Status Date / Time cat dander Allergy Mild Wheezing Verified 04/09/25 11:04 dog dander Allergy Mild Wheezing Verified 04/09/25 11:04 Environmental Allergy Intermediate Asthma Uncoded 04/09/25 11:04 Exacerbation Home Medications ?Medication ?Instructions ?Recorded ?Confirmed ?Type albuterol sulfate 90 mcg/actuation 2 puff inhalation Q6H PRN PRN 05/06/23 04/09/25 History aerosol inhaler (Ventolin HFA) buprenorphine 8 mg-naloxone 2 mg 3 film sublingual DAILY 05/06/23 04/09/25 History sublingual film (Suboxone) escitalopram oxalate 20 mg tablet 20 mg PO DAILY 05/06/23 04/09/25 History quetiapine 200 mg tablet 200 mg PO HS 05/06/23 04/09/25 History budesonide-formoterol HFA 160 2 puff inhalation BID #1 unit 02/23/24 04/09/25 Rx mcg-4.5 mcg/actuation aerosol inhaler cholecalciferol (vitamin D3) 1,250 1,250 mcg PO ONCE 03/23/24 04/09/25 History mcg (50,000 unit) capsule testosterone cypionate 100 mg/mL 100 mg IM Q7D 03/23/24 04/09/25 History intramuscular oil clonidine HCl 0.1 mg tablet 0.1 mg PO QID 12/20/24 04/09/25 History acamprosate 333 mg tablet,delayed 666 mg (2 x 333 mg) PO TID #180 01/24/25 04/09/25 Rx release tabs carvedilol 3.125 mg tablet 3.125 mg PO BID #60 tabs 01/24/25 04/09/25 Rx folic acid 1 mg tablet 1 mg PO DAILY #90 tabs 01/24/25 04/09/25 Rx gabapentin 600 mg tablet 600 mg PO TID #90 tabs 01/24/25 04/09/25 Rx magnesium oxide 400 mg (241.3 mg 400 mg PO DAILY #90 tabs 01/24/25 04/09/25 Rx magnesium) tablet nicotine 21 mg/24 hr daily 21 mg transdermal DAILY #30 ea 01/24/25 04/09/25 Rx transdermal patch potassium chloride 20 mEq 20 meq PO BID #30 tabs 01/24/25 04/09/25 Rx tablet,extended release(part/cryst) (Klor-Con M) Exam Narrative Exam Narrative: General: This is an obese, unkempt, somnolent man on bipap HEENT: Plethoric neck, normocephalic CV: RRR no murmur Resp: Over bipap, expiratory wheeze audible on the left Abd: obese, nontender MSK: voluntary motion x4 Neuro: somnolent, rousable, no focal deficits, limited exam due to bipap Results Labs 04/15/25 11:52 04/15/25 11:52 Labs: Laboratory Results - last 24 hr 04/15/25 04/15/25 04/15/25 11:52 12:03 12:44 WBC 3.99 L RBC 3.77 L Hgb 13.2 L Hct 39.4 L MCV 105 H MCH 35.0 H MCHC 33.5 RDW 12.5 Plt Count 120 L MPV 9.4 Immature Gran % 1.0 Neutrophils % 47.1 Lymphocytes % 36.3 Monocytes % 13.0 Eosinophils % 1.8 Basophils % 0.8 Nucleated RBC % 0.0 Absolute Neutrophils 1.88 Absolute Lymphocytes 1.45 Absolute Monocytes 0.52 Absolute Eosinophils 0.07 Absolute Basophils 0.03 VBG pH 7.38 7.33 VBG pCO2 55 H 63 H* VBG pO2 73 64 VBG HCO3 32 H 33 H VBG Total CO2 29 30 H VBG O2 Saturation 96 91 VBG Base Excess 7 H 7 H Sodium 139 Potassium 4.4 Chloride 101 Carbon Dioxide 33.3 H Anion Gap 4.7 BUN 11 Creatinine 0.9 Est GFR (CKD-EPI 2020) 103.40 Glucose 146 H Calcium 9.1 Magnesium 1.8 Total Bilirubin 0.8 AST 47 H ALT 72 H Alkaline Phosphatase 74 Ammonia 28 Troponin I 10 10 NT-Pro-B Natriuret Pep 116 Total Protein 7.1 Albumin 3.3 L Ethyl Alcohol < 3.0 04/15/25 04/15/25 14:00 14:32 WBC RBC Hgb Hct MCV MCH MCHC RDW Plt Count MPV Immature Gran % Neutrophils % Lymphocytes % Monocytes % Eosinophils % Basophils % Nucleated RBC % Absolute Neutrophils Absolute Lymphocytes Absolute Monocytes Absolute Eosinophils Absolute Basophils VBG pH 7.33 VBG pCO2 64 H* VBG pO2 42 VBG HCO3 34 H VBG Total CO2 31 H VBG O2 Saturation 73 VBG Base Excess 8 H Sodium Potassium Chloride Carbon Dioxide Anion Gap BUN Creatinine Est GFR (CKD-EPI 2020) Glucose Calcium Magnesium Total Bilirubin AST ALT Alkaline Phosphatase Ammonia Troponin I Cancelled NT-Pro-B Natriuret Pep Total Protein Albumin Ethyl Alcohol Last Vital Signs Temp 37.5 C 04/15/25 11:36 Pulse 105 H 04/15/25 13:10 Resp 17 04/15/25 13:10 BP 133/95 H 04/15/25 12:31 Pulse Ox 93 04/15/25 13:10 PAWSS Have you Been Recently Intoxicated or Drunk Within the Last 30 days?: Yes Have you Ever Experienced Previous Episodes of Alcohol Withdrawal?: Yes Have you ever Experienced Withdrawal Seizures?: Yes Have you ever Experienced Delirium Tremens(DT)s?: Yes Have you ever Experienced Blackouts?: No Have you ever Combined Alcohol with other Downers within the last 90 days?: No Have you ever Combined Alcohol with any other Substance of Abuse during the last 90 days?: No Positive Blood Alcohol level on Presentation? [PCS.BAL]: No Evidence of Increased Autonomic Activity (i.e. HR>120, tremor, sweating, agitation, nausea)?: No Result: 4 Time Spent Time spent with Patient: 55-74 minutes Time was spent: preparing to see the patient(eg.review tests), obtaining and/or reviewing separately otained hiistory, ordering medications,tests, procedures, referring, communicating with other health sub acute care nurse, indepentently interpreting results, counseling the patient and care coordination
[2025-04-15 14:31] LABS: pCO2 (Venous) 63 mmHg (41-51)
[2025-04-15 15:43] LABS: COVID-19 PCR Negative (Negative); RSV PCR Negative (Negative)
[2025-04-15 16:08] LABS: BE (Venous) 7 mmol/L (-2-3); HCO3 (Venous) 32 mmol/L (23-28); O2 Sat (Venous) 96 %; TCO2 (Venous) 29 mmol/L (24-29); pCO2 (Venous) 56 mmHg (41-51); pO2 (Venous) 79 mmHg
[2025-04-15 17:07] LABS: BE (Venous) 6 mmol/L (-2-3); HCO3 (Venous) 31 mmol/L (23-28); O2 Sat (Venous) 98 %; TCO2 (Venous) 28 mmol/L (24-29); pCO2 (Venous) 54 mmHg (41-51); pO2 (Venous) 91 mmHg
[2025-04-15] MEDS: Enoxaparin 30 MG/0.3 ML SYR SC (17:27)
[2025-04-15] MEDS: Nicotine 21 MG/24 HR PATCH TD (17:27)
[2025-04-15] MEDS: Lidocaine 2% Jelly 6 ML SYR (18:37)
[2025-04-15] MEDS: Normal Saline Flush 10 ML SYR IVP (20:28)
[2025-04-16] VITALS (70 sets, daily range): BP systolic 121–168; BP diastolic 63–107; PULSE 81–104; RESP 7–22; TEMP 36.3–36.7; O2SAT 87–96
[2025-04-16 00:54] LABS: BE (Venous) 7 mmol/L (-2-3); HCO3 (Venous) 33 mmol/L (23-28); O2 Sat (Venous) 58 %; TCO2 (Venous) 30 mmol/L (24-29); pCO2 (Venous) 60 mmHg (41-51); pO2 (Venous) 33 mmHg
[2025-04-16] MEDS: Bacitracin 1 PACKET (01:04)
[2025-04-16] MEDS: Enoxaparin 30 MG/0.3 ML SYR SC ×2 (01:04→14:56)
[2025-04-16] MEDS: PHENobarbital 200 MG in Normal Saline 50 ML 100 MG IVPB (01:05)
[2025-04-16] MEDS: AMPICILLIN/SULBACTAM 3 GM in Normal Saline 100 ML IVPB ×2 (01:12→06:19)
[2025-04-16] MEDS: Gabapentin 600 MG TAB PO ×3 (01:12→17:06)
[2025-04-16] MEDS: cloNIDine 0.1 MG TAB PO ×4 (01:12→18:32)
[2025-04-16] MEDS: Albuterol/Ipratropium 3 ML UPD VIAL UPD ×4 (01:35→20:00)
[2025-04-16 03:22] LABS: Cannabinoids THC Negative (Negative); METHADONE URINE SCREEN Negative (Negative)
[2025-04-16] MEDS: Normal Saline Flush 10 ML SYR IVP ×3 (03:55→20:11)
[2025-04-16] MEDS: PHENobarbital 150 MG in Normal Saline 50 ML 100 MG IVPB ×2 (04:16→06:50)
[2025-04-16 06:57] LABS: Abs Immature Grans 0.04 10^3/uL (0.0-0.06); HCT 36.9 % (40.0-50.0); HGB 12.4 g/dL (13.5-17.5); Immature Grans % 1.0 %; MCH 34.4 pg (27.0-33.0); MCHC 33.6 % (32.0-36.0); MCV 103 fL (80-95); MPV 9.9 fL (8.0-11.0); Platelet Count 125 10^3/uL (130-400); RBC 3.60 10^6/uL (4.36-5.78); RDW 12.2 % (11.8-14.1); RDW-SD 46.1 fL; WBC 3.91 10^3/uL (4.4-10.8)
[2025-04-16 07:15] LABS: ALT 59 U/L (16-63); AST 31 U/L (15-37); Albumin 3.0 g/dL (3.4-5.0); Alkaline Phosphatase 62 U/L (46-116); Anion Gap 5.9 mmol/L (3-11); BUN 13 mg/dL (7-18); Bilirubin, Total 0.6 mg/dL (0.2-1.0); CO2 32.1 mmol/L (21.0-32.0); Calcium 8.9 mg/dL (8.5-10.1); Chloride 102 mmol/L (98-107); Estimated GFR 107.15 (mL/min/1.73m2); Glucose 171 mg/dL (74-106); Potassium 4.0 mmol/L (3.5-5.1); Sodium 140 mmol/L (136-145); Total Protein 6.7 g/dL (6.4-8.2)
[2025-04-16 07:31] LABS: Hemoglobin A1C 6.9 % (<5.7)
--- NOTE | 2025-04-16 07:46 | W.PULMCON ---
General Date Of Service Date of service: 04/16/25 Time of Service: 07:00 Requesting physician: Kurt Anguiano Reason for Consult: Respiratory failure Recommendations: Assessment: 1. COPD exacerbation - no prior PFT's available - improved 2. EtOH withdrawal - improved 3. Chronic hypercapneic respiratory failure - baseline CO2 ~55-60 - COPD vs OHS 4. Tobacco abuse 5. DELLA - last PSG ~ 10 years prior. Does not have home NIV Recommendations: - will check ABG. May be able to qualify for home NIV based on chronic hypercapnia - request PFT's from [facility] - out of bed today - d/c andujar catheter - continue prednisone 60 mg daily. Plan for 5 days of steroids - can change unasyn to augmentin - continue bronchodilators Discussed with Dr. Jack History of Present Illness History of Present Illness Chief Complaint: Respiratory failure Narrative: Patient is a 50 yo with a history of COPD, DELLA, morbid obesity, ETOH abuse and tobacco abuse, who was admitted on 04/15 for worsening dyspnea and somnolence. Reported a several day history of worsening dyspnea and productive cough. Was treated with BiPAP, systemic steroids, bronchodilators, and phenobarbitol (for withdrawal) with improvement in his symptoms. Off BiPAP this AM. Dyspnea has significantly improved. Has some LE swelling, which has also improved. He smokes 1 ppd. States that he drinks 2 pints of beer daily. Has had multiple admissions over the past year and required intubation in 01/2024 and 12/2024 for respiratory failure / alcohol withdrawal. He uses symbicort 160 BID, PRN duoneb, and PRN albuterol for COPD management as an outpatient. ROS: 10 pt ROS negative except as above PFSH All Active Problems (Updated 04/16/25 @ 01:27 by Kurt Anguiano MD) On deep vein thrombosis (DVT) prophylaxis (Acute) Aspiration pneumonia (Acute) Tobacco dependence (Acute) Major depressive disorder, recurrent (Acute) Benign essential hypertension (Acute) Severe chronic obstructive pulmonary disease (Acute) History of hepatitis C (Acute) Alcohol withdrawal with inpatient treatment (Acute) Benzodiazepine dependence (Acute) Alcohol use disorder, severe, dependence (Acute) Opioid use disorder, severe, on maintenance therapy, dependence (Acute) Acute respiratory failure with hypoxia and hypercapnia (Acute) Internal derangement of right knee (Acute) Hypertension (Chronic) Folate deficiency (Acute) Liver disease, alcoholic (Acute) Erectile dysfunction (Acute) Decreased testosterone level (Acute) Alcohol use disorder, severe, in early remission (Acute) Intentional clonazepam overdose (Acute) DELLA (obstructive sleep apnea) (Chronic) Asthma (Chronic) Depression with anxiety (Chronic) Opiate dependence (Chronic) Medical History (Updated 04/16/25 @ 01:27 by Kurt Anguiano MD) Pneumonia Hepatitis C Thrombocytopenia Ribs, multiple fractures Suicide attempt Surgical History (Updated 12/20/24 @ 11:14 by Yelitza Warner RN) History of shoulder surgery DOS 08/09/19 History of esophagogastroduodenoscopy (EGD) Social History Smoking/Tobacco Use Status: Former Tobacco Use Smoking risk assessment performed?: Yes Drug use: Occasionally Substance use type: crack/cocaine Housing: house Visit Medication and Allergies Active Medications Generic Name Dose Route Start Last Admin Trade Name Freq PRN Reason Stop Dose Admin Albuterol/Ipratropium 3 ml 04/15/25 14:00 04/16/25 01:35 Albuterol/Ipratropium 3 Ml Upd Vial UPD 3 ml Q6H ARNIE Administration Buprenorphine/Naloxone 1 each 04/16/25 08:30 Buprenorphine/Naloxone 8 Mg/2 Mg Film SL DAILY ARNIE Clonidine 0.1 mg 04/16/25 01:00 04/16/25 06:23 Clonidine 0.1 Mg Tab PO 0.1 mg Q6H ARNIE Administration Enoxaparin Sodium 30 mg 04/15/25 14:00 04/16/25 01:04 Enoxaparin 30 Mg/0.3 Ml Syr SC 30 mg Q12H ARNIE Administration Gabapentin 600 mg 04/16/25 01:00 04/16/25 01:12 Gabapentin 600 Mg Tab PO 600 mg Q8H ARNIE Administration Ampicillin Sodium/Sulbactam 100 mls @ 200 mls/hr 04/16/25 00:00 04/16/25 07:00 Sodium 3 gm/ Sodium Chloride IVPB Infused Q6H ARNIE Infusion IV Miscellaneous Supplies 1 each 04/15/25 11:45 Iv Access-Emergency Dept IV DIRECTED ARNIE Nicotine 21 mg 04/15/25 13:32 04/15/25 17:27 Nicotine 21 Mg/24 Hr Patch TD 21 mg DAILY PRN PRN Administration Phenobarbital Sodium 130 mg 04/16/25 00:33 Phenobarbital 130 Mg/Ml Vial IVP DIRECTED PRN for mild anxiety/agitation Prednisone 60 mg 04/16/25 08:30 Prednisone 20 Mg Tab PO DAILY ARNIE Sodium Chloride 0 ml 04/15/25 11:32 04/16/25 03:55 Normal Saline Flush 10 Ml Syr IVP 40 ml PRN PRN Administration Sodium Chloride 0 ml 04/15/25 20:00 04/15/25 20:28 Normal Saline Flush 10 Ml Syr IVP 10 ml BID ARNIE Administration Sodium Chloride 0 ml 04/15/25 11:32 Normal Saline 10 Ml Vial IJ DIRECTED PRN Allergies cat dander Allergy (Mild, Verified 04/09/25 11:04) Wheezing dog dander Allergy (Mild, Verified 04/09/25 11:04) Wheezing Environmental Allergy (Intermediate, Uncoded 04/09/25 11:04) Asthma Exacerbation Exam Narrative Exam Narrative: General: alert, no acute distress Head: normocephalic ENT: no stridor, trachea midline CV: normal rate, regular rhythm Respiratory: no wheezing, no crackles, no rhonchi, no prolonged expiration GI: abd soft, non-tender, non-distended Skin: no rashes Extremities: +1 edema, no digital clubbing Psych: normal affect Results Last Vital Signs Temp 36.3 C L 04/16/25 07:29 Pulse 85 04/16/25 07:32 Resp 11 L 04/16/25 07:32 BP 122/87 04/16/25 07:32 Pulse Ox 90 L 04/16/25 07:32 Labs 04/16/25 05:54 04/16/25 05:54 Labs: Laboratory Results - last 24 hr 04/15/25 04/15/25 04/15/25 11:52 12:03 12:44 WBC 3.99 L RBC 3.77 L Hgb 13.2 L Hct 39.4 L MCV 105 H MCH 35.0 H MCHC 33.5 RDW 12.5 Plt Count 120 L MPV 9.4 Immature Gran % 1.0 Neutrophils % 47.1 Lymphocytes % 36.3 Monocytes % 13.0 Eosinophils % 1.8 Basophils % 0.8 Nucleated RBC % 0.0 Absolute Neutrophils 1.88 Absolute Lymphocytes 1.45 Absolute Monocytes 0.52 Absolute Eosinophils 0.07 Absolute Basophils 0.03 VBG pH 7.38 7.33 VBG pCO2 55 H 63 H* VBG pO2 73 64 VBG HCO3 32 H 33 H VBG Total CO2 29 30 H VBG O2 Saturation 96 91 VBG Base Excess 7 H 7 H Sodium 139 Potassium 4.4 Chloride 101 Carbon Dioxide 33.3 H Anion Gap 4.7 BUN 11 Creatinine 0.9 Est GFR (CKD-EPI 2020) 103.40 Glucose 146 H Hemoglobin A1c Calcium 9.1 Magnesium 1.8 Total Bilirubin 0.8 AST 47 H ALT 72 H Alkaline Phosphatase 74 Ammonia 28 Troponin I 10 10 NT-Pro-B Natriuret Pep 116 Total Protein 7.1 Albumin 3.3 L Urine Opiates Screen Urine Methadone Screen Ur Barbiturates Screen Ur Tricyclics Screen Ur Amphetamines Screen U Benzodiazepines Scrn Urine Cocaine Screen Ur THC Screen Ethyl Alcohol < 3.0 COVID-19 Source SARS-CoV-2 (PCR) Influenza Type A (PCR) Influenza Type B (PCR) RSV (PCR) 04/15/25 04/15/25 04/15/25 14:00 14:32 14:55 WBC RBC Hgb Hct MCV MCH MCHC RDW Plt Count MPV Immature Gran % Neutrophils % Lymphocytes % Monocytes % Eosinophils % Basophils % Nucleated RBC % Absolute Neutrophils Absolute Lymphocytes Absolute Monocytes Absolute Eosinophils Absolute Basophils VBG pH 7.33 VBG pCO2 64 H* VBG pO2 42 VBG HCO3 34 H VBG Total CO2 31 H VBG O2 Saturation 73 VBG Base Excess 8 H Sodium Potassium Chloride Carbon Dioxide Anion Gap BUN Creatinine Est GFR (CKD-EPI 2020) Glucose Hemoglobin A1c Calcium Magnesium Total Bilirubin AST ALT Alkaline Phosphatase Ammonia Troponin I Cancelled NT-Pro-B Natriuret Pep Total Protein Albumin Urine Opiates Screen Urine Methadone Screen Ur Barbiturates Screen Ur Tricyclics Screen Ur Amphetamines Screen U Benzodiazepines Scrn Urine Cocaine Screen Ur THC Screen Ethyl Alcohol COVID-19 Source Nasopharynx SARS-CoV-2 (PCR) Negative Influenza Type A (PCR) Negative Influenza Type B (PCR) Negative RSV (PCR) Negative 04/15/25 04/15/25 04/16/25 16:05 17:00 00:50 WBC RBC Hgb Hct MCV MCH MCHC RDW Plt Count MPV Immature Gran % Neutrophils % Lymphocytes % Monocytes % Eosinophils % Basophils % Nucleated RBC % Absolute Neutrophils Absolute Lymphocytes Absolute Monocytes Absolute Eosinophils Absolute Basophils VBG pH 7.36 7.36 7.35 VBG pCO2 56 H 54 H 60 H VBG pO2 79 91 33 VBG HCO3 32 H 31 H 33 H VBG Total CO2 29 28 30 H VBG O2 Saturation 96 98 58 VBG Base Excess 7 H 6 H 7 H Sodium Potassium Chloride Carbon Dioxide Anion Gap BUN Creatinine Est GFR (CKD-EPI 2020) Glucose Hemoglobin A1c Calcium Magnesium Total Bilirubin AST ALT Alkaline Phosphatase Ammonia Troponin I NT-Pro-B Natriuret Pep Total Protein Albumin Urine Opiates Screen Urine Methadone Screen Ur Barbiturates Screen Ur Tricyclics Screen Ur Amphetamines Screen U Benzodiazepines Scrn Urine Cocaine Screen Ur THC Screen Ethyl Alcohol COVID-19 Source SARS-CoV-2 (PCR) Influenza Type A (PCR) Influenza Type B (PCR) RSV (PCR) 04/16/25 04/16/25 02:28 05:54 WBC 3.91 L RBC 3.60 L Hgb 12.4 L Hct 36.9 L MCV 103 H MCH 34.4 H MCHC 33.6 RDW 12.2 Plt Count 125 L MPV 9.9 Immature Gran % 1.0 Neutrophils % 80.1 Lymphocytes % 14.3 Monocytes % 4.3 Eosinophils % 0.0 Basophils % 0.3 Nucleated RBC % 0.0 Absolute Neutrophils 3.13 Absolute Lymphocytes 0.56 L Absolute Monocytes 0.17 Absolute Eosinophils 0.00 Absolute Basophils 0.01 VBG pH VBG pCO2 VBG pO2 VBG HCO3 VBG Total CO2 VBG O2 Saturation VBG Base Excess Sodium 140 Potassium 4.0 Chloride 102 Carbon Dioxide 32.1 H Anion Gap 5.9 BUN 13 Creatinine 0.8 Est GFR (CKD-EPI 2020) 107.15 Glucose 171 H Hemoglobin A1c 6.9 H Calcium 8.9 Magnesium Total Bilirubin 0.6 AST 31 ALT 59 Alkaline Phosphatase 62 Ammonia Troponin I NT-Pro-B Natriuret Pep Total Protein 6.7 Albumin 3.0 L Urine Opiates Screen Negative Urine Methadone Screen Negative Ur Barbiturates Screen Negative Ur Tricyclics Screen Positive A Ur Amphetamines Screen Negative U Benzodiazepines Scrn Negative Urine Cocaine Screen Negative Ur THC Screen Negative Ethyl Alcohol COVID-19 Source SARS-CoV-2 (PCR) Influenza Type A (PCR) Influenza Type B (PCR) RSV (PCR) Imaging Chest x-ray: report reviewed and image reviewed
[2025-04-16] MEDS: Buprenorphine/Naloxone 8 mg/2 mg FILM 1 EACH SL (07:47)
[2025-04-16] MEDS: predniSONE 20 MG TAB 60 MG PO (08:44)
[2025-04-16] MEDS: Amoxicillin 875/Clav. 125 TAB PO ×2 (08:44→20:10)
[2025-04-16 10:30] LABS: BE 2 mmol/L (-2-3); FIO2L 2 L; HCO3 27 mmol/L (22-26); TCO2 28 mmol/L (23-27)
[2025-04-16] MEDS: PHENobarbital 130 MG/ML VIAL IVP ×2 (11:53→18:38)
--- NOTE | 2025-04-16 12:11 | RESPIRATORY ---
Spoke with patient this morning to inquire if he has ever had a sleep study. Patient advised he had one 10+ years ago but never followed through with getting a machine. Patient would be interested in getting another sleep study.
--- NOTE | 2025-04-16 12:16 | INITIAL_ITS ---
Date of service: 04/16/25 Time of Service: 12:16 Care Management Initial Assmt Initial Assessment Reason for Hospitalization: acute respiratory failure with hypoxia and hypercapnia Functional Status/Living Situation Patient Presentation: Chris presented to the ED yesterday afternoon via EMS, when a friend called for him as he stated he was having trouble breathing. He reported to ED staff that this has been worsening over the course of several weeks. EMS found him to be wheezing, O2 sat 86% on room air, he arrived to ED on 10L nonrebreather mask. Chris was sitting up in the bed when CM met with him today. He was friendly with CM. He stated that he was pretty scared yesterday when he couldn't breath, and is really glad that his girlfriend called EMS for him. 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 He stated that he does wear a mask, but has only done so for the last few years. Chris was off of his O2 when CM met with him this afternoon, but he was noted to desaturate when sleeping and lying flat. PT suggested that Chris f/u with respiratory rehab. CM spoke with him regarding this, but he is unable to commit due to his work schedule. The pulmonary rehab lead is going to give CM some educational handouts to pass along. Town of Residence: [place] Resides with: Alone Significant Other/Family: Local (Good friendChantell is local. 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 Care Team Visit Care Team Role Provider Type Trey Jack MD [facility] STAFF PHYSICIAN Pierre Cardenas Primary Care Provider [employer]PLIANCE MANAGER InPatient Peter Siegel Other Providers OTHER Elizabeth Hodge MD Emergency Provider [facility] STAFF PHYSICIAN Kurt Anguiano MD Admit Provider [facility] STAFF PHYSICIAN Attending Provider Discharge Potential Discharge Needs: PCP F/U Appt Anticipated Barriers to Discharge: None Identified Patient/Family Education Needs: Review discharge instructions, discuss Ask Me Three Transportation: Private vehicle Plan: Chris will discharge home once medically stable with no new home services. He will f/u with his PCP and continue per his plan of care. CM will continue to follow. Social Determinants of Health Screening Will the Patient Participate in the Screening?: Unable to obtain PFSH All Active Problems (Updated 04/16/25 @ 14:08 by Trey Jack) Type 2 diabetes mellitus (Acute) On deep vein thrombosis (DVT) prophylaxis (Acute) Aspiration pneumonia (Acute) Tobacco dependence (Acute) Major depressive disorder, recurrent (Acute) Benign essential hypertension (Acute) Severe chronic obstructive pulmonary disease (Acute) History of hepatitis C (Acute) Alcohol withdrawal with inpatient treatment (Acute) Benzodiazepine dependence (Acute) Alcohol use disorder, severe, dependence (Acute) Opioid use disorder, severe, on maintenance therapy, dependence (Acute) Acute respiratory failure with hypoxia and hypercapnia (Acute) Internal derangement of right knee (Acute) Hypertension (Chronic) Folate deficiency (Acute) Liver disease, alcoholic (Acute) Erectile dysfunction (Acute) Decreased testosterone level (Acute) Alcohol use disorder, severe, in early remission (Acute) Intentional clonazepam overdose (Acute) DELLA (obstructive sleep apnea) (Chronic) Asthma (Chronic) Depression with anxiety (Chronic) Opiate dependence (Chronic) Medical History (Updated 04/16/25 @ 14:08 by Trey Jack) Pneumonia Hepatitis C Thrombocytopenia Ribs, multiple fractures Suicide attempt Surgical History (Updated 12/20/24 @ 11:14 by Yelitza Warner RN) History of shoulder surgery DOS 08/09/19 History of esophagogastroduodenoscopy (EGD) Social History Smoking/Tobacco Use Status: Former Tobacco Use Smoking risk assessment performed?: Yes Drug use: Occasionally Substance use type: crack/cocaine Housing: house
--- NOTE | 2025-04-16 12:19 | IN_ITS ---
PT Notes Visit Reasons: respiratory failure Physical Therapy Inpatient Initial Evaluation Date:04/16/2025 Referring Doctor: Dr Jack PT Orders: PT CONSULT:Safety Consult for D/C Precautions: Telemetry, Standard Patient Profile/Admitting Diagnosis: Patient is 50-year-old male presented to ED with SOB. Per report, patient said his last EtOH was Apr 14. Patient was seen at [facility] ED April 13 for SOB and somnolence. VBGs elevated pCO2. Pt treated with BiPAP. Pt able to transition to 2L/min NC. Patient transitioned to ICU for further medical management and monitoring of clinical symptoms. PT consult placed. PMHX: Encephalopathy (Acute) Elevated MCV (Acute) Hypokalemia (Acute) Hepatitis C (Chronic) Erectile dysfunction (Acute) Decreased testosterone level (Acute) Alcohol use disorder, severe, in early remission (Acute) Intentional clonazepam overdose (Acute) DELLA (obstructive sleep apnea) (Chronic) Asthma (Chronic) Depression with anxiety (Chronic) Opiate dependence (Chronic) Medical History (Updated 01/19/25 @ 20:53 by Glenn Torres MD) Thrombocytopenia Ribs, multiple fractures Suicide attempt Social History/Home Situation: Patient resides alone in single-family home with 6 steps to enter with bilateral rails. Patient independent ambulation without device. Independent driving independent ADLs independent shopping and meal prep. Equipment Owned/DME: none Subjective: Pt reports he has a dog that he has to take care of he denies services at home. 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 Objective: [] General Observation:young male mechoopda chested with telemetry in place. Mental Status: A+Ox4, cooperative, motivated, able to follow all instructions. agreeable to participate in PT assessment Pain: right knee 2/10 with ambulation Vitals: Monitored via telemetry throughout heart rate noted 108?117, O2 sats on 2L/min 91 to 94% ROM: [] BUE: WNL BLE WFL hip flexion limited by abdominal girth Strength: [] BUE 5/5 Right Lower Extremity: hip grossly 4/5 knee 4/5 ankle 4/5 Left Lower Extremity:hip 4/5, knee 4/5 ankle 4/5 Sensation: intact Bed Mobility/Transfers: [] Supine to sit Independent Sit to stand SBA cues for hand Stand to sit SBA cues for hand Bed to chair SBA Gait: Amb without device 90feet x 3 SBA reduced step length slow donaldo Stairs : SBA 3 4 steps and 2 6 steps with B rails reciprocal ascending step to descending leading with right foot Balance: [] Static Sitting:Normal Dynamic Sitting: good+ Static Standing: Good Dynamic Standing: Fair + Special Tests: [] Mobility Limitations Standardized Measure [] [facility] AM-PAC 6 clicks Basic Mobility Inpatient Short Form: [] Raw Score: 22 CMS Score:20.91% Informed Consent/Education: Patient instructed in purpose of PT consult. Assessment: Patient is a 50 yo male who presents with clinical signs and symptoms consistent with current/admitting diagnoses that have resulted to mobility limitations, gait instability, generalized weakness, and impairment of motor control as demonstrated by the following impairment level findings: 1. Decreased strength to BLE major muscle groups 2. Impaired standing balance 3. Impaired breath control and pacing techniques 4. pain right knee with instability 5. Impaired functional activity tolerance in standing 6. Oxygen dependent Impairments are contributing to the following functional limitations: 1. Inability to safely ambulate without assistive device 2. Increase completion time for mobility ADL performance 3. Increased fall risk 4. Difficulty performing stairs safely Patient is assessed as a moderate complexity based on the following: History: 50-year-old male with impairment level findings, functional limitations, and past medical history as indicated above Examination: Demonstrable impairment in strength, balance, and mobility level with underlying impairments and functional limitations as documented above Presentation: evolving Decision Making: moderate Goals: 1. Independent transfers all surfaces and heights without device 2. Independent ambulation > 150 feet without device 3. Independent 5 steps with B rails and manage device to safely enter and exit home 4. Demonstrate breath control with all activities to maintain sats greater than 88% Plan of Care/Treatment Plan: 1-2x/day, 7 days/week x 1 week. Plan of care has been reviewed with the GRINDING WHEEL DRESSER providing the service under Physical Therapy direction. Initiate Physical Therapy intervention for strengthening, bed mobility, transfers, gait, stairs, balance training, use of assistive device. DISCHARGE RECOMMENDATIONS: [] Home with Outpatient Pulmonary Rehab TREATMENT CODE/TIME: [id number]/ [id number] Thank you for the opportunity to participate in the care of this patient. Nelida Dick, PT [facility]
--- NOTE | 2025-04-16 13:58 | PGE_ITS ---
Date of Service Date of service: 04/16/25 Time of Service: 13:58 Assessment and Plan Assessment and plan (1) Acute respiratory failure with hypoxia and hypercapnia: Status: Acute Assessment and plan: Exacerbation of COPD, possible aspiration pneumonia, possible contribution of DELLA. Steroid had recent steroid course ended Apr 09 prior to admission 04/15. Now off BiPAP and has stabilized from respiratory standpoint. Can move to med/surg, titrate off O2 as tolerated. (2) Aspiration pneumonia: Status: Acute Assessment and plan: Presumptive, treating with unasyn (3) Severe chronic obstructive pulmonary disease: Status: Acute Assessment and plan: Home regimen includes nebulizer, symbicort 80/4.5, ventolin HFA, Appreciate pulmonology input, will need f/u PFTs and sleep study as outpatient Smoking cessation emphasized. (4) Alcohol withdrawal with inpatient treatment: Status: Acute Assessment and plan: Multiple previous episodes of withdrawal including intubations and ICU sedation Last EtOH per patient report was Apr 14, daily EtOH volume much less per patient. His course has been much more benign this admission. (5) DELLA (obstructive sleep apnea): Status: Chronic Assessment and plan: Per clinic record he has a dental device that he is to wear to help with insomnia, needs formal study as above. (6) Alcohol use disorder, severe, dependence: Status: Acute Assessment and plan: Home meds include clonidine, gabapentin Previously on acamprosate. Has cut back. Can resume this on discharge. Last EtOH Apr 14 (7) Opioid use disorder, severe, on maintenance therapy, dependence: Status: Acute Assessment and plan: Home regimen suboxone 8/2 TID, will continue (8) Benzodiazepine dependence: Status: Acute Assessment and plan: Home regimen lorazepam 1 mg BID, held for phenobarbital course. This is not a good option chronically with alcohol use disorder and h/o overdose. (9) Liver disease, alcoholic: Status: Acute Assessment and plan: Last imaging not conclusive of cirrhosis, but Fib-4 suggests this diagnosis. Will hold diuresis for now Coag panel ordered for assessment of disease (10) History of hepatitis C: Status: Acute Assessment and plan: Unclear how/when diagnosed or if treated (11) Benign essential hypertension: Status: Acute Assessment and plan: Holding home regimen carvedilol 3.125 BID, HCTZ 25 Note clonidine 0.1 mg PO QID continued as well but likely not for HTN (12) Major depressive disorder, recurrent: Status: Acute Assessment and plan: Hold home escitalopram, quetiapine for now (13) Tobacco dependence: Status: Acute Assessment and plan: PRN nicotine patch. he is motivated to quit (14) On deep vein thrombosis (DVT) prophylaxis: Status: Acute Assessment and plan: enoxaparin 30 q12h Monitor platelets (15) Type 2 diabetes mellitus: Status: Acute Assessment and plan: A1c c/w type 2 DM. Will discuss with patient, get education, consider metformin. GLP-1 would also be good option as may improve outcomes with AUD as well. Subjective Subjective Patient reports: no new complaints, feels better and tolerating a regular diet; denies nausea, vomiting or fever Interval history since last seen: Events: On BiPAP overnight He is feeling better. Less SOB. Coughing, not able to get up a lot, still feels like mucous is in his lungs. Still RODRIGUES. no chest pain. Exam Narrative Exam Narrative: General: alert and oriented, no acute distress CV: normal rate, regular rhythm, no murmur Respiratory: Normal effort lying in bed, no wheezing, no crackles, no rhonchi, no prolonged expiration GI: abd soft, non-tender, non-distended Extremities: +1 edema, no clubbing, warm, not tender Objective Last Vital Signs Temp 36.5 C 04/16/25 10:53 Pulse 101 H 04/16/25 13:01 Resp 11 L 04/16/25 13:01 BP 123/84 04/16/25 13:01 Pulse Ox 89 L 04/16/25 13:01 Laboratory Results - last 24 hr 04/15/25 04/15/25 04/15/25 12:44 14:00 14:55 WBC RBC Hgb Hct MCV MCH MCHC RDW Plt Count MPV Immature Gran % Neutrophils % Lymphocytes % Monocytes % Eosinophils % Basophils % Nucleated RBC % Absolute Neutrophils Absolute Lymphocytes Absolute Monocytes Absolute Eosinophils Absolute Basophils Sample Site ABG pH ABG pCO2 ABG pO2 ABG HCO3 ABG Total CO2 ABG O2 Saturation ABG Base Excess VBG pH 7.33 VBG pCO2 63 H* 64 H* VBG pO2 42 VBG HCO3 34 H VBG Total CO2 31 H VBG O2 Saturation 73 VBG Base Excess 8 H FiO2 (liters per min) Sodium Potassium Chloride Carbon Dioxide Anion Gap BUN Creatinine Est GFR (CKD-EPI 2020) Glucose Hemoglobin A1c Calcium Total Bilirubin AST ALT Alkaline Phosphatase Total Protein Albumin Urine Opiates Screen Urine Methadone Screen Ur Barbiturates Screen Ur Tricyclics Screen Ur Amphetamines Screen U Benzodiazepines Scrn Urine Cocaine Screen Ur THC Screen COVID-19 Source Nasopharynx SARS-CoV-2 (PCR) Negative Influenza Type A (PCR) Negative Influenza Type B (PCR) Negative RSV (PCR) Negative 04/15/25 04/15/25 04/16/25 16:05 17:00 00:50 WBC RBC Hgb Hct MCV MCH MCHC RDW Plt Count MPV Immature Gran % Neutrophils % Lymphocytes % Monocytes % Eosinophils % Basophils % Nucleated RBC % Absolute Neutrophils Absolute Lymphocytes Absolute Monocytes Absolute Eosinophils Absolute Basophils Sample Site ABG pH ABG pCO2 ABG pO2 ABG HCO3 ABG Total CO2 ABG O2 Saturation ABG Base Excess VBG pH 7.36 7.36 7.35 VBG pCO2 56 H 54 H 60 H VBG pO2 79 91 33 VBG HCO3 32 H 31 H 33 H VBG Total CO2 29 28 30 H VBG O2 Saturation 96 98 58 VBG Base Excess 7 H 6 H 7 H FiO2 (liters per min) Sodium Potassium Chloride Carbon Dioxide Anion Gap BUN Creatinine Est GFR (CKD-EPI 2020) Glucose Hemoglobin A1c Calcium Total Bilirubin AST ALT Alkaline Phosphatase Total Protein Albumin Urine Opiates Screen Urine Methadone Screen Ur Barbiturates Screen Ur Tricyclics Screen Ur Amphetamines Screen U Benzodiazepines Scrn Urine Cocaine Screen Ur THC Screen COVID-19 Source SARS-CoV-2 (PCR) Influenza Type A (PCR) Influenza Type B (PCR) RSV (PCR) 04/16/25 04/16/25 04/16/25 02:28 05:54 10:15 WBC 3.91 L RBC 3.60 L Hgb 12.4 L Hct 36.9 L MCV 103 H MCH 34.4 H MCHC 33.6 RDW 12.2 Plt Count 125 L MPV 9.9 Immature Gran % 1.0 Neutrophils % 80.1 Lymphocytes % 14.3 Monocytes % 4.3 Eosinophils % 0.0 Basophils % 0.3 Nucleated RBC % 0.0 Absolute Neutrophils 3.13 Absolute Lymphocytes 0.56 L Absolute Monocytes 0.17 Absolute Eosinophils 0.00 Absolute Basophils 0.01 Sample Site Left Radial ABG pH 7.38 ABG pCO2 45 ABG pO2 66 L ABG HCO3 27 H ABG Total CO2 28 H ABG O2 Saturation 92 L ABG Base Excess 2 VBG pH VBG pCO2 VBG pO2 VBG HCO3 VBG Total CO2 VBG O2 Saturation VBG Base Excess FiO2 (liters per min) 2 Sodium 140 Potassium 4.0 Chloride 102 Carbon Dioxide 32.1 H Anion Gap 5.9 BUN 13 Creatinine 0.8 Est GFR (CKD-EPI 2020) 107.15 Glucose 171 H Hemoglobin A1c 6.9 H Calcium 8.9 Total Bilirubin 0.6 AST 31 ALT 59 Alkaline Phosphatase 62 Total Protein 6.7 Albumin 3.0 L Urine Opiates Screen Negative Urine Methadone Screen Negative Ur Barbiturates Screen Negative Ur Tricyclics Screen Positive A Ur Amphetamines Screen Negative U Benzodiazepines Scrn Negative Urine Cocaine Screen Negative Ur THC Screen Negative COVID-19 Source SARS-CoV-2 (PCR) Influenza Type A (PCR) Influenza Type B (PCR) RSV (PCR) PAWSS Have you Been Recently Intoxicated or Drunk Within the Last 30 days?: Yes Have you Ever Experienced Previous Episodes of Alcohol Withdrawal?: Yes Have you ever Experienced Withdrawal Seizures?: Yes Have you ever Experienced Delirium Tremens(DT)s?: Yes Have you ever Experienced Blackouts?: No Have you ever Combined Alcohol with other Downers within the last 90 days?: No Have you ever Combined Alcohol with any other Substance of Abuse during the last 90 days?: No Positive Blood Alcohol level on Presentation? [PCS.BAL]: No Evidence of Increased Autonomic Activity (i.e. HR>120, tremor, sweating, agitation, nausea)?: No Result: 4 Time Spent with Patient Time Spent with Patient: >50 minutes Time was spent: preparing to see the patient(eg.review tests), obtaining and/or reviewing separately otained hiistory, ordering medications,tests, procedures, referring, communicating with other health progressive care manager, indepentently interpreting results, counseling the patient and care coordination
[2025-04-16] MEDS: Polyethylene Glycol 3350 17 GM PACKET PO (15:48)
--- NOTE | 2025-04-16 15:49 | PT.INTREAT ---
PT Notes Visit Reasons: respiratory failure Date: 04/16/2025 PRECAUTIONS: Fall, Telemetry, Standard SUBJECTIVE: Pt in bed when approached for therapy this afternoon, pt agreed to participating with therapy session, pt happy about being able to walk arou nd without needing O2 support. OBJECTIVE: RODRIGUES, while in bed, telemetry, distended abdominal area. ? PAIN: Knee pain VITALS: monitored by ICU nurse via telemetry, SA02 monitored during walking and exercise. Therapeutic Activities [id number]: Direct one-on-one instruction in dynamic activities to improve functional performance. ?? BED MOBILITY/TRANSFERS? Rolling L/R: independent Supine-sit: ? ?independent ? Sit-supine: ? independent ? Sit-stand: ? independent? Stand-sit: ?? independent? Bed-Chair:? ? SBA? Chair-bed: SBA Provided skilled cues and instruction on performance and technique throughout. Gait Training 33674: Direct one-on-one instruction and skilled instruction in: Movement sequencing Turning and movement with proper form Provided instruction in gait pattern Patient education regarding pacing and breathing techniques to maximize activity tolerance? GAIT? Assistive Device: ?? ? no AD? Weight bearing: FWB Assist: ? SBA ? Distance:?? 300' x2 seated rest break in between ? Deviation: ? slow donaldo, short step height? Stairs : SBA 3 4 steps and 2 6 steps with B rails reciprocal ascending step to descending leading with right foot? Therapeutic Exercises 35049: Direct one-on-one instruction in therapeutic exercises to develop strength, endurance, range of motion and flexibility. Exercises Sit to stand [id number] Seated march [id number] Seated LAQ [id number] Seated Hip abduction [id number] Toilet mobility with cue for safety strategies while in the toilet. Provided skilled instruction in proper exercise performance Provided skilled manual cues to facilitate proper muscle recruitment and/or form: ASSESSMENT:?pt tolerated activity well, Sao2 stayed at low 90's during the duration of session, pt education about energy conservation strategies and DBE to help with SOB and safety during transfers and ambulation. PLAN: Continue with balance training, global strengthening and general conditioning for improved safety, mobility and activity tolerance until pt is ready for DC. TREATMENT CODE/TIME: [id number], [id number] 25mins (1:30-1:55pm)
--- NOTE | 2025-04-16 16:54 | PHA.REVIEW2 ---
Pharmacy Admission Review Admission Clinical Review Admission Pharmacy Review: Type 2 diabetes mellitus (Acute) On deep vein thrombosis (DVT) prophylaxis (Acute) Aspiration pneumonia (Acute) Tobacco dependence (Acute) Major depressive disorder, recurrent (Acute) Benign essential hypertension (Acute) Severe chronic obstructive pulmonary disease (Acute) History of hepatitis C (Acute) Alcohol withdrawal with inpatient treatment (Acute) Benzodiazepine dependence (Acute) Alcohol use disorder, severe, dependence (Acute) Opioid use disorder, severe, on maintenance therapy, dependence (Acute) Acute respiratory failure with hypoxia and hypercapnia (Acute) Liver disease, alcoholic (Acute) cat dander Allergy (Mild, Verified 04/09/25 11:04) Wheezing dog dander Allergy (Mild, Verified 04/09/25 11:04) Wheezing Environmental Allergy (Intermediate, Uncoded 04/09/25 11:04) Asthma Exacerbation Resuscitation Status Full Code Height 6 ft 2 in Weight 143 kg Pharmacy Admission Review Renal Dosing Renal Dosing: BUN 13 mg/dL (7-18) 04/16/25 05:54 Creatinine 0.8 mg/dL (0.70-1.30) 04/16/25 05:54 Medications needing adjustments: Reviewed List of meds needing interventions: No med adjusted needed Anticoagulation Anticoagulation: Hgb 12.4 g/dL (13.5-17.5) L 04/16/25 05:54 Hct 36.9 % (40.0-50.0) L 04/16/25 05:54 Plt Count 125 10^3/uL (130-400) L 04/16/25 05:54 Creatinine 0.8 mg/dL (0.70-1.30) 04/16/25 05:54 DVT Prophylaxis: Reviewed (will mention to provider can increase to 40mg bid for BMI=40) Opiate Usage Evaluate Pain Scale/Pains Meds: Reviewed (ON HOME SUBOXONE) Scheduled Bowel Reg ordered if on Opiates?: Yes Relevant Labs Relevant Labs: Sodium 140 mmol/L (136-145) 04/16/25 05:54 Potassium 4.0 mmol/L (3.5-5.1) 04/16/25 05:54 Chloride 102 mmol/L (98-107) 04/16/25 05:54 Magnesium 1.8 mg/dL (1.8-2.4) 04/15/25 11:52 Electrolytes, C-Reactive P, ESR: Reviewed (NO INTERVENTION) DM Control DM Control: PT newsly diagnosed DM type 2 per A1C=6.9. Plan is to educated patient and initiate rx therapy upon d/c. Cardiac Review Cardiac Review: reviewed BP and HR. No intervention Troponin I Cancelled 04/15/25 14:32 NT-Pro-B Natriuret Pep 116 pg/mL (<300) 04/15/25 11:52 BP, HR, EF%: Reviewed QTc Review QTc: Reviewed List meds needing interventions: [id number]. no intervention. IV to PO Switch IV Medications: Reviewed (pt is taking po's. no meds to switch. ) Home Meds Home Med List reviewed: Reviewed Relevent Home Meds Not ordered & why?: lorazepam held while on phenobarbital for etoh w/d; escitalopram held, carvedilol and HCTZ held for now; Current Meds Current Medication Order Review: Reviewed Pharmacy Antibiotic Review Pharmacy Antibiotic Activity: 48 hour review Comments: reviewed. on augmentin for aspiration pneumonia coverage. SOAP Assessment: on phenobarbital for etoh w/d. Soft zcay=[id number]. hard yfys=[id number]. Using IBW=82kg; pt has received loading dose of 500mg; no prns.
[2025-04-16] MEDS: Nicotine 21 MG/24 HR PATCH TD (18:32)
[2025-04-16] MEDS: Sennosides/Docusate Sodium TAB 1 TAB PO (20:10)
[2025-04-17] MEDS: PHENobarbital 130 MG/ML VIAL IVP ×2 (00:59→08:35)
[2025-04-17] MEDS: Gabapentin 600 MG TAB PO ×2 (00:59→08:28)
[2025-04-17] MEDS: cloNIDine 0.1 MG TAB PO ×2 (00:59→06:38)
[2025-04-17] MEDS: Albuterol/Ipratropium 3 ML UPD VIAL UPD ×2 (01:45→08:44)
[2025-04-17] MEDS: Enoxaparin 40 MG/0.4 ML SYR SC (02:09)
[2025-04-17 03:34] VITALS: PULSE 94; O2SAT 92
[2025-04-17 03:35] VITALS: BP 134/97; PULSE 91; TEMP 36.2
[2025-04-17 07:00] LABS: Abs Immature Grans 0.08 10^3/uL (0.0-0.06); HCT 35.8 % (40.0-50.0); HGB 12.2 g/dL (13.5-17.5); Immature Grans % 1.7 %; MCH 34.7 pg (27.0-33.0); MCHC 34.1 % (32.0-36.0); MCV 102 fL (80-95); MPV 9.6 fL (8.0-11.0); Platelet Count 119 10^3/uL (130-400); RBC 3.52 10^6/uL (4.36-5.78); RDW 12.2 % (11.8-14.1); RDW-SD 46.0 fL; WBC 4.72 10^3/uL (4.4-10.8)
[2025-04-17 07:18] LABS: ALT 47 U/L (16-63); AST 20 U/L (15-37); Albumin 2.6 g/dL (3.4-5.0); Alkaline Phosphatase 53 U/L (46-116); Anion Gap 7.9 mmol/L (3-11); BUN 15 mg/dL (7-18); Bilirubin, Total 0.4 mg/dL (0.2-1.0); CO2 31.1 mmol/L (21.0-32.0); Calcium 8.8 mg/dL (8.5-10.1); Chloride 104 mmol/L (98-107); Estimated GFR 107.15 (mL/min/1.73m2); Glucose 130 mg/dL (74-106); Potassium 3.5 mmol/L (3.5-5.1); Sodium 143 mmol/L (136-145); Total Protein 6.0 g/dL (6.4-8.2)
--- NOTE | 2025-04-17 07:58 | W.PULMPROG ---
General Date Of Service Date of service: 04/16/25 Time of Service: 07:00 Requesting physician: Kurt Anguiano Reason for Consult: Respiratory failure Recommendations: Assessment: 1. COPD exacerbation - no prior PFT's available - improved 2. EtOH withdrawal - improved 3. Chronic hypercapneic respiratory failure - ABG showed PCO2 45 baseline 4. Tobacco abuse 5. DELLA - last PSG ~ 10 years prior. Does not have home NIV Recommendations: - can discharge with prednisone 50 mg daily and augmentin 875mg BID for 3 more days - resume symbicort 160 BID, duoneb PRN, and albuterol PRN upon discharge - will arrange for outpatient pulm follow up - will need sleep study as outpatient, which we can arrange for in clinic - he plans to start nicotine patches to help with tobacco cessation - OK for discharge from a pulmonary standpoint Subjective 24 Hour Events: Dyspnea and cough improved. Has been ambulatory. Mild sputum production this AM. On room air. Note Note: Patient is a 50 yo with a history of COPD, DELLA, morbid obesity, ETOH abuse and tobacco abuse, who was admitted on 04/15 for worsening dyspnea and somnolence. Reported a several day history of worsening dyspnea and productive cough. Was treated with BiPAP, systemic steroids, bronchodilators, and phenobarbitol (for withdrawal) with improvement in his symptoms. Off BiPAP this AM. Dyspnea has significantly improved. Has some LE swelling, which has also improved. He smokes 1 ppd. States that he drinks 2 pints of beer daily. Has had multiple admissions over the past year and required intubation in 01/2024 and 12/2024 for respiratory failure / alcohol withdrawal. He uses symbicort 160 BID, PRN duoneb, and PRN albuterol for COPD management as an outpatient. Outside PFT 04/2025: ratio 46, FEV1 65, FVC 105, DLCO unreliable ROS: 6 pt ROS negative except as above Exam Narrative Exam Narrative: General: alert, no acute distress Head: normocephalic ENT: no stridor, trachea midline CV: normal rate, regular rhythm Respiratory: no wheezing, no crackles, no rhonchi, no prolonged expiration GI: abd soft, non-tender, non-distended Skin: no rashes Extremities: +1 edema, [] digital clubbing Psych: normal affect Objective Last Vital Signs Temp 36.2 C L 04/17/25 03:35 Pulse 91 H 04/17/25 03:35 Resp 18 04/16/25 20:00 BP 134/97 H 04/17/25 03:35 Pulse Ox 92 04/17/25 03:34 Laboratory Results - last 24 hr 04/16/25 04/17/25 10:15 05:53 WBC 4.72 RBC 3.52 L Hgb 12.2 L Hct 35.8 L MCV 102 H MCH 34.7 H MCHC 34.1 RDW 12.2 Plt Count 119 L MPV 9.6 Immature Gran % 1.7 Neutrophils % 62.9 Lymphocytes % 26.9 Monocytes % 8.3 Eosinophils % 0.2 Basophils % 0.0 Nucleated RBC % 0.0 Absolute Neutrophils 2.97 Absolute Lymphocytes 1.27 Absolute Monocytes 0.39 Absolute Eosinophils 0.01 Absolute Basophils 0.00 Sample Site Left Radial ABG pH 7.38 ABG pCO2 45 ABG pO2 66 L ABG HCO3 27 H ABG Total CO2 28 H ABG O2 Saturation 92 L ABG Base Excess 2 FiO2 (liters per min) 2 Sodium 143 Potassium 3.5 Chloride 104 Carbon Dioxide 31.1 Anion Gap 7.9 BUN 15 Creatinine 0.8 Est GFR (CKD-EPI 2020) 107.15 Glucose 130 H Calcium 8.8 Total Bilirubin 0.4 AST 20 ALT 47 Alkaline Phosphatase 53 Total Protein 6.0 L Albumin 2.6 L Results Medications Medications: Active Medications Generic Name Dose Route Start Last Admin Trade Name Freq PRN Reason Stop Dose Admin Albuterol/Ipratropium 3 ml 04/15/25 14:00 04/17/25 01:45 Albuterol/Ipratropium 3 Ml Upd Vial UPD 3 ml Q6H ARNIE Administration Amoxicillin/Clavulanate Potassium 1 tab 04/16/25 08:30 04/16/25 20:10 Amoxicillin 875/Clav. 125 Tab PO 1 tab BID ARNIE Administration Buprenorphine/Naloxone 1 each 04/16/25 08:30 04/16/25 07:47 Buprenorphine/Naloxone 8 Mg/2 Mg Film SL 1 each DAILY ARNIE Administration Clonidine 0.1 mg 04/16/25 01:00 04/17/25 06:38 Clonidine 0.1 Mg Tab PO 0.1 mg Q6H ARNIE Administration Enoxaparin Sodium 40 mg 04/17/25 02:00 04/17/25 02:09 Enoxaparin 40 Mg/0.4 Ml Syr SC 40 mg Q12H ARNIE Administration Gabapentin 600 mg 04/16/25 01:00 04/17/25 00:59 Gabapentin 600 Mg Tab PO 600 mg Q8H ARNIE Administration IV Miscellaneous Supplies 1 each 04/15/25 11:45 [facility] Dept IV DIRECTED ARNIE Nicotine 21 mg 04/15/25 13:32 04/16/25 18:32 Nicotine 21 Mg/24 Hr Patch TD 21 mg DAILY PRN PRN Administration Phenobarbital Sodium 130 mg 04/16/25 13:11 04/17/25 00:59 Phenobarbital 130 Mg/Ml Vial IVP 130 mg DIRECTED PRN Administration for mild anxiety/agitation Polyethylene Glycol 17 gm 04/16/25 15:28 04/16/25 15:48 Polyethylene Glycol 3350 17 Gm Packet PO 17 gm DAILY PRN PRN Administration Prednisone 60 mg 04/16/25 08:30 04/16/25 08:44 Prednisone 20 Mg Tab PO 60 mg DAILY ARNIE Administration Senna/Docusate Sodium 1 tab 04/16/25 20:00 04/16/25 20:10 Sennosides/Docusate Sodium Tab PO 1 tab BID ARNIE Administration Sodium Chloride 0 ml 04/15/25 11:32 04/16/25 03:55 Normal Saline Flush 10 Ml Syr IVP 40 ml PRN PRN Administration Sodium Chloride 0 ml 04/15/25 20:00 04/16/25 20:11 Normal Saline Flush 10 Ml Syr IVP 20 ml BID ARNIE Administration Sodium Chloride 0 ml 04/15/25 11:32 Normal Saline 10 Ml Vial IJ DIRECTED PRN Allergies cat dander Allergy (Mild, Verified 04/09/25 11:04) Wheezing dog dander Allergy (Mild, Verified 04/09/25 11:04) Wheezing Environmental Allergy (Intermediate, Uncoded 04/09/25 11:04) Asthma Exacerbation Labs 04/17/25 05:53 04/17/25 05:53 Labs: Laboratory Tests Range/Units 04/15/25 04/15/25 04/15/25 11:52 12:03 12:44 WBC (4.4-10.8) 10^3/uL 3.99 L RBC (4.36-5.78) 10^6/uL 3.77 L Hgb (13.5-17.5) g/dL 13.2 L Hct (40.0-50.0) % 39.4 L MCV (80-95) fL 105 H MCH (27.0-33.0) pg 35.0 H MCHC (32.0-36.0) % 33.5 RDW (11.8-14.1) % 12.5 Plt Count (130-400) 10^3/uL 120 L MPV (8.0-11.0) fL 9.4 Immature Gran % % 1.0 Neutrophils % % 47.1 Lymphocytes % % 36.3 Monocytes % % 13.0 Eosinophils % % 1.8 Basophils % % 0.8 Nucleated RBC % (0.0-0.3) % 0.0 Absolute Neutrophils (1.2-6.7) 10^3/uL 1.88 Absolute Lymphocytes (1.2-3.4) 10^3/uL 1.45 Absolute Monocytes (0.1-0.8) 10^3/uL 0.52 Absolute Eosinophils (0.0-0.7) 10^3/uL 0.07 Absolute Basophils (0.0-0.2) 10^3/uL 0.03 Sample Site ABG pH (7.35-7.45) ABG pCO2 (35-45) mmhG ABG pO2 (80-105) mmHg ABG HCO3 (22-26) mmol/L ABG Total CO2 (23-27) mmol/L ABG O2 Saturation (95-98) % ABG Base Excess (-2-3) mmol/L VBG pH (7.31-7.41) 7.38 7.33 VBG pCO2 (41-51) mmHg 55 H 63 H* VBG pO2 mmHg 73 64 VBG HCO3 (23-28) mmol/L 32 H 33 H VBG Total CO2 (24-29) mmol/L 29 30 H VBG O2 Saturation % 96 91 VBG Base Excess (-2-3) mmol/L 7 H 7 H FiO2 (liters per min) L Sodium (136-145) mmol/L 139 Potassium (3.5-5.1) mmol/L 4.4 Chloride (98-107) mmol/L 101 Carbon Dioxide (21.0-32.0) mmol/L 33.3 H Anion Gap (3-11) mmol/L 4.7 BUN (7-18) mg/dL 11 Creatinine (0.70-1.30) mg/dL 0.9 Est GFR (CKD-EPI 2020) (mL/min/1.73m2) 103.40 Glucose (74-106) mg/dL 146 H Hemoglobin A1c (<5.7) % Calcium (8.5-10.1) mg/dL 9.1 Magnesium (1.8-2.4) mg/dL 1.8 Total Bilirubin (0.2-1.0) mg/dL 0.8 AST (15-37) U/L 47 H ALT (16-63) U/L 72 H Alkaline Phosphatase (46-116) U/L 74 Ammonia (11-32) umol/L 28 Troponin I (<or=76) ng/L 10 10 NT-Pro-B Natriuret Pep (<300) pg/mL 116 Total Protein (6.4-8.2) g/dL 7.1 Albumin (3.4-5.0) g/dL 3.3 L Urine Opiates Screen (Negative) Urine Methadone Screen (Negative) Ur Barbiturates Screen (Negative) Ur Tricyclics Screen (Negative) Ur Amphetamines Screen (Negative) U Benzodiazepines Scrn (Negative) Urine Cocaine Screen (Negative) Ur THC Screen (Negative) Ethyl Alcohol (<10) mg/dL < 3.0 COVID-19 Source SARS-CoV-2 (PCR) (Negative) Influenza Type A (PCR) (Negative) Influenza Type B (PCR) (Negative) RSV (PCR) (Negative) Range/Units 04/15/25 04/15/25 04/15/25 14:00 14:32 14:55 WBC (4.4-10.8) 10^3/uL RBC (4.36-5.78) 10^6/uL Hgb (13.5-17.5) g/dL Hct (40.0-50.0) % MCV (80-95) fL MCH (27.0-33.0) pg MCHC (32.0-36.0) % RDW (11.8-14.1) % Plt Count (130-400) 10^3/uL MPV (8.0-11.0) fL Immature Gran % % Neutrophils % % Lymphocytes % % Monocytes % % Eosinophils % % Basophils % % Nucleated RBC % (0.0-0.3) % Absolute Neutrophils (1.2-6.7) 10^3/uL Absolute Lymphocytes (1.2-3.4) 10^3/uL Absolute Monocytes (0.1-0.8) 10^3/uL Absolute Eosinophils (0.0-0.7) 10^3/uL Absolute Basophils (0.0-0.2) 10^3/uL Sample Site ABG pH (7.35-7.45) ABG pCO2 (35-45) mmhG ABG pO2 (80-105) mmHg ABG HCO3 (22-26) mmol/L ABG Total CO2 (23-27) mmol/L ABG O2 Saturation (95-98) % ABG Base Excess (-2-3) mmol/L VBG pH (7.31-7.41) 7.33 VBG pCO2 (41-51) mmHg 64 H* VBG pO2 mmHg 42 VBG HCO3 (23-28) mmol/L 34 H VBG Total CO2 (24-29) mmol/L 31 H VBG O2 Saturation % 73 VBG Base Excess (-2-3) mmol/L 8 H FiO2 (liters per min) L Sodium (136-145) mmol/L Potassium (3.5-5.1) mmol/L Chloride (98-107) mmol/L Carbon Dioxide (21.0-32.0) mmol/L Anion Gap (3-11) mmol/L BUN (7-18) mg/dL Creatinine (0.70-1.30) mg/dL Est GFR (CKD-EPI 2020) (mL/min/1.73m2) Glucose (74-106) mg/dL Hemoglobin A1c (<5.7) % Calcium (8.5-10.1) mg/dL Magnesium (1.8-2.4) mg/dL Total Bilirubin (0.2-1.0) mg/dL AST (15-37) U/L ALT (16-63) U/L Alkaline Phosphatase (46-116) U/L Ammonia (11-32) umol/L Troponin I (<or=76) ng/L Cancelled NT-Pro-B Natriuret Pep (<300) pg/mL Total Protein (6.4-8.2) g/dL Albumin (3.4-5.0) g/dL Urine Opiates Screen (Negative) Urine Methadone Screen (Negative) Ur Barbiturates Screen (Negative) Ur Tricyclics Screen (Negative) Ur Amphetamines Screen (Negative) U Benzodiazepines Scrn (Negative) Urine Cocaine Screen (Negative) Ur THC Screen (Negative) Ethyl Alcohol (<10) mg/dL COVID-19 Source Nasopharynx SARS-CoV-2 (PCR) (Negative) Negative Influenza Type A (PCR) (Negative) Negative Influenza Type B (PCR) (Negative) Negative RSV (PCR) (Negative) Negative Range/Units 04/15/25 04/15/25 04/16/25 16:05 17:00 00:50 WBC (4.4-10.8) 10^3/uL RBC (4.36-5.78) 10^6/uL Hgb (13.5-17.5) g/dL Hct (40.0-50.0) % MCV (80-95) fL MCH (27.0-33.0) pg MCHC (32.0-36.0) % RDW (11.8-14.1) % Plt Count (130-400) 10^3/uL MPV (8.0-11.0) fL Immature Gran % % Neutrophils % % Lymphocytes % % Monocytes % % Eosinophils % % Basophils % % Nucleated RBC % (0.0-0.3) % Absolute Neutrophils (1.2-6.7) 10^3/uL Absolute Lymphocytes (1.2-3.4) 10^3/uL Absolute Monocytes (0.1-0.8) 10^3/uL Absolute Eosinophils (0.0-0.7) 10^3/uL Absolute Basophils (0.0-0.2) 10^3/uL Sample Site ABG pH (7.35-7.45) ABG pCO2 (35-45) mmhG ABG pO2 (80-105) mmHg ABG HCO3 (22-26) mmol/L ABG Total CO2 (23-27) mmol/L ABG O2 Saturation (95-98) % ABG Base Excess (-2-3) mmol/L VBG pH (7.31-7.41) 7.36 7.36 7.35 VBG pCO2 (41-51) mmHg 56 H 54 H 60 H VBG pO2 mmHg 79 91 33 VBG HCO3 (23-28) mmol/L 32 H 31 H 33 H VBG Total CO2 (24-29) mmol/L 29 28 30 H VBG O2 Saturation % 96 98 58 VBG Base Excess (-2-3) mmol/L 7 H 6 H 7 H FiO2 (liters per min) L Sodium (136-145) mmol/L Potassium (3.5-5.1) mmol/L Chloride (98-107) mmol/L Carbon Dioxide (21.0-32.0) mmol/L Anion Gap (3-11) mmol/L BUN (7-18) mg/dL Creatinine (0.70-1.30) mg/dL Est GFR (CKD-EPI 2020) (mL/min/1.73m2) Glucose (74-106) mg/dL Hemoglobin A1c (<5.7) % Calcium (8.5-10.1) mg/dL Magnesium (1.8-2.4) mg/dL Total Bilirubin (0.2-1.0) mg/dL AST (15-37) U/L ALT (16-63) U/L Alkaline Phosphatase (46-116) U/L Ammonia (11-32) umol/L Troponin I (<or=76) ng/L NT-Pro-B Natriuret Pep (<300) pg/mL Total Protein (6.4-8.2) g/dL Albumin (3.4-5.0) g/dL Urine Opiates Screen (Negative) Urine Methadone Screen (Negative) Ur Barbiturates Screen (Negative) Ur Tricyclics Screen (Negative) Ur Amphetamines Screen (Negative) U Benzodiazepines Scrn (Negative) Urine Cocaine Screen (Negative) Ur THC Screen (Negative) Ethyl Alcohol (<10) mg/dL COVID-19 Source SARS-CoV-2 (PCR) (Negative) Influenza Type A (PCR) (Negative) Influenza Type B (PCR) (Negative) RSV (PCR) (Negative) Range/Units 04/16/25 04/16/25 04/16/25 02:28 05:54 10:15 WBC (4.4-10.8) 10^3/uL 3.91 L RBC (4.36-5.78) 10^6/uL 3.60 L Hgb (13.5-17.5) g/dL 12.4 L Hct (40.0-50.0) % 36.9 L MCV (80-95) fL 103 H MCH (27.0-33.0) pg 34.4 H MCHC (32.0-36.0) % 33.6 RDW (11.8-14.1) % 12.2 Plt Count (130-400) 10^3/uL 125 L MPV (8.0-11.0) fL 9.9 Immature Gran % % 1.0 Neutrophils % % 80.1 Lymphocytes % % 14.3 Monocytes % % 4.3 Eosinophils % % 0.0 Basophils % % 0.3 Nucleated RBC % (0.0-0.3) % 0.0 Absolute Neutrophils (1.2-6.7) 10^3/uL 3.13 Absolute Lymphocytes (1.2-3.4) 10^3/uL 0.56 L Absolute Monocytes (0.1-0.8) 10^3/uL 0.17 Absolute Eosinophils (0.0-0.7) 10^3/uL 0.00 Absolute Basophils (0.0-0.2) 10^3/uL 0.01 Sample Site Left Radial ABG pH (7.35-7.45) 7.38 ABG pCO2 (35-45) mmhG 45 ABG pO2 (80-105) mmHg 66 L ABG HCO3 (22-26) mmol/L 27 H ABG Total CO2 (23-27) mmol/L 28 H ABG O2 Saturation (95-98) % 92 L ABG Base Excess (-2-3) mmol/L 2 VBG pH (7.31-7.41) VBG pCO2 (41-51) mmHg VBG pO2 mmHg VBG HCO3 (23-28) mmol/L VBG Total CO2 (24-29) mmol/L VBG O2 Saturation % VBG Base Excess (-2-3) mmol/L FiO2 (liters per min) L 2 Sodium (136-145) mmol/L 140 Potassium (3.5-5.1) mmol/L 4.0 Chloride (98-107) mmol/L 102 Carbon Dioxide (21.0-32.0) mmol/L 32.1 H Anion Gap (3-11) mmol/L 5.9 BUN (7-18) mg/dL 13 Creatinine (0.70-1.30) mg/dL 0.8 Est GFR (CKD-EPI 2020) (mL/min/1.73m2) 107.15 Glucose (74-106) mg/dL 171 H Hemoglobin A1c (<5.7) % 6.9 H Calcium (8.5-10.1) mg/dL 8.9 Magnesium (1.8-2.4) mg/dL Total Bilirubin (0.2-1.0) mg/dL 0.6 AST (15-37) U/L 31 ALT (16-63) U/L 59 Alkaline Phosphatase (46-116) U/L 62 Ammonia (11-32) umol/L Troponin I (<or=76) ng/L NT-Pro-B Natriuret Pep (<300) pg/mL Total Protein (6.4-8.2) g/dL 6.7 Albumin (3.4-5.0) g/dL 3.0 L Urine Opiates Screen (Negative) Negative Urine Methadone Screen (Negative) Negative Ur Barbiturates Screen (Negative) Negative Ur Tricyclics Screen (Negative) Positive A Ur Amphetamines Screen (Negative) Negative U Benzodiazepines Scrn (Negative) Negative Urine Cocaine Screen (Negative) Negative Ur THC Screen (Negative) Negative Ethyl Alcohol (<10) mg/dL COVID-19 Source SARS-CoV-2 (PCR) (Negative) Influenza Type A (PCR) (Negative) Influenza Type B (PCR) (Negative) RSV (PCR) (Negative) Range/Units 04/17/25 05:53 WBC (4.4-10.8) 10^3/uL 4.72 RBC (4.36-5.78) 10^6/uL 3.52 L Hgb (13.5-17.5) g/dL 12.2 L Hct (40.0-50.0) % 35.8 L MCV (80-95) fL 102 H MCH (27.0-33.0) pg 34.7 H MCHC (32.0-36.0) % 34.1 RDW (11.8-14.1) % 12.2 Plt Count (130-400) 10^3/uL 119 L MPV (8.0-11.0) fL 9.6 Immature Gran % % 1.7 Neutrophils % % 62.9 Lymphocytes % % 26.9 Monocytes % % 8.3 Eosinophils % % 0.2 Basophils % % 0.0 Nucleated RBC % (0.0-0.3) % 0.0 Absolute Neutrophils (1.2-6.7) 10^3/uL 2.97 Absolute Lymphocytes (1.2-3.4) 10^3/uL 1.27 Absolute Monocytes (0.1-0.8) 10^3/uL 0.39 Absolute Eosinophils (0.0-0.7) 10^3/uL 0.01 Absolute Basophils (0.0-0.2) 10^3/uL 0.00 Sample Site ABG pH (7.35-7.45) ABG pCO2 (35-45) mmhG ABG pO2 (80-105) mmHg ABG HCO3 (22-26) mmol/L ABG Total CO2 (23-27) mmol/L ABG O2 Saturation (95-98) % ABG Base Excess (-2-3) mmol/L VBG pH (7.31-7.41) VBG pCO2 (41-51) mmHg VBG pO2 mmHg VBG HCO3 (23-28) mmol/L VBG Total CO2 (24-29) mmol/L VBG O2 Saturation % VBG Base Excess (-2-3) mmol/L FiO2 (liters per min) L Sodium (136-145) mmol/L 143 Potassium (3.5-5.1) mmol/L 3.5 Chloride (98-107) mmol/L 104 Carbon Dioxide (21.0-32.0) mmol/L 31.1 Anion Gap (3-11) mmol/L 7.9 BUN (7-18) mg/dL 15 Creatinine (0.70-1.30) mg/dL 0.8 Est GFR (CKD-EPI 2020) (mL/min/1.73m2) 107.15 Glucose (74-106) mg/dL 130 H Hemoglobin A1c (<5.7) % Calcium (8.5-10.1) mg/dL 8.8 Magnesium (1.8-2.4) mg/dL Total Bilirubin (0.2-1.0) mg/dL 0.4 AST (15-37) U/L 20 ALT (16-63) U/L 47 Alkaline Phosphatase (46-116) U/L 53 Ammonia (11-32) umol/L Troponin I (<or=76) ng/L NT-Pro-B Natriuret Pep (<300) pg/mL Total Protein (6.4-8.2) g/dL 6.0 L Albumin (3.4-5.0) g/dL 2.6 L Urine Opiates Screen (Negative) Urine Methadone Screen (Negative) Ur Barbiturates Screen (Negative) Ur Tricyclics Screen (Negative) Ur Amphetamines Screen (Negative) U Benzodiazepines Scrn (Negative) Urine Cocaine Screen (Negative) Ur THC Screen (Negative) Ethyl Alcohol (<10) mg/dL COVID-19 Source SARS-CoV-2 (PCR) (Negative) Influenza Type A (PCR) (Negative) Influenza Type B (PCR) (Negative) RSV (PCR) (Negative) Imaging Chest x-ray: report reviewed and image reviewed
[2025-04-17] MEDS: Amoxicillin 875/Clav. 125 TAB PO (08:29)
[2025-04-17] MEDS: Normal Saline Flush 10 ML SYR IVP (08:29)
[2025-04-17] MEDS: predniSONE 20 MG TAB 60 MG PO (08:29)
[2025-04-17] MEDS: Polyethylene Glycol 3350 17 GM PACKET PO (08:29)
[2025-04-17] MEDS: Sennosides/Docusate Sodium TAB 1 TAB PO (08:29)
[2025-04-17] MEDS: Buprenorphine/Naloxone 8 mg/2 mg FILM 1 EACH SL (08:29)
[2025-04-17 08:44] VITALS: PULSE 88; RESP 19; O2SAT 98
[2025-04-17 08:45] VITALS: BP 144/89; PULSE 87; RESP 20; O2SAT 99
--- NOTE | 2025-04-17 09:15 | PDOC.CMDIS ---
Date of service: 04/17/25 Time of Service: 09:15 LACE Index Scoring Tool Questions: Length of Stay (in days): 2 Was the patient admitted via the E.D.?: Yes Comorbidities: Diabetes w/o Complication, Chronic Pulmonary Disease and Liver or Renal Disease E.D. Visits: 2 Answers: Total Score: 12 Risk of Readmission: High Risk Care Management Discharge Plan Reason for Hospitalization: COPD exacerbation Discharge Plan: Chris is discharged home today with no new home health care services. He will f/u with his PCP and continue per his plan of care. Chris will transport via [facility] private vehicle. Patient/Family Education Needs: Review of discharge instructions, activity, limitations and discuss Ask me 3. Chris was also given a booklet on living with COPD that was provided by [facility]. SDOH Health Related Social Needs: Health related social needs details MELINDA
[2025-04-17 09:54] VITALS: TEMP 36.6
--- NOTE | 2025-04-24 08:56 | W.PM.DS.N ---
Date of service: 04/17/25 Time of Service: 10:54 DS: Diagnosis Discharge Diagnosis (1) Acute respiratory failure with hypoxia and hypercapnia: Status: Resolved (2) Aspiration pneumonia: Status: Acute (3) Severe chronic obstructive pulmonary disease: Status: Acute (4) Alcohol withdrawal with inpatient treatment: Status: Resolved (5) DELLA (obstructive sleep apnea): Status: Chronic (6) Alcohol use disorder, severe, dependence: Status: Acute (7) Opioid use disorder, severe, on maintenance therapy, dependence: Status: Acute (8) Benzodiazepine dependence: Status: Acute (9) Liver disease, alcoholic: Status: Acute (10) History of hepatitis C: (11) Benign essential hypertension: Status: Acute (12) Major depressive disorder, recurrent: Status: Acute (13) Tobacco dependence: Status: Acute (14) On deep vein thrombosis (DVT) prophylaxis: Status: Deleted (15) Type 2 diabetes mellitus: Status: Acute Discharge Plan Disposition Patient Disposition: Home Condition: Improving Discharge Details Reason For Visit: Respiratory Failure Admit Date/Time: 04/15/25 13:32 Admit Provider: Kurt Anguiano Attending Provider: Kurt Anguiano Primary Care Provider: Pierre Cardenas Hospital Course Hospital Course: 50 yo M with history of OUD on buprenorphine, AUD with h/o severe withdrawal, COPD with active smoking who presented with worsening shortness of breath associated with somnolence. He was diagnosed with acute hypoxic respiratory failure associated with COPD and aspiration pneumonia. He did have mild chornic hypercapnea as noted as well. He was treated with BiPAP the first day along with Unasyn, steroids, and nebulized bronchodilators. His respiratory status stabilized. He was discharged with a plan to three more days of prednisone. He did not get additional antibiotics upon discharge. Smoking cessation was emphasized. He was seen by Dr. Parrish from pulmonology who recommend PFTs and sleep study or sleep clinic referral upon discharge. He had a much more mild alcohol withdrawal syndrome than during his previous admission, and received about half of the maximum phenobarbital for his weight. High sugars were noted, and hemoglobin A1c was 6.9% consistent with type 2 diabetes. Diet and management of this were discussed. He should follow with his PCP. Medication was not started, but especially given limited other options for his alcohol use disorder, he would be an excellent candidate for GLP-1 agent such as semaglutide. While not approved for alcohol use disorder, patients on this medication have significantly better alcohol-related outcomes, in addition to controlling blood sugar and obesity-related comorbidities. He had acamprosate as well, but has not found this useful so far. His reduction in alcohol so far was recognized and encouraged. Recommendations for Follow Up Recommended tests to be ordered by follow up provider: Diabetic follow up with eye exam, microalbumin, monofilament, medication management PFTs to follow COPD (ordered) Sleep study/Sleep medicine referral to formalize diagnosis of EDLLA Home Meds and New Rx's Prescriptions: New prednisone 20 mg Tablet 40 mg PO DAILY Qty: 6 0RF sennosides-docusate sodium [Colace 2-In-1] 8.6-50 mg Tablet 1 tab PO BID Qty: 180 0RF nicotine 21 mg/24 hr Patch 24 Hour 21 mg transdermal DAILY PRN PRNQty: 30 2RF Continued clonidine HCl 0.1 mg tablet 0.1 mg PO QID Patient Comments: TAKE ONE TABLET BY MOUTH FOUR TIMES A DAY quetiapine 200 mg tablet 200 mg PO HS Patient Comments: TAKE ONE TABLET BY MOUTH AT BEDTIME albuterol sulfate [Ventolin HFA] 90 mcg/actuation HFA aerosol inhaler 2 puff INHALATION Q6H PRN PRN Patient Comments: INHALE TWO PUFFS BY MOUTH EVERY 6 HOURS NEEDED FOR SHORTNESS OF BREATH escitalopram oxalate 20 mg tablet 20 mg PO DAILY Patient Comments: TAKE ONE TABLET BY MOUTH EVERY DAY buprenorphine-naloxone [Suboxone] 8-2 mg film 3 film sublingual DAILY carvedilol 3.125 mg Tablet 3.125 mg PO BID Qty: 60 0RF magnesium oxide 400 mg (241.3 mg magnesium) Tablet 400 mg PO DAILY Qty: 90 0RF nicotine 21 mg/24 hr Patch 24 Hour 21 mg transdermal DAILY Qty: 30 0RF folic acid 1 mg Tablet 1 mg PO DAILY Qty: 90 0RF acamprosate 333 mg Tablet,Delayed Release (Dr/Ec) 666 mg PO TID Qty: 180 2RF gabapentin 600 mg tablet 600 mg PO TID Qty: 90 0RF Rx Instructions: increase dose, stop lorazepam potassium chloride [Klor-Con M20] 20 mEq tablet,ER particles/crystals 20 meq PO BID Qty: 30 0RF budesonide-formoterol 160-4.5 mcg/actuation Hfa Aerosol Inhaler 2 puff inhalation BID Qty: 1 3RF testosterone cypionate 100 mg/mL oil 100 mg IM Q7D Patient Comments: INJECT 1ML INTRAMUSCULARLY EVERY 2 WEEKS DISCARD AFTER 84 DAYS cholecalciferol (vitamin D3) 1,250 mcg (50,000 unit) capsule 1,250 mcg PO ONCE Patient Comments: TAKE 1 CAPSULE BY MOUTH ONCE MONTHLY Discharge Instructions Instructions: Chronic Obstructive Pulmonary Disease (COPD) (DC) Additional Instructions: keep working on quitting smoking I would also recommend avoiding alcohol. You can continue acamprosate if this was helping. Take 3 more days of prednisone and antibiotics (Amoxicillin/clavulonate) for the lung infection. Your blood sugar test hemoglobin A1c was in the diabetic range. Cut out sugar from your diet and we discussed. Consider a mediction like semaglutide (Ozempic) that may also help you avoid alcohol), as well as metformin. Follow up with your PCP about this. Referrals: Ko Smith [ NON-[facility] STAFF PHYSICIAN, Medicine] - 04/30/25 4:00 pm Activity:: Activity as Tolerated Equipment/Supplies:: No Equipment Needed Diet:: Carb Counting Discharge Orders Discharge Orders: Discharge Order (Routine); Ordered 04/17/25 Ordered By: Trey Jack Other Ambulatory Orders: PFT (Parks/DLCO/Volumes) (Routine) Timeframe: 2 Weeks Facility: [facility] - Location: Respiratory Therapy Ordered By: Trey Jack Discharge Data Discharge Date/Time-TO BE ENTERED AT DEPARTURE: 04/17/25 10:22 DS: Summary Time Spent with Patient providing and/or coordinating discharge services: Greater than 30 minutes Status at Discharge Functional status at discharge: independent ambulation Overall status at discharge: patient is back to baseline Mental Status: mental status grossly normal Speech and Movement: speech and movement normal Mood: congruent mood Affect: normal affect Quality:SDOH Health Related Social Needs: Health related social needs details MELINDA Exam Narrative Exam Narrative: General: alert and oriented, no acute distress, no hallucinations or tremors CV: normal rate, regular rhythm, no murmur Respiratory: Normal effort moving around room, no wheezing, no crackles, no rhonchi, no prolonged expiration GI: abd soft, non-tender, non-distended Extremities: +1 edema, no clubbing, warm, not tender Psych Mental Status: mental status grossly normal Speech and Movement: speech and movement normal Mood: congruent mood Affect: normal affect DS: Data Vitals/I&O Vitals and I&O: Vital Signs Temperature 36.6 C 04/17/25 09:54 Temperature Source Temporal Artery Scan 04/17/25 09:54 Pulse 87 04/17/25 08:45 Pulse 101 H 04/16/25 18:02 Respiratory Rate 20 04/17/25 08:45 Respiratory Effort Normal 04/15/25 16:27 Respiratory Depth Normal 04/15/25 16:27 Respiratory Pattern Normal 04/15/25 16:27 Blood Pressure 144/89 H 04/17/25 08:45 Blood Pressure Mean 101 04/17/25 08:45 Pulse Oximetry 99 04/17/25 08:45 Respiratory End-tidal CO2 77 04/15/25 11:30 Oxygen Delivery Method Room Air 04/17/25 08:44 Oxygen Flow Rate 0 04/17/25 08:44 Fraction of Inspired Oxygen (FIO2) 30 04/17/25 08:45 Pain Level 0 04/17/25 10:22 PFSH All Active Problems (Updated 04/18/25 @ 00:04 by GABO MONTEJO) Type 2 diabetes mellitus (Acute) Tobacco dependence (Acute) Major depressive disorder, recurrent (Acute) Benign essential hypertension (Acute) Severe chronic obstructive pulmonary disease (Acute) Benzodiazepine dependence (Acute) Alcohol use disorder, severe, dependence (Acute) Opioid use disorder, severe, on maintenance therapy, dependence (Acute) Internal derangement of right knee (Acute) Aspiration pneumonia (Acute) Hypertension (Chronic) Folate deficiency (Acute) Liver disease, alcoholic (Acute) Erectile dysfunction (Acute) Decreased testosterone level (Acute) Alcohol use disorder, severe, in early remission (Acute) Intentional clonazepam overdose (Acute) DELLA (obstructive sleep apnea) (Chronic) Asthma (Chronic) Depression with anxiety (Chronic) Opiate dependence (Chronic) Medical History (Updated 04/18/25 @ 00:04 by GABO MONTEJO) History of hepatitis C Pneumonia Hepatitis C Thrombocytopenia Ribs, multiple fractures Suicide attempt Surgical History (Updated 12/20/24 @ 11:14 by Yelitza Warner RN) History of shoulder surgery DOS 08/09/19 History of esophagogastroduodenoscopy (EGD) Social History Smoking/Tobacco Use Status: Former Tobacco Use Smoking risk assessment performed?: Yes Drug use: Occasionally Substance use type: crack/cocaine Housing: house Time Spent with Patient Time Spent with Patient: 45-69 minutes Time was spent: preparing to see the patient(eg.review tests), obtaining and/or reviewing separately otained hiistory, ordering medications,tests, procedures, referring, communicating with other health healthcare administrative assistant, indepentently interpreting results, counseling the patient and care coordination
== END 2025-04-17 10:22 | disposition home or self-care (01) | DRG 177 ==
LOC: ER 14:55 → ICU 16:14
PROVIDERS: Internal Medicine Pulmonary Disease; Admitting Provider Family Medicine; Emergency Provider Emergency Medicine; PCP Physician Assistant Medical; Responsible Provider Family Medicine; Visit Provider Family Medicine
DX: J69.0 Pneumonitis due to inhalation of food and vomit (principal); J96.01 Acute respiratory failure with hypoxia; J96.02 Acute respiratory failure with hypercapnia; J44.1 Chronic obstructive pulmonary disease with (acute) exacerbation; Z68.41 Body mass index [BMI] 40.0-44.9, adult; F33.9 Major depressive disorder, recurrent, unspecified; F13.20 Sedative, hypnotic or anxiolytic dependence, uncomplicated; F10.239 Alcohol dependence with withdrawal, unspecified; F11.20 Opioid dependence, uncomplicated; K76.6 Portal hypertension; J44.0 Chronic obstructive pulmonary disease with (acute) lower respiratory infection; F17.210 Nicotine dependence, cigarettes, uncomplicated; G47.33 Obstructive sleep apnea (adult) (pediatric); E66.01 Morbid (severe) obesity due to excess calories; I10 Essential (primary) hypertension; Z86.19 Personal history of other infectious and parasitic diseases; E53.8 Deficiency of other specified B group vitamins; K70.9 Alcoholic liver disease, unspecified; F41.9 Anxiety disorder, unspecified; D69.6 Thrombocytopenia, unspecified; R74.01 Elevation of levels of liver transaminase levels
CPT/HCPCS: 00123; 36415; 80053; 80307; 82803; 82805; 87637; 93005; 94640; 96365; 96366; 96375; 97110; 97162; 97530; 99291; J1650; 36600; 71045; 80320; 82140; 83036; 83735; 83880; 84484; 85025; 93010; 94660; 94760; 99222; 99233; J0295; J0456; J2560; J2919; J7512; J7620

== ENCOUNTER 2025-04-30 17:05 | Inpatient (IN) | payer MEDICAID, SELFPAY ==
[2025-04-30] VITALS (26 sets, daily range): BP systolic 128–243; BP diastolic 84–210; PULSE 90–126; RESP 6–24; TEMP 36.2–36.9; O2SAT 82–98
--- NOTE | 2025-04-30 17:30 | RT.EKG_ITS ---
APPROVED REPORT Exam: Resting ECG Reason for Exam: eval QTc Patient Location: E HR:105 bpm ECG Measurements Heart Rate [address] 165 P 71 QRSd 88 QRS 51 QT 356 T 61 QTc 471 Conclusion Sinus tachycardia...rate> 99 Inferior infarct, old...Q >35mS, II III aVF
--- NOTE | 2025-04-30 17:48 | W.ED.GENAD ---
Discharge Plan Disposition Patient Disposition: Admit to [facility] Discharge Details Clinical Impression: Alcohol withdrawal, Liver disease, alcoholic, Depression with anxiety Admit Date/Time: 04/30/25 19:50 Admit Provider: Kurt Anguiano Attending Provider: Kurt Anguiano Primary Care Provider: Pierre Cardenas ED Provider: Marianne White Discharge Data Discharge Date/Time-TO BE ENTERED AT DEPARTURE: 04/30/25 21:03 HPI General Date/Time Provider Initiated Documentation: 04/30/25 17:17. HPI Narrative: Zachery is a 50-year-old male who presents to the emergency department today for evaluation of alcohol withdrawal. History of alcohol use, previously treated for alcohol withdrawal in 12/2024. Started drinking heavily again a few months ago. Consuming vodka and several 24-ounce Ranjith's Hard Lemonades daily for 3-4 weeks. Today, consumed 3 Ranjith's Hard Lemonades and 2 Swirnoff Ice, no vodka. Reports morning vomiting for several weeks, subsides after drinking. Has had sore throat and cough for a few weeks with mild shortness of breath and chest discomfort (which he attributes to anxiety). Reports decreased food intake (only one meal a day), feels bloated, has had dark liquid stools 1-2 times daily. Denies fever/chills, blood in emesis or stool. He admits to having thoughts of self harm this morning. Has h/o GI bleeding. PMH notable for h/o GI bleed, COPD, HTN, T2DM, opiate and benzo dependence, alcoholic liver disease, tobacco use Reports thoughts of self-harm this morning, denies plan or HI. Currently taking lorazepam, but none over the past 3 days. Related Data Home Medications ?Medication ?Instructions ?Recorded ?Confirmed albuterol sulfate 90 mcg/actuation 2 puff inhalation Q6H PRN PRN 05/06/23 04/09/25 aerosol inhaler (Ventolin HFA) buprenorphine 8 mg-naloxone 2 mg 3 film sublingual DAILY 05/06/23 04/09/25 sublingual film (Suboxone) escitalopram oxalate 20 mg tablet 20 mg PO DAILY 05/06/23 04/09/25 quetiapine 200 mg tablet 200 mg PO HS 05/06/23 04/09/25 budesonide-formoterol HFA 160 2 puff inhalation BID #1 unit 02/23/24 04/09/25 mcg-4.5 mcg/actuation aerosol inhaler cholecalciferol (vitamin D3) 1,250 1,250 mcg PO ONCE 03/23/24 04/09/25 mcg (50,000 unit) capsule testosterone cypionate 100 mg/mL 100 mg IM Q7D 03/23/24 04/09/25 intramuscular oil clonidine HCl 0.1 mg tablet 0.1 mg PO QID 12/20/24 04/09/25 acamprosate 333 mg tablet,delayed 666 mg (2 x 333 mg) PO TID #180 01/24/25 04/09/25 release tabs carvedilol 3.125 mg tablet 3.125 mg PO BID #60 tabs 01/24/25 04/09/25 folic acid 1 mg tablet 1 mg PO DAILY #90 tabs 01/24/25 04/09/25 gabapentin 600 mg tablet 600 mg PO TID #90 tabs 01/24/25 04/09/25 magnesium oxide 400 mg (241.3 mg 400 mg PO DAILY #90 tabs 01/24/25 04/09/25 magnesium) tablet nicotine 21 mg/24 hr daily 21 mg transdermal DAILY #30 ea 01/24/25 04/09/25 transdermal patch potassium chloride 20 mEq 20 meq PO BID #30 tabs 01/24/25 04/09/25 tablet,extended release(part/cryst) (Klor-Con M) nicotine 21 mg/24 hr daily 21 mg transdermal DAILY PRN PRN 04/17/25 transdermal patch #30 ea prednisone 20 mg tablet 40 mg (2 x 20 mg) PO DAILY #6 tabs 04/17/25 sennosides 8.6 mg-docusate sodium 1 tab PO BID #180 tabs 04/17/25 50 mg tablet (Colace 2-In-1) Previous Rx's ?Medication ?Instructions ?Recorded budesonide-formoterol HFA 160 2 puff inhalation BID #1 unit 02/23/24 mcg-4.5 mcg/actuation aerosol inhaler acamprosate 333 mg tablet,delayed 666 mg (2 x 333 mg) PO TID #180 01/24/25 release tabs carvedilol 3.125 mg tablet 3.125 mg PO BID #60 tabs 01/24/25 folic acid 1 mg tablet 1 mg PO DAILY #90 tabs 01/24/25 gabapentin 600 mg tablet 600 mg PO TID #90 tabs 01/24/25 magnesium oxide 400 mg (241.3 mg 400 mg PO DAILY #90 tabs 01/24/25 magnesium) tablet nicotine 21 mg/24 hr daily 21 mg transdermal DAILY #30 ea 01/24/25 transdermal patch potassium chloride 20 mEq 20 meq PO BID #30 tabs 01/24/25 tablet,extended release(part/cryst) (Klor-Con M) nicotine 21 mg/24 hr daily 21 mg transdermal DAILY PRN PRN 04/17/25 transdermal patch #30 ea prednisone 20 mg tablet 40 mg (2 x 20 mg) PO DAILY #6 tabs 04/17/25 sennosides 8.6 mg-docusate sodium 1 tab PO BID #180 tabs 04/17/25 50 mg tablet (Colace 2-In-1) Allergies Allergy/AdvReac Type Severity Reaction Status Date / Time cat dander Allergy Mild Wheezing Verified 04/09/25 11:04 dog dander Allergy Mild Wheezing Verified 04/09/25 11:04 Environmental Allergy Intermediate Asthma Uncoded 04/09/25 11:04 Exacerbation General Stated Complaint: ETOHWithdr RASTA: 3 Exam Narrative Exam Narrative: General Appearance: Patient anxious, dry heaving during exam Vital signs: Hypertension and tachycardia noted, afebrile, no hypoxia HEENT: Moist mucous membranes. Clear voice Respiratory: Lungs clear to auscultation bilaterally. Easy work of breathing Cardiac: Tachycardia noted, normal heart sound Gastrointestinal: Abdomen soft, nondistended, nontender to palpation Skin: Warm and dry, no rash. Neurologic: Moving all extremities equally. Psychiatric: Normal. Course Vital Signs Vital signs: Vital Signs Temperature 36.9 C 04/30/25 17:16 Pulse 126 H 04/30/25 17:16 Respiratory Rate 04/30/25 17:16 Blood Pressure 155/104 H 04/30/25 17:16 Pulse Oximetry 93 04/30/25 17:16 Temperature 36.9 C 04/30/25 17:16 Temperature Source Oral 04/30/25 17:16 Pulse 126 H 04/30/25 17:16 Respiratory Rate 04/30/25 17:16 Blood Pressure 155/104 H 04/30/25 17:16 Blood Pressure Position Sitting 04/30/25 17:16 Pulse Oximetry 93 04/30/25 17:16 Oxygen Delivery Method Room Air 04/30/25 17:16 Oxygen Flow Rate 0 04/30/25 17:16 Medical Decision Making Initial Assessment: 50-year-old male with alcohol withdrawal and vomiting. History of alcohol use and COPD. Drinking heavily for 3-4 weeks. Vomiting for weeks, worsens in the morning. Different cough starting two weeks ago. Stressed and anxious daily for past few weeks. Differential Diagnosis includes but is not limited to: EtOH withdrawal, dehydration, electrolyte imbalance, ACS, cardiac arrhythmia, pneumonia, COPD/asthma exacerbation, anxiety. Initial CIWA score 11 upon arrival ED Course: - IV started - Antinausea medications administered - Phenobarbital initiated - Labs drawn - Chest x-ray ordered - EKG I independently interpreted the following tests: EKG shows normal sinus tachycardia, no changes consistent with acute ischemia, no prolonged QTc. CBC reassuring. CMP notable for elevated LFTs (AST 181, ALT 144, alk phosphatase 120). Mild hypomagnesemia noted. Troponins flat 9, 10. ASA, APAP unremarkable. Alcohol level 217.1. While in the emergency department Chris received IV fluid bolus and phenobarbital initiation with as needed boluses as needed. He responded well to phenobarbital, with significant reduction in anxiety and nausea/vomiting. Chest x-ray initially read by Vrad as unremarkable, mild left lung base infiltrate noted by Dr. Villalpando, this was also noted noted on 04/15/2025 Clinical Impression: - Alcohol withdrawal - Depression, passive suicidality Presented case to Dr. Anguiano, hospitalist. Patient to be admitted to ICU for alcohol withdrawal. Patient consented to the use of BHARATHI Imaging Data Radiologic Study: Radiologist's impression: Exam(s) XR CHEST 1V IN DI DEPT EXAM: XR CHEST 1V IN DI DEPT CLINICAL HISTORY: cough. TECHNIQUE: 2D digital imaging was performed. COMPARISON: CR,XR XR PORTABLE CHEST AP from 04/15/2025 FINDINGS: Single AP portable view. Surgical hardware is again noted in the cervical thoracic junction region. Heart size is upper normal. The mediastinum is not widened. Mild increased markings are noted in the posterior basal segment of the right lower lobe retrocardiac region. Left lung base is clear. There are no obvious pleural effusions. No evidence of pulmonary edema. IMPRESSION: Possible mild right lower lobe posterior basal segment infiltrate. No pleural effusions. No pulmonary edema. Quality:SDOH Health Related Social Needs: Health related social needs transpo insecurity house/econ circumstance Health related social needs details care management PFSH All Active Problems (Updated 04/30/25 @ 23:35 by Marianne Roy) Alcohol withdrawal (Acute) Type 2 diabetes mellitus (Acute) Aspiration pneumonia (Acute) Tobacco dependence (Acute) Major depressive disorder, recurrent (Acute) Benign essential hypertension (Acute) Severe chronic obstructive pulmonary disease (Acute) Benzodiazepine dependence (Acute) Alcohol use disorder, severe, dependence (Acute) Opioid use disorder, severe, on maintenance therapy, dependence (Acute) Internal derangement of right knee (Acute) Hypertension (Chronic) Folate deficiency (Acute) Liver disease, alcoholic (Acute) Erectile dysfunction (Acute) Decreased testosterone level (Acute) Alcohol use disorder, severe, in early remission (Acute) Intentional clonazepam overdose (Acute) DELLA (obstructive sleep apnea) (Chronic) Asthma (Chronic) Depression with anxiety (Chronic) Opiate dependence (Chronic) Medical History (Updated 04/30/25 @ 23:35 by Marianne Roy) History of hepatitis C Pneumonia Hepatitis C Thrombocytopenia Ribs, multiple fractures Suicide attempt Surgical History (Updated 12/20/24 @ 11:14 by Yelitza Warner RN) History of shoulder surgery DOS 08/09/19 History of esophagogastroduodenoscopy (EGD) Social History Smoking/Tobacco Use Status: Current every day Tobacco Type: cigarettes Smoking risk assessment performed?: Yes Alcohol Intake: current Alcohol Intake frequency: 3 or more drinks per day Drug use: Never Substance use type: crack/cocaine Details: state he has done any street drugs for the past 5 years Housing: other PAWSS Have you Been Recently Intoxicated or Drunk Within the Last 30 days?: Yes Have you Ever Experienced Previous Episodes of Alcohol Withdrawal?: Yes Have you ever Experienced Withdrawal Seizures?: Yes Have you ever Experienced Delirium Tremens(DT)s?: Yes Have you ever undergone Alcohol Rehabilitation Treatment (i.e, inpt ot outpatient treatment programs)?: Yes Have you ever Experienced Blackouts?: Yes Have you ever Combined Alcohol with other Downers within the last 90 days?: Yes Have you ever Combined Alcohol with any other Substance of Abuse during the last 90 days?: Yes Positive Blood Alcohol level on Presentation? [PCS.BAL]: Yes Evidence of Increased Autonomic Activity (i.e. HR>120, tremor, sweating, agitation, nausea)?: Yes Result: 10
[2025-04-30] MEDS: Ondansetron 4 MG/2 ML VIAL IVP (18:35)
[2025-04-30] MEDS: PHENobarbital 200 MG in Normal Saline 50 ML 100 MG IVPB (18:35)
[2025-04-30] MEDS: Albuterol/Ipratropium 3 ML UPD VIAL UPD (18:42)
[2025-04-30] MEDS: Lactated Ringers 1,000 ML 1000 ML IV (18:43)
[2025-04-30 18:51] LABS: Abs Immature Grans 0.03 10^3/uL (0.0-0.06); HCT 43.6 % (40.0-50.0); HGB 16.2 g/dL (13.5-17.5); Immature Grans % 0.5 %; MCH 35.1 pg (27.0-33.0); MCHC 37.2 % (32.0-36.0); MCV 94 fL (80-95); MPV 9.2 fL (8.0-11.0); Platelet Count 194 10^3/uL (130-400); RBC 4.62 10^6/uL (4.36-5.78); RDW 11.9 % (11.8-14.1); RDW-SD 40.9 fL; WBC 5.49 10^3/uL (4.4-10.8)
[2025-04-30 19:07] LABS: ALT 144 U/L (16-63); AST 181 U/L (15-37); Albumin 3.5 g/dL (3.4-5.0); Alkaline Phosphatase 120 U/L (46-116); Anion Gap 12.4 mmol/L (3-11); BUN 9 mg/dL (7-18); Bilirubin, Total 0.9 mg/dL (0.2-1.0); CO2 30.6 mmol/L (21.0-32.0); Calcium 8.8 mg/dL (8.5-10.1); Chloride 92 mmol/L (98-107); Estimated GFR 111.56 (mL/min/1.73m2); Glucose 214 mg/dL (74-106); Lipase 69 U/L (<78); Magnesium 1.6 mg/dL (1.8-2.4); Potassium 3.8 mmol/L (3.5-5.1); Sodium 135 mmol/L (136-145); Total Protein 7.1 g/dL (6.4-8.2)
[2025-04-30 19:20] LABS: Salicylate < 2.8 mg/dL (<2.8)
[2025-04-30 19:21] LABS: Acetaminophen < 2 ug/mL (10-30)
[2025-04-30 19:22] LABS: Troponin I 10 ng/L (<or=76)
[2025-04-30] MEDS: PHENobarbital 130 MG/ML VIAL IVP (19:55)
--- NOTE | 2025-04-30 19:55 | W.PM.HP.N ---
Date of service: 04/30/25 Time of Service: 19:00 Assessment and Plan Assessment and plan (1) Alcohol withdrawal: Status: Acute Assessment and plan: ICU admission for high risk with severe COPD and recent respiratory failure CIWA protocol with phenobarbital Hold home lorazepam NPO DVT ppx: enoxaparin (2) Alcohol use disorder, severe, dependence: Status: Acute Assessment and plan: Severe dependence Home regimen includes acamprosate, clonidine, gabapentin (3) Liver disease, alcoholic: Status: Acute Assessment and plan: Transaminitis less than 5x normal Coag panel ordered for AM to calculate disease severity (4) Severe chronic obstructive pulmonary disease: Status: Acute Assessment and plan: Previous hospitalization he required bipap Home regimen includes rescue inhaler, budesonide-formoterol Last steroids after Apr 17 discharge Currently on room air Hold home regimen PRN duonebs (5) Tobacco dependence: Status: Acute Assessment and plan: PRN Nicotine patch (6) Type 2 diabetes mellitus: Status: Acute Assessment and plan: December A1C 6.9 No home regimen Correctional insulin q6h (7) Benzodiazepine dependence: Status: Acute Assessment and plan: Hold home lorazepam 1 mg BID (8) Opioid use disorder, severe, on maintenance therapy, dependence: Status: Acute Assessment and plan: Continue suboxone 8/2 BID (9) Major depressive disorder, recurrent: Status: Acute Assessment and plan: Continue home escitalopram, quetiapine (10) Benign essential hypertension: Status: Acute Assessment and plan: Continue home carvedilol History of Present Illness History of Present Illness Chief Complaint: vomiting, EtOH withdrawal Narrative: Chris Hernandez is a 50 year old man presenting April 29 with several weeks of morning vomiting in the setting of EtOH consumption, now unable to tolerate his discomfort. He was hospitalized Apr 15- for exacerbation of severe COPD and for EtOH withdrawal. He has a history of ICU admission and of intubation for EtOH withdrawal. Since Apr 17 discharge he has continued to consume EtOH and on the morning of arrival he consumed 5 alcoholic drinks but was not able to tolerate his usual vodka. He has not been able to tolerate food more than once per day. He has dark liquid stools daily. He has been vomiting every morning which improves after he starts drinking. He has had a sore throat and cough, with mild SOB and mild chest pain, after vomiting. He reports that he wanted to end things this morning but on interview denies SI/HI. In the ED he was tachycardic 126, hypertensive 155/104. EKG with sinus tachycardia, possible old inferior infarct. CXR with mild RLL basal infiltrate. CBC unremarkable. BAL 217.1 Mild hyponatremia 135. Hyperglycemia 214. Hypomagnesemia 1.6. Transaminitis AST 181 ALT 144. CIWA scores were in the low teens. Significant agitation, with patient's history, necessitated phenobarbital. He was also given ondansetron and LR bolus. PMH includes EtOH dependence with multiple hospitalizations for withdrawal including intubation, severe COPD with recent hospitalization for respiratory failure, GI bleed, T2DM, HTN, OUD, benzodiazepine dependence, EtOH cirrhosis, tobacco dependence, Cervico-thoracic spine surgery. 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 lorazepam 1 mg BID and suboxone 8/2 TID PFSH All Active Problems (Updated 04/30/25 @ 23:35 by Marianne Roy) Alcohol withdrawal (Acute) Type 2 diabetes mellitus (Acute) Aspiration pneumonia (Acute) Tobacco dependence (Acute) Major depressive disorder, recurrent (Acute) Benign essential hypertension (Acute) Severe chronic obstructive pulmonary disease (Acute) Benzodiazepine dependence (Acute) Alcohol use disorder, severe, dependence (Acute) Opioid use disorder, severe, on maintenance therapy, dependence (Acute) Internal derangement of right knee (Acute) Hypertension (Chronic) Folate deficiency (Acute) Liver disease, alcoholic (Acute) Erectile dysfunction (Acute) Decreased testosterone level (Acute) Alcohol use disorder, severe, in early remission (Acute) Intentional clonazepam overdose (Acute) DELLA (obstructive sleep apnea) (Chronic) Asthma (Chronic) Depression with anxiety (Chronic) Opiate dependence (Chronic) Medical History (Updated 04/30/25 @ 23:35 by Marianne Roy) History of hepatitis C Pneumonia Hepatitis C Thrombocytopenia Ribs, multiple fractures Suicide attempt Surgical History (Updated 12/20/24 @ 11:14 by Yelitza Warner RN) History of shoulder surgery DOS 08/09/19 History of esophagogastroduodenoscopy (EGD) Social History Smoking/Tobacco Use Status: Current every day Tobacco Type: cigarettes Smoking risk assessment performed?: Yes Alcohol Intake: current Alcohol Intake frequency: 3 or more drinks per day Drug use: Never Substance use type: crack/cocaine Details: state he has done any street drugs for the past 5 years Housing: other Meds Allergies and Home Medications Allergies Allergy/AdvReac Type Severity Reaction Status Date / Time cat dander Allergy Mild Wheezing Verified 04/09/25 11:04 dog dander Allergy Mild Wheezing Verified 04/09/25 11:04 Environmental Allergy Intermediate Asthma Uncoded 04/09/25 11:04 Exacerbation Home Medications ?Medication ?Instructions ?Recorded ?Confirmed ?Type albuterol sulfate 90 mcg/actuation 2 puff inhalation Q6H PRN PRN 05/06/23 04/09/25 History aerosol inhaler (Ventolin HFA) buprenorphine 8 mg-naloxone 2 mg 3 film sublingual DAILY 05/06/23 04/09/25 History sublingual film (Suboxone) escitalopram oxalate 20 mg tablet 20 mg PO DAILY 05/06/23 04/09/25 History quetiapine 200 mg tablet 200 mg PO HS 05/06/23 04/09/25 History budesonide-formoterol HFA 160 2 puff inhalation BID #1 unit 02/23/24 04/09/25 Rx mcg-4.5 mcg/actuation aerosol inhaler cholecalciferol (vitamin D3) 1,250 1,250 mcg PO ONCE 03/23/24 04/09/25 History mcg (50,000 unit) capsule testosterone cypionate 100 mg/mL 100 mg IM Q7D 03/23/24 04/09/25 History intramuscular oil clonidine HCl 0.1 mg tablet 0.1 mg PO QID 12/20/24 04/09/25 History acamprosate 333 mg tablet,delayed 666 mg (2 x 333 mg) PO TID #180 01/24/25 04/09/25 Rx release tabs carvedilol 3.125 mg tablet 3.125 mg PO BID #60 tabs 01/24/25 04/09/25 Rx folic acid 1 mg tablet 1 mg PO DAILY #90 tabs 01/24/25 04/09/25 Rx gabapentin 600 mg tablet 600 mg PO TID #90 tabs 01/24/25 04/09/25 Rx magnesium oxide 400 mg (241.3 mg 400 mg PO DAILY #90 tabs 01/24/25 04/09/25 Rx magnesium) tablet nicotine 21 mg/24 hr daily 21 mg transdermal DAILY #30 ea 01/24/25 04/09/25 Rx transdermal patch potassium chloride 20 mEq 20 meq PO BID #30 tabs 01/24/25 04/09/25 Rx tablet,extended release(part/cryst) (Klor-Con M) nicotine 21 mg/24 hr daily 21 mg transdermal DAILY PRN PRN 04/17/25 Rx transdermal patch #30 ea prednisone 20 mg tablet 40 mg (2 x 20 mg) PO DAILY #6 tabs 04/17/25 Rx sennosides 8.6 mg-docusate sodium 1 tab PO BID #180 tabs 04/17/25 Rx 50 mg tablet (Colace 2-In-1) Exam Narrative Exam Narrative: General: This is an obese, unkempt, agitated man in bed HEENT: Plethoric neck, normocephalic CV: RRR no murmur Resp: CTAB Abd: obese, nontender MSK: voluntary motion x4 Neuro: awake, alert, agitated, no focal deficits Results Labs 04/30/25 18:35 04/30/25 18:35 Labs: Laboratory Results - last 24 hr 04/30/25 18:35 WBC 5.49 RBC 4.62 Hgb 16.2 Hct 43.6 MCV 94 MCH 35.1 H MCHC 37.2 H RDW 11.9 Plt Count 194 MPV 9.2 Immature Gran % 0.5 Neutrophils % 60.2 Lymphocytes % 31.9 Monocytes % 6.0 Eosinophils % 0.7 Basophils % 0.7 Nucleated RBC % 0.0 Absolute Neutrophils 3.30 Absolute Lymphocytes 1.75 Absolute Monocytes 0.33 Absolute Eosinophils 0.04 Absolute Basophils 0.04 Sodium 135 L Potassium 3.8 Chloride 92 L Carbon Dioxide 30.6 Anion Gap 12.4 H BUN 9 Creatinine 0.7 Est GFR (CKD-EPI 2020) 111.56 Glucose 214 H Calcium 8.8 Phosphorus 2.9 Magnesium 1.6 L Total Bilirubin 0.9 AST 181 H ALT 144 H Alkaline Phosphatase 120 H Troponin I 10 Total Protein 7.1 Albumin 3.5 Lipase 69 Salicylates < 2.8 Acetaminophen < 2 Ethyl Alcohol 217.1 H Last Vital Signs Temp 36.9 C 04/30/25 17:16 Pulse 126 H 04/30/25 17:16 Resp 24 04/30/25 17:16 BP 155/104 H 04/30/25 17:16 Pulse Ox 95 04/30/25 19:27 PAWSS Have you Been Recently Intoxicated or Drunk Within the Last 30 days?: Yes Have you Ever Experienced Previous Episodes of Alcohol Withdrawal?: Yes Have you ever Experienced Withdrawal Seizures?: Yes Have you ever Experienced Delirium Tremens(DT)s?: Yes Have you ever undergone Alcohol Rehabilitation Treatment (i.e, inpt ot outpatient treatment programs)?: Yes Have you ever Experienced Blackouts?: Yes Have you ever Combined Alcohol with other Downers within the last 90 days?: Yes Have you ever Combined Alcohol with any other Substance of Abuse during the last 90 days?: Yes Positive Blood Alcohol level on Presentation? [PCS.BAL]: Yes Evidence of Increased Autonomic Activity (i.e. HR>120, tremor, sweating, agitation, nausea)?: Yes Result: 10 Time Spent Time spent with Patient: 55-74 minutes Time was spent: preparing to see the patient(eg.review tests), obtaining and/or reviewing separately otained hiistory, ordering medications,tests, procedures, referring, communicating with other health ocular care technologist, indepentently interpreting results, counseling the patient and care coordination
[2025-04-30 20:09] LABS: Troponin I 9 ng/L (<or=76)
--- NOTE | 2025-04-30 20:55 | DI.RAD_ITS ---
Exam(s) XR CHEST 1V IN DI DEPT EXAM: XR CHEST 1V IN DI DEPT CLINICAL HISTORY: cough. TECHNIQUE: 2D digital imaging was performed. COMPARISON: CR,XR XR PORTABLE CHEST AP from 04/15/2025 FINDINGS: Single AP portable view. Surgical hardware is again noted in the cervical thoracic junction region. Heart size is upper normal. The mediastinum is not widened. Mild increased markings are noted in the posterior basal segment of the right lower lobe retrocardiac region. Left lung base is clear. There are no obvious pleural effusions. No evidence of pulmonary edema. IMPRESSION: Possible mild right lower lobe posterior basal segment infiltrate. No pleural effusions. No pulmonary edema. DATA REPOSITORY: RADIATION DOSE DELIVERED:
[2025-04-30] MEDS: PHENobarbital 150 MG in Normal Saline 50 ML 100 MG IVPB (22:09)
--- NOTE | 2025-04-30 22:11 | DI.VRAD_ITS ---
PROCEDURE INFORMATION: Exam: XR Chest Exam date and time: 04/30/2025 8:56 PM Age: 50 years old Clinical indication: Cough and other: Chest tightness TECHNIQUE: Imaging protocol: Radiologic exam of the chest. Views: 1 view. COMPARISON: 1. CR XR PORTABLE CHEST AP 04/15/2025 12:25 PM 2. CR XR PORTABLE CHEST AP 01/20/2025 10:40 PM FINDINGS: Lungs: No pulmonary consolidation is seen. Pleural spaces: No pleural effusion or pneumothorax is demonstrated. Heart/Mediastinum: The heart appears normal in size. Bones/joints: There are old fracture deformities through the posterior aspect of the right 4th, 5th, and 6th, also present on the comparison exam from January 20, 2025. IMPRESSION: No active disease is seen in the chest. Dictated and Authenticated by: Salinas Lind MD. Orderin Priyanka Lopes MD
[2025-04-30] MEDS: Carvedilol 3.125 MG TAB PO (22:30)
[2025-04-30] MEDS: MAGNESIUM SULFATE 2 GM/50 ML BAG IV_INF (22:30)
[2025-04-30] MEDS: Gabapentin 600 MG TAB PO (22:30)
[2025-04-30] MEDS: cloNIDine 0.1 MG TAB PO (22:30)
[2025-04-30 22:53] LABS: Troponin I 10 ng/L (<or=76)
[2025-05-01] VITALS (101 sets, daily range): BP systolic 117–172; BP diastolic 79–136; PULSE 55–111; RESP 7–25; TEMP 36.1–36.2; O2SAT 72–100
[2025-05-01] MEDS: PHENobarbital 150 MG in Normal Saline 50 ML 100 MG IVPB (01:26)
[2025-05-01] MEDS: Albuterol/Ipratropium 3 ML UPD VIAL UPD ×2 (01:35→16:58)
[2025-05-01 03:25] LABS: COVID-19 PCR Negative (Negative); RSV PCR Negative (Negative)
[2025-05-01] MEDS: PHENobarbital 130 MG/ML VIAL IVP ×4 (04:12→16:02)
[2025-05-01 06:14] LABS: Abs Immature Grans 0.01 10^3/uL (0.0-0.06); HCT 39.2 % (40.0-50.0); HGB 14.4 g/dL (13.5-17.5); Immature Grans % 0.2 %; MCH 35.5 pg (27.0-33.0); MCHC 36.7 % (32.0-36.0); MCV 97 fL (80-95); MPV 9.2 fL (8.0-11.0); Platelet Count 138 10^3/uL (130-400); RBC 4.06 10^6/uL (4.36-5.78); RDW 11.9 % (11.8-14.1); RDW-SD 42.5 fL; WBC 4.68 10^3/uL (4.4-10.8)
[2025-05-01 06:19] LABS: Ammonia 48 umol/L (11-32)
[2025-05-01 06:42] LABS: ALT 121 U/L (16-63); AST 146 U/L (15-37); Albumin 3.0 g/dL (3.4-5.0); Alkaline Phosphatase 102 U/L (46-116); Anion Gap 8.3 mmol/L (3-11); BUN 14 mg/dL (7-18); Bilirubin, Total 1.1 mg/dL (0.2-1.0); CO2 33.7 mmol/L (21.0-32.0); Calcium 8.4 mg/dL (8.5-10.1); Chloride 94 mmol/L (98-107); Estimated GFR 116.87 (mL/min/1.73m2); Glucose 181 mg/dL (74-106); Potassium 3.7 mmol/L (3.5-5.1); Sodium 136 mmol/L (136-145); Total Protein 6.2 g/dL (6.4-8.2)
[2025-05-01 06:44] LABS: INR 1.5 (0.9-1.1); Prothrombin Time 14.6 sec (9.1-11.1)
[2025-05-01 06:51] LABS: Magnesium 1.8 mg/dL (1.8-2.4)
--- NOTE | 2025-05-01 07:51 | PDOC.CMIN ---
Date of service: 05/01/25 Time of Service: 07:51 Care Management Initial Assmt Initial Assessment Reason for Hospitalization: ETOH withdrawal Functional Status/Living Situation Patient Presentation: Chris presented to the ER yesterday evening with c/o alcohol withdrawal. He stated that he has been drinking heavily since he was last discharged from [facility] on 04/17 for COPD exacerbation. He has been unable to tolerate much food, and has been vomiting every morning. The vomiting reportedly improves with his drinking. Chris did mention that he wanted to end things. CM plans to discuss this with Chris today. Chris was lying in bed when CM met with him today. Quite frankly, he looked terrible. He was dirty, did not smell very good, and looked bloated. He said that he feels terrible. His stomach hurts a lot and he can't eat. Chris mentioned that he wants to go to rehab when he leaves the hospital. CM let him know that that is not really something I can help with. CM can provide some resources, but he must do the process on his own. [employer] will often sit with people while they make calls. He was brought a pamphlet with local resources, and he was reminded that [employer] is available 22/02. He really was not up to talking with them today. Chris is also hooked up with [facility] in [place], although he reports that he hasn't been there in some time. He feels that he will again be reaching out for support. CM plans to meet with Chris first thing tomorrow to be sure that he has the chance to speak to [employer] if he so chooses. Chris also stated that he has some stressors in his life right now. He thinks his roommate is moving out and going to stiff him on a month's rent, and a tax payment is due. He denied any intent to harm himself. Town of Residence: [place] Resides with: Alone Significant Other/Family: Local (Good friendChantell is local. 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) Instrumental Activities of Daily Living (ADLs): Independent Medications Medication Management: No Issues/Barriers identified Advance Directives Advance Directives: Do you have an Advance Directive: Mike 01/26/13, 11:12 AD On File at [facility]: N 01/24/13, 13:15 Date Asked 04/30/25 04/30/25, 17:11 AD Date Reviewed COLST On File at [facility] COLST Date Scanned Code Status Resuscitation Status Full Code Insurance Coverage/Financial Issues Insurance: Medicaid Care Team Visit Care Team Role Provider Type Trey Jack MD [facility] STAFF PHYSICIAN Pierre Cardenas Primary Care Provider PHYSICIANS 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) Anticipated Barriers to Discharge: None Identified Patient/Family Education Needs: Review discharge instructions, discuss Ask Me Three Transportation: RCT RCT Transportation: Private vechicle Plan: Chris will discharge home once medically stable with no new home care services. He will f/u with his PCP and continue per his plan of care. Hopefully he will decide to meet with [facility] prior to discharge. Chris will need an RCT ride home, and CM will coordinate that for him. CM will continue to follow and support. Social Determinants of Health Screening Social Determinants of health last assessed in clinic: 05/01/25 Will the Patient Participate in the Screening?: Yes Do you worry about having a steady place to live?: no Problems where you live: no known problems In the past 12 months, have you had to go without electric, gas, oil or water in your home?: no 1. Within the past 12 months, we worried whether our food would run out before we got money to buy more.: Don't know/refused 2. Within the past 12 months, the food we bought just didn't last and we didn't have money to get more.: Don't know/refused Has lack of transportation kept you from medical appointments or from doing things needed for daily living?: yes Has anyone in your life made you feel unsafe or unsupported?: no How hard is it for you to pay for the very basics like food, housing, medical care, and heating? Would you say it is:: Somewhat hard Do you want help finding or keeping work or a job?: I do not need or want help If for any reason you need help with day-to-day activities such as bathing, preparing meals, shopping, managing finances, etc., do you get the help you need?: I get all the help I need How often do you feel lonely or isolated from those around you?: Never Do you speak a language other than Bahamian at home?: No Does the patient want assistance with any of the above?: No Health Related Social Needs Health related social needs: transportation insecurity (Z59.82) and problems related to housing/economic circumstances (Z59.89) Health related social needs details: care management PFSH All Active Problems (Updated 04/30/25 @ 23:35 by Marianne Roy) Alcohol withdrawal (Acute) Type 2 diabetes mellitus (Acute) Aspiration pneumonia (Acute) Tobacco dependence (Acute) Major depressive disorder, recurrent (Acute) Benign essential hypertension (Acute) Severe chronic obstructive pulmonary disease (Acute) Benzodiazepine dependence (Acute) Alcohol use disorder, severe, dependence (Acute) Opioid use disorder, severe, on maintenance therapy, dependence (Acute) Internal derangement of right knee (Acute) Hypertension (Chronic) Folate deficiency (Acute) Liver disease, alcoholic (Acute) Erectile dysfunction (Acute) Decreased testosterone level (Acute) Alcohol use disorder, severe, in early remission (Acute) Intentional clonazepam overdose (Acute) DELLA (obstructive sleep apnea) (Chronic) Asthma (Chronic) Depression with anxiety (Chronic) Opiate dependence (Chronic) Medical History (Updated 04/30/25 @ 23:35 by Marianne Roy) History of hepatitis C Pneumonia Hepatitis C Thrombocytopenia Ribs, multiple fractures Suicide attempt Surgical History (Updated 12/20/24 @ 11:14 by Yelitza Warner RN) History of shoulder surgery DOS 08/09/19 History of esophagogastroduodenoscopy (EGD) Social History Smoking/Tobacco Use Status: Current every day Tobacco Type: cigarettes Smoking risk assessment performed?: Yes Alcohol Intake: current Alcohol Intake frequency: 3 or more drinks per day Drug use: Never Substance use type: crack/cocaine Details: state he has done any street drugs for the past 5 years Housing: other Readmission Within the Past 30 Days Yes or No: Yes Date of First Admission Date of 1st Admission: 04/15/25 Date of this Admission Date of Admission: 04/30/25 This admission was: Through ED Office Visit Since 1st Admission Have you seen your PCP in the office since discharge?: No Date of PCP Appointment: 05/03/25 Date of Scheduled Appointment: 05/03/25 ED visits How many ED visits in the past 12 months: 3
[2025-05-01 08:01] LABS: Hemoglobin A1C 7.4 % (<5.7)
[2025-05-01] MEDS: Gabapentin 600 MG TAB PO ×3 (08:43→19:51)
[2025-05-01] MEDS: Buprenorphine/Naloxone 8 mg/2 mg FILM 3 EACH SL (08:43)
[2025-05-01] MEDS: Doxycycline Hyclate 100 MG CAP PO ×2 (08:43→19:51)
[2025-05-01] MEDS: Escitalopram 20 MG TAB PO (08:43)
[2025-05-01] MEDS: predniSONE 20 MG TAB 40 MG PO (08:43)
[2025-05-01] MEDS: Carvedilol 3.125 MG TAB PO ×2 (08:43→19:51)
[2025-05-01] MEDS: cloNIDine 0.1 MG TAB PO ×4 (08:43→19:51)
[2025-05-01] MEDS: Normal Saline Flush 10 ML SYR IVP ×2 (08:44→16:01)
[2025-05-01] MEDS: cefTRIAXone 2 GM/50 ML BAG IVPB (08:45)
[2025-05-01] MEDS: Enoxaparin 40 MG/0.4 ML SYR SC (08:45)
[2025-05-01] MEDS: Insulin Aspart 300 UNITS/3 ML PEN SC ×3 (09:10→16:56)
[2025-05-01] MEDS: hydrOXYzine HCL 25 MG TAB PO ×2 (16:02→23:31)
[2025-05-01] MEDS: Nicotine 21 MG/24 HR PATCH TD (16:02)
--- NOTE | 2025-05-01 16:46 | PGE_ITS ---
Date of Service Date of service: 05/01/25 Time of Service: 16:46 Assessment and Plan Assessment and plan (1) Alcohol withdrawal: Status: Acute Assessment and plan: ICU admission for high risk with severe COPD and recent respiratory failure CIWA protocol with phenobarbital Avoid lorazepam. If he maxes out of phenobarbital, can add precedex. Has oral clonidine. Okay to eat. DVT ppx: enoxaparin (2) Alcohol use disorder, severe, dependence: Status: Acute Assessment and plan: Severe dependence Home regimen includes acamprosate, clonidine, gabapentin. We had discussed adding GLP-1. Discussed rehab placement. (3) Liver disease, alcoholic: Status: Acute Assessment and plan: Transaminitis less than 5x normal Follow LFTs/INR. Not high risk per Ashia Previous evidence of cirrhosis on u/s with nodular liver and large spleen. (4) Severe chronic obstructive pulmonary disease: Status: Acute Assessment and plan: Previous hospitalization he required bipap Home regimen includes rescue inhaler, budesonide-formoterol Last steroids after Apr 17 discharge He is wheezing with cough and suggestion of infiltrate on CXR, start prednisone, CTX, doxycycline 9 am (5) Tobacco dependence: Status: Acute Assessment and plan: PRN Nicotine patch (6) Type 2 diabetes mellitus: Status: Acute Assessment and plan: Repeat A1c 7.4%, trending up. No home regimen, start metformin. Would benefit from GLP-1 Correctional insulin q6h (7) Benzodiazepine dependence: Status: Acute Assessment and plan: He should not be managed with benzos with severe AUD. 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 Subjective Subjective Patient reports: voiding w/o difficulty; denies vomiting, shortness of breath or fever Interval history since last seen: On phenobarbital protocol overnight He wants something more for anxiety. He just doesn't feel good. He was drinking 1 pint liquor plus 2 hard lemonaids/day before coming back in. He felt terrible, breathing isn't good, poor energy. He knows he has to quit smoking and drinking. He does have a cough with sputum. His mouth is dry and he would like to eat. Exam Narrative Exam Narrative: General: Obese, unshaven, grease on hands/legs. Alert and oriented, not a gitated, mildly axnious. CV: RRR no murmur Resp: Mckinley expirotory wheezing, course in bases more on right. Abd: obese, nontender Neuro: awake, alert, agitated, no focal deficits Objective Last Vital Signs Temp 36.1 C L 05/01/25 12:13 Pulse 81 05/01/25 14:31 Resp 9 L 05/01/25 14:31 BP 150/107 H 05/01/25 14:31 Pulse Ox 94 05/01/25 14:31 Laboratory Results - last 24 hr 04/30/25 04/30/25 04/30/25 18:35 19:28 19:42 WBC 5.49 RBC 4.62 Hgb 16.2 Hct 43.6 MCV 94 MCH 35.1 H MCHC 37.2 H RDW 11.9 Plt Count 194 MPV 9.2 Immature Gran % 0.5 Neutrophils % 60.2 Lymphocytes % 31.9 Monocytes % 6.0 Eosinophils % 0.7 Basophils % 0.7 Nucleated RBC % 0.0 Absolute Neutrophils 3.30 Absolute Lymphocytes 1.75 Absolute Monocytes 0.33 Absolute Eosinophils 0.04 Absolute Basophils 0.04 PT INR Sodium 135 L Potassium 3.8 Chloride 92 L Carbon Dioxide 30.6 Anion Gap 12.4 H BUN 9 Creatinine 0.7 Est GFR (CKD-EPI 2020) 111.56 Glucose 214 H Hemoglobin A1c Calcium 8.8 Phosphorus 2.9 Magnesium 1.6 L Total Bilirubin 0.9 AST 181 H ALT 144 H Alkaline Phosphatase 120 H Ammonia Troponin I 10 9 Total Protein 7.1 Albumin 3.5 Lipase 69 Salicylates < 2.8 Acetaminophen < 2 Ethyl Alcohol 217.1 H COVID-19 Source Nasopharynx SARS-CoV-2 (PCR) Negative Influenza Type A (PCR) Negative Influenza Type B (PCR) Negative RSV (PCR) Negative 04/30/25 05/01/25 22:25 05:48 WBC 4.68 RBC 4.06 L Hgb 14.4 Hct 39.2 L MCV 97 H MCH 35.5 H MCHC 36.7 H RDW 11.9 Plt Count 138 MPV 9.2 Immature Gran % 0.2 Neutrophils % 56.6 Lymphocytes % 32.3 Monocytes % 8.1 Eosinophils % 1.9 Basophils % 0.9 Nucleated RBC % 0.0 Absolute Neutrophils 2.65 Absolute Lymphocytes 1.51 Absolute Monocytes 0.38 Absolute Eosinophils 0.09 Absolute Basophils 0.04 PT 14.6 H INR 1.5 H Sodium 136 Potassium 3.7 Chloride 94 L Carbon Dioxide 33.7 H Anion Gap 8.3 BUN 14 Creatinine 0.6 L Est GFR (CKD-EPI 2020) 116.87 Glucose 181 H Hemoglobin A1c 7.4 H Calcium 8.4 L Phosphorus Magnesium 1.8 Total Bilirubin 1.1 H AST 146 H ALT 121 H Alkaline Phosphatase 102 Ammonia 48 H Troponin I 10 Total Protein 6.2 L Albumin 3.0 L Lipase Salicylates Acetaminophen Ethyl Alcohol COVID-19 Source SARS-CoV-2 (PCR) Influenza Type A (PCR) Influenza Type B (PCR) RSV (PCR) PAWSS Have you Been Recently Intoxicated or Drunk Within the Last 30 days?: Yes Have you Ever Experienced Previous Episodes of Alcohol Withdrawal?: Yes Have you ever Experienced Withdrawal Seizures?: Yes Have you ever Experienced Delirium Tremens(DT)s?: Yes Have you ever undergone Alcohol Rehabilitation Treatment (i.e, inpt ot outpatient treatment programs)?: Yes Have you ever Experienced Blackouts?: Yes Have you ever Combined Alcohol with other Downers within the last 90 days?: No Have you ever Combined Alcohol with any other Substance of Abuse during the last 90 days?: No Positive Blood Alcohol level on Presentation? [PCS.BAL]: Yes Evidence of Increased Autonomic Activity (i.e. HR>120, tremor, sweating, kristen tation, nausea)?: Yes Result: 8 Time Spent with Patient Time Spent with Patient: >50 minutes Time was spent: preparing to see the patient(eg.review tests), obtaining and/or reviewing separately otained hiistory, ordering medications,tests, procedures, referring, communicating with other health career and transition teacher, indepentently interpreting results, counseling the patient and care coordination
[2025-05-01] MEDS: metFORMIN C.R. 500 MG TABCR PO (18:23)
[2025-05-01 19:31] LABS: Glucose 100 mg/dL (Negative)
[2025-05-01 19:37] LABS: Cannabinoids THC Negative (Negative); METHADONE URINE SCREEN Negative (Negative)
[2025-05-01 19:46] LABS: RBC 0-2 HPF (0-2); WBC 0-2 HPF (0-5)
[2025-05-01 19:47] LABS: C & S Indicated? No
[2025-05-02] VITALS (36 sets, daily range): BP systolic 96–163; BP diastolic 62–95; PULSE 73–106; RESP 7–23; TEMP 36.3–36.4; O2SAT 88–95
--- NOTE | 2025-05-02 | DI.RAD_ITS ---
Exam(s) XR CHEST 2V PA LATERAL EXAM: XR CHEST 2V PA LATERAL CLINICAL HISTORY: persistent dyspnea TECHNIQUE: 2D digital imaging was performed. Two views. COMPARISON: CR,XR XR PORTABLE CHEST AP from 04/15/2025 CR,XR XR CHEST 1V IN DI DEPT from 04/30/2025 FINDINGS: HEART: Normal size. Aorta: Not dilated. PULMONARY VASCULATURE: Normal. MEDIASTINUM: Unremarkable. LUNGS: Increased densities are now noted at the left lung base, new from prior exam. Findings are suspicious for pneumonia however atelectasis could also have this appearance. The right lung is clear. PLEURAL SPACE: No pleural effusion or pneumothorax. BONE:Old right upper rib fractures. SOFT TISSUES: Unremarkable. IMPRESSION: Left lower lobe infiltrate versus atelectasis. DATA REPOSITORY: RADIATION DOSE DELIVERED:
[2025-05-02] MEDS: Normal Saline Flush 10 ML SYR IVP ×3 (00:36→21:06)
[2025-05-02] MEDS: PHENobarbital 130 MG/ML VIAL IVP ×4 (00:36→23:28)
[2025-05-02 06:55] LABS: Abs Immature Grans 0.02 10^3/uL (0.0-0.06); HCT 34.7 % (40.0-50.0); HGB 12.5 g/dL (13.5-17.5); Immature Grans % 0.5 %; MCH 34.2 pg (27.0-33.0); MCHC 36.0 % (32.0-36.0); MCV 95 fL (80-95); MPV 9.8 fL (8.0-11.0); Platelet Count 105 10^3/uL (130-400); RBC 3.65 10^6/uL (4.36-5.78); RDW 11.5 % (11.8-14.1); RDW-SD 40.5 fL; WBC 4.05 10^3/uL (4.4-10.8)
[2025-05-02 07:19] LABS: INR 1.2 (0.9-1.1); Prothrombin Time 12.3 sec (9.1-11.1)
[2025-05-02 07:46] LABS: Magnesium 1.6 mg/dL (1.8-2.4)
[2025-05-02 07:54] LABS: ALT 104 U/L (16-63); AST 109 U/L (15-37); Albumin 3.0 g/dL (3.4-5.0); Alkaline Phosphatase 98 U/L (46-116); Anion Gap 8.8 mmol/L (3-11); BUN 18 mg/dL (7-18); Bilirubin, Total 1.1 mg/dL (0.2-1.0); CO2 32.2 mmol/L (21.0-32.0); Calcium 8.6 mg/dL (8.5-10.1); Chloride 95 mmol/L (98-107); Estimated GFR 107.15 (mL/min/1.73m2); Glucose 157 mg/dL (74-106); Potassium 3.5 mmol/L (3.5-5.1); Sodium 136 mmol/L (136-145); Total Protein 5.9 g/dL (6.4-8.2)
[2025-05-02] MEDS: Insulin Aspart 300 UNITS/3 ML PEN SC ×3 (08:50→16:57)
[2025-05-02] MEDS: Buprenorphine/Naloxone 8 mg/2 mg FILM 3 EACH SL (08:51)
[2025-05-02] MEDS: cefTRIAXone 2 GM/50 ML BAG IVPB (08:51)
[2025-05-02] MEDS: Thiamine 100 MG TAB PO (08:52)
[2025-05-02] MEDS: Carvedilol 3.125 MG TAB PO ×2 (08:52→21:05)
[2025-05-02] MEDS: Enoxaparin 40 MG/0.4 ML SYR SC (08:52)
[2025-05-02] MEDS: Escitalopram 20 MG TAB PO (08:52)
[2025-05-02] MEDS: Gabapentin 600 MG TAB PO ×3 (08:52→21:05)
[2025-05-02] MEDS: cloNIDine 0.1 MG TAB PO ×4 (08:52→21:06)
[2025-05-02] MEDS: predniSONE 20 MG TAB 40 MG PO (08:52)
[2025-05-02] MEDS: Folic Acid 1 MG TAB PO (08:53)
[2025-05-02] MEDS: Doxycycline Hyclate 100 MG CAP PO ×2 (08:53→21:06)
[2025-05-02] MEDS: Multivitamin TAB 1 TAB PO (08:53)
[2025-05-02] MEDS: hydrOXYzine HCL 25 MG TAB PO ×2 (09:10→21:05)
--- NOTE | 2025-05-02 10:36 | W.PM.PROGNOT ---
Date of Service Date of service: 05/02/25 Time of Service: 10:36 Assessment and Plan Assessment and plan (1) Alcohol withdrawal: Status: Acute Assessment and plan: ICU admission for high risk with h/o severe withdrawal, severe COPD and recent respiratory failure CIWA protocol with phenobarbital, at soft stop, but can proceed to hard stop if necessary Avoid lorazepam/benzos. If he maxes out of phenobarbital, can add precedex. Has oral clonidine. DVT ppx: enoxaparin (2) Alcohol use disorder, severe, dependence: Status: Acute Assessment and plan: Severe dependence Home regimen includes acamprosate, clonidine, gabapentin. We had discussed adding GLP-1. Discussed rehab placement. CM helping, try to engage [facility] and recovery center. (3) Severe chronic obstructive pulmonary disease: Status: Acute Assessment and plan: Previous hospitalization he required bipap Home regimen includes rescue inhaler, budesonide-formoterol Last steroids after Apr 17 discharge Wheezing, so resumed prednisone and antibiotics 05/01. (4) Liver disease, alcoholic: Status: Acute Assessment and plan: Transaminitis less than 5x normal Follow LFTs/INR. Not high risk per Ashia Previous evidence of cirrhosis on u/s with nodular liver and large spleen. (5) Tobacco dependence: Status: Acute Assessment and plan: PRN Nicotine patch (6) Type 2 diabetes mellitus: Status: Acute Assessment and plan: Repeat A1c 7.4%, trending up. No home regimen. Start metformin after he is through withdrawal. Would benefit from GLP-1 Correctional insulin q6h (7) Benzodiazepine dependence: Status: Acute Assessment and plan: He should not be managed with benzos with severe AUD. (8) Opioid use disorder, severe, on maintenance therapy, dependence: Status: Acute Assessment and plan: Continue suboxone 8/2 BID (9) Major depressive disorder, recurrent: Status: Acute Assessment and plan: Continue home escitalopram, quetiapine as well as prns for anxiety. (10) Benign essential hypertension: Status: Acute Assessment and plan: Continue home carvedilol, clonidine, though I don't like clonidine mcfp. Subjective Subjective Patient reports: feels better, voiding w/o difficulty and shortness of breath; denies diarrhea, vomiting or fever Interval history since last seen: Feels a little better overall, but still feels like his chest is tight and can't get air out. The nebulizers help some. Wonders if he is getting enough antibiotics. Some sputum. Anxiety still bad, but managing. Exam Narrative Exam Narrative: General: Alert and oriented, sitting on side of bed, cleaned up, less anxious appearing CV: RRR no murmur Resp: [place]ckin[place] expirotory wheezing, no rales, normal effort at rest. Abd: obese, nontender Neuro: awake, alert, no tremor, no focal deficits Objective Last Vital Signs Temp 36.3 C L 05/02/25 01:00 Pulse 79 05/02/25 01:00 Resp 12 05/02/25 01:00 BP 132/98 H 05/01/25 23:18 Pulse Ox 91 L 05/02/25 01:00 Laboratory Results - last 24 hr 05/01/25 05/02/25 15:55 05:40 WBC 4.05 L RBC 3.65 L Hgb 12.5 L Hct 34.7 L MCV 95 MCH 34.2 H MCHC 36.0 RDW 11.5 L Plt Count 105 L MPV 9.8 Immature Gran % 0.5 Neutrophils % 48.2 Lymphocytes % 42.7 Monocytes % 6.9 Eosinophils % 1.2 Basophils % 0.5 Nucleated RBC % 0.0 Absolute Neutrophils 1.95 Absolute Lymphocytes 1.73 Absolute Monocytes 0.28 Absolute Eosinophils 0.05 Absolute Basophils 0.02 PT 12.3 H INR 1.2 H Sodium 136 Potassium 3.5 Chloride 95 L Carbon Dioxide 32.2 H Anion Gap 8.8 BUN 18 Creatinine 0.8 Est GFR (CKD-EPI 2020) 107.15 Glucose 157 H Calcium 8.6 Magnesium 1.6 L Total Bilirubin 1.1 H AST 109 H ALT 104 H Alkaline Phosphatase 98 Total Protein 5.9 L Albumin 3.0 L Urine Color Kimberly Urine Clarity Sl Cloudy Urine pH 5.5 Ur Specific [place] >= 1.030 H Urine Protein 30 H Urine Ketones Negative Urine Blood Small H Urine Nitrite Positive H Urine Bilirubin Small H Urine Urobilinogen 0.2 Ur Leukocyte Esterase Negative Urine RBC 0-2 Urine WBC 0-2 Ur Epithelial Cells Rare Urine Crystals Moderate Amorphous Urine Bacteria Moderate Urine Casts Negative Urine Mucus Negative Ur Culture Indicated? No Urine Glucose 100 H Urine Opiates Screen Negative Urine Methadone Screen Negative Ur Barbiturates Screen Positive A Ur Tricyclics Screen Negative Ur Amphetamines Screen Positive A U Benzodiazepines Scrn Negative Urine Cocaine Screen Negative Ur THC Screen Negative PAWSS Have you Been Recently Intoxicated or Drunk Within the Last 30 days?: Yes Have you Ever Experienced Previous Episodes of Alcohol Withdrawal?: Yes Have you ever Experienced Withdrawal Seizures?: Yes Have you ever Experienced Delirium Tremens(DT)s?: Yes Have you ever undergone Alcohol Rehabilitation Treatment (i.e, inpt ot outpatient treatment programs)?: Yes Have you ever Experienced Blackouts?: Yes Have you ever Combined Alcohol with other Downers within the last 90 days?: No Have you ever Combined Alcohol with any other Substance of Abuse during the last 90 days?: No Positive Blood Alcohol level on Presentation? [PCS.BAL]: Yes Evidence of Increased Autonomic Activity (i.e. HR>120, tremor, sweating, agitation, nausea)?: Yes Result: 8 Time Spent with Patient Time Spent with Patient: 35-49 minutes Time was spent: preparing to see the patient(eg.review tests), obtaining and/or reviewing separately otained hiistory, ordering medications,tests, procedures, referring, communicating with other health manager progressive care, indepentently interpreting results, counseling the patient and care coordination
--- NOTE | 2025-05-02 14:12 | PHA.REVIEW2 ---
Pharmacy Admission Review Admission Clinical Review Admission Pharmacy Review: Alcohol withdrawal (Acute) Type 2 diabetes mellitus (Acute) Tobacco dependence (Acute) Major depressive disorder, recurrent (Acute) Benign essential hypertension (Acute) Severe chronic obstructive pulmonary disease (Acute) Benzodiazepine dependence (Acute) Alcohol use disorder, severe, dependence (Acute) Opioid use disorder, severe, on maintenance therapy, dependence (Acute) Liver disease, alcoholic (Acute) cat dander Allergy (Mild, Verified 04/09/25 11:04) Wheezing dog dander Allergy (Mild, Verified 04/09/25 11:04) Wheezing Environmental Allergy (Intermediate, Uncoded 04/09/25 11:04) Asthma Exacerbation Resuscitation Status Full Code Height 6 ft 3 in Weight 133.6 kg Pharmacy Admission Review Renal Dosing Renal Dosing: BUN 18 mg/dL (7-18) 05/02/25 05:40 Creatinine 0.8 mg/dL (0.70-1.30) 05/02/25 05:40 Medications needing adjustments: Reviewed (CrCl 160.9 mL/min) List of meds needing interventions: Current medications are okay Anticoagulation Anticoagulation: Hgb 12.5 g/dL (13.5-17.5) L 05/02/25 05:40 Hct 34.7 % (40.0-50.0) L 05/02/25 05:40 Plt Count 105 10^3/uL (130-400) L 05/02/25 05:40 INR 1.2 (0.9-1.1) H 05/02/25 05:40 Creatinine 0.8 mg/dL (0.70-1.30) 05/02/25 05:40 DVT Prophylaxis: Reviewed (INR decreased from 1.5, Hgb decreased from 14.4) Medications: Enoxaparin (40mg daily) Opiate Usage Evaluate Pain Scale/Pains Meds: Reviewed (Suboxone 24mg/6mg daily [facility]) Scheduled Bowel Reg ordered if on Opiates?: Yes (Senna/docusate) Relevant Labs Relevant Labs: Sodium 136 mmol/L (136-145) 05/02/25 05:40 Potassium 3.5 mmol/L (3.5-5.1) 05/02/25 05:40 Chloride 95 mmol/L (98-107) L 05/02/25 05:40 Phosphorus 2.9 mg/dL (2.6-4.7) 04/30/25 18:35 Magnesium 1.6 mg/dL (1.8-2.4) L 05/02/25 05:40 Electrolytes, C-Reactive P, ESR: Reviewed (AST/ALT decreased from 146/121 to 109/104) DM Control DM Control: Glucose 157 mg/dL (74-106) H 05/02/25 05:40 Hemoglobin A1c 7.4 % (<5.7) H 05/01/25 05:48 Finger Stick Blood Glucose 156 1203 Finger Stick Blood Glucose 156 1135 Finger Stick Blood Glucose 156 1135 Finger Stick Blood Glucose 176 0850 Finger Stick Blood Glucose 176 0721 Finger Stick Blood Glucose 176 0721 DM Control: Reviewed Insulin Dosing, Diabetic Medication: Has orders for SS insulin and metformin XR 500mg daily Cardiac Review Cardiac Review: Troponin I 10 ng/L (<or=76) 04/30/25 22:25 BP, HR, EF%: Reviewed (BP/HR WNL, Ox 89) List meds needing interventions: Has orders for carvedilol 3.125mg BID and furosemide 40mg daily QTc Review QTc: Reviewed (471 from 04/30/25) IV to PO Switch IV Medications: Reviewed (ceftriaxone and phenobarbital) Home Meds Home Med List reviewed: Intervened Relevent Home Meds Not ordered & why?: acamprosate, Ventolin (PRN), Symbicort, vitamin D3, magnesium, potassium, quetiapine, lorazepam (on hold per provider) Asked provider about Symbicort and quetiapine - provider put in orders Asked nurse to see if patient takes furosemide and lorazepam at home, both recently filled but not on home med list. Per nurse patient does take both at home. Added to home med list and informed provider. Order added for furosemide but provider holding lorazepam for now (on phenobarb CIWA protocol) Asked nurse to verify how patient takes Suboxone at home. Listed as 3 films once daily but actual prescription says 1 film TID. Per patient they take as 3 films once daily. Asked nurse if patient is still taking escitalopram and testosterone - last filled in September from what I am able to see in external fill history. Per patient they are taking both Current Meds Current Medication Order Review: Intervened Comments: Phenobarbital for alcohol withdrawal Soft Stop: 1267.5mg Hard Stop: 1690mg Total dose so far: 1280mg (provider aware patient is over soft stop) Nurse pulled vial out this morning at 0900 but was not documented as given - called to verify if given, waiting to hear back. This would put patient at 1410mg Added soft and hard stop limits to phenobarbital PRN order per pharmacy protocol Added IV access order Pharmacy Antibiotic Review Relevant Labs: WBC 4.05 10^3/uL (4.4-10.8) L 05/02/25 05:40 Pharmacy Antibiotic Activity: C/S review and Reviewed, no change Comments: Patient is on ceftriaxone and doxycycline PO, day 2, for COPD and pneumonia.
[2025-05-02] MEDS: metFORMIN C.R. 500 MG TABCR PO (16:57)
--- NOTE | 2025-05-02 17:35 | PDOC.CMPRO ---
Date of service: 05/02/25 Time of Service: 17:35 Care Management Progress Note Progress Note Text Progress Note Text: Chris is starting to feel better, and he looks better. He was pleasant with CM and we had a nice conversation. Chris has been in contact with [facility], and at this time he is planning to drive directly there when he is discharged. Chris did this work on his own and is quite proud of himself, as is CM. Chris is hoping to be discharged tomorrow. Discharge Potential Discharge Needs: PCP F/U Appt and Other (inpatient alcohol rehab) Anticipated Barriers to Discharge: None Identified Patient/Family Education Needs: Review discharge instructions, discuss Ask Me Three Transportation: Private vehicle (Chris drove himself to the hospital, and will transport in his own car.) Plan: Chris will discharge once he is medically stable with a plan to admit himself to [facility]. He will also need to f/u with his PCP and continue per his medical plan of care. Chris will transport himself home. CM will continue to follow. Social Determinants of Health Screening Social Determinants of health last assessed in clinic: 05/02/25 Will the Patient Participate in the Screening?: Yes Do you worry about having a steady place to live?: no Problems where you live: no known problems In the past 12 months, have you had to go without electric, gas, oil or water in your home?: no 1. Within the past 12 months, we worried whether our food would run out before we got money to buy more.: Don't know/refused 2. Within the past 12 months, the food we bought just didn't last and we didn't have money to get more.: Don't know/refused Has lack of transportation kept you from medical appointments or from doing things needed for daily living?: yes Has anyone in your life made you feel unsafe or unsupported?: no How hard is it for you to pay for the very basics like food, housing, medical care, and heating? Would you say it is:: Somewhat hard Do you want help finding or keeping work or a job?: I do not need or want help If for any reason you need help with day-to-day activities such as bathing, preparing meals, shopping, managing finances, etc., do you get the help you need?: I get all the help I need How often do you feel lonely or isolated from those around you?: Never Do you speak a language other than [place] at home?: No Does the patient want assistance with any of the above?: No Health Related Social Needs Health related social needs: transportation insecurity (Z59.82) and problems related to housing/economic circumstances (Z59.89) Health related social needs details: care management
[2025-05-02] MEDS: Budesonide/Formoterol 80/4.5 6.9 GM 60 PUFF INH IH (19:47)
[2025-05-02] MEDS: Albuterol/Ipratropium 3 ML UPD VIAL UPD (19:47)
[2025-05-02] MEDS: Nicotine 21 MG/24 HR PATCH TD (21:06)
[2025-05-02] MEDS: QUEtiapine 100 MG TAB 200 MG PO (21:06)
[2025-05-03] VITALS (60 sets, daily range): BP systolic 103–121; BP diastolic 64–79; PULSE 66–99; RESP 8–23; TEMP 36.4–36.9; O2SAT 91–93
[2025-05-03] MEDS: MAGNESIUM SULFATE 2 GM/50 ML BAG IV_INF (00:28)
[2025-05-03 06:27] LABS: Abs Immature Grans 0.02 10^3/uL (0.0-0.06); HCT 31.1 % (40.0-50.0); HGB 11.1 g/dL (13.5-17.5); Immature Grans % 0.7 %; MCH 34.0 pg (27.0-33.0); MCHC 35.7 % (32.0-36.0); MCV 95 fL (80-95); MPV 9.7 fL (8.0-11.0); RBC 3.26 10^6/uL (4.36-5.78); RDW 11.4 % (11.8-14.1); RDW-SD 39.8 fL; WBC 2.98 10^3/uL (4.4-10.8)
[2025-05-03 07:13] LABS: ALT 71 U/L (16-63); AST 59 U/L (15-37); Albumin 2.7 g/dL (3.4-5.0); Alkaline Phosphatase 85 U/L (46-116); Anion Gap 5.3 mmol/L (3-11); BUN 17 mg/dL (7-18); Bilirubin, Total 0.6 mg/dL (0.2-1.0); CO2 34.7 mmol/L (21.0-32.0); Calcium 8.5 mg/dL (8.5-10.1); Chloride 98 mmol/L (98-107); Estimated GFR 111.56 (mL/min/1.73m2); Glucose 119 mg/dL (74-106); Sodium 138 mmol/L (136-145); Total Protein 5.6 g/dL (6.4-8.2)
[2025-05-03 07:24] LABS: Platelet Count 85 10^3/uL (130-400); RBC Morphology Normal
[2025-05-03 07:41] LABS: Potassium 2.9 mmol/L (3.5-5.1)
[2025-05-03] MEDS: Budesonide/Formoterol 80/4.5 6.9 GM 60 PUFF INH IH ×2 (08:02→20:45)
[2025-05-03] MEDS: cloNIDine 0.1 MG TAB PO ×5 (08:44→21:51)
[2025-05-03] MEDS: Sennosides/Docusate Sodium TAB 1 TAB PO (08:44)
[2025-05-03] MEDS: Multivitamin TAB 1 TAB PO (08:44)
[2025-05-03] MEDS: Gabapentin 600 MG TAB PO ×3 (08:44→21:51)
[2025-05-03] MEDS: Doxycycline Hyclate 100 MG CAP PO ×2 (08:44→21:51)
[2025-05-03] MEDS: Escitalopram 20 MG TAB PO (08:44)
[2025-05-03] MEDS: predniSONE 20 MG TAB 40 MG PO (08:44)
[2025-05-03] MEDS: Carvedilol 3.125 MG TAB PO ×2 (08:44→21:50)
[2025-05-03] MEDS: Folic Acid 1 MG TAB PO (08:44)
[2025-05-03] MEDS: Thiamine 100 MG TAB PO (08:44)
[2025-05-03] MEDS: Furosemide 40 MG TAB PO (08:44)
[2025-05-03] MEDS: Buprenorphine/Naloxone 8 mg/2 mg FILM 3 EACH SL (08:45)
[2025-05-03] MEDS: Enoxaparin 40 MG/0.4 ML SYR SC (08:45)
[2025-05-03] MEDS: Normal Saline Flush 10 ML SYR IVP ×2 (08:45→21:52)
[2025-05-03] MEDS: hydrOXYzine HCL 25 MG TAB PO ×4 (08:52→22:08)
[2025-05-03] MEDS: Potassium Chloride 20 MEQ TABCR 40 MEQ PO ×3 (08:52→21:50)
[2025-05-03] MEDS: cefTRIAXone 2 GM/50 ML BAG IVPB (08:53)
[2025-05-03] MEDS: POTASSIUM CHLORIDE 20 MEQ/100 ML BAG 50 MEQ IV_INF (10:07)
[2025-05-03 10:11] LABS: Lab Add On Test DONE
[2025-05-03 10:42] LABS: Magnesium 1.8 mg/dL (1.8-2.4)
[2025-05-03] MEDS: Insulin Aspart 300 UNITS/3 ML PEN SC ×2 (11:59→16:45)
[2025-05-03] MEDS: metFORMIN C.R. 500 MG TABCR PO (16:45)
--- NOTE | 2025-05-03 17:11 | PDOC.CMPRO ---
Date of service: 05/03/25 Time of Service: 17:11 Care Management Progress Note Progress Note Text Progress Note Text: Chris was lying in bed, but quickly sat up, when CM met with him this afternoon. Chris stated that he is feeling much better and is looking better as well. He believes he will be discharged tomorrow. He has been in touch with [facility]. They can not save a bed for him at this time, until he is discharged. Chris plans to call [facility] tomorrow as soon as he gets his discharge order, and hopefully head right to [facility]. He feels committed to staying sober. He has had long periods of sobriety in the past, and feels he can do it again. 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 Discharge Potential Discharge Needs: PCP F/U Appt and Other (alcohol rehab) Anticipated Barriers to Discharge: None Identified Patient/Family Education Needs: Review discharge instructions, discuss Ask Me Three Transportation: Private vehicle (Chris has his car here in the [facility] parking lot) Plan: Chris will discharge once he is medically stable, likely tomorrow, with a plan to admit himself to [facility]. He will also need to f/u with his PCP and continue per his medical plan of care. Chris will transport himself home. CM will continue to follow. Social Determinants of Health Screening Social Determinants of health last assessed in clinic: 05/03/25 Will the Patient Participate in the Screening?: Yes Do you worry about having a steady place to live?: no Problems where you live: no known problems In the past 12 months, have you had to go without electric, gas, oil or water in your home?: no 1. Within the past 12 months, we worried whether our food would run out before we got money to buy more.: Don't know/refused 2. Within the past 12 months, the food we bought just didn't last and we didn't have money to get more.: Don't know/refused Has lack of transportation kept you from medical appointments or from doing things needed for daily living?: yes Has anyone in your life made you feel unsafe or unsupported?: no How hard is it for you to pay for the very basics like food, housing, medical care, and heating? Would you say it is:: Somewhat hard Do you want help finding or keeping work or a job?: I do not need or want help If for any reason you need help with day-to-day activities such as bathing, preparing meals, shopping, managing finances, etc., do you get the help you need?: I get all the help I need How often do you feel lonely or isolated from those around you?: Never Do you speak a language other than [place] at home?: No Does the patient want assistance with any of the above?: No Health Related Social Needs Health related social needs: transportation insecurity (Z59.82) and problems related to housing/economic circumstances (Z59.89) Health related social needs details: care management
[2025-05-03] MEDS: Albuterol/Ipratropium 3 ML UPD VIAL UPD (20:50)
[2025-05-03] MEDS: QUEtiapine 100 MG TAB 200 MG PO (21:50)
[2025-05-03] MEDS: Nicotine 21 MG/24 HR PATCH TD (22:09)
[2025-05-04] VITALS (20 sets, daily range): BP systolic 116–130; BP diastolic 73–90; PULSE 62–83; RESP 6–18; TEMP 36.4–36.5
[2025-05-04] MEDS: hydrOXYzine HCL 25 MG TAB PO ×2 (06:23→11:14)
[2025-05-04] MEDS: cloNIDine 0.1 MG TAB PO ×2 (06:23→11:14)
[2025-05-04 07:12] LABS: Abs Immature Grans 0.05 10^3/uL (0.0-0.06); HCT 32.0 % (40.0-50.0); HGB 11.2 g/dL (13.5-17.5); Immature Grans % 1.5 %; MCH 33.6 pg (27.0-33.0); MCHC 35.0 % (32.0-36.0); MCV 96 fL (80-95); MPV 10.0 fL (8.0-11.0); RBC 3.33 10^6/uL (4.36-5.78); RDW 11.7 % (11.8-14.1); RDW-SD 40.9 fL; WBC 3.37 10^3/uL (4.4-10.8)
[2025-05-04 07:31] LABS: ALT 94 U/L (16-63); AST 84 U/L (15-37); Albumin 2.7 g/dL (3.4-5.0); Alkaline Phosphatase 83 U/L (46-116); Anion Gap 6.5 mmol/L (3-11); BUN 19 mg/dL (7-18); Bilirubin, Total 0.5 mg/dL (0.2-1.0); CO2 34.5 mmol/L (21.0-32.0); Calcium 8.3 mg/dL (8.5-10.1); Chloride 99 mmol/L (98-107); Estimated GFR 116.87 (mL/min/1.73m2); Glucose 119 mg/dL (74-106); Potassium 3.5 mmol/L (3.5-5.1); Sodium 140 mmol/L (136-145); Total Protein 5.6 g/dL (6.4-8.2)
[2025-05-04] MEDS: Potassium Chloride 20 MEQ TABCR 40 MEQ PO (07:36)
[2025-05-04] MEDS: Thiamine 100 MG TAB PO (07:37)
[2025-05-04] MEDS: predniSONE 20 MG TAB 40 MG PO (07:37)
[2025-05-04] MEDS: Folic Acid 1 MG TAB PO (07:37)
[2025-05-04] MEDS: Gabapentin 600 MG TAB PO (07:37)
[2025-05-04] MEDS: Doxycycline Hyclate 100 MG CAP PO (07:37)
[2025-05-04] MEDS: Sennosides/Docusate Sodium TAB 1 TAB PO (07:37)
[2025-05-04] MEDS: Escitalopram 20 MG TAB PO (07:37)
[2025-05-04] MEDS: Multivitamin TAB 1 TAB PO (07:38)
[2025-05-04] MEDS: Furosemide 40 MG TAB PO (07:38)
[2025-05-04] MEDS: Enoxaparin 40 MG/0.4 ML SYR SC (07:38)
[2025-05-04] MEDS: Buprenorphine/Naloxone 8 mg/2 mg FILM 3 EACH SL (07:38)
[2025-05-04] MEDS: Carvedilol 3.125 MG TAB PO (07:38)
[2025-05-04] MEDS: cefTRIAXone 2 GM/50 ML BAG IVPB (07:43)
[2025-05-04] MEDS: Normal Saline Flush 10 ML SYR IVP (07:44)
[2025-05-04 07:52] LABS: Platelet Count 76 10^3/uL (130-400)
--- NOTE | 2025-05-04 07:52 | PDOC.CMPRO ---
Date of service: 05/04/25 Time of Service: 07:52 Care Management Progress Note Discharge Potential Discharge Needs: PCP F/U Appt (05/08) and Other ([facility] - privately coordinated) Anticipated Barriers to Discharge: None Identified Patient/Family Education Needs: Review discharge instructions, discuss Ask Me Three Transportation: Private vehicle (Chris has his car here in the [facility] parking lot) Plan: Chris will discharge once he is medically stable, with a plan to admit himself to [facility]. He will also need to f/u with his PCP 05/08 and continue per his medical plan of care. Chris will transport himself home. CM will continue to follow. Social Determinants of Health Screening Social Determinants of health last assessed in clinic: 05/03/25 Will the Patient Participate in the Screening?: Yes Do you worry about having a steady place to live?: no Problems where you live: no known problems In the past 12 months, have you had to go without electric, gas, oil or water in your home?: no Has lack of transportation kept you from medical appointments or from doing things needed for daily living?: yes Has anyone in your life made you feel unsafe or unsupported?: no How hard is it for you to pay for the very basics like food, housing, medical care, and heating? Would you say it is:: Somewhat hard Do you want help finding or keeping work or a job?: I do not need or want help If for any reason you need help with day-to-day activities such as bathing, preparing meals, shopping, managing finances, etc., do you get the help you need?: I get all the help I need How often do you feel lonely or isolated from those around you?: Never Do you speak a language other than [place] at home?: No Does the patient want assistance with any of the above?: No Health Related Social Needs Health related social needs: transportation insecurity (Z59.82) and problems related to housing/economic circumstances (Z59.89) Health related social needs details: care management
[2025-05-04] MEDS: Budesonide/Formoterol 80/4.5 6.9 GM 60 PUFF INH IH (08:10)
--- NOTE | 2025-05-04 10:21 | W.PM.DS.N ---
Date of service: 05/04/25 Time of Service: 10:21 DS: Diagnosis Discharge Diagnosis (1) Alcohol withdrawal: Status: Acute (2) Alcohol use disorder, severe, dependence: Status: Acute (3) Severe chronic obstructive pulmonary disease: Status: Acute (4) Liver disease, alcoholic: Status: Acute (5) Tobacco dependence: Status: Acute (6) Type 2 diabetes mellitus: Status: Acute (7) Benzodiazepine dependence: Status: Acute (8) Opioid use disorder, severe, on maintenance therapy, dependence: Status: Acute (9) Major depressive disorder, recurrent: Status: Acute (10) Benign essential hypertension: Status: Acute Discharge Plan Disposition Patient Disposition: Home Condition: Good Discharge Details Reason For Visit: EtOH withdrawal Admit Date/Time: 04/30/25 19:50 Admit Provider: Kurt Anguiano Attending Provider: Kurt Anguiano Primary Care Provider: Pierre Cardenas Hospital Course Hospital Course: 50 yo M with PMH including EtOH dependence with multiple hospitalizations for withdrawal including intubation, severe COPD with recent hospitalization for respiratory failure, GI bleed, T2DM, HTN, OUD, benzodiazepine dependence, EtOH cirrhosis, tobacco dependence, Cervico-thoracic spine surgery who presented 04/29 with daily drinking and vomiting after being discharged 04/24 from an admission for alcohol withdrawal and aspiration. He had pulmonary infiltrates on CXR and a BAL of 217 and AST/ALT of 181/144. He was admitted and treated with phenobarbital withdrawal protocol and improved over the 4 days with last dosing in the late evening of 05/02. He worked with care management and called [facility]. His pneumonia was treated with ceftriaxone and doxycycline, and he was discharged with 3 more days of amox/clav and doxycycline with a 6 day prednisone taper given he was on prednisone a week before admission. Spiriva was added to his regular Symbicort for COPD. Smoking cessation was emphasized. He was started on metformin for type 2 DM after getting through alcohol withdrawal. We did discuss GLP-1 use again given it would also likely help alcohol use disorder. His AST/ALT improved to 84/94 by the morning of discharge. His INR went from 1.5 to 1.2. His had been low in the past but were normal on admission and did drop. He was on enoxaparine. He should be evaluated for cirrhosis when he is stable. His anxiety was managed with prn clonidine and hydroxyzine once his phenobarbital was maxed out. He should not continued benzodiazepines with his severe alcohol use disorder. I did call Isabel to make sure he did not have any refills on his lorazepam. He has a PCP appointment 05/07 unless he is at [facility]. Recommendations for Follow Up Recommended tests to be ordered by follow up provider: CBC/CMP, magnesium 1 week Home Meds and New Rx's Prescriptions: New doxycycline hyclate 100 mg Capsule 100 mg PO BID 3 Days Qty: 6 0RF polyethylene glycol 3350 17 gram Powder In Packet 17 g PO DAILY PRN PRN (Reason: Constipation) Qty: 20 0RF prednisone 20 mg Tablet See Taper PO DAILY Qty: 7 0RF Taper: Prednisone 20mg taper 40 mg Daily for 2 Days and 0 Hour 20 mg Daily for 2 Days and 0 Hour 10 mg Daily for 2 Days and 0 Hour hydroxyzine HCl 25 mg Tablet 25 mg PO QID PRN PRNQty: 50 0RF metformin 500 mg Tablet Extended Release 24 Hr 500 mg PO DAILY@1700 Qty: 90 0RF amoxicillin-pot clavulanate 875-125 mg tablet 1 tab PO BID 3 Days Qty: 6 0RF Spiriva Respimat 2.5 mcg/actuation mist 2 puff inhalation QAM Qty: 4 2RF Continued quetiapine 200 mg tablet 200 mg PO HS Patient Comments: TAKE ONE TABLET BY MOUTH AT BEDTIME albuterol sulfate [Ventolin HFA] 90 mcg/actuation HFA aerosol inhaler 2 puff INHALATION Q6H PRN PRN Patient Comments: INHALE TWO PUFFS BY MOUTH EVERY 6 HOURS NEEDED FOR SHORTNESS OF BREATH escitalopram oxalate 20 mg tablet 20 mg PO DAILY Patient Comments: TAKE ONE TABLET BY MOUTH EVERY DAY buprenorphine-naloxone [Suboxone] 8-2 mg film 3 film sublingual DAILY carvedilol 3.125 mg Tablet 3.125 mg PO BID Qty: 60 0RF magnesium oxide 400 mg (241.3 mg magnesium) Tablet 400 mg PO DAILY Qty: 90 0RF nicotine 21 mg/24 hr Patch 24 Hour 21 mg transdermal DAILY Qty: 30 0RF folic acid 1 mg Tablet 1 mg PO DAILY Qty: 90 0RF acamprosate 333 mg Tablet,Delayed Release (Dr/Ec) 666 mg PO TID Qty: 180 2RF gabapentin 600 mg tablet 600 mg PO TID Qty: 90 0RF Rx Instructions: increase dose, stop lorazepam testosterone cypionate 100 mg/mL oil 100 mg IM Q7D Patient Comments: INJECT 1ML INTRAMUSCULARLY EVERY 2 WEEKS DISCARD AFTER 84 DAYS cholecalciferol (vitamin D3) 1,250 mcg (50,000 unit) capsule 1,250 mcg PO ONCE Patient Comments: TAKE 1 CAPSULE BY MOUTH ONCE MONTHLY sennosides-docusate sodium [Colace 2-In-1] 8.6-50 mg Tablet 1 tab PO BID Qty: 180 0RF budesonide-formoterol [Symbicort] 80-4.5 mcg/actuation HFA aerosol inhaler 2 puff INHALATION BID Patient Comments: INHALE TWO PUFFS BY MOUTH TWICE A DAY potassium chloride 20 mEq tablet extended release 40 meq PO DAILY Patient Comments: TAKE TWO TABLETS BY MOUTH EVERY DAY furosemide 40 mg tablet 40 mg PO DAILY Patient Comments: TAKE ONE TABLET BY MOUTH EVERY DAY lorazepam 1 mg tablet 1 mg PO BID PRN Patient Comments: TAKE ONE TABLET BY MOUTH TWICE A DAY, NEEDED FOR ANXIETY Changed clonidine HCl 0.1 mg tablet 0.1 mg PO QID PRN (Reason: Anxiety) Qty: 0 0RF Patient Comments: TAKE ONE TABLET BY MOUTH FOUR TIMES A DAY Discontinued prednisone 20 mg Tablet 40 mg PO DAILY Qty: 6 0RF Discharge Instructions Additional Instructions: Follow up with emily martinez as planned. You have two antibiotics for 3 more days along with a taper or prednisone to treat the lung infection You have a new inhaler, Spiriva, to take daily with your Symbicort. They work well together. You can continue clonidine as needed for anxiety. You should talk to your PCP about another regular blood pressure medication if you need one. You can also take hydroxyzine as needed for anxiety. You should avoid Ativan/lorazepam or other benzodiazepines, as these can trigger alcohol relapse. You have metformin for the type 2 diabetes. We had talked about also using something like Ozempic/semaglutide because this kind of medicine helps people not drink alcohol and it helps with weight loss. You should see a family educator at the clinic as well. You can take Miralax (polyethylene glycol) as needed if you are not having a bowel movement daily. Referrals: Ko Smith [ [facility] STAFF PHYSICIAN, Medicine] - 05/07/25 3:00 pm Activity:: Activity as Tolerated Equipment/Supplies:: No Equipment Needed Diet:: Carb Counting Discharge Orders Discharge Orders: Discharge Order (Routine); Ordered 05/04/25 Ordered By: Trey Jack DS: Summary Time Spent with Patient providing and/or coordinating discharge services: Greater than 30 minutes Status at Discharge Functional status at discharge: independent ambulation Overall status at discharge: patient is back to baseline Mental Status: mental status grossly normal Speech and Movement: speech and movement normal Mood: congruent mood Affect: normal affect Quality:SDOH Health Related Social Needs: Health related social needs transpo insecurity house/econ circumstance Health related social needs details care management Health related social needs details: care management Exam Narrative Exam Narrative: General: Alert and oriented, sitting on side of bed, cleaned up, less anxious appearing CV: RRR no murmur Resp: Now clear, no longer wheezing, no rales, normal effort at rest. Abd: obese, nontender Neuro: awake, alert, no tremor, no focal deficits Psych Mental Status: mental status grossly normal Speech and Movement: speech and movement normal Mood: congruent mood Affect: normal affect DS: Data Vitals/I&O Vitals and I&O: Vital Signs Temperature 36.4 C L 05/04/25 07:26 Temperature Source Tympanic 05/04/25 07:26 Pulse 80 05/04/25 06:27 Pulse 69 05/04/25 08:00 Respiratory Rate 7 L 05/04/25 08:00 Respiratory Effort Normal 04/30/25 21:00 Respiratory Depth Normal 04/30/25 21:00 Respiratory Pattern Normal 04/30/25 21:00 Blood Pressure 130/90 05/04/25 06:27 Blood Pressure Mean 103 05/04/25 06:27 Blood Pressure Position Supine 04/30/25 21:00 Pulse Oximetry 93 05/03/25 20:50 Oxygen Delivery Method Room Air 05/03/25 20:50 Oxygen Flow Rate 0 05/03/25 20:50 Pain Level 0 04/30/25 21:00 Intake & Output 05/03/25 05/03/25 05/04/25 11:59 23:59 11:59 Intake Total 370 / 1310 940 / 1310 545 / 545 Output Total 1175 / 2100 925 / 2100 1150 / 1150 Balance -805 / -790 15 / -790 -605 / -605 Weight 134.5 kg 134 kg Intake: IV 10 60 50 / 60 60 / 60 Oral 360 / 1250 890 / 1250 485 / 485 Output: Urine 1175 / 2100 925 / 2100 1150 / 1150 Other: Urine Color Light Kimberly Light Kimberly Light Kimberly Urine Appearance Clear Clear Clear Urine Odor Normal Strong Normal Comment Patient stood at bedside to void in urinal. unknown amount pt used bathroom on med/surge Stool Size Large Stool Characteristics Soft Formed Brown Data Completed and Pending Labs on day of discharge: Labs from last 24 hours 05/04/25 05/03/25 06:07 05:40 WBC 3.37 L RBC 3.33 L Hgb 11.2 L Hct 32.0 L MCV 96 H MCH 33.6 H MCHC 35.0 RDW 11.7 L Plt Count 76 L MPV 10.0 Immature Gran % 1.5 Neutrophils % 46.3 Lymphocytes % 44.5 Monocytes % 5.6 Eosinophils % 1.5 Basophils % 0.6 Nucleated RBC % 0.0 Absolute Neutrophils 1.56 Absolute Lymphocytes 1.50 Absolute Monocytes 0.19 Absolute Eosinophils 0.05 Absolute Basophils 0.02 Sodium 140 Potassium 3.5 Chloride 99 Carbon Dioxide 34.5 H Anion Gap 6.5 BUN 19 H Creatinine 0.6 L Est GFR (CKD-EPI 2020) 116.87 Glucose 119 H Calcium 8.3 L Magnesium 1.8 Total Bilirubin 0.5 AST 84 H ALT 94 H Alkaline Phosphatase 83 Total Protein 5.6 L Albumin 2.7 L PFSH All Active Problems (Updated 04/30/25 @ 23:35 by Marianne Roy) Alcohol withdrawal (Acute) Type 2 diabetes mellitus (Acute) Tobacco dependence (Acute) Major depressive disorder, recurrent (Acute) Benign essential hypertension (Acute) Severe chronic obstructive pulmonary disease (Acute) Benzodiazepine dependence (Acute) Alcohol use disorder, severe, dependence (Acute) Opioid use disorder, severe, on maintenance therapy, dependence (Acute) Internal derangement of right knee (Acute) Aspiration pneumonia (Acute) Hypertension (Chronic) Folate deficiency (Acute) Liver disease, alcoholic (Acute) Erectile dysfunction (Acute) Decreased testosterone level (Acute) Alcohol use disorder, severe, in early remission (Acute) Intentional clonazepam overdose (Acute) DELLA (obstructive sleep apnea) (Chronic) Asthma (Chronic) Depression with anxiety (Chronic) Opiate dependence (Chronic) Medical History (Updated 04/30/25 @ 23:35 by Marianne Roy) History of hepatitis C Pneumonia Hepatitis C Thrombocytopenia Ribs, multiple fractures Suicide attempt Surgical History (Updated 12/20/24 @ 11:14 by Yelitza Warner RN) History of shoulder surgery DOS 08/09/19 History of esophagogastroduodenoscopy (EGD) Social History Smoking/Tobacco Use Status: Current every day Tobacco Type: cigarettes Smoking risk assessment performed?: Yes Alcohol Intake: current Alcohol Intake frequency: 3 or more drinks per day Drug use: Never Substance use type: crack/cocaine Details: state he has done any street drugs for the past 5 years Housing: other Time Spent with Patient Time Spent with Patient: 45-69 minutes Time was spent: preparing to see the patient(eg.review tests), obtaining and/or reviewing separately otained hiistory, ordering medications,tests, procedures, referring, communicating with other health manager home healthcare, indepentently interpreting results, counseling the patient and care coordination
[2025-05-04] MEDS: Tiotropium Bromide-Respimat 10 PUFF INH 2 PUFF IH (11:19)
--- NOTE | 2025-05-04 11:38 | CMDISCH_ITS ---
Date of service: 05/04/25 Time of Service: 11:42 LACE Index Scoring Tool Questions: Length of Stay (in days): 4 - 6 Was the patient admitted via the E.D.?: Yes Comorbidities: Diabetes w/o Complication and Chronic Pulmonary Disease E.D. Visits: 3 Answers: Total Score: 13 Risk of Readmission: High Risk Care Management Discharge Plan Reason for Hospitalization: ETOH withdrawal Discharge Plan: Chris will discharge today with a plan to admit himself to [facility]. He will also need to f/u with his PCP 05/08 and continue per his medical plan of care. Chris will transport himself home. Patient/Family Education Needs: Review of discharge instruction, activity, limitations, and plan of care. Discuss ask me three. SDOH Health Related Social Needs: Health related social needs transpo insecurity house/e con circumstance Health related social needs details care management Health related social needs details: care management
[2025-05-04] MEDS: Insulin Aspart 300 UNITS/3 ML PEN SC (11:45)
--- NOTE | 2025-05-25 14:06 | PGE_ITS ---
Date of Service Date of service: 05/03/25 Time of Service: 11:07 Assessment and Plan Assessment and plan (1) Alcohol withdrawal: Status: Acute Assessment and plan: H/o severe withdrawal, severe COPD and recent respiratory failure, so admitted to ICU CIWA protocol with phenobarbital, now at hard stop if necessary, has been sufficient at this point. Can downgrade to floor status. Avoid lorazepam/benzos. Has oral clonidine. DVT ppx: enoxaparin (2) Alcohol use disorder, severe, dependence: Status: Acute Assessment and plan: Severe dependence Home regimen includes acamprosate, clonidine, gabapentin. We had discussed adding GLP-1. Discussed rehab placement. CM helping with plan to engage [facility] and recovery center. (3) Severe chronic obstructive pulmonary disease: Status: Acute Assessment and plan: Previous hospitalization he required bipap Home regimen includes rescue inhaler, budesonide-formoterol Last steroids after Apr 17 discharge Wheezing, so resumed prednisone and antibiotics 05/01 with some improvement (4) Liver disease, alcoholic: Status: Acute Assessment and plan: Transaminitis less than 5x normal LFTs/INR improving. Not high risk per Ashia Previous evidence of cirrhosis on u/s with nodular liver and large spleen. (5) Tobacco dependence: Status: Acute Assessment and plan: PRN Nicotine patch (6) Type 2 diabetes mellitus: Status: Acute Assessment and plan: Repeat A1c 7.4%, trending up. No home regimen. Start metformin after he is through withdrawal. Would benefit from GLP-1 but would need to start as outpatient Correctional insulin q6h (7) Benzodiazepine dependence: Status: Acute Assessment and plan: He should not be managed with benzos with severe AUD. (8) Opioid use disorder, severe, on maintenance therapy, dependence: Status: Acute Assessment and plan: Continue suboxone 8/2 BID (9) Major depressive disorder, recurrent: Status: Acute Assessment and plan: Continue home escitalopram, quetiapine as well as prns for anxiety. (10) Benign essential hypertension: Status: Acute Assessment and plan: Continue home carvedilol, clonidine, though I don't like clonidine halfway. Subjective Subjective Patient reports: no new complaints and tolerating a regular diet; denies vomiting or fever Interval history since last seen: breathing improved. Still anxious, but not as bad Exam Narrative Exam Narrative: General: Alert and oriented, NAD CV: RRR no murmur Resp: Mckinley expirotory wheezing, no rales, normal effort at rest. Abd: obese, nontender Neuro: awake, alert, no tremor, no focal deficits Objective Last Vital Signs Temp 36.4 C L 05/04/25 07:26 Pulse 83 05/04/25 09:41 Resp 7 L 05/04/25 08:00 BP 116/73 05/04/25 09:41 Pulse Ox 93 05/03/25 20:50 PAWSS Have you Been Recently Intoxicated or Drunk Within the Last 30 days?: Yes Have you Ever Experienced Previous Episodes of Alcohol Withdrawal?: Yes Have you ever Experienced Withdrawal Seizures?: Yes Have you ever Experienced Delirium Tremens(DT)s?: Yes Have you ever undergone Alcohol Rehabilitation Treatment (i.e, inpt ot outpatient treatment programs)?: Yes Have you ever Experienced Blackouts?: Yes Have you ever Combined Alcohol with other Downers within the last 90 days?: No Have you ever Combined Alcohol with any other Substance of Abuse during the last 90 days?: No Positive Blood Alcohol level on Presentation? [PCS.BAL]: Yes Evidence of Increased Autonomic Activity (i.e. HR>120, tremor, sweating, agitation, nausea)?: Yes Result: 8 Time Spent with Patient Time Spent with Patient: 35-49 minutes Time was spent: preparing to see the patient(eg.review tests), obtaining and/or reviewing separately otained hiistory, ordering medications,tests, procedures, referring, communicating with other health career guidance counselor, indepentently interpreting results, counseling the patient and care coordination
== END 2025-05-04 12:58 | disposition home or self-care (01) | DRG 896 ==
LOC: ER 17:27 → ICU 21:03
PROVIDERS: Family Medicine; Admitting Provider Family Medicine; Emergency Provider Nurse Practitioner Family; PCP Physician Assistant Medical; Responsible Provider Family Medicine; Visit Provider Family Medicine
DX: F10.239 Alcohol dependence with withdrawal, unspecified (principal); J69.0 Pneumonitis due to inhalation of food and vomit; F11.20 Opioid dependence, uncomplicated; F13.20 Sedative, hypnotic or anxiolytic dependence, uncomplicated; F33.9 Major depressive disorder, recurrent, unspecified; E87.1 Hypo-osmolality and hyponatremia; J44.1 Chronic obstructive pulmonary disease with (acute) exacerbation; J44.0 Chronic obstructive pulmonary disease with (acute) lower respiratory infection; F17.210 Nicotine dependence, cigarettes, uncomplicated; I10 Essential (primary) hypertension; Y90.7 Blood alcohol level of 200-239 mg/100 ml; E83.42 Hypomagnesemia; R74.01 Elevation of levels of liver transaminase levels; E11.65 Type 2 diabetes mellitus with hyperglycemia; K70.30 Alcoholic cirrhosis of liver without ascites; F41.9 Anxiety disorder, unspecified; G47.33 Obstructive sleep apnea (adult) (pediatric); E53.8 Deficiency of other specified B group vitamins; Z86.19 Personal history of other infectious and parasitic diseases; D69.6 Thrombocytopenia, unspecified; Z79.899 Other long term (current) drug therapy
CPT/HCPCS: 00123; 36415; 80053; 80307; 83690; 87637; 93005; 94640; 96365; 96375; 99285; J1650; 71045; 71046; 80320; 80329; 81003; 81015; 82140; 82272; 83036; 83735; 84100; 84484; 85025; 85610; 93010; 94664; 94760; 99222; 99232; 99233; 99239; J0696; J1815; J2405; J2560; J3475; J3480; J7512; J7620

== ENCOUNTER 2025-07-12 10:07 | Inpatient (IN) | payer MEDICAID, SELFPAY ==
[2025-07-12] VITALS (56 sets, daily range): BP systolic 139–204; BP diastolic 87–158; PULSE 93–125; RESP 7–20; TEMP 35.9–37.2; O2SAT 83–97
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
[2025-07-12 10:34] LABS: Abs Immature Grans 0.01 10^3/uL (0.0-0.06); HCT 43.3 % (40.0-50.0); HGB 14.6 g/dL (13.5-17.5); Immature Grans % 0.2 %; MCH 32.1 pg (27.0-33.0); MCHC 33.7 % (32.0-36.0); MCV 95 fL (80-95); MPV 8.7 fL (8.0-11.0); Platelet Count 182 10^3/uL (130-400); RBC 4.55 10^6/uL (4.36-5.78); RDW 13.2 % (11.8-14.1); RDW-SD 46.4 fL; WBC 4.62 10^3/uL (4.4-10.8)
[2025-07-12] MEDS: Normal Saline Flush 10 ML SYR IVP ×4 (10:36→23:39)
[2025-07-12] MEDS: Normal Saline - Diluent 50 ML VIAL IJ (10:36)
[2025-07-12] MEDS: Omnipaque 350 MG/ML 500 ML BTL-Imaging package IJ (10:36)
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
[2025-07-12 10:54] LABS: Lipase 28 U/L (<53); Magnesium 1.4 mg/dL (1.6-2.6); Troponin I 5 ng/L (<54)
[2025-07-12 10:56] LABS: ALT 39 U/L (10-49); AST 57 U/L (<34); Albumin 4.0 g/dL (3.2-5.0); Alkaline Phosphatase 88 U/L (46-116); Anion Gap 8.7 mmol/L (3-11); BUN 9 mg/dL (9-23); Bilirubin, Total 1.0 mg/dL (0.2-1.2); CO2 32.6 mmol/L (20.0-31.0); Calcium 8.8 mg/dL (8.3-10.6); Chloride 99 mmol/L (98-107); Glucose 216 mg/dL (74-106); Potassium 3.6 mmol/L (3.5-5.1); Sodium 140 mmol/L (136-145); Total Protein 7.6 g/dL (5.7-8.2)
[2025-07-12 11:06] LABS: INR 1.4 (0.9-1.1); PTT Activated 29.3 sec (20.6-30.2); Prothrombin Time 13.8 sec (9.1-11.1)
[2025-07-12] MEDS: Lactated Ringers 1,000 ML 1000 ML IV (11:15)
[2025-07-12 11:20] LABS: Glucose 100 mg/dL (Negative)
[2025-07-12] MEDS: MAGNESIUM SULFATE 2 GM/50 ML BAG IV_INF (11:20)
[2025-07-12 11:30] LABS: C & S Indicated? No; WBC 0-2 HPF (0-5)
[2025-07-12 11:51] LABS: Troponin I 6 ng/L (<54)
[2025-07-12] MEDS: Ondansetron 4 MG/2 ML VIAL IVP (12:10)
[2025-07-12] MEDS: cefTRIAXone 1 GM/50 ML BAG IVPB (12:12)
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
[2025-07-12] MEDS: PHENobarbital 200 MG in Normal Saline 50 ML 100 MG IVPB (13:40)
[2025-07-12 14:52] LABS: Cannabinoids THC Negative (Negative)
[2025-07-12 15:04] LABS: Troponin I 8 ng/L (<54)
[2025-07-12] MEDS: PHENobarbital 130 MG/ML VIAL IVP ×3 (15:05→23:39)
[2025-07-12] MEDS: PHENobarbital 150 MG in Normal Saline 50 ML 100 MG IVPB ×2 (16:11→19:46)
[2025-07-13] VITALS (35 sets, daily range): BP systolic 116–212; BP diastolic 90–115; PULSE 89–118; RESP 9–26; TEMP 36.2–36.7; O2SAT 81–95
[2025-07-13] MEDS: Normal Saline Flush 10 ML SYR IVP ×4 (02:43→19:34)
[2025-07-13] MEDS: PHENobarbital 130 MG/ML VIAL IVP ×4 (02:43→10:27)
[2025-07-13 06:31] LABS: HCT 39.9 % (40.0-50.0); HGB 12.8 g/dL (13.5-17.5); MCH 31.5 pg (27.0-33.0); MCHC 32.1 % (32.0-36.0); MCV 98 fL (80-95); MPV 9.5 fL (8.0-11.0); Platelet Count 132 10^3/uL (130-400); RBC 4.06 10^6/uL (4.36-5.78); RDW 13.2 % (11.8-14.1); RDW-SD 47.6 fL; WBC 4.74 10^3/uL (4.4-10.8)
[2025-07-13 06:57] LABS: Anion Gap 6.3 mmol/L (3-11); BUN 13 mg/dL (9-23); CO2 35.2 mmol/L (20.0-31.0); Calcium 8.6 mg/dL (8.3-10.6); Chloride 100 mmol/L (98-107); Glucose 151 mg/dL (74-106); Potassium 3.7 mmol/L (3.5-5.1); Sodium 141 mmol/L (136-145)
--- NOTE | 2025-07-13 07:35 | PGE_ITS ---
Date of Service Date of service: 07/13/25 Time of Service: 08:00 Assessment and Plan Assessment and plan (1) Alcohol withdrawal: Status: Acute Assessment and plan: -phenobarbital protocol initiated -clonidine and hydroxyzine PRN -CIWA monitoring -[facility] to consult with patient, explore options for alcohol cessation -thiamine and folic acid supplementation given (2) UTI (urinary tract infection): Status: Acute Assessment and plan: -pt denies symptoms of UTI, UA + for nitrites, blood, and bacteria -Ceftriaxone initiated in ED, transitioned to PO cefpodoxime in unit (3) Internal derangement of right knee: Status: Acute Assessment and plan: -no obvious fracture on Xray, likely internal derangment/hemarthrosis from blunt knee trauma, knee brace provided for comfort -recommend outpatient f/u with orthopedics (4) Lactic acidosis: Status: Acute Assessment and plan: -Initially elevated, now improved 4.0>2.6 after 1 L IV LR (5) Hypomagnesemia: Status: Inactive Assessment and plan: -initial 1.4, IV magnesium 2 g given in ED (6) Severe chronic obstructive pulmonary disease: Status: Acute Assessment and plan: -no signs of acute exacerbation at this time -continue home medication regimen (symbicort, albuterol PRN) (7) Type 2 diabetes mellitus: Status: Acute Assessment and plan: -last A1C 7.4, pt has metformin on med list but says he has stopped taking this -continue to monitor FS glucose, sliding scale insulin as needed (8) Benign essential hypertension: Status: Acute Assessment and plan: -hypertensive in ED likely secondary to ETOH withdrawal, will continue to monitor on telemetry -continue home dose of antihypertensive (carvedilol 3.125 mg BID) (9) Liver disease, alcoholic: Status: Acute Assessment and plan: -ETOH cessation -LFTs unchanged from baseline (AST 57, ALT 39, Alk Phosp 88, albumin 4.0), coags elevated per baseline (INR 1.4, PT 13.8) -pt to continue f/u outpatient (10) DELLA (obstructive sleep apnea): Status: Chronic Assessment and plan: -supplemental O2 and CPAP support while sleeping (11) Opiate dependence: Status: Chronic Assessment and plan: -continue home dose of suboxone Subjective Subjective Interval history since last seen: No acute events reported overnight. Chris is awake and alert this morning, complains of feeling generally unwell, similar to previous episodes of withdrawal. Reports mild headache and decreased appetite. Denies sx of recent illness (congestion, sore throat, cough), chest pain, n/v, abdominal pain, change in bowel/bladder fxn. Exam Const General: cooperative, healthy appearing and comfortable Nutritional Appearance: overweight Orientation: alert and oriented x3 [facility] Head: normal to inspection, no palpable skull fracture, normocephalic and atraumatic Ears: hearing grossly normal bilaterally General nose exam: external nose normal Face and sinus: normal facial exam Neck Neck: normal visual inspection and full ROM Resp Effort & Inspection: normal respiratory effort and able to speak in complete sentences Auscultation: clear to auscultation bilaterally Cardio Rate: regular rate Rhythm: regular rhythm GI Inspection: normal to inspection, non-distended and obesity Palpation: soft Neuro General: patient alert, patient oriented x3, tone normal, moves all extremities and no focal motor deficits Cranial Nerves: EOM intact bilaterally, no nystagmus, facial strength normal and able to rotate head bilaterally Cognition: normal cognition Speech: speech normal Motor: muscle tone normal throughout and strength 5/5 throughout Sensory Exam: no sensory deficits noted Objective Last Vital Signs Temp 98.1 F 07/13/25 02:52 Pulse 108 H 07/13/25 07:01 Resp 15 07/13/25 07:01 BP 154/90 H 07/13/25 07:01 Pulse Ox 81 L 07/13/25 07:01 Laboratory Results - last 24 hr 07/12/25 07/12/25 07/12/25 10:15 10:41 11:02 WBC 4.62 RBC 4.55 Hgb 14.6 Hct 43.3 MCV 95 MCH 32.1 MCHC 33.7 RDW 13.2 Plt Count 182 MPV 8.7 Immature Gran % 0.2 Neutrophils % 73.0 Lymphocytes % 16.9 Monocytes % 9.3 Eosinophils % 0.0 Basophils % 0.6 Nucleated RBC % 0.0 Absolute Neutrophils 3.37 Absolute Lymphocytes 0.78 L Absolute Monocytes 0.43 Absolute Eosinophils 0.00 Absolute Basophils 0.03 PT 13.8 H INR 1.4 H APTT 29.3 VBG Lactate 4.0 H* Sodium 140 Potassium 3.6 Chloride 99 Carbon Dioxide 32.6 H Anion Gap 8.7 BUN 9 Creatinine 0.60 L Est GFR (CKD-EPI 2020) 141.85 Glucose 216 H Calcium 8.8 Magnesium 1.4 L Total Bilirubin 1.0 AST 57 H ALT 39 Alkaline Phosphatase 88 Troponin I 5 Total Protein 7.6 Albumin 4.0 Lipase 28 Urine Color Kimberly Urine Clarity Sl Cloudy Urine pH 7.5 Ur Specific [place] 1.020 Urine Protein >=300 H Urine Ketones Negative Urine Blood Large H Urine Nitrite Positive H Urine Bilirubin Small H Urine Urobilinogen 4.0 H Ur Leukocyte Esterase Negative Urine RBC 10-20 H Urine WBC 0-2 Ur Epithelial Cells Rare Urine Crystals Few Amorphous Urine Bacteria Moderate Urine Casts 3-5 Hyaline Urine Mucus Trace Ur Culture Indicated? No Urine Glucose 100 H Urine Opiates Screen Negative Urine Methadone Screen Negative Ur Barbiturates Screen Negative Ur Tricyclics Screen Negative Ur Amphetamines Screen Negative U Benzodiazepines Scrn Positive A Urine Cocaine Screen Negative U Cannabinoids Screen Negative Ethyl Alcohol 149.7 H 07/12/25 07/12/25 07/12/25 11:15 14:32 15:50 WBC RBC Hgb Hct MCV MCH MCHC RDW Plt Count MPV Immature Gran % Neutrophils % Lymphocytes % Monocytes % Eosinophils % Basophils % Nucleated RBC % Absolute Neutrophils Absolute Lymphocytes Absolute Monocytes Absolute Eosinophils Absolute Basophils PT INR APTT VBG Lactate 2.6 H* Sodium Potassium Chloride Carbon Dioxide Anion Gap BUN Creatinine Est GFR (CKD-EPI 2020) Glucose Calcium Magnesium Total Bilirubin AST ALT Alkaline Phosphatase Troponin I 6 8 Total Protein Albumin Lipase Urine Color Urine Clarity Urine pH Ur Specific [place] Urine Protein Urine Ketones Urine Blood Urine Nitrite Urine Bilirubin Urine Urobilinogen Ur Leukocyte Esterase Urine RBC Urine WBC Ur Epithelial Cells Urine Crystals Urine Bacteria Urine Casts Urine Mucus Ur Culture Indicated? Urine Glucose Urine Opiates Screen Urine Methadone Screen Ur Barbiturates Screen Ur Tricyclics Screen Ur Amphetamines Screen U Benzodiazepines Scrn Urine Cocaine Screen U Cannabinoids Screen Ethyl Alcohol 07/13/25 05:35 WBC 4.74 RBC 4.06 L Hgb 12.8 L Hct 39.9 L MCV 98 H MCH 31.5 MCHC 32.1 RDW 13.2 Plt Count 132 MPV 9.5 Immature Gran % Neutrophils % Lymphocytes % Monocytes % Eosinophils % Basophils % Nucleated RBC % Absolute Neutrophils Absolute Lymphocytes Absolute Monocytes Absolute Eosinophils Absolute Basophils PT INR APTT VBG Lactate Sodium 141 Potassium 3.7 Chloride 100 Carbon Dioxide 35.2 H Anion Gap 6.3 BUN 13 Creatinine 0.62 L Est GFR (CKD-EPI 2020) 136.58 Glucose 151 H Calcium 8.6 Magnesium Total Bilirubin AST ALT Alkaline Phosphatase Troponin I Total Protein Albumin Lipase Urine Color Urine Clarity Urine pH Ur Specific [place] Urine Protein Urine Ketones Urine Blood Urine Nitrite Urine Bilirubin Urine Urobilinogen Ur Leukocyte Esterase Urine RBC Urine WBC Ur Epithelial Cells Urine Crystals Urine Bacteria Urine Casts Urine Mucus Ur Culture Indicated? Urine Glucose Urine Opiates Screen Urine Methadone Screen Ur Barbiturates Screen Ur Tricyclics Screen Ur Amphetamines Screen U Benzodiazepines Scrn Urine Cocaine Screen U Cannabinoids Screen Ethyl Alcohol PAWSS Have you Been Recently Intoxicated or Drunk Within the Last 30 days?: Yes Have you Ever Experienced Previous Episodes of Alcohol Withdrawal?: Yes Have you ever Experienced Withdrawal Seizures?: Yes Have you ever Experienced Delirium Tremens(DT)s?: Yes Have you ever undergone Alcohol Rehabilitation Treatment (i.e, inpt ot outpatient treatment programs)?: Yes Have you ever Experienced Blackouts?: Yes Have you ever Combined Alcohol with other Downers within the last 90 days?: Yes Have you ever Combined Alcohol with any other Substance of Abuse during the last 90 days?: Yes Positive Blood Alcohol level on Presentation? [PCS.BAL]: Yes Evidence of Increased Autonomic Activity (i.e. HR>120, tremor, sweating, agitation, nausea)?: Yes Result: 10 VTE Prohylaxis Risk Level: Low Risk Contraindications: None Prophylaxis: Mechanical and Patient ambulatory Time Spent with Patient Time Spent with Patient: >50 minutes Time was spent: preparing to see the patient(eg.review tests), obtaining and/or reviewing separately otained hiistory, ordering medications,tests, procedures, referring, communicating with other health director day care center, indepentently interpreting results, counseling the patient and care coordination
[2025-07-13] MEDS: Folic Acid 1 MG TAB PO (07:45)
[2025-07-13] MEDS: Multivitamin TAB 1 TAB PO (07:45)
[2025-07-13] MEDS: Enoxaparin 40 MG/0.4 ML SYR SC (07:45)
[2025-07-13] MEDS: Thiamine 100 MG TAB PO (07:45)
[2025-07-13] MEDS: Nicotine 21 MG/24 HR PATCH TD (08:41)
[2025-07-13] MEDS: Tiotropium Bromide-Respimat 10 PUFF INH 2 PUFF IH (08:41)
[2025-07-13] MEDS: Gabapentin 600 MG TAB PO ×3 (08:42→19:33)
[2025-07-13] MEDS: Buprenorphine/Naloxone 8 mg/2 mg FILM 3 EACH SL (08:42)
[2025-07-13] MEDS: Budesonide/Formoterol 80/4.5 6.9 GM 60 PUFF INH IH ×2 (08:42→19:39)
[2025-07-13] MEDS: Carvedilol 3.125 MG TAB PO ×2 (08:42→19:33)
[2025-07-13] MEDS: Furosemide 40 MG TAB PO (08:42)
[2025-07-13] MEDS: Escitalopram 20 MG TAB PO (08:42)
--- NOTE | 2025-07-13 08:44 | RESPIRATORY ---
Inquired with patient if he had scheduled out patient sleep study after previous discharge and patient advised they had contacted him to schedule but he declined.
[2025-07-13] MEDS: Cefpodoxime 200 MG TAB PO ×2 (08:57→19:33)
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
[2025-07-13] MEDS: Acetaminophen 325 MG TAB 650 MG PO ×2 (10:27→16:15)
[2025-07-13] MEDS: cloNIDine 0.1 MG TAB PO ×2 (10:27→16:15)
--- NOTE | 2025-07-13 11:38 | PHA.REVIEW2 ---
Pharmacy Admission Review Admission Clinical Review Admission Pharmacy Review: UTI (urinary tract infection) (Acute) Lactic acidosis (Acute) Alcohol withdrawal (Acute) Type 2 diabetes mellitus (Acute) Benign essential hypertension (Acute) Severe chronic obstructive pulmonary disease (Acute) Internal derangement of right knee (Acute) Liver disease, alcoholic (Acute) cat dander Allergy (Mild, Verified 04/09/25 11:04) Wheezing dog dander Allergy (Mild, Verified 04/09/25 11:04) Wheezing Environmental Allergy (Intermediate, Uncoded 04/09/25 11:04) Asthma Exacerbation Resuscitation Status Full Code Height 6 ft 2 in Weight 135.1 kg Pharmacy Admission Review Renal Dosing Renal Dosing: BUN 13 mg/dL (9-23) 07/13/25 05:35 Creatinine 0.62 mg/dL (0.73-1.18) L 07/13/25 05:35 Medications needing adjustments: Reviewed (CrCl 206 mL/min) List of meds needing interventions: Current medications are okay Anticoagulation Anticoagulation: Hgb 12.8 g/dL (13.5-17.5) L 07/13/25 05:35 Hct 39.9 % (40.0-50.0) L 07/13/25 05:35 Plt Count 132 10^3/uL (130-400) 07/13/25 05:35 INR 1.4 (0.9-1.1) H 07/12/25 10:41 Creatinine 0.62 mg/dL (0.73-1.18) L 07/13/25 05:35 DVT Prophylaxis: Reviewed Medications: Enoxaparin (40mg daily) Relevant Labs Relevant Labs: Sodium 141 mmol/L (136-145) 07/13/25 05:35 Potassium 3.7 mmol/L (3.5-5.1) 07/13/25 05:35 Chloride 100 mmol/L (98-107) 07/13/25 05:35 Magnesium 1.4 mg/dL (1.6-2.6) L 07/12/25 10:15 Electrolytes, C-Reactive P, ESR: Reviewed (magnesium 2mg IV infusion given yesterday) DM Control DM Control: Glucose 151 mg/dL (74-106) H 07/13/25 05:35 DM Control: Reviewed Insulin Dosing, Diabetic Medication: Has order for metformin XR 500mg daily Cardiac Review Cardiac Review: Troponin I 8 ng/L (<54) 07/12/25 14:32 Blood Pressure : Heart Rate 212/115 : 114 1003 Blood Pressure : Heart Rate 116/102 : 116 0902 Blood Pressure : Heart Rate 133/112 : 111 0801 Blood Pressure : Heart Rate 154/90 : 108 0701 Blood Pressure : Heart Rate 159/98 : 98 0601 Blood Pressure : Heart Rate 170/101 : 105 0501 Blood Pressure : Heart Rate 165/110 : 111 0401 Blood Pressure : Heart Rate 169/101 : 102 0301 Blood Pressure : Heart Rate 168/94 : 107 0202 Blood Pressure : Heart Rate 179/113 : 108 0101 Blood Pressure : Heart Rate 176/108 : 106 0002 BP, HR, EF%: Reviewed (RR 10, oxygen flow rate = 2) List meds needing interventions: Carvedilol 3.125mg BID and furosemide 40mg daily QTc Review QTc: Reviewed (471 from 04/30/25 - most recent EKG on file) IV to PO Switch IV Medications: Reviewed (phenobarbital) Home Meds Home Med List reviewed: Intervened Relevent Home Meds Not ordered & why?: vitamin D3 (monthly), lorazepam (PRN), potassium and senna/docusate Home meds were not ordered this morning - reached out to provider who put in orders Home med list has Suboxone 8mg film 3 films daily but prescription says 1 film TID. Asked nurse to verify with patient. Per patient he takes 3 films once daily. Current Meds Current Medication Order Review: Intervened Comments: Phenobarbital for ETOH withdrawal SS: 1267.5mg HS: 1690mg CIWA 6 @ 1020 Current total dose = 1410mg - informed provider 2 more doses and patient will be at hard stop Pharmacy Antibiotic Review Relevant Labs: WBC 4.74 10^3/uL (4.4-10.8) 07/13/25 05:35 Temperature 36.7 C Temperature 36.7 C Pharmacy Antibiotic Activity: C/S review and Reviewed, no change Comments: Patient is one cefpodoxime, day 1, for UTI. Given 1 dose of ceftriaxone yesterday in ED. Reached out to provider as no continued antibiotic order had been put in this morning and H+P stated cefpodoxime. Provider added cefpodoxime. Urine culture pending.
[2025-07-13] MEDS: metFORMIN C.R. 500 MG TABCR PO (16:16)
[2025-07-13] MEDS: hydrOXYzine HCL 25 MG TAB PO (19:33)
[2025-07-13] MEDS: QUEtiapine 100 MG TAB 200 MG PO (19:33)
[2025-07-14] VITALS (21 sets, daily range): BP systolic 125–134; BP diastolic 86–106; PULSE 90–106; RESP 8–19; TEMP 36.5; O2SAT 82–93
[2025-07-14] MEDS: Acetaminophen 325 MG TAB 650 MG PO ×2 (04:16→20:36)
[2025-07-14] MEDS: cloNIDine 0.1 MG TAB PO ×3 (04:17→20:37)
[2025-07-14] MEDS: hydrOXYzine HCL 25 MG TAB PO ×3 (04:17→20:36)
[2025-07-14] MEDS: Enoxaparin 40 MG/0.4 ML SYR SC (08:04)
[2025-07-14] MEDS: Nicotine 21 MG/24 HR PATCH TD (08:04)
[2025-07-14] MEDS: Buprenorphine/Naloxone 8 mg/2 mg FILM 3 EACH SL (08:04)
[2025-07-14] MEDS: Normal Saline Flush 10 ML SYR IVP (08:08)
[2025-07-14] MEDS: Gabapentin 600 MG TAB PO ×3 (08:08→20:37)
[2025-07-14] MEDS: Furosemide 40 MG TAB PO (08:08)
[2025-07-14] MEDS: Escitalopram 20 MG TAB PO (08:08)
[2025-07-14] MEDS: Cefpodoxime 200 MG TAB PO (08:08)
[2025-07-14] MEDS: Multivitamin TAB 1 TAB PO (08:09)
[2025-07-14] MEDS: Carvedilol 3.125 MG TAB PO ×2 (08:09→20:37)
[2025-07-14] MEDS: Folic Acid 1 MG TAB PO (08:09)
[2025-07-14] MEDS: Thiamine 100 MG TAB PO (08:09)
[2025-07-14] MEDS: Tiotropium Bromide-Respimat 10 PUFF INH 2 PUFF IH (08:17)
[2025-07-14] MEDS: Budesonide/Formoterol 80/4.5 6.9 GM 60 PUFF INH IH ×2 (08:17→19:33)
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
--- NOTE | 2025-07-14 13:47 | PGE_ITS ---
Date of Service Date of service: 07/14/25 Time of Service: 08:00 Assessment and Plan Assessment and plan (1) Alcohol withdrawal: Status: Acute Assessment and plan: CIWA scores < 5 last 24 hrs, stopped phenobarbital Continue prn benzodiazepines Awaiting behavioral health assessment, options for rehab placement (2) UTI (urinary tract infection): Status: Resolved Assessment and plan: Asymptomatic bacteriuria, discontinued abx (3) Internal derangement of right knee: Status: Chronic Assessment and plan: Patient reports chronic knee problems, keeping him from being able to work Brace placed in ED PT has cleared him (4) Lactic acidosis: Status: Resolved Assessment and plan: -Initially elevated, now improved 4.0>2.6 after 1 L IV LR No further monitoring (5) Hypomagnesemia: Status: Inactive Assessment and plan: -initial 1.4, IV magnesium 2 g given in ED Recheck Jul 15 morning (6) Severe chronic obstructive pulmonary disease: Status: Acute Assessment and plan: -no signs of acute exacerbation at this time -continue home medication regimen (symbicort, albuterol PRN) (7) Type 2 diabetes mellitus: Status: Acute Assessment and plan: A1C's trending up in Apr 2025, 6.9->7.4 Patient not taking home metformin UA glucose > 300 on arrival Rechecking A1C Continue correctional insulin (8) Benign essential hypertension: Status: Acute Assessment and plan: -hypertensive in ED likely secondary to ETOH withdrawal, will continue to monitor on telemetry -continue home dose of antihypertensive (carvedilol 3.125 mg BID) (9) Liver disease, alcoholic: Status: Acute Assessment and plan: -ETOH cessation -LFTs unchanged from baseline (AST 57, ALT 39, Alk Phosp 88, albumin 4.0), coags elevated per baseline (INR 1.4, PT 13.8) -pt to continue f/u outpatient (10) DELLA (obstructive sleep apnea): Status: Chronic Assessment and plan: -supplemental O2 and CPAP support while sleeping (11) Opiate dependence: Status: Chronic Assessment and plan: -continue home dose of suboxone Subjective Subjective Interval history since last seen: Patient is being evaluated for recovery services, sitting up in bed. He reports being unable to stop drinking and asks for help, feels that he is close to giving up and might need to end things. Requested mental health evaluation. Exam Narrative Exam Narrative: General: This is a pleasant, obese man in no distress HEENT: Normocephalic, atraumatic CV: RRR Resp: CTAB Abd: soft, NTND MSK: voluntary motion x4 Neuro: awake, alert, no focal deficits Objective Last Vital Signs Temp 36.5 C 07/14/25 04:12 Pulse 93 H 07/14/25 10:00 Resp 10 L 07/14/25 10:00 BP 125/86 07/14/25 09:30 Pulse Ox 91 L 07/14/25 10:00 PAWSS Have you Been Recently Intoxicated or Drunk Within the Last 30 days?: Yes Have you Ever Experienced Previous Episodes of Alcohol Withdrawal?: Yes Have you ever Experienced Withdrawal Seizures?: Yes Have you ever Experienced Delirium Tremens(DT)s?: Yes Have you ever undergone Alcohol Rehabilitation Treatment (i.e, inpt ot outpatient treatment programs)?: Yes Have you ever Experienced Blackouts?: Yes Have you ever Combined Alcohol with other Downers within the last 90 days?: Yes Have you ever Combined Alcohol with any other Substance of Abuse during the last 90 days?: Yes Positive Blood Alcohol level on Presentation? [PCS.BAL]: Yes Evidence of Increased Autonomic Activity (i.e. HR>120, tremor, sweating, agitation, nausea)?: Yes Result: 10 VTE Prohylaxis Risk Level: Low Risk Contraindications: None Prophylaxis: Mechanical and Patient ambulatory Time Spent with Patient Time Spent with Patient: 25-34 minutes Time was spent: preparing to see the patient(eg.review tests), obtaining and/or reviewing separately otained hiistory, ordering medications,tests, procedures, referring, communicating with other health vocational childcare teacher, indepentently interpreting results, counseling the patient and care coordination
[2025-07-14] MEDS: metFORMIN C.R. 500 MG TABCR PO (16:32)
--- NOTE | 2025-07-14 18:40 | PDOC.CMSAFE ---
Date of service: 07/14/25 Time of Service: 18:40 Care Management Safety Plan Status Status: Voluntary Reason for Wait Reason for Wait: Inpatient Admission Safety Plan Safety Plan: VOLUNTARY FOR INPATIENT PSYCHIATRIC STABILIZATION.? Patient is appropriate in all interactions since arriving at [facility]; Pt has demonstrated appropriate coping and communication skills, has articulated his needs and concerns and is fully engaged during staff interactions. Safety plan has been established with patient, and care team, to adhere to patient goals, identify restrictions based on behavioral status, address nutrition, and determine allowed personal belongings, tools for hygiene and personal care. Determine level of activity including ambulation, level of supervision, visitors, and determine privileges based on behaviors and level of engagement by pt. SAFETY PLAN: 1. Will remain on suicide precautions, in paper clothes 2. Will remain in room under direct supervision of one-on-one staff at all times provided by [employer]; RADHA, CRAS horticultural specialty grower inside. 3. May have paper cups, plates, finger foods as well as a cardboard spoon with which to eat meals. 4. Follow [facility] Management of the Admitted Behavioral Health Patient policy. 5. Comfort bath system, shower permitted with escort at RN discretion. 6. Personal belongings-soft items permitted at RN discretion. 7. Visitors-none at this time. 8. Activities: soft cart items approved per RN discretion. 9.? Bathroom privileges with escort in the ED. 10. Phone: limited to cordless phone at RN discretion. Due to VOLUNTARY status, if patient wishes to leave [facility], staff will contact [facility] Crisis Screener ([phone]) and On-Call Stoker Erector And Servicer ([phone]) as soon as possible. In the event of elopement, notify [facility] Police ([phone]). Patient is currently voluntarily at [facility] and seeking inpatient admission when a bed becomes available. [facility] Frontline Pest Control Pilot will continue seeking placement. Please contact the Coroner Forensic Technician Stoker Erector And Servicer ([phone]) and [facility] Pest Control Pilot ([phone]) for any needed changes in the Safety Plan. Safety plan has been provided to interdepartmental care team.
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
[2025-07-14] MEDS: LORazepam 0.5 MG TAB PO (20:36)
[2025-07-14] MEDS: QUEtiapine 100 MG TAB 200 MG PO (20:37)
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
[2025-07-15] VITALS (10 sets, daily range): BP systolic 100–141; BP diastolic 70–86; PULSE 79–97; RESP 18–20; TEMP 35.9–36.8; O2SAT 84–95
[2025-07-15 07:17] LABS: Magnesium 1.6 mg/dL (1.6-2.6)
[2025-07-15 07:20] LABS: ALT 23 U/L (10-49); AST 36 U/L (<34); Albumin 3.7 g/dL (3.2-5.0); Alkaline Phosphatase 76 U/L (46-116); Anion Gap 6 mmol/L (3-11); BUN 13 mg/dL (9-23); Bilirubin, Total 0.8 mg/dL (0.2-1.2); CO2 37.0 mmol/L (20.0-31.0); Calcium 8.8 mg/dL (8.3-10.6); Chloride 96 mmol/L (98-107); Glucose 119 mg/dL (74-106); Hemoglobin A1C 6.2 % (<5.7); Potassium 3.3 mmol/L (3.5-5.1); Sodium 139 mmol/L (136-145); Total Protein 6.7 g/dL (5.7-8.2)
[2025-07-15] MEDS: Budesonide/Formoterol 80/4.5 6.9 GM 60 PUFF INH IH ×2 (07:57→20:02)
[2025-07-15] MEDS: Tiotropium Bromide-Respimat 10 PUFF INH 2 PUFF IH (07:57)
[2025-07-15] MEDS: Enoxaparin 40 MG/0.4 ML SYR SC (08:23)
[2025-07-15] MEDS: Buprenorphine/Naloxone 8 mg/2 mg FILM 3 EACH SL (08:24)
[2025-07-15] MEDS: Escitalopram 20 MG TAB PO (08:24)
[2025-07-15] MEDS: Nicotine 21 MG/24 HR PATCH TD (08:24)
[2025-07-15] MEDS: Normal Saline Flush 10 ML SYR IVP ×2 (08:24→20:11)
[2025-07-15] MEDS: Thiamine 100 MG TAB PO (08:24)
[2025-07-15] MEDS: Furosemide 40 MG TAB PO (08:25)
[2025-07-15] MEDS: Multivitamin TAB 1 TAB PO (08:25)
[2025-07-15] MEDS: Carvedilol 3.125 MG TAB PO ×2 (08:25→20:13)
[2025-07-15] MEDS: Gabapentin 600 MG TAB PO ×3 (08:25→20:11)
[2025-07-15] MEDS: Folic Acid 1 MG TAB PO (08:25)
[2025-07-15] MEDS: hydrOXYzine HCL 25 MG TAB PO ×2 (10:06→18:44)
[2025-07-15] MEDS: cloNIDine 0.1 MG TAB PO ×2 (10:06→18:44)
--- NOTE | 2025-07-15 14:22 | CMSP_ITS ---
Date of service: 07/15/25 Time of Service: 14:22 Care Management Safety Plan Status Status: Voluntary Reason for Wait Reason for Wait: Inpatient Admission Safety Plan Safety Plan: VOLUNTARY FOR INPATIENT PSYCHIATRIC STABILIZATION.? Patient is appropriate in all interactions since arriving at [facility]; Pt has demonstrated appropriate coping and communication skills, has articulated his needs and concerns and is fully engaged during staff interactions. Safety plan has been established with patient, and care team, to adhere to patient goals, identify restrictions based on behavioral status, address nutrition, and determine allowed personal belongings, tools for hygiene and personal care. Determine level of activity including ambulation, level of supervision, visitors, and determine privileges based on behaviors and level of engagement by pt. SAFETY PLAN: 1. Will remain on suicide precautions, in paper clothes 2. Will remain in room under direct supervision of one-on-one staff at all times provided by [employer]; RADHA, CERAMICS ARTIST calibration laboratory technician. 3. May have paper cups, plates, finger foods as well as a cardboard spoon with which to eat meals. 4. Follow [facility] Management of the Admitted Behavioral Health Patient policy. 5. Comfort bath system, shower permitted with escort at RN discretion. 6. Personal belongings-soft items permitted at RN discretion. 7. Visitors-none at this time. 8. Activities: soft cart items approved per RN discretion. 9.? Bathroom privileges with escort in the ED. 10. Phone: limited to cordless phone at RN discretion. Due to VOLUNTARY status, if patient wishes to leave [facility], staff will contact [facility] Crisis Screener ([phone]) and On-Call Museum Specialist ([phone]) as soon as possible. In the event of elopement, notify [facility] Police ([phone]). Patient is currently voluntarily at [facility] and seeking inpatient admission when a bed becomes available. [facility] Frontline Air Quality Technician will continue seeking placement. Please contact the Wheat Buyer Museum Specialist ([phone]) and [facility] Air Quality Technician ([phone]) for any needed changes in the Safety Plan. Safety plan has been provided to interdepartmental care team.
--- NOTE | 2025-07-15 14:23 | CMPROGNOTE_ITS ---
Date of service: 07/15/25 Time of Service: 14:23 Care Management Progress Note Progress Note Text Progress Note Text: Chris is awaiting a bed for inpatient psychiatric stabilization. He was screened by a [facility] crisis screener last evening and deemed appropriate for inpatient treatment. Par [facility], referrals were sent to the inpatient facilities in [place]. Chris continues to endorse SI and depression and hopes to be able to transfer soon. Chris has not been screened yet by [facility] today so bed availability is unknown. Social Determinants of Health Screening Social Determinants of health last assessed in clinic: 07/16/25 Will the Patient Participate in the Screening?: Yes Do you worry about having a steady place to live?: no Problems where you live: no known problems In the past 12 months, have you had to go without electric, gas, oil or water in your home?: no 1. Within the past 12 months, we worried whether our food would run out before we got money to buy more.: Never true 2. Within the past 12 months, the food we bought just didn't last and we didn't have money to get more.: Never true Has lack of transportation kept you from medical appointments or from doing things needed for daily living?: no Has anyone in your life made you feel unsafe or unsupported?: no How hard is it for you to pay for the very basics like food, housing, medical care, and heating? Would you say it is:: Not hard at all Do you want help finding or keeping work or a job?: I do not need or want help If for any reason you need help with day-to-day activities such as bathing, preparing meals, shopping, managing finances, etc., do you get the help you need?: I don?t need any help How often do you feel lonely or isolated from those around you?: Never Do you speak a language other than Macedonian at home?: No Does the patient want assistance with any of the above?: No Comments: patient may be interested in an inpatient rehabilitation.
--- NOTE | 2025-07-15 16:42 | W.PM.PROGNOT ---
Date of Service Date of service: 07/15/25 Time of Service: 08:00 Assessment and Plan Assessment and plan (1) Depression with suicidal ideation: Status: Acute Assessment and plan: Awaiting inpatient psychiatric placement Continue 1-1 sitter Appreciate [facility] care (2) Alcohol withdrawal: Status: Acute Assessment and plan: CIWA scores < 5 last 24 hrs, stopped phenobarbital Continue prn benzodiazepines (3) UTI (urinary tract infection): Status: Ruled-out Assessment and plan: Asymptomatic bacteriuria, discontinued abx (4) Internal derangement of right knee: Status: Chronic Assessment and plan: Patient reports chronic knee problems, keeping him from being able to work Brace placed in ED PT has cleared him (5) Lactic acidosis: Status: Resolved Assessment and plan: -Initially elevated, now improved 4.0>2.6 after 1 L IV LR No further monitoring (6) Hypomagnesemia: Status: Resolved Assessment and plan: -initial 1.4, IV magnesium 2 g given in ED Rechecked Jul 15, now within normal limits (7) Severe chronic obstructive pulmonary disease: Status: Acute Assessment and plan: -no signs of acute exacerbation at this time -continue home medication regimen (symbicort, albuterol PRN) (8) Type 2 diabetes mellitus: Status: Acute Assessment and plan: A1C's trending up in Apr 2025, 6.9->7.4 Patient not taking home metformin UA glucose > 300 on arrival A1C is currently 6.2, fairly good control with on/off oral regimen Continue home home metformin (9) Benign essential hypertension: Status: Acute Assessment and plan: -hypertensive in ED likely secondary to ETOH withdrawal -continue home dose of antihypertensive (carvedilol 3.125 mg BID) Off telemetry (10) Liver disease, alcoholic: Status: Acute Assessment and plan: -ETOH cessation -LFTs unchanged from baseline (AST 57, ALT 39, Alk Phosp 88, albumin 4.0), coags elevated per baseline (INR 1.4, PT 13.8) -pt to continue f/u outpatient (11) DELLA (obstructive sleep apnea): Status: Chronic Assessment and plan: -supplemental O2 and CPAP support while sleeping (12) Opiate dependence: Status: Chronic Assessment and plan: -continue home dose of suboxone Subjective Subjective Interval history since last seen: Mr. Hernandez continues to be emotional about his situation. He feels that he is not able to keep living with his struggle to abstain from EtOH. He feels that inpatient psych care will help. Exam Narrative Exam Narrative: General: This is a pleasant, obese man in no distress HEENT: Normocephalic, atraumatic CV: RRR Resp: CTAB Abd: soft, NTND MSK: voluntary motion x4 Neuro: awake, alert, no focal deficits Objective Last Vital Signs Temp 36.8 C 07/15/25 12:16 Pulse 91 H 07/15/25 14:18 Resp 18 07/15/25 12:16 BP 141/73 H 07/15/25 14:18 Pulse Ox 92 07/15/25 14:30 Laboratory Results - last 24 hr 07/15/25 05:58 Sodium 139 Potassium 3.3 L Chloride 96 L Carbon Dioxide 37.0 H Anion Gap 6 BUN 13 Creatinine 0.67 L Est GFR (CKD-EPI 2020) 124.88 Glucose 119 H Hemoglobin A1c 6.2 H Calcium 8.8 Magnesium 1.6 Total Bilirubin 0.8 AST 36 H ALT 23 Alkaline Phosphatase 76 Total Protein 6.7 Albumin 3.7 PAWSS Have you Been Recently Intoxicated or Drunk Within the Last 30 days?: Yes Have you Ever Experienced Previous Episodes of Alcohol Withdrawal?: Yes Have you ever Experienced Withdrawal Seizures?: Yes Have you ever Experienced Delirium Tremens(DT)s?: Yes Have you ever undergone Alcohol Rehabilitation Treatment (i.e, inpt ot outpatient treatment programs)?: Yes Have you ever Experienced Blackouts?: Yes Have you ever Combined Alcohol with other Downers within the last 90 days?: Yes Have you ever Combined Alcohol with any other Substance of Abuse during the last 90 days?: Yes Positive Blood Alcohol level on Presentation? [PCS.BAL]: Yes Evidence of Increased Autonomic Activity (i.e. HR>120, tremor, sweating, agitation, nausea)?: Yes Result: 10 VTE Prohylaxis Risk Level: Low Risk Contraindications: None Prophylaxis: Mechanical and Patient ambulatory Time Spent with Patient Time Spent with Patient: 25-34 minutes Time was spent: preparing to see the patient(eg.review tests), obtaining and/or reviewing separately otained hiistory, ordering medications,tests, procedures, referring, communicating with other health administrator health care facility, indepentently interpreting results, counseling the patient and care coordination
[2025-07-15] MEDS: metFORMIN C.R. 500 MG TABCR PO (17:12)
[2025-07-15] MEDS: QUEtiapine 100 MG TAB 200 MG PO (20:12)
[2025-07-15] MEDS: Acetaminophen 325 MG TAB 650 MG PO (20:12)
[2025-07-16] MEDS: Tiotropium Bromide-Respimat 10 PUFF INH 2 PUFF IH (07:40)
[2025-07-16] MEDS: Budesonide/Formoterol 80/4.5 6.9 GM 60 PUFF INH IH ×2 (07:40→20:34)
[2025-07-16 07:48] VITALS: BP 137/94; PULSE 86; RESP 15; TEMP 36.2; O2SAT 90
[2025-07-16] MEDS: Buprenorphine/Naloxone 8 mg/2 mg FILM 3 EACH SL (08:01)
[2025-07-16] MEDS: Enoxaparin 40 MG/0.4 ML SYR SC (08:01)
[2025-07-16] MEDS: Nicotine 21 MG/24 HR PATCH TD (08:01)
[2025-07-16] MEDS: Normal Saline Flush 10 ML SYR IVP ×2 (08:01→20:48)
[2025-07-16] MEDS: Carvedilol 3.125 MG TAB PO ×2 (08:02→20:48)
[2025-07-16] MEDS: Furosemide 40 MG TAB PO (08:02)
[2025-07-16] MEDS: Gabapentin 600 MG TAB PO ×3 (08:02→20:48)
[2025-07-16] MEDS: Folic Acid 1 MG TAB PO (08:03)
[2025-07-16] MEDS: Multivitamin TAB 1 TAB PO (08:03)
[2025-07-16] MEDS: Thiamine 100 MG TAB PO (08:03)
[2025-07-16] MEDS: Escitalopram 20 MG TAB PO (08:03)
--- NOTE | 2025-07-16 08:11 | PDOC.CMSAFE ---
Date of service: 07/16/25 Time of Service: 08:11 Care Management Safety Plan Status Status: Voluntary Reason for Wait Reason for Wait: Inpatient Admission Safety Plan Safety Plan: VOLUNTARY FOR INPATIENT PSYCHIATRIC STABILIZATION.? Patient is appropriate in all interactions since arriving at [facility]; Pt has demonstrated appropriate coping and communication skills, has articulated his needs and concerns and is fully engaged during staff interactions. Safety plan has been established with patient, and care team, to adhere to patient goals, identify restrictions based on behavioral status, address nutrition, and determine allowed personal belongings, tools for hygiene and personal care. Determine level of activity including ambulation, level of supervision, visitors, and determine privileges based on behaviors and level of engagement by pt. SAFETY PLAN: 1. Will remain on suicide precautions, in paper clothes 2. Will remain in room under direct supervision of one-on-one staff at all times provided by [employer]; RADHA, [employer] inclusion paraeducator. 3. May have paper cups, plates, finger foods as well as a cardboard spoon with which to eat meals. 4. Follow [facility] Management of the Admitted Behavioral Health Patient policy. 5. Comfort bath system, shower permitted with escort at RN discretion. 6. Personal belongings-soft items permitted at RN discretion. 7. Visitors-none at this time. 8. Activities: soft cart items approved per RN discretion. 9.? Bathroom privileges with escort in the ED. 10. Phone: limited to cordless phone at RN discretion. Due to VOLUNTARY status, if patient wishes to leave [facility], staff will contact [facility] Crisis Screener ([phone]) and On-Call Residential Program Coordinator ([phone]) as soon as possible. In the event of elopement, notify [facility] Police ([phone]). Patient is currently voluntarily at [facility] and seeking inpatient admission when a bed becomes available. [facility] [employer] will continue seeking placement. Please contact the [employer] Residential Program Coordinator ([phone]) and [facility] Forestry Contractor ([phone]) for any needed changes in the Safety Plan. Safety plan has been provided to interdepartmental care team.
[2025-07-16] MEDS: cloNIDine 0.1 MG TAB PO ×3 (08:24→22:06)
[2025-07-16] MEDS: hydrOXYzine HCL 25 MG TAB PO ×3 (08:24→22:06)
[2025-07-16] MEDS: LORazepam 0.5 MG TAB PO ×3 (10:11→22:06)
[2025-07-16 11:00] VITALS: BP 110/68; PULSE 86; RESP 17; TEMP 37; O2SAT 92
--- NOTE | 2025-07-16 11:39 | PDOC.MHPN2 ---
Date of service: 07/16/25 Time of Service: 08:40 Mental Health Emergency Note Release HS release signed:: Yes Reason for Visit Mr Hernandez is a 50 year old single male who resides in [facility]. The client reports passive suicidal ideation having told ER staff that he wishes they had not brought him back after he flatlined. The client denies having a plan. The client reports experiencing anxiety to the point of having panic attacks. The client reports a history of drinking and states that he has not had a drink now in six days. The client is specifically asking for in patient treatment to help with mental health and not the drinking. The client reports having gone to in patient treatment for drinking multiple times in the past and is hoping to work on his mental health which the client states is that he does not like the person he is and that he experiences anxiety to the point of having passive suicidal ideation. The client denies HI and NSSI. In the last 2 weeks has the pt presented for ES prior to today?: No CALM/Risk Level Does risk to harm exist?: No Asssessment/Mental Status Appearance: Unremarkable Attitude: Friendly Behavior: Unremarkable Speech: Normal Affect: Normal Mood: Stressed and Anxious Thought process: Unremarkable Hallucinations: No evidence Delusions: No evidence Attention: Unremarkable Perception: Not impaired Orientation: Fully orientated Memory: Intact Insight: Fair Judgement: Fair Neurovegetative Symptoms Sleep: No change Appetitie: No change Interests: No change Energy: No change Libido: Not applicable Additional Issues: Assaultive/Threatening Behavior: No Medical Concerns: No Client engaged in active self harm w/weapon: No Threatening to run away: No Child reported abuse/neglect: No Voluntarily presenting for services: Yes Domestic violence is a concern: No Extreme Psychosis or extreme behavior is present: No Impression Mr Hernandez is a 50 year old single male who resides in [facility]. The client reports passive suicidal ideation having told ER staff that he wishes they had not brought him back after he flatlined. The client denies having a plan. The client reports experiencing anxiety to the point of having panic attacks. The client reports a history of drinking and states that he has not had a drink now in six days. The client is specifically asking for in patient treatment to help with mental health and not the drinking. The client reports having gone to in patient treatment for drinking multiple times in the past and is hoping to work on his mental health which the client states is that he does not like the person he is and that he experiences anxiety to the point of having passive suicidal ideation. The client denies HI and NSSI. Plan/Disposition Recommended Disposition: Hospitalization facilities contacted. Plan: The client is voluntarily waiting in [facility] for in patient treatment. Reports/communication Outcome discussed with: ED/Personnel
[2025-07-16 14:55] VITALS: BP 108/81; PULSE 90; RESP 18; TEMP 36.1; O2SAT 92
[2025-07-16] MEDS: metFORMIN C.R. 500 MG TABCR PO (16:22)
--- NOTE | 2025-07-16 16:57 | CMPROGNOTE_ITS ---
Date of service: 07/16/25 Time of Service: 16:57 Care Management Progress Note Progress Note Text Progress Note Text: Chris has been very pleasant with CM today. He met with [facility] earlier today, and referrals have been sent out for inpatient psych treatment, but no bed available as of yet. CM huddled with [facility] after their meeting. Chris is looking forward to some psych treatment, he feels he needs more than just treatment for his substance abuse. Chris has discussed with CM that he just can not get out of the cycle of drinking. He stops for a bit, but then will slip up, and he's all in. He is not able to have just one drink, or even 2, it always leads to days on end of drinking. Chris asked if he could walk in the halls with his 1:1 sitter, and this was added to his safety plan. Discharge Potential Discharge Needs: PCP F/U Appt Anticipated Barriers to Discharge: Bed availability Reason for Wait: Inpatient Admission Social Determinants of Health Screening Social Determinants of health last assessed in clinic: 07/16/25 Will the Patient Participate in the Screening?: Unable to obtain Do you worry about having a steady place to live?: no Problems where you live: no known problems In the past 12 months, have you had to go without electric, gas, oil or water in your home?: no Has lack of transportation kept you from medical appointments or from doing thin gs needed for daily living?: no Has anyone in your life made you feel unsafe or unsupported?: no How hard is it for you to pay for the very basics like food, housing, medical care, and heating? Would you say it is:: Not hard at all Do you want help finding or keeping work or a job?: I do not need or want help If for any reason you need help with day-to-day activities such as bathing, preparing meals, shopping, managing finances, etc., do you get the help you need?: I don?t need any help How often do you feel lonely or isolated from those around you?: Never Do you speak a language other than [place] at home?: No Does the patient want assistance with any of the above?: No Comments: patient may be interested in an inpatient rehabilitation.
--- NOTE | 2025-07-16 17:34 | W.PM.PROGNOT ---
Date of Service Date of service: 07/16/25 Time of Service: 08:00 Assessment and Plan Assessment and plan (1) Depression with suicidal ideation: Status: Acute Assessment and plan: Active ideation without plan Awaiting inpatient psychiatric placement Continue 1-[address] sit[address] [facility] care (2) Alcohol withdrawal: Status: Resolved Assessment and plan: CIWA scores < 5 last 24 hrs, stopped phenobarbital Continue prn benzodiazepines (3) UTI (urinary tract infection): Status: Ruled-out Assessment and plan: Asymptomatic bacteriuria, discontinued abx (4) Internal derangement of right knee: Status: Chronic Assessment and plan: Patient reports chronic knee problems, keeping him from being able to work Brace placed in ED PT has cleared him (5) Lactic acidosis: Status: Resolved Assessment and plan: -Initially elevated, now improved 4.0>2.6 after 1 L IV LR No further monitoring (6) Hypomagnesemia: Status: Resolved Assessment and plan: -initial 1.4, IV magnesium 2 g given in ED Rechecked Jul 15, now within normal limits (7) Severe chronic obstructive pulmonary disease: Status: Acute Assessment and plan: -no signs of acute exacerbation at this time -continue home medication regimen (symbicort, albuterol PRN) (8) Type 2 diabetes mellitus: Status: Acute Assessment and plan: A1C's trending up in Apr 2025, 6.9->7.4 Patient not taking home metformin UA glucose > 300 on arrival A1C is currently 6.2, fairly good control with on/off oral regimen Continue home metformin (9) Benign essential hypertension: Status: Acute Assessment and plan: -hypertensive in ED likely secondary to ETOH withdrawal -continue home dose of antihypertensive (carvedilol 3.125 mg BID) Off telemetry (10) Liver disease, alcoholic: Status: Acute Assessment and plan: -ETOH cessation -LFTs unchanged from baseline (AST 57, ALT 39, Alk Phosp 88, albumin 4.0), coags elevated per baseline (INR 1.4, PT 13.8) -pt to continue f/u outpatient (11) DELLA (obstructive sleep apnea): Status: Chronic Assessment and plan: -supplemental O2 and CPAP support while sleeping (12) Opiate dependence: Status: Chronic Assessment and plan: -continue home dose of suboxone Subjective Subjective Interval history since last seen: Mr. Hernandez is comfortable. Continuing to have SI. Awaiting inpatient psych bed. Exam Narrative Exam Narrative: General: This is a pleasant, obese man in no distress HEENT: Normocephalic, atraumatic CV: RRR Resp: CTAB Abd: soft, NTND MSK: voluntary motion x4 Neuro: awake, alert, no focal deficits Objective Last Vital Signs Temp 36.1 C L 07/16/25 14:55 Pulse 90 07/16/25 14:55 Resp 18 07/16/25 14:55 BP 108/81 07/16/25 14:55 Pulse Ox 92 07/16/25 14:55 PAWSS Have you Been Recently Intoxicated or Drunk Within the Last 30 days?: Yes Have you Ever Experienced Previous Episodes of Alcohol Withdrawal?: Yes Have you ever Experienced Withdrawal Seizures?: Yes Have you ever Experienced Delirium Tremens(DT)s?: Yes Have you ever undergone Alcohol Rehabilitation Treatment (i.e, inpt ot outpatient treatment programs)?: Yes Have you ever Experienced Blackouts?: Yes Have you ever Combined Alcohol with other Downers within the last 90 days?: Yes Have you ever Combined Alcohol with any other Substance of Abuse during the last 90 days?: Yes Positive Blood Alcohol level on Presentation? [PCS.BAL]: Yes Evidence of Increased Autonomic Activity (i.e. HR>120, tremor, sweating, agitation, nausea)?: Yes Result: 10 VTE Prohylaxis Risk Level: Low Risk Contraindications: None Prophylaxis: Mechanical and Patient ambulatory Time Spent with Patient Time Spent with Patient: 25-34 minutes Time was spent: preparing to see the patient(eg.review tests), obtaining and/or reviewing separately otained hiistory, ordering medications,tests, procedures, referring, communicating with other health child care coordinator, indepentently interpreting results, counseling the patient and care coordination
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
[2025-07-16 18:49] VITALS: BP 120/62; PULSE 60; RESP 16; TEMP 36.6; O2SAT 97
[2025-07-16] MEDS: QUEtiapine 100 MG TAB 200 MG PO (20:48)
[2025-07-16 22:09] VITALS: BP 104/65; PULSE 90; RESP 16; TEMP 36.2; O2SAT 91
[2025-07-17 07:34] VITALS: BP 124/83; PULSE 82; RESP 16; TEMP 37.2; O2SAT 91
[2025-07-17] MEDS: Tiotropium Bromide-Respimat 10 PUFF INH 2 PUFF IH (08:24)
[2025-07-17] MEDS: Budesonide/Formoterol 80/4.5 6.9 GM 60 PUFF INH IH ×2 (08:24→20:24)
--- NOTE | 2025-07-17 08:33 | PDOC.CMSAFE ---
Date of service: 07/17/25 Time of Service: 08:33 Care Management Safety Plan Status Status: Voluntary Reason for Wait Reason for Wait: Inpatient Admission Safety Plan Safety Plan: VOLUNTARY FOR INPATIENT PSYCHIATRIC STABILIZATION.? Patient is appropriate in all interactions since arriving at [facility]; Pt has demonstrated appropriate coping and communication skills, has articulated his needs and concerns and is fully engaged during staff interactions. Safety plan has been established with patient, and care team, to adhere to patient goals, identify restrictions based on behavioral status, address nutrition, and determine allowed personal belongings, tools for hygiene and personal care. Determine level of activity including ambulation, level of supervision, visitors, and determine privileges based on behaviors and level of engagement by patient. SAFETY PLAN: 1. Will remain on suicide precautions, in paper clothes 2. Will remain in room under direct supervision of one-on-one staff at all times provided by [employer]; RADHA, REMOTE INPATIENT CODER systematic theology professor. May ambulate in the halls with escort. 3. May have paper cups, plates, finger foods as well as a cardboard spoon with which to eat meals. 4. Follow [facility] Management of the Admitted Behavioral Health Patient policy. 5. Comfort bath system, shower permitted with escort at RN discretion. May shower without direct supervision. 6. Personal belongings-soft items permitted at RN discretion. 7. Visitors-none at this time. 8. Activities: soft cart items approved per RN discretion. 9.? Bathroom privileges without restriction in his room.. 10. Phone: limited to cordless phone at RN discretion. Due to VOLUNTARY status, if patient wishes to leave [facility], staff will contact [facility] Crisis Screener ([phone]) and On-Call Certified Composites Technician ([phone]) as soon as possible. In the event of elopement, notify [facility] Police ([phone]). Patient is currently voluntarily at [facility] and seeking inpatient admission when a bed becomes available. [facility] Frontline Application Systems Engineer will continue seeking placement. Please contact the Failure Analysis Technician Certified Composites Technician ([phone]) and [facility] Application Systems Engineer ([phone]) for any needed changes in the Safety Plan. Safety plan has been provided to interdepartmental care team.
[2025-07-17] MEDS: Enoxaparin 40 MG/0.4 ML SYR SC (08:38)
[2025-07-17] MEDS: Normal Saline Flush 10 ML SYR IVP ×2 (08:38→21:50)
[2025-07-17] MEDS: Nicotine 21 MG/24 HR PATCH TD ×2 (08:38→14:40)
[2025-07-17] MEDS: Furosemide 40 MG TAB PO (08:40)
[2025-07-17] MEDS: Escitalopram 20 MG TAB PO (08:40)
[2025-07-17] MEDS: Buprenorphine/Naloxone 8 mg/2 mg FILM 3 EACH SL (08:40)
[2025-07-17] MEDS: Carvedilol 3.125 MG TAB PO ×2 (08:40→21:49)
[2025-07-17] MEDS: Gabapentin 600 MG TAB PO ×3 (08:40→21:49)
[2025-07-17] MEDS: Thiamine 100 MG TAB PO (08:40)
[2025-07-17] MEDS: Multivitamin TAB 1 TAB PO (08:40)
[2025-07-17] MEDS: Folic Acid 1 MG TAB PO (08:40)
[2025-07-17] MEDS: hydrOXYzine HCL 25 MG TAB PO ×3 (08:48→21:49)
[2025-07-17] MEDS: LORazepam 0.5 MG TAB PO ×3 (08:48→21:49)
[2025-07-17] MEDS: cloNIDine 0.1 MG TAB PO ×3 (08:48→21:49)
[2025-07-17 12:17] VITALS: BP 115/69; PULSE 84; RESP 17; TEMP 35.5; O2SAT 92
--- NOTE | 2025-07-17 13:46 | PDOC.MHPN2 ---
Date of service: 07/17/25 Time of Service: 08:10 Mental Health Emergency Note Release [facility] release signed:: Yes Reason for Visit Mr Hernandez is a 50 year old single male who resides in [facility]. The client reports that his anxiety starts to spike as his day increases. The client reports that he is still feeling passively suicidal. The client reports that sleep has been disrupted due to anxiety. The client reports that he is eating and drinking coffee. The client reports that he wants in patient treatment to help with his anxiety and passive suicidal ideation. The client discussed how anxiety shows up in his system. The client reports that movement helps with reducing his anxiety. In the last 2 weeks has the pt presented for ES prior to today?: No CALM/Risk Level Does risk to harm exist?: No Asssessment/Mental Status Appearance: Unremarkable Attitude: Friendly Behavior: Unremarkable Speech: Normal Affect: Normal Mood: Euthymic Thought process: Unremarkable Hallucinations: No evidence Delusions: No evidence Attention: Unremarkable Perception: Not impaired Orientation: Fully orientated Memory: Intact Insight: Fair Judgement: Fair Neurovegetative Symptoms Sleep: Decrease Appetitie: No change Interests: No change Energy: No change Libido: No change Plan/Disposition Recommended Disposition: Hospitalization facilities contacted. Plan: The client is currently waiting in [facility] for in patient treatment. Reports/communication Outcome discussed with: ED/Personnel
[2025-07-17 14:56] VITALS: BP 125/86; PULSE 83; RESP 18; TEMP 35.8; O2SAT 95
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
--- NOTE | 2025-07-17 16:48 | W.PM.PROGNOT ---
Date of Service Date of service: 07/17/25 Time of Service: 08:00 Assessment and Plan Assessment and plan (1) Depression with suicidal ideation: Status: Acute Assessment and plan: Active ideation without plan Awaiting inpatient psychiatric placement Continue 1-1 sitter Appreciate [facility] care (2) Alcohol withdrawal: Status: Resolved Assessment and plan: CIWA scores < 5 last 24 hrs, stopped phenobarbital Continue prn benzodiazepines (3) UTI (urinary tract infection): Status: Ruled-out Assessment and plan: Asymptomatic bacteriuria, discontinued abx (4) Internal derangement of right knee: Status: Chronic Assessment and plan: Patient reports chronic knee problems, keeping him from being able to work Brace placed in ED PT has cleared him (5) Lactic acidosis: Status: Resolved Assessment and plan: -Initially elevated, now improved 4.0>2.6 after 1 L IV LR No further monitoring (6) Hypomagnesemia: Status: Resolved Assessment and plan: -initial 1.4, IV magnesium 2 g given in ED Rechecked Jul 15, now within normal limits (7) Severe chronic obstructive pulmonary disease: Status: Acute Assessment and plan: -no signs of acute exacerbation at this time -continue home medication regimen (symbicort, albuterol PRN) (8) Type 2 diabetes mellitus: Status: Acute Assessment and plan: A1C's trending up in Apr 2025, 6.9->7.4 Patient not taking home metformin UA glucose > 300 on arrival A1C is currently 6.2, fairly good control with on/off oral regimen Continue home metformin (9) Benign essential hypertension: Status: Acute Assessment and plan: -hypertensive in ED likely secondary to ETOH withdrawal -continue home dose of antihypertensive (carvedilol 3.125 mg BID) Off telemetry (10) Liver disease, alcoholic: Status: Acute Assessment and plan: -ETOH cessation -LFTs unchanged from baseline (AST 57, ALT 39, Alk Phosp 88, albumin 4.0), coags elevated per baseline (INR 1.4, PT 13.8) -pt to continue f/u outpatient (11) DELLA (obstructive sleep apnea): Status: Chronic Assessment and plan: -supplemental O2 and CPAP support while sleeping (12) Opiate dependence: Status: Chronic Assessment and plan: -continue home dose of suboxone Subjective Subjective Interval history since last seen: Mr. Hernandez continues to have anxiety and SI without plan. Awaiting inpatient psych bed. Exam Narrative Exam Narrative: General: This is a pleasant, obese man in no distress HEENT: Normocephalic, atraumatic CV: RRR Resp: CTAB Abd: soft, NTND MSK: voluntary motion x4 Neuro: awake, alert, no focal deficits Objective Last Vital Signs Temp 35.8 C L 07/17/25 14:56 Pulse 83 07/17/25 14:56 Resp 18 07/17/25 14:56 BP 125/86 07/17/25 14:56 Pulse Ox 95 07/17/25 14:56 PAWSS Have you Been Recently Intoxicated or Drunk Within the Last 30 days?: Yes Have you Ever Experienced Previous Episodes of Alcohol Withdrawal?: Yes Have you ever Experienced Withdrawal Seizures?: Yes Have you ever Experienced Delirium Tremens(DT)s?: Yes Have you ever undergone Alcohol Rehabilitation Treatment (i.e, inpt ot outpatient treatment programs)?: Yes Have you ever Experienced Blackouts?: Yes Have you ever Combined Alcohol with other Downers within the last 90 days?: Yes Have you ever Combined Alcohol with any other Substance of Abuse during the last 90 days?: Yes Positive Blood Alcohol level on Presentation? [PCS.BAL]: Yes Evidence of Increased Autonomic Activity (i.e. HR>120, tremor, sweating, agitation, nausea)?: Yes Result: 10 VTE Prohylaxis Risk Level: Low Risk Contraindications: None Prophylaxis: Mechanical and Patient ambulatory Time Spent with Patient Time Spent with Patient: 25-34 minutes Time was spent: preparing to see the patient(eg.review tests), obtaining and/or reviewing separately otained hiistory, ordering medications,tests, procedures, referring, communicating with other health care director, indepentently interpreting results, counseling the patient and care coordination
[2025-07-17] MEDS: metFORMIN C.R. 500 MG TABCR PO (16:51)
--- NOTE | 2025-07-17 18:04 | PDOC.CMPRO ---
Date of service: 07/17/25 Time of Service: 13:00 Care Management Progress Note Progress Note Text Progress Note Text: Chris had just taken a shower when CM met with him today. He was feeling a bit better after that. He is still waiting for an inpatient psychiatric bed. He seems to be really ready to get some inpatient treatment for his depression, and is truly hoping that will help his drinking as well. CM huddled with [facility] worker after his visit with Chris today. CM sent clinicals to [facility] today, so they could be sent to inquiring hospitals. [facility] was told that [facility] declined. Discharge Potential Discharge Needs: PCP F/U Appt and Other (inpatient psych bed) Anticipated Barriers to Discharge: Bed availability Patient/Family Education Needs: Review discharge instructions, discuss Ask Me Three Transportation: Other (EMS or [facility]) Plan: Chris will transport to an inpatient psychiatric facility when a bed is available to him. Transport will be arranged by [facility]. Status Status: Voluntary Reason for Wait: Inpatient Admission Social Determinants of Health Screening Social Determinants of health last assessed in clinic: 07/16/25 Will the Patient Participate in the Screening?: Unable to obtain Do you worry about having a steady place to live?: no Problems where you live: no known problems In the past 12 months, have you had to go without electric, gas, oil or water in your home?: no Has lack of transportation kept you from medical appointments or from doing things needed for daily living?: no Has anyone in your life made you feel unsafe or unsupported?: no How hard is it for you to pay for the very basics like food, housing, medical care, and heating? Would you say it is:: Not hard at all Do you want help finding or keeping work or a job?: I do not need or want help If for any reason you need help with day-to-day activities such as bathing, preparing meals, shopping, managing finances, etc., do you get the help you need?: I don?t need any help How often do you feel lonely or isolated from those around you?: Never Do you speak a language other than Guyanese at home?: No Does the patient want assistance with any of the above?: No Comments: patient may be interested in an inpatient rehabilitation.
[2025-07-17 19:57] VITALS: BP 109/70; PULSE 94; RESP 19; TEMP 36.1; O2SAT 96
[2025-07-17 20:40] VITALS: O2SAT 95
[2025-07-17] MEDS: QUEtiapine 100 MG TAB 200 MG PO (21:48)
[2025-07-17] MEDS: Acetaminophen 325 MG TAB 650 MG PO (21:49)
[2025-07-18] VITALS (7 sets, daily range): BP systolic 100–129; BP diastolic 59–88; PULSE 72–88; RESP 16–22; TEMP 35.2–37.1; O2SAT 90–95
[2025-07-18] MEDS: Buprenorphine/Naloxone 8 mg/2 mg FILM 3 EACH SL (08:13)
[2025-07-18] MEDS: hydrOXYzine HCL 25 MG TAB PO ×4 (08:14→22:46)
[2025-07-18] MEDS: cloNIDine 0.1 MG TAB PO ×4 (08:14→22:46)
[2025-07-18] MEDS: Thiamine 100 MG TAB PO (08:14)
[2025-07-18] MEDS: Furosemide 40 MG TAB PO (08:15)
[2025-07-18] MEDS: Gabapentin 600 MG TAB PO ×3 (08:15→22:45)
[2025-07-18] MEDS: Escitalopram 20 MG TAB PO (08:15)
[2025-07-18] MEDS: Folic Acid 1 MG TAB PO (08:15)
[2025-07-18] MEDS: Multivitamin TAB 1 TAB PO (08:16)
[2025-07-18] MEDS: Enoxaparin 40 MG/0.4 ML SYR SC (08:16)
[2025-07-18] MEDS: Carvedilol 3.125 MG TAB PO ×2 (08:16→20:35)
[2025-07-18] MEDS: LORazepam 0.5 MG TAB PO ×4 (08:17→22:44)
[2025-07-18] MEDS: Nicotine 21 MG/24 HR PATCH TD (08:17)
[2025-07-18] MEDS: Normal Saline Flush 10 ML SYR IVP ×2 (08:18→20:36)
[2025-07-18] MEDS: Tiotropium Bromide-Respimat 10 PUFF INH 2 PUFF IH (08:37)
[2025-07-18] MEDS: Budesonide/Formoterol 80/4.5 6.9 GM 60 PUFF INH IH ×2 (08:37→20:30)
--- NOTE | 2025-07-18 08:46 | PDOC.CMSAFE ---
Date of service: 07/18/25 Time of Service: 08:46 Care Management Safety Plan Status Status: Voluntary Reason for Wait Reason for Wait: Inpatient Admission Safety Plan Safety Plan: Safety Plan: VOLUNTARY FOR INPATIENT PSYCHIATRIC STABILIZATION.? Patient is appropriate in all interactions since arriving at [facility]; Pt has demonstrated appropriate coping and communication skills, has articulated his needs and concerns and is fully engaged during staff interactions. Safety plan has been established with patient, and care team, to adhere to patient goals, identify restrictions based on behavioral status, address nutrition, and determine allowed personal belongings, tools for hygiene and personal care. Determine level of activity including ambulation, level of supervision, visitors, and determine privileges based on behaviors and level of engagement by patient. SAFETY PLAN: 1. Will remain on suicide precautions, in paper clothes 2. Will remain in room under direct supervision of one-on-one staff at all times provided by [employer]; RADHA, ASPHALT SURFACE HEATER OPERATOR poacher wringer operator. May ambulate in the halls with escort. 3. May have paper cups, plates, finger foods as well as a cardboard spoon with which to eat meals. 4. Follow [facility] Management of the Admitted Behavioral Health Patient policy. 5. Comfort bath system, shower permitted with escort at RN discretion. May shower without direct supervision - Does not need someone in the shower room, may wait outside the room. 6. Personal belongings-soft items permitted at RN discretion. 7. Visitors-none at this time. 8. Activities: soft cart items approved per RN discretion. 9.? Bathroom privileges without restriction in his room.. 10. Phone: limited to cordless phone at RN discretion. Due to VOLUNTARY status, if patient wishes to leave [facility], staff will contact [facility] Crisis Screener ([phone]) and On-Call Specialty Development Consultant ([phone]) as soon as possible. In the event of elopement, notify [facility] Police ([phone]). Patient is currently voluntarily at [facility] and seeking inpatient admission when a bed becomes available. [facility] Frontline Spice Mixer will continue seeking placement. Please contact the Transportation Dispatch Manager Specialty Development Consultant ([phone]) and [facility] Spice Mixer ([phone]) for any needed changes in the Safety Plan. Safety plan has been provided to interdepartmental care team.
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
--- NOTE | 2025-07-18 16:21 | PDOC.MHPN2 ---
Date of service: 07/18/25 Time of Service: 08:30 Mental Health Emergency Note Release [facility] release signed:: Yes Reason for Visit Mr Hernandez is a 50 year old single male who resides in [facility] [place]. The client reports that he is able to sleep some after taking anti anxiety medication but that he wakes up every couple hours. The client denies HI and NSSI. The client reports still experiencing high levels of anxiety and passive suicidal ideation. The client denies intent or plan. The client reports that he is wanting to focus on his mental health treatment and work on the racing thoughts. The client reports that sometimes it is hard to get the thoughts to stop. The client reports that is still wanting to go for treatment. In the last 2 weeks has the pt presented for ES prior to today?: No CALM/Risk Level Does risk to harm exist?: No Asssessment/Mental Status Appearance: Unremarkable Attitude: Friendly Behavior: Unremarkable Speech: Normal Affect: Normal Mood: Euthymic Thought process: Unremarkable Hallucinations: No evidence Delusions: No evidence Attention: Unremarkable Perception: Not impaired Orientation: Fully orientated Memory: Intact Insight: Fair Judgement: Fair Neurovegetative Symptoms Sleep: Decrease Appetitie: No change Interests: No change Energy: No change Libido: Not applicable Additional Issues: Assaultive/Threatening Behavior: No Medical Concerns: No Client engaged in active self harm w/weapon: No Threatening to run away: No Child reported abuse/neglect: No Voluntarily presenting for services: Yes Domestic violence is a concern: No Extreme Psychosis or extreme behavior is present: No Impression Mr Hernandez is a 50 year old single male who resides in [facility] [place]. The client reports that he is able to sleep some after taking anti anxiety medication but that he wakes up every couple hours. The client denies HI and NSSI. The client reports still experiencing high levels of anxiety and passive suicidal ideation. The client denies intent or plan. The client reports that he is wanting to focus on his mental health treatment and work on the racing thoughts. The client reports that sometimes it is hard to get the thoughts to stop. The client reports that is still wanting to go for treatment. Plan/Disposition Recommended Disposition: Crisis bed, facility contacted. Status of Crisis Bed acceptance: Accepted/transfer pending. Plan: The client is currently waiting at [facility] Reports/communication Outcome discussed with: ED/Personnel
--- NOTE | 2025-07-18 16:40 | PGE_ITS ---
Date of Service Date of service: 07/18/25 Time of Service: 08:00 Assessment and Plan Assessment and plan (1) Depression with suicidal ideation: Status: Acute Assessment and plan: Active ideation without plan Awaiting inpatient psychiatric placement Continue 1-1 sitter Appreciate [facility] care (2) Alcohol withdrawal: Status: Resolved Assessment and plan: CIWA scores < 5 last 24 hrs, stopped phenobarbital Continue prn benzodiazepines (3) UTI (urinary tract infection): Status: Ruled-out Assessment and plan: Asymptomatic bacteriuria, discontinued abx (4) Internal derangement of right knee: Status: Chronic Assessment and plan: Patient reports chronic knee problems, keeping him from being able to work Brace placed in ED PT has cleared him (5) Lactic acidosis: Status: Resolved Assessment and plan: -Initially elevated, now improved 4.0>2.6 after 1 L IV LR No further monitoring (6) Hypomagnesemia: Status: Resolved Assessment and plan: -initial 1.4, IV magnesium 2 g given in ED Rechecked Jul 15, now within normal limits (7) Severe chronic obstructive pulmonary disease: Status: Acute Assessment and plan: -no signs of acute exacerbation at this time -continue home medication regimen (symbicort, albuterol PRN) (8) Type 2 diabetes mellitus: Status: Acute Assessment and plan: A1C's trending up in Apr 2025, 6.9->7.4 Patient not taking home metformin UA glucose > 300 on arrival A1C is currently 6.2, fairly good control with on/off oral regimen Continue home metformin (9) Benign essential hypertension: Status: Acute Assessment and plan: -hypertensive in ED likely secondary to ETOH withdrawal -continue home dose of antihypertensive (carvedilol 3.125 mg BID) Off telemetry (10) Liver disease, alcoholic: Status: Acute Assessment and plan: -ETOH cessation -LFTs unchanged from baseline (AST 57, ALT 39, Alk Phosp 88, albumin 4.0), coags elevated per baseline (INR 1.4, PT 13.8) -pt to continue f/u outpatient (11) DELLA (obstructive sleep apnea): Status: Chronic Assessment and plan: -supplemental O2 and CPAP support while sleeping (12) Opiate dependence: Status: Chronic Assessment and plan: -continue home dose of suboxone Subjective Subjective Interval history since last seen: Mr. Hernandez is comfortable, feeling better, hoping to go to facility to support his mental health. Exam Narrative Exam Narrative: General: This is a pleasant, obese man in no distress HEENT: Normocephalic, atraumatic CV: RRR Resp: CTAB Abd: soft, NTND MSK: voluntary motion x4 Neuro: awake, alert, no focal deficits Objective Last Vital Signs Temp 35.2 C L 07/18/25 15:45 Pulse 85 07/18/25 15:45 Resp 18 07/18/25 15:45 BP 129/85 07/18/25 15:45 Pulse Ox 92 07/18/25 15:45 PAWSS Have you Been Recently Intoxicated or Drunk Within the Last 30 days?: Yes Have you Ever Experienced Previous Episodes of Alcohol Withdrawal?: Yes Have you ever Experienced Withdrawal Seizures?: Yes Have you ever Experienced Delirium Tremens(DT)s?: Yes Have you ever undergone Alcohol Rehabilitation Treatment (i.e, inpt ot outpatient treatment programs)?: Yes Have you ever Experienced Blackouts?: Yes Have you ever Combined Alcohol with other Downers within the last 90 days?: Yes Have you ever Combined Alcohol with any other Substance of Abuse during the last 90 days?: Yes Positive Blood Alcohol level on Presentation? [PCS.BAL]: Yes Evidence of Increased Autonomic Activity (i.e. HR>120, tremor, sweating, agitation, nausea)?: Yes Result: 10 VTE Prohylaxis Risk Level: Low Risk Contraindications: None Prophylaxis: Mechanical and Patient ambulatory Time Spent with Patient Time Spent with Patient: 25-34 minutes Time was spent: preparing to see the patient(eg.review tests), obtaining and/or reviewing separately otained hiistory, ordering medications,tests, procedures, referring, communicating with other health transitions rn care coordinator, indepentently interpreting results, counseling the patient and care coordination
[2025-07-18 17:02] LABS: Glucose Negative (Negative)
[2025-07-18 17:09] LABS: C & S Indicated? No; WBC Negative HPF (0-5)
[2025-07-18 17:22] LABS: Cannabinoids THC Negative (Negative)
[2025-07-18 17:32] LABS: COVID-19 PCR Negative (Negative)
--- NOTE | 2025-07-18 17:36 | CMPROGNOTE_ITS ---
Date of service: 07/18/25 Time of Service: 09:00 Care Management Progress Note Progress Note Text Progress Note Text: Chris has been very pleasant throughout the day. He was seen ambulating in the hallways with his 1:1, and was very pleased to get out of his room. Chris will be transferring to the CareBed tomorrow, while he waits for and inpatient psych bed. Chris is very aware of this plan, and is in full agreement. The Care Bed does require medical clearance, and his UA/UDS has been sent to the lab, he will also require a Covid test. There is a form that is required for medical clearance that will need to be sent to the care bed. Please call [phone] to ensure the best way to send the clearance, or if it can just be sent with Chris. CM discussed all of this with his [facility] worker. Discharge Potential Discharge Needs: Other (care bed) Anticipated Barriers to Discharge: None Identified Patient/Family Education Needs: Review discharge instructions, discuss Ask Me Three Transportation: Facility Transport (provided by the [facility] bed) Plan: Chris will transfer to the [facility] Care Bed tomorrow. He will hold there and receive treatment while he is waiting for an inpatient psychiatric bed. Chris will transport with the Care Bed Team . CM will continue to follow through discharge. Status Status: Voluntary Reason for Wait: Community Placement ([facility] Care Bed) Social Determinants of Health Screening Social Determinants of health last assessed in clinic: 07/16/25 Will the Patient Participate in the Screening?: Unable to obtain Do you worry about having a steady place to live?: no Problems where you live: no known problems In the past 12 months, have you had to go without electric, gas, oil or water in your home?: no Has lack of transportation kept you from medical appointments or from doing things needed for daily living?: no Has anyone in your life made you feel unsafe or unsupported?: no How hard is it for you to pay for the very basics like food, housing, medical care, and heating? Would you say it is:: Not hard at all Do you want help finding or keeping work or a job?: I do not need or want help If for any reason you need help with day-to-day activities such as bathing, preparing meals, shopping, managing finances, etc., do you get the help you need?: I don?t need any help How often do you feel lonely or isolated from those around you?: Never Do you speak a language other than [place] at home?: No Does the patient want assistance with any of the above?: No Comments: patient may be interested in an inpatient rehabilitation.
[2025-07-18] MEDS: metFORMIN C.R. 500 MG TABCR PO (18:21)
[2025-07-18] MEDS: QUEtiapine 100 MG TAB 200 MG PO (22:45)
[2025-07-19 03:35] VITALS: BP 117/73; PULSE 83; RESP 18; TEMP 35.9; O2SAT 92
[2025-07-19 06:18] VITALS: BP 117/73; PULSE 83; RESP 18; TEMP 35.9; O2SAT 92
[2025-07-19] MEDS: LORazepam 0.5 MG TAB PO (08:08)
[2025-07-19] MEDS: Multivitamin TAB 1 TAB PO (08:09)
[2025-07-19] MEDS: Gabapentin 600 MG TAB PO (08:10)
[2025-07-19] MEDS: Folic Acid 1 MG TAB PO (08:10)
[2025-07-19] MEDS: Carvedilol 3.125 MG TAB PO (08:11)
[2025-07-19] MEDS: cloNIDine 0.1 MG TAB PO (08:11)
[2025-07-19] MEDS: Furosemide 40 MG TAB PO (08:11)
[2025-07-19] MEDS: Escitalopram 20 MG TAB PO (08:12)
[2025-07-19] MEDS: Enoxaparin 40 MG/0.4 ML SYR SC (08:12)
[2025-07-19] MEDS: Thiamine 100 MG TAB PO (08:12)
[2025-07-19] MEDS: hydrOXYzine HCL 25 MG TAB PO (08:12)
[2025-07-19] MEDS: Nicotine 21 MG/24 HR PATCH TD (08:13)
--- NOTE | 2025-07-19 09:09 | CMDISCH_ITS ---
Date of service: 07/19/25 Time of Service: 09:59 LACE Index Scoring Tool Questions: Length of Stay (in days): 7 - 13 Was the patient admitted via the E.D.?: Yes Comorbidities: Diabetes w/o Complication E.D. Visits: 4 Answers: Total Score: 13 Risk of Readmission: High Risk Care Management Discharge Plan Reason for Hospitalization: ETOH withdrawal Discharge Plan: Chris will transfer to the [facility] Care Bed today. He will hold there and receive treatment while he is waiting for an inpatient psychiatric bed. Chris will transport with the Care Bed Team. Medlist and other requested forms have been sent with Chris in the discharge packet. The care bed will offer transportation to picker/puller prescriptions. Patient/Family Education Needs: Review of discharge instructions, activity, limitations, and plan of care. Discuss ask me three SDOH Health Related Social Needs: Health related social needs transpo insecurity house/e con circumstance Health related social needs details care management
[2025-07-19] MEDS: Budesonide/Formoterol 80/4.5 6.9 GM 60 PUFF INH IH (09:14)
[2025-07-19] MEDS: Tiotropium Bromide-Respimat 10 PUFF INH 2 PUFF IH (09:14)
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
== END 2025-07-19 10:21 | disposition other institution (70) | DRG 897 ==
LOC: ER 13:34 → ICU 13:48 → MS 07-15 19:01
PROVIDERS: Admitting Provider Family Medicine; Emergency Provider Emergency Medicine; PCP Registered Nurse; Responsible Provider Family Medicine; Visit Provider Family Medicine
DX: F10.239 Alcohol dependence with withdrawal, unspecified (principal); E87.20 Acidosis, unspecified; F11.20 Opioid dependence, uncomplicated; R45.851 Suicidal ideations; F33.9 Major depressive disorder, recurrent, unspecified; F13.20 Sedative, hypnotic or anxiolytic dependence, uncomplicated; E83.42 Hypomagnesemia; J44.9 Chronic obstructive pulmonary disease, unspecified; E11.9 Type 2 diabetes mellitus without complications; K70.30 Alcoholic cirrhosis of liver without ascites; G47.33 Obstructive sleep apnea (adult) (pediatric); F17.210 Nicotine dependence, cigarettes, uncomplicated; E53.8 Deficiency of other specified B group vitamins; F41.8 Other specified anxiety disorders; V89.2XXA Person injured in unspecified motor-vehicle accident, traffic, initial encounter; M25.461 Effusion, right knee; S40.811A Abrasion of right upper arm, initial encounter; F10.229 Alcohol dependence with intoxication, unspecified; Y90.6 Blood alcohol level of 120-199 mg/100 ml; Z59.82 Transportation insecurity; Z59.9 Problem related to housing and economic circumstances, unspecified; Z91.51 Personal history of suicidal behavior
CPT/HCPCS: 00123; 36415; 73562; 74177; 80048; 80053; 80307; 83690; 85027; 87077; 87635; 94640; 96127; 96365; 96366; 96367; 96375; 97161; 99285; J1650; 70450; 71260; 72125; 80320; 81003; 81015; 83036; 83605; 83735; 84484; 85025; 85610; 85730; 87086; 87186; 94664; 94760; 99223; 99231; 99233; 99238; J0696; J2405; J2560; J3475